=== PATIENT | female | born 1965 | race Caucasian/White ===

== ENCOUNTER 2018-04-22 11:36 | Outpatient (CLI) | payer MEDICARE ==
--- NOTE | 2018-04-22 15:05 | XRAY Report ---
Reason: KNEE JOINT PAIN, RIGHT Procedure Date: 04/22/2018 Accession Number: [id number] / [id number] Procedure: XR - Knee 2 View RT CPT Code: FULL RESULT: EXAM: RIGHT KNEE RADIOGRAPHY EXAM DATE: 04/22/2018 12:12 PM. CLINICAL HISTORY: Knee joint pain, right. COMPARISON: None. TECHNIQUE: 2 views. FINDINGS: Bones: Orthopedic screws are seen at the distal insertion of the inferior patellar tendon in the tibia. The bones are qualitatively osteopenic; this limits evaluation for underlying fractures or masses. No fracture is seen. Joints: Moderate to severe narrowing of the medial femorotibial compartment. Mild narrowing of the lateral femorotibial compartment. Small joint effusion. Soft Tissues: Normal. No soft tissue swelling. IMPRESSION: Degenerative changes. RADIA
== END 2018-04-22 11:37 | disposition home or self-care (01) ==
LOC: DI 11:36
PROVIDERS: ATTEND Family Medicine
DX: M17.11 Unilateral primary osteoarthritis, right knee (principal)

== ENCOUNTER 2018-11-03 11:22 | Outpatient (CLI) | payer MEDICARE ==
--- NOTE | 2018-11-04 12:55 | XRAY Report ---
Reason: CONSTIPATION Procedure Date: 11/03/2018 Accession Number: [id number] / [id number] Procedure: XRN - Abdomen Acute CPT Code: FULL RESULT: EXAM: ABDOMINAL SERIES AND PA CHEST EXAM DATE: 11/03/2018 11:46 AM. CLINICAL HISTORY: CONSTIPATION. COMPARISON: None. TECHNIQUE: 2 views abdomen and 1 view chest. FINDINGS: CHEST: Lungs/Pleura: No focal opacities. No effusion or pneumothorax. Elevated right hemidiaphragm. Mediastinum: Within exam limitations, cardiomediastinal contour is normal. ABDOMEN: Bowel Gas Pattern: Within normal limits. No dilated loops or abnormal fluid levels. Free Air: None. Other: None. IMPRESSION: Normal abdominal series (including 1-view chest). RADIA
== END 2018-11-03 11:23 | disposition home or self-care (01) ==
LOC: DI.N 11:22
PROVIDERS: ATTEND Family Medicine
DX: K59.00 Constipation, unspecified (principal)
CPT/HCPCS: 36415; 74022; 80053; 82150; 83690; 85025

== ENCOUNTER 2018-11-03 12:03 | Outpatient (CLI) | payer MEDICARE ==
[2018-11-03 18:31] LABS: BASOPHILS % (AUTO) 0.4 %; EOSINOPHILS # (AUTO) 0.1 10^3/uL (0.0-0.7); EOSINOPHILS % (AUTO) 2.2 %; HGB - HEMOGLOBIN 12.6 g/dL (12.0-16.0); LYMPHOCYTES % (AUTO) 17.7 %; MEAN CORPUSCULAR HEMOGLOBIN 27.8 pg (27.0-31.0); MEAN CORPUSCULAR HGB CONC 31.5 g/dL (32.0-36.0); MEAN CORPUSCULAR VOLUME 88.3 fL (81.0-99.0); MEAN PLATELET VOLUME 12.8 fL (7.9-10.8); MONOCYTES # (AUTO) 0.6 10^3/uL (0.0-1.0); MONOCYTES % (AUTO) 9.9 %; NEUTROPHILS # (AUTO) 3.8 10^3/uL (1.5-6.6); NEUTROPHILS % (AUTO) 68.2 %; PLT - PLATELET COUNT 160 10^3/uL (130-450); RED BLOOD COUNT 4.53 10^6/uL (4.20-5.40); RED CELL DISTRIBUTION WIDTH 14.2 % (12.0-15.0); WHITE BLOOD COUNT 5.5 x10^3/uL (4.8-10.8)
[2018-11-03 19:02] LABS: ALBUMIN 3.6 g/dL (3.2-5.5); BILIRUBIN,TOTAL 0.6 mg/dL (0.2-1.0); CALCIUM 8.9 mg/dL (8.5-10.3); CREATININE 0.9 mg/dL (0.4-1.0); TOTAL PROTEIN 7.2 g/dL (6.7-8.2)
== END 2018-11-03 12:10 | disposition home or self-care (01) ==
LOC: LAB.N 12:03
PROVIDERS: ATTEND Family Medicine
DX: K59.00 Constipation, unspecified (principal)
CPT/HCPCS: 36415; 80053; 82150; 83690; 85025

== ENCOUNTER 2019-07-28 14:10 | Outpatient (CLI) | payer MEDICARE | END 2019-07-28 14:11 | disposition critical access hospital (66) | LOC: EMS 14:10 | PROVIDERS: ATTEND Surgery | DX: M25.561 Pain in right knee (principal); M25.572 Pain in left ankle and joints of left foot; W10.9XXA Fall (on) (from) unspecified stairs and steps, initial encounter; Y92.009 Unspecified place in unspecified non-institutional (private) residence as the place of occurrence of the external cause | CPT/HCPCS: A0425; A0427 ==

== ENCOUNTER 2019-07-28 14:27 | Emergency (ER) | payer MEDICARE ==
[2019-07-28] MEDS ORDERED: HYDROmorphone 1 MG/ML CARPUJECT IVP STA (14:33)
--- NOTE | 2019-07-28 14:35 | ED Physician Documentation ---
PD HPI LOWER EXT INJURY - Stated complaint Stated Complaint: FALL - History obtained from History obtained from: Patient, EMS - History of Present Illness PD HPI LOW EXT INJURY LOCATION: Other (She had a trip and fall down stairs with only lower extremity injuries. She has severe pain in the right worse than the left knee and the left ankle. No injuries above the waist. She is sure she did not hit her head. 150 mcg of fentanyl on the way here with improvement but pain is still pretty bad.) Review of Systems Ten Systems: 10 systems reviewed and negative Constitutional: reports: Reviewed and negative Throat: reports: Reviewed and negative Cardiac: reports: Reviewed and negative Respiratory: reports: Reviewed and negative PD PAST MEDICAL HISTORY - Past Medical History Psych: Depression - Present Medications Home Medications: Ambulatory Orders Medication Instructions Recorded Confirmed Omeprazole [PriLOSEC] 20 mg PO DAILY 08/20/12 07/28/19 Tamoxifen [(None)] 20 mg PO DAILY 08/20/12 07/28/19 Buspirone HCl 30 mg PO BID 07/28/19 07/28/19 Cholecalciferol (Vitamin D3) 2,000 unit PO DAILY 07/28/19 07/28/19 [Vitamin D] Cranberry Fruit Extract [Cran-Max] 500 mg PO DAILY 07/28/19 07/28/[address] [Voltaren] 75 mg PO BIDWM 07/28/19 07/28/19 Oxycodone HCl/Acetaminophen 1 - 2 each PO Q6H PRN #20 tablet 07/28/19 [Percocet 5-325 mg Tablet] Wheelchair 1 udtab TD ONCE #1 07/28/19 buPROPion HCl [Bupropion HCl Sr] 200 mg PO BID 07/28/19 07/28/19 - Allergies Allergies/Adverse Reactions: Allergies Allergy/AdvReac Type Severity Reaction Status Date / Time No Known Drug Allergies Allergy Verified 07/28/19 14:42 - Social History Does the pt smoke?: No Smoking Status: Never smoker Does the pt drink ETOH?: No Does the pt have substance abuse?: No - Immunizations Immunizations are current?: Yes PD ED PE NORMAL - Vitals Vital signs reviewed: Yes - General General: Alert and oriented X 3, No acute distress - HEENT HEENT: PERRL, EOMI - Neck Neck: Supple, no meningeal sign, No bony TTP - Cardiac Cardiac: RRR, No murmur - Respiratory Respiratory: No respiratory distress, Clear bilaterally - Abdomen Abdomen: Non tender - Extremities Extremities: Other (Mild tenderness of the right hip but no pain with range of motion there. Severe tenderness and ecchymosis of the anterior right knee and moderate tenderness of the anterior left knee and ecchymosis as well. Tender over the left lateral malleolus without deformity.) - Neuro Neuro: Alert and oriented X 3, Normal speech Results - Vitals Vitals: Vital Signs - 24 hr 07/28/19 14:34 Temperature 37.4 C Heart Rate 78 Respiratory 20 Rate Blood Pressure 170/78 H O2 Saturation 94 Oxygen O2 Source Room air - Rads (name of study) XR R hip, B knees and L ankle Radiology: EMP read contemporaneously (Comminuted minimally displaced distal fibular fracture with intact alignment of the tibiotalar joint and possible avulsion at the medial malleolus as well.) Procedures - Splint (location) LLE Splint applied by: Tech Type of splint: Fiberglass, Short leg, Posterior Other: Patient tolerated well, No complications, Neurovascular intact PD MEDICAL DECISION MAKING - ED course ED course: 54-year-old woman with a fall down the stairs, clinically worst areas were the right knee and the left ankle. Left ankle has a left fibular fracture, potentially kind of a bimalleolar equivalent with a chip fracture of the medial malleolus. Clinically the hip is not broken, no pain with internal or external rotation. Given her size and the bilateral injuries did not think crutches would work. Spoke with the on-call orthopedist, Dr. Rivera who looked at her x-rays and said ideally she would be nonweightbearing on the left but would not be terrible if she had to bear weight on the left using a walker if other modalities did not work out. Departure - Departure Disposition: 01 Home, Self Care Clinical Impression: Left fibular fracture Qualifiers: Encounter type: initial encounter Fibula location: distal Fracture type: closed Fracture morphology: other fracture Qualified Code(s): S82.832A - Other fracture of upper and lower end of left fibula, initial encounter for closed fracture Contusion of right knee Qualifiers: Encounter type: initial encounter Qualified Code(s): S80.01XA - Contusion of right knee, initial encounter Contusion of left knee Qualifiers: Encounter type: initial encounter Qualified Code(s): S80.02XA - Contusion of left knee, initial encounter Condition: Good Record reviewed to determine appropriate education?: Yes Instructions: ED Fx Lower Ext Follow-Up: [facility] [Provider Group] (Call Wednesday for next appt) Prescriptions: Oxycodone HCl/Acetaminophen [Percocet 5-325 mg Tablet] 1 - 2 each PO Q6H PRN #20 tablet PRN Reason: pain Wheelchair 1 udtab TD ONCE #1 Comments: Keep the splint on and dry, do not remove it. Elevate is much as possible and you can ice through the splint. Return for new or worsening symptoms. The on- call orthopedist felt that ideally you would not walk or bear weight on the left leg but given the other injuries etc., that may not be possible and did not feel like it was the end of the world if you had to put some weight on the left leg using a walker. Follow-up with them next week for further evaluation and treatment. Do not drink or drive while taking narcotic pain medication. Note that many narcotic pain relievers also contain Tylenol/acetaminophen. Pl ease ensure that your total dose of acetaminophen from all sources does not exceed 3 g (3000 mg) per day. You may get constipated while on this medication. Take a stool softener such as Colace twice a day while you are on it. Also add an kcuy-nle-oigkhlk laxative such as senna or MiraLAX on any day that you do not have a bowel movement. If you received a narcotic pain medication or sedative while in the emergency department, do not drive for the next 24 hours.
--- NOTE | 2019-07-28 15:17 | XRAY Report ---
PROCEDURE: Hip w/Pelvis 2-3V RT INDICATIONS: fall, R hip, B knee and L ankle inj TECHNIQUE: AP pelvis with lateral view(s) of the right hip(s). COMPARISON: None. FINDINGS: Bones: Bony detail somewhat obscured by patient body habitus. No fractures or dislocations. Pelvic r ing appears intact. No suspicious bony lesions. Soft tissues: The visualized bowel gas pattern is normal. No suspicious soft tissue calcifications. IMPRESSION: No evidence acute bony abnormality of the pelvis and right hip. Bony detail somewhat obs cured by patient body habitus. If clinical suspicion and/or symptoms persist, further assessment with repeat plain films or advanced imaging (e.g., CT, MRI )may be helpful for further assessment. Reviewed by: Stone Wells MD on 07/28/2019 3:16 PM PDT Approved by: Stone Wells MD on 07/28/2019 3:16 PM PDT Station ID: [id number]
--- NOTE | 2019-07-28 15:17 | XRAY Report ---
PROCEDURE: Ankle 3 View LT INDICATIONS: fall, R hip, B knee and L ankle inj TECHNIQUE: 3 views of the ankle were acquired. COMPARISON: None FINDINGS: Bones: There is a comminuted, minimally displaced spiral fracture of the distal fibula. Tibiotalar camron int space appears within normal limits. There is a small calcification at the distal tip of the media l malleolus. Ankle mortise is normally aligned. No suspicious bony lesions. Soft tissues: Medial and lateral malleoli or edema is present. Achilles tendon appears normal. IMPRESSION: Comminuted, minimally displaced distal fibular fracture with intact alignment at the tib iotalar junction. Questionable avulsion at the medial malleoli or tip is noted. Reviewed by: Jennifer Yepez MD on 07/28/2019 3:16 PM PDT Approved by: Jennifer Yepez MD on 07/28/2019 3:16 PM PDT Station ID: [id number]
--- NOTE | 2019-07-28 15:22 | XRAY Report ---
PROCEDURE: Knee 4 View BILAT INDICATIONS: fall, R hip, B knee and L ankle inj TECHNIQUE: 3 views of the left and right knee(s) were acquired. COMPARISON: None. FINDINGS: Bones: No fractures or dislocations. No suspicious bony lesions. Surgical hardware is noted overly ing the right proximal tibia. Severe bilateral medial compartment changes with prominent periarticula r osteophytes. Moderate bilateral patellofemoral degenerative narrowing is present. Soft tissues: Mild bilateral joint effusions. No suspicious soft tissue calcifications. IMPRESSION: Prominent bilateral degenerative changes as well as mild bilateral effusions. No visuali zed acute fracture or dislocation. However, occult injury cannot be excluded. Recommend short interva l imaging follow-up in 7-10 days as clinically indicated for additional evaluation. Reviewed by: Jennifer Yepez MD on 07/28/2019 3:21 PM PDT Approved by: Jennifer Yepez MD on 07/28/2019 3:21 PM PDT Station ID: [id number]
[2019-07-28] MEDS ORDERED: oxyCODONE 5 MG TABLET PO STA (15:55)
[2019-07-28 16:04] VITALS: BP 172/101
== END 2019-07-28 16:15 | disposition home or self-care (01) ==
LOC: EDUNIT# → ED 14:27
DX: S82.832A Other fracture of upper and lower end of left fibula, initial encounter for closed fracture (principal); S80.02XA Contusion of left knee, initial encounter; S80.01XA Contusion of right knee, initial encounter; W10.9XXA Fall (on) (from) unspecified stairs and steps, initial encounter
CPT/HCPCS: 29515; 73502; 73564; 73610; 96374; 99283; 99284; A9270; J1170

== ENCOUNTER 2019-08-09 13:14 | Outpatient (CLI) | payer MEDICARE ==
--- NOTE | 2019-08-09 14:38 | XRAY Report ---
PROCEDURE: Ankle 3 View LT INDICATIONS: ANKLE JOINT PAIN TECHNIQUE: 3 views of the ankle were acquired. COMPARISON: 07/28/2019 FINDINGS: Bones: Again noted is oblique fracture involving distal fibular shaft unchanged from prior study. Fra cture involving tip of medial malleolus of indeterminate age is also unchanged. There is persistent w idening of lateral ankle mortise suggestive of distal syndesmotic injury. No suspicious bony lesions . Soft tissues: No tibiotalar joint effusion. Achilles tendon appears normal. IMPRESSION: Stable oblique fracture involving distal fibular shaft and suggestion of mild distal tib iofibular syndesmotic injury. Stable ankle alignment. No new fracture or dislocation. Reviewed by: Carson Patterson MD on 08/09/2019 2:37 PM PDT Approved by: Carson Patterson MD on 08/09/2019 2:37 PM PDT Station ID: [id number]
--- NOTE | 2019-08-09 14:39 | XRAY Report ---
PROCEDURE: Knee 3 View LT INDICATIONS: NONDISPLACED FRACTURE OF LATERAL MALLEUS LT TECHNIQUE: 3 views of the left knee(s) were acquired. COMPARISON: 07/28/2019. FINDINGS: Bones: No fractures or dislocations. Moderate tricompartmental osteoarthritis is seen more prominent in medial femoral tibial compartment. No suspicious bony lesions. Soft tissues: No joint effusion. No suspicious soft tissue calcifications. IMPRESSION: Moderate tricompartmental osteoarthritis more prominent in medial femoral tibial compart ment. No acute left knee fracture or dislocation. No joint effusion. Reviewed by: Carson Patterson MD on 08/09/2019 2:38 PM PDT Approved by: Carson Patterson MD on 08/09/2019 2:38 PM PDT Station ID: [id number]
== END 2019-08-09 13:15 | disposition home or self-care (01) ==
LOC: DI 13:14
PROVIDERS: ATTEND Orthopaedic Surgery
DX: S82.832D Other fracture of upper and lower end of left fibula, subsequent encounter for closed fracture with routine healing (principal); M17.12 Unilateral primary osteoarthritis, left knee

== ENCOUNTER 2019-12-11 11:02 | Outpatient (CLI) | payer MEDICARE ==
[2019-12-11 18:11] LABS: BASOPHILS % (AUTO) 0.6 %; EOSINOPHILS # (AUTO) 0.2 10^3/uL (0.0-0.7); EOSINOPHILS % (AUTO) 3.5 %; HGB - HEMOGLOBIN 12.3 g/dL (12.0-16.0); LYMPHOCYTES # (AUTO) 0.9 10^3/uL (1.5-3.5); LYMPHOCYTES % (AUTO) 18.2 %; MEAN CORPUSCULAR HEMOGLOBIN 27.6 pg (27.0-31.0); MEAN CORPUSCULAR HGB CONC 30.1 g/dL (32.0-36.0); MEAN CORPUSCULAR VOLUME 91.5 fL (81.0-99.0); MEAN PLATELET VOLUME 13.3 fL (7.9-10.8); MONOCYTES # (AUTO) 0.7 10^3/uL (0.0-1.0); MONOCYTES % (AUTO) 13.4 %; NEUTROPHILS % (AUTO) 62.9 %; PLT - PLATELET COUNT 150 10^3/uL (130-450); RED BLOOD COUNT 4.46 10^6/uL (4.20-5.40); RED CELL DISTRIBUTION WIDTH 14.6 % (12.0-15.0); WHITE BLOOD COUNT 4.8 x10^3/uL (4.8-10.8)
[2019-12-11 18:35] LABS: ALBUMIN 3.7 g/dL (3.2-5.5); ALBUMIN/GLOBULIN RATIO 1.2 (1.0-2.2); ALKALINE PHOSPHATASE 59 IU/L (42-121); ALT ALANINE AMINOTRANSFERASE 25 IU/L (10-60); AST ASPARTATE AMINOTRANSFERASE 27 IU/L (10-42); BILIRUBIN,TOTAL 0.6 mg/dL (0.2-1.0); BUN - BLOOD UREA NITROGEN 19 mg/dL (6-20); CALCIUM 9.2 mg/dL (8.5-10.3); CARBON DIOXIDE - CO2 28 mmol/L (21-32); CHLORIDE 100 mmol/L (101-111); CHOL/HDL RATIO 3.9 (<4.4); CHOLESTEROL 233 mg/dL; CREATININE 0.9 mg/dL (0.4-1.0); GLUCOSE 102 mg/dL (70-100); HDL CHOLESTEROL 60 mg/dL; LDL CHOLESTEROL,CALCULATED 151 mg/dL; LDL/HDL RATIO 2.5 (<4.4); SODIUM 138 mmol/L (135-145); TOTAL PROTEIN 6.9 g/dL (6.7-8.2); VLDL CHOLESTEROL 22 mg/dL
== END 2019-12-11 11:03 | disposition home or self-care (01) ==
LOC: LAB.WCP 11:02
PROVIDERS: ATTEND Nurse Practitioner Family
DX: I10 Essential (primary) hypertension (principal); Z13.220 Encounter for screening for lipoid disorders
CPT/HCPCS: 36415; 80053; 80061; 83721; 84443; 85025

== ENCOUNTER 2020-04-18 08:19 | Outpatient (CLI) | payer MEDICARE | END 2020-04-18 23:59 | disposition home or self-care (01) | LOC: LAB.R 08:19 | PROVIDERS: ATTEND Family Medicine | DX: N39.0 Urinary tract infection, site not specified (principal) | CPT/HCPCS: 87086; 87181 ==

== ENCOUNTER 2020-07-31 08:00 | Outpatient (CLI) | payer MEDICARE | END 2020-07-31 23:59 | disposition home or self-care (01) | LOC: LAB.N 08:00 | PROVIDERS: ATTEND Physician Assistant Medical | DX: N39.0 Urinary tract infection, site not specified (principal) | CPT/HCPCS: 87086 ==

== ENCOUNTER 2021-03-10 11:17 | Outpatient (CLI) | payer SELFPAY | END 2021-03-10 23:59 | disposition home or self-care (01) | LOC: LAB.N 11:17 | PROVIDERS: ATTEND Family Medicine | DX: U07.1 COVID-19 (principal) ==

== ENCOUNTER 2021-03-16 16:07 | Emergency (ER) | payer SELFPAY | END 2021-03-16 17:22 | disposition left against medical advice (07) | LOC: ED 16:07 | DX: Z53.21 Procedure and treatment not carried out due to patient leaving prior to being seen by health care provider (principal) ==

== ENCOUNTER 2021-03-17 01:50 | Emergency (ER) | payer SELFPAY ==
--- NOTE | 2021-03-17 02:59 | ED Physician Documentation ---
History of Present Illness - Stated complaint Stated Complaint: C+,N/V - Chief complaint Chief Complaint: Abd Pain - History obtained from History obtained from: Patient - Additonal information Additional information: 56yF with pmh IBS, depression, recent diagnosis of covid 3 days ago p/w nbnb n/v and nonbloody diarrhea as well as severe intermittent RUQ pain radiating to back today. improves with vomiting. not correlated with cough or deep breathing. denies cp. +VARGAS. also with nonproductive cough and subjective myalgia, fever/chills. denies hemoptysis, unequal leg swelling, calf pain. Patient is covid vaccinated and has had a booster. PSH open cholecystectomy Review of Systems Ten Systems: 10 systems reviewed and negative Constitutional: reports: Fever, Chills, Myalgias, Fatigue Cardiac: denies: Chest pain / pressure Respiratory: reports: Dyspnea, Cough GI: reports: Abdominal Pain, Nausea, Vomiting, Diarrhea Musculoskeletal: reports: Back pain PD PAST MEDICAL HISTORY - Past Medical History Past Medical History: Yes Cardiovascular: None Respiratory: None Neuro: None Endocrine/Autoimmune: None GI: None [employer]: Breast cancer : None HEENT: None Psych: Depression Musculoskeletal: None Derm: None - Past Surgical History Past Surgical History: Yes /[employer]: Other - Present Medications Home Medications: Ambulatory Orders Medication Instructions Recorded Confirmed Omeprazole [PriLOSEC] 20 mg PO DAILY 08/20/12 03/17/21 Buspirone HCl 30 mg PO BID 07/28/19 03/17/[address] [Voltaren] 75 mg PO BIDWM 07/28/19 03/17/21 Wheelchair 1 udtab TD ONCE #1 07/28/19 Bupropion HCl [Wellbutrin Xl] 300 mg PO DAILY 03/17/21 03/17/21 Ondansetron Odt [Zofran Odt] 4 mg TL Q6H PRN #10 tablet 03/17/21 Oxycodone HCl/Acetaminophen 1 each PO Q4H PRN #10 tablet 03/17/21 [Percocet 10-325 mg Tablet] Tamsulosin [Flomax] 0.4 mg PO DAILY 14 Days #14 tab 03/17/21 atenoloL [Tenormin] 25 mg PO DAILY 03/17/21 03/17/21 buPROPion HCL [Bupropion HCl Sr] 150 mg PO DAILY 03/17/21 03/17/21 - Allergies Allergies/Adverse Reactions: Allergies Allergy/AdvReac Type Severity Reaction Status Date / Time No Known Drug Allergies Allergy Verified 03/17/21 03:27 - Social History Does the pt smoke?: No Smoking Status: Never smoker Does the pt drink ETOH?: No Does the pt have substance abuse?: No - Immunizations Immunizations are current?: Yes PD ED PE NORMAL - Vitals Vital signs reviewed: Yes - General General: Alert and oriented X 3, Other (morbid obesity. moderate distress) - HEENT HEENT: Atraumatic, PERRL, EOMI - Neck Neck: Supple, no meningeal sign - Cardiac Cardiac: RRR - Respiratory Respiratory: No respiratory distress, Clear bilaterally - Abdomen Abdomen: Non tender, Non distended, Other (diffuse discomfort to palpation. negative benavides sign. ) - Derm Derm: Normal color, Warm and dry - Extremities Extremities: No deformity, No calf tenderness / cord - Neuro Neuro: Alert and oriented X 3, No motor deficit, No sensory deficit - Psych Psych: Other (anxious affect) Results - Vitals Vitals: Vital Signs - 24 hr 03/17/21 03/17/21 03/17/21 02:13 02:18 03:23 Temperature 99.8 C H 99.8 C H Heart Rate 88 88 89 Respiratory 17 17 16 Rate Blood Pressure 186/93 H 186/93 H 145/73 H O2 Saturation 93 93 94 03/17/21 03/17/21 03/17/21 04:12 04:34 05:22 Temperature 37.6 C Heart Rate 81 80 80 Respiratory 20 16 18 Rate Blood Pressure 174/74 H 149/82 H 175/92 H O2 Saturation 94 95 96 Oxygen O2 Source Nasal cannula Oxygen Flow Rate 2 - Labs Labs: Laboratory Tests 03/17/21 03/17/21 03/17/21 03:00 03:00 03:00 WBC 13.8 H RBC 4.37 Hgb 9.4 L Hct 33.5 L MCV 76.7 L MCH 21.5 L MCHC 28.1 L RDW 19.9 H Plt Count 238 MPV 12.0 H Neut # (Auto) Not Reportable Lymph # (Auto) Not Reportable [place] # (Auto) Not Reportable Eos # (Auto) Not Reportable Baso # (Auto) Not Reportable Absolute Nucleated RBC Not Reportable Total Counted 100 Band Neuts % (Manual) 1 Abnorm Lymph % (Manual) 0 Myelocytes % 3 H Nucleated RBC % Not Reportable Neutrophils # (Manual) 10.5 H Lymphocytes # (Manual) 1.8 Monocytes # (Manual) 1.1 H Eosinophils # (Manual) 0.0 Basophils # (Manual) 0.0 Differential Comment MANUAL DIFFERENTIAL WBC Morphology NORMAL APPEARANCE Platelet Estimate NORMAL (130-450,000) Platelet Morphology NORMAL APPEARANCE RBC Morph Micro Appear 1+ POLYCHROMASIA Sodium 140 Potassium 3.8 Chloride 107 Carbon Dioxide 20 L Anion Gap 13.0 BUN 11 Creatinine 1.2 H Estimated GFR (MDRD) 46 L Glucose 124 H Calcium 9.2 Total Bilirubin 0.4 AST 38 ALT 38 Alkaline Phosphatase 72 Total Protein 7.6 Albumin 3.9 Globulin 3.7 Albumin/Globulin Ratio 1.1 Lipase 30 Urine Color YELLOW Urine Clarity CLEAR Urine pH 6.0 Ur Specific [place] >=1.030 H Urine Protein NEGATIVE Urine Glucose (UA) NEGATIVE Urine Ketones NEGATIVE Urine Occult Blood MODERATE H Urine Nitrite NEGATIVE Urine Bilirubin NEGATIVE Urine Urobilinogen 0.2 (NORMAL) Ur Leukocyte Esterase NEGATIVE Urine RBC 11-25 H Urine WBC 0-3 Ur Squamous Epith Cells MOD Squamous H Urine Bacteria Rare Ur Microscopic Review INDICATED Urine Culture Comments NOT INDICATED PD MEDICAL DECISION MAKING - ED course ED course: 56yF p/w abd pain, n/v today and cough/soa after diagnosis of covid 3 days ago. patient came here earlier during the day yesterday due to symptoms but left without being seen after using the restroom and feeling better. Her symptoms recurred so she came in a second time. Given patient has her GB out, I have lower suspicion for GB pathology however will check LFTs and bilirubin to r/o ductal pathology. May have concomitant kidney stone therefore will check urine. It is possible this is GI distress related to her covid diagnosis versus a flare of her IBS. Will provide symptomatic care, obtain CT, labs, reassess. Patient pain went down to 2/10 s/p first dose of dilaudid, back up to 10/[address], improving again after 2nd dose of dilaudid. d/w urology Dr. Phillips who states given patient is covid positive this likely explains leukocytosis, especially since u/a is negative. if n/v is controlled, no stranding around R kidney, patient can f/u outpatient urology. We should give strict return precautions. Needs f/u within 4 weeks. d/w patient who states her pain is back up to 5/10. toradol and third dose of dilaudid ordered. 2nd liter hanging. Patient with pain 1/10, finished with her 2nd liter of fluids. return precautions discussed. meds sent to pharmacy and she will f/u with urology outpatient. Departure - Departure Disposition: 01 Home, Self Care Clinical Impression: Nausea and vomiting, Abdominal pain, Diarrhea, COVID-19, Kidney stones Condition: Stable Instructions: Kidney Stones, COVID-19 [facility], COVID-19 [facility] Statement Follow-Up: Suzi Goldberg MD [Physician No Access] - Prescriptions: Tamsulosin [Flomax] 0.4 mg PO DAILY 14 Days #14 tab Oxycodone HCl/Acetaminophen [Percocet 10-325 mg Tablet] 1 each PO Q4H PRN #10 tablet PRN Reason: Pain Ondansetron Odt [Zofran Odt] 4 mg TL Q6H PRN #10 tablet PRN Reason: Nausea / Vomiting Comments: You were seen in the ED for R sided pain that appears to be caused by kidney stones. Please follow up with outpatient urology and make sure you stay well hydrated. Return to the ED if you start to have burning with urination, increased frequency of urination, fever with temp >100.4 orally, or if your pain is not controlled or you have other concerns. Please follow up with urology either in [facility] or with [facility] kidney stone center [phone]. Prescriptions sent to [facility].
[2021-03-17 03:07] LABS: BILIRUBIN,URINE NEGATIVE (NEGATIVE); GLUCOSE, URINE (UA) NEGATIVE (NEGATIVE); KETONES,URINE (UA) NEGATIVE (NEGATIVE); LEUKOCYTE ESTERASE, URINE NEGATIVE (NEGATIVE); NITRITE,URINE NEGATIVE (NEGATIVE); OCCULT BLOOD,URINE MODERATE (NEGATIVE); PROTEIN,URINE NEGATIVE (NEGATIVE); UROBILINOGEN,URINE 0.2 (NORMAL) E.U./dL (NORMAL)
[2021-03-17 03:08] LABS: BASOPHILS % (AUTO) 0.5 %; EOSINOPHILS % (AUTO) 0.5 %; HCT - HEMATOCRIT 33.5 % (37.0-47.0); HGB - HEMOGLOBIN 9.4 g/dL (12.0-16.0); LYMPHOCYTES % (AUTO) 9.4 %; MEAN CORPUSCULAR HEMOGLOBIN 21.5 pg (27.0-31.0); MEAN CORPUSCULAR HGB CONC 28.1 g/dL (32.0-36.0); MEAN CORPUSCULAR VOLUME 76.7 fL (81.0-99.0); NEUTROPHILS % (AUTO) 76.2 %; PLT - PLATELET COUNT 238 10^3/uL (130-450); RED BLOOD COUNT 4.37 10^6/uL (4.20-5.40); RED CELL DISTRIBUTION WIDTH 19.9 % (12.0-15.0); WHITE BLOOD COUNT 13.8 x10^3/uL (4.8-10.8)
[2021-03-17] MEDS: SODIUM CHLORIDE 0.9% 1,000 ML IV STA ×2 (03:10→05:06)
[2021-03-17] MEDS: ONDANSETRON 4 MG/2 ML VIAL IVP STA (03:10)
[2021-03-17] MEDS: HYDROmorphone 1 MG/ML CARPUJECT IVP STA ×3 (03:10→05:30)
[2021-03-17] MEDS: ACETAMINOPHEN 325 MG TABLET PO STA (03:10)
[2021-03-17 03:12] LABS: CLARITY,URINE CLEAR (CLEAR)
[2021-03-17] MEDS ORDERED: IOVERSOL 320 100 ML VIAL IVP ONE (03:12)
[2021-03-17 03:13] LABS: ABNORMAL LYMPHS % (MANUAL) 0 %
[2021-03-17 03:15] LABS: ALBUMIN 3.9 g/dL (3.2-5.5); ALBUMIN/GLOBULIN RATIO 1.1 (1.0-2.2); BILIRUBIN,TOTAL 0.4 mg/dL (0.2-1.0); CALCIUM 9.2 mg/dL (8.5-10.3); CREATININE 1.2 mg/dL (0.4-1.0); POTASSIUM 3.8 mmol/L (3.5-5.0); TOTAL PROTEIN 7.6 g/dL (6.7-8.2)
[2021-03-17 03:20] LABS: BACTERIA,URINE Rare /HPF (None Seen); SQUAMOUS EPITHELIAL CELL,UR MOD Squamous (<= Few); WBC,URINE 0-3 /HPF (0-5)
[2021-03-17 03:23] LABS: BAND NEUTROPHILS % (MANUAL) 1 %; LYMPHOCYTES # (MANUAL) 1.8 10^3/uL (1.5-3.5); LYMPHOCYTES % (MANUAL) 13 %; MONOCYTES # (MANUAL) 1.1 10^3/uL (0.0-1.0); MYELOCYTES % (MANUAL) 3 %; NEUTROPHILS # (MANUAL) 10.5 10^3/uL (1.5-6.6)
[2021-03-17 03:24] LABS: DIFFERENTIAL COMMENT MANUAL DIFFERENTIAL; PLATELET ESTIMATE, MANUAL NORMAL (130-450,000) (NORMAL); PLATELET MORPHOLOGY NORMAL APPEARANCE (NORMAL); WBC MORPHOLOGY (MULTIPLE) NORMAL APPEARANCE (NORMAL)
[2021-03-17] MEDS: IOVERSOL 320 100 ML VIAL IVP ONE (04:09)
[2021-03-17] MEDS: KETOROLAC 15 MG/ML VIAL IVP STA (04:26)
[2021-03-17 06:57] VITALS: BP 156/71
--- NOTE | 2021-03-17 08:18 | CT Report ---
PROCEDURE: Abdomen/Pelvis W INDICATIONS: Abdominal pain, acute, nonlocalized CONTRAST: IV CONTRAST: Optiray 320 ml: 100 PO CONTRAST: *NO PO CONTRAST TECHNIQUE: After the administration of intravenous contrast, 5 mm thick sections acquired from the diaphragms to the symphysis. 5 mm thick coronal and sagittal reformats were acquired. For radiation dose reducti on, the following was used: automated exposure control, adjustment of mA and/or kV according to loren ent size. COMPARISON: Diagnostic mammogram 03/28/2020. FINDINGS: Image quality: Excellent. ABDOMEN: Lung bases: There are 2 small clustered nodules posteriorly within the left lower lobe measuring up t o 0.4 cm. There is mild dependent atelectasis bilaterally. Linear opacities within the left lingula a re consistent with scarring or atelectasis. Indistinct ground glass opacities are also demonstrated b ilaterally suggestive of pulmonary edema. Heart size is normal. There is a partially visualized regio n of fat necrosis within the inferior right breast which appears similar to the prior mammogram given differences in technique. Solid organs: Evaluation of the liver demonstrates no focal hepatic lesions. Gallbladder is surgical ly absent. Biliary system is non dilated. The spleen is normal in size. Pancreas enhances normally w ithout peripancreatic fat stranding or fluid collections. No adrenal nodules. There is a small obstructing urinary stone measuring up to 0.4 cm at the right ureterovesicular junct ion with associated mild right hydroureteronephrosis with perinephric and perirenal fat stranding. Th ere is also associated asymmetrically delayed enhancement of the right kidney. No additional right re nal stones identified. On the left, there is a nonobstructing stone within the inferior pole measurin g up to 1.1 cm. This demonstrates attenuation values of approximately 4998-3890 Hounsfield units. Peritoneum and bowel: Bowel loops demonstrate normal wall thickness and caliber. No pericecal planta r changes to suggest appendicitis. There are a few colonic diverticula without acute diverticulitis. No free fluid or air. Nodes and vessels: No retroperitoneal or mesenteric adenopathy by size criteria. Aorta and inferior vena cava are normal in size. Miscellaneous: No ventral hernias. PELVIS: Genitourinary: Bladder wall thickness is normal. Miscellaneous: No inguinal hernias or adenopathy. Bones: No suspicious bony lesions. There are moderate degenerative changes in the sacral iliac join ts bilaterally with particular sclerosis and gas in the joint space. No vertebral body compression fr actures. IMPRESSION: 1. Obstructing urinary stone at the right UVJ with mild right hydroureteronephrosis with perinephric and perirenal fat stranding as well as asymmetrically delayed enhancement of the right kidney. 2. Nonobstructing stone in the left kidney measuring up to 1.1 cm. 3. Small clustered nodules posteriorly in the left lower lobe. The findings are suggestive of an infe ctious or inflammatory process. The patient is at high risk for malignancy, consider follow-up CT in 6-12 months to demonstrate stability or resolution. Reviewed by: Darshan Gupta MD on 03/17/2021 8:16 AM PST Approved by: Darshan Gupta MD on 03/17/2021 8:16 AM PST Station ID: [id number]
== END 2021-03-17 08:22 | disposition home or self-care (01) ==
LOC: ED 01:50
DX: N13.2 Hydronephrosis with renal and ureteral calculous obstruction (principal); U07.1 COVID-19; R11.2 Nausea with vomiting, unspecified; R19.7 Diarrhea, unspecified; R05.9 Cough, unspecified; R06.02 Shortness of breath
CPT/HCPCS: 36415; 74177; 80053; 81001; 83690; 85025; 96361; 96374; 96375; 96376; 99284; 99285; A9270; J1170; Q9967; 81003; 87086

== ENCOUNTER 2021-03-18 23:54 | Emergency (ER) | payer SELFPAY ==
[2021-03-19] MEDS ORDERED: KETOROLAC 30 MG/ML VIAL IVP STA (01:36)
[2021-03-19] MEDS ORDERED: HYDROmorphone 1 MG/ML CARPUJECT IVP STA ×2 (01:36→01:37)
[2021-03-19] MEDS ORDERED: SODIUM CHLORIDE 0.9% 1,000 ML IV STA (01:37)
[2021-03-19 02:50] VITALS: BP 168/73
--- NOTE | 2021-03-19 02:53 | ED Physician Documentation ---
History of Present Illness - Stated complaint Stated Complaint: C+, ABD/SIDE PX - Chief complaint Chief Complaint: Abd Pain - History obtained from History obtained from: Patient - Additonal information Additional information: The patient is brought to the emergency department by family for chief complaint of right flank pain. The patient was just seen within the last 24 hours and not only positive for COVID but also found to have a right-sided kidney stone. She was sent home on Percocet but states it just isn't helping. She does admit that they did not get the Percocet until hours after her visit, by which time the pain had fully recurred. The patient had been feeling better when she was discharged from the emergency department. She denies any fevers or chills. No new symptoms, just a recurrence of the pain. Patient is also been nauseated as her pain has ramped up. No other complaints at this time. Review of Systems Ten Systems: 10 systems reviewed and negative Constitutional: reports: Reviewed and negative Eyes: reports: Reviewed and negative Ears: reports: Reviewed and negative Nose: reports: Reviewed and negative Throat: reports: Reviewed and negative Cardiac: reports: Reviewed and negative Respiratory: reports: Reviewed and negative GI: reports: Abdominal Pain, Nausea, Vomiting : reports: Reviewed and negative Skin: reports: Reviewed and negative Musculoskeletal: reports: Reviewed and negative Neurologic: reports: Reviewed and negative Psychiatric: reports: Reviewed and negative Endocrine: reports: Reviewed and negative Immunocompromised: reports: Reviewed and negative PD PAST MEDICAL HISTORY - Past Medical History Cardiovascular: None Respiratory: None Neuro: None Endocrine/Autoimmune: None GI: None 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 : 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 HEENT: None Psych: Depression Musculoskeletal: None Derm: None - Past Surgical History Past Surgical History: Yes /DESK REPORTER: Other - Present Medications Home Medications: Ambulatory Orders Medication Instructions Recorded Confirmed Omeprazole [PriLOSEC] 20 mg PO DAILY 08/20/12 03/19/21 Buspirone HCl 30 mg PO BID 07/28/19 03/19/[address] [Voltaren] 75 mg PO BIDWM 07/28/19 03/19/21 Wheelchair 1 udtab TD ONCE #1 07/28/19 03/19/21 Ondansetron Odt [Zofran Odt] 4 mg TL Q6H PRN #10 tablet 03/17/21 03/19/21 Oxycodone HCl/Acetaminophen 1 each PO Q4H PRN #10 tablet 03/17/21 03/19/21 [Percocet 10-325 mg Tablet] Tamsulosin [Flomax] 0.4 mg PO DAILY 14 Days #14 tab 03/17/21 03/19/21 atenoloL [Tenormin] 25 mg PO DAILY 03/17/21 03/19/21 buPROPion HCL [Bupropion HCl Sr] 150 mg PO DAILY 03/17/21 03/19/21 HYDROcod/ACETAM 5/325 [Votaw 5/325] 1 - 2 tablet PO Q6H PRN #14 tablet 03/19/21 Ondansetron Odt [Zofran] 4 mg TL Q6H PRN #10 tablet 03/19/21 Tamsulosin [Flomax] 1 cap PO DAILY #14 cap 03/19/21 - Allergies Allergies/Adverse Reactions: Allergies Allergy/AdvReac Type Severity Reaction Status Date / Time No Known Drug Allergies Allergy Verified 03/17/21 03:27 - Social History Does the pt smoke?: No Smoking Status: Never smoker Does the pt drink ETOH?: No Does the pt have substance abuse?: No - Immunizations Immunizations are current?: Yes PD ED PE NORMAL - Vitals Vital signs reviewed: Yes - General General: Alert and oriented X 3, No acute distress, Well developed/nourished, Other (Patient appears uncomfortable but otherwise no apparent distress) - HEENT HEENT: Atraumatic, PERRL, EOMI, Moist mucous membranes - Neck Neck: Supple, no meningeal sign - Cardiac Cardiac: RRR, No murmur, Strong equal pulses - Respiratory Respiratory: No respiratory distress, Clear bilaterally - Abdomen Abdomen: Soft, Non distended, Other (Tenderness, right flank) - Derm Derm: Normal color, Warm and dry, No rash - Extremities Extremities: No deformity, No edema, No calf tenderness / cord - Neuro Neuro: Alert and oriented X 3, 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 I did review her records and found that she had been fully worked up on her very recent last visit. I discussed with the patient that it is important for her to stay on top of her pain, and not let many hours lapse between her treatment here and taking something for pain at home. I have advised her to take another dose pain medicine around 4 hours from her discharge here and keep on a pain medication schedule until she gets to fee ling better. Patient is agreeable. We've discussed the usual indications for return. Departure - Departure Disposition: Home, Self Care Clinical Impression: Kidney stone Condition: Stable Instructions: ED Stone Renal W Colic Prescriptions: Tamsulosin [Flomax] 1 cap PO DAILY #14 cap HYDROcod/ACETAM 5/325 [Votaw 5/325] 1 - 2 tablet PO Q6H PRN #14 tablet PRN Reason: Pain Ondansetron Odt [Zofran] 4 mg TL Q6H PRN #10 tablet PRN Reason: Nausea / Vomiting Comments: You have been treated with medication for pain and nausea today. Is very important that this time, you take your pain medication within 4 hours of arriving home, to be sure that the pain does not escalate and get out of control again. You may take the nausea medication as needed, as well. It is also really important that you drink plenty of fluids to help push the stone out. A different medicine has been prescribed for pain, and the prescription has been electronically transmitted to [facility] in [place]. Discharge Date/Time: 03/19/21 03:45
== END 2021-03-19 03:45 | disposition home or self-care (01) ==
LOC: ED 23:54
DX: U07.1 COVID-19 (principal); N20.0 Calculus of kidney
CPT/HCPCS: 96374; 99283; 99284; J1170

== ENCOUNTER 2021-03-24 13:33 | Outpatient (CLI) | payer SELFPAY ==
--- NOTE | 2021-03-24 15:45 | XRAY Report ---
PROCEDURE: Ankle 3 View RT INDICATIONS: R ANKLE PX TECHNIQUE: 3 views of the ankle were acquired. COMPARISON: None large plantar calcaneal bone spur. Mild tibiotalar joint osteoarthritis. Mild-to-mo derate midfoot osteoarthritis. FINDINGS: Bones: No fractures or dislocations. Ankle mortise is normally aligned. No suspicious bony lesions . Soft tissues: No tibiotalar joint effusion. Achilles tendon appears normal. IMPRESSION: 1. Osteoarthritis as described above. 2. Large calcaneal bone spur. 3. No fracture. No acute osseous lesion. If there persistent symptoms or continued clinical concern f or pathology, then repeat plain film radiographs (7-10 days) or advanced imaging (CT, MR, bone scan) should be considered for further evaluation. Reviewed by: Yamileth Stone MD, PhD on 03/24/2021 3:44 PM PST Approved by: Yamileth Stone MD, PhD on 03/24/2021 3:44 PM PST Station ID: [id number]
== END 2021-03-24 23:59 | disposition home or self-care (01) ==
LOC: DI.N 13:33
PROVIDERS: ATTEND Registered Nurse
DX: M19.071 Primary osteoarthritis, right ankle and foot (principal); M77.31 Calcaneal spur, right foot

== ENCOUNTER 2022-09-26 16:17 | Outpatient (CLI) | payer SELFPAY | END 2022-09-26 23:59 | disposition critical access hospital (66) | LOC: EMS 16:17 | DX: R06.02 Shortness of breath (principal); R60.0 Localized edema | CPT/HCPCS: A0425; A0429 ==

== ENCOUNTER 2022-09-26 16:39 | Inpatient (IN) | payer MEDICARE, OTHER ==
--- NOTE | 2022-09-26 16:46 | ED Physician Documentation ---
PD HPI DYSPNEA - Stated complaint Stated Complaint: SOA - History obtained from History obtained from: Patient - Additional information Additional information: 57-year-old woman with history of hypertension but no history of heart or lung problems presents with progressive exertional dyspnea for the last several months. She states her last several months she gets short of breath whenever she exerts herself, and more recently has been short of breath if she lays flat and has had pedal edema without pain or asymmetry over the last week or so. She denies cough or hemoptysis. She is a very remote smoker having quit at age 35. EMS [address] tested her and her oxygen levels remained above 96% without supplemental oxygen at home. 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 HEENT: None Psych: Depression Musculoskeletal: None Derm: None - Past Surgical History Past Surgical History: Yes /FERRY TERMINAL SUPERVISOR: Other - Present Medications Home Medications: Ambulatory Orders Medication Instructions Recorded Confirmed Omeprazole [PriLOSEC] 20 mg PO DAILY 08/20/12 09/26/22 Buspirone HCl 30 mg PO BID 07/28/19 09/26/[address] [Voltaren] 75 mg PO BIDWM 07/28/19 09/26/22 Wheelchair 1 udtab TD ONCE #1 07/28/19 09/26/22 atenoloL [Tenormin] 25 mg PO DAILY 03/17/21 09/26/22 buPROPion HCL [Bupropion HCl Sr] 150 mg PO DAILY 03/17/21 09/26/22 Ascorbic Acid [Vitamin C] 500 mg PO DAILY 09/26/22 09/26/22 Cholecalciferol [Vitamin D3] 25 mcg PO BID 09/26/22 09/26/22 Escitalopram [Lexapro] 15 mg PO DAILY 09/26/22 09/26/22 buPROPion HCL [Wellbutrin Xl] 300 mg PO DAILY 09/26/22 09/26/22 hydroCHLOROthiazide 25 mg PO DAILY 09/26/22 09/26/22 [Hydrochlorothiazide] - Allergies Allergies/Adverse Reactions: Allergies Allergy/AdvReac Type Severity Reaction Status Date / Time adhesive tape AdvReac Rash Verified 09/26/22 16:52 - Social History Does the pt smoke?: No Smoking Status: Never smoker Does the pt drink ETOH?: No Does the pt have substance abuse?: No - Immunizations Immunizations are current?: Yes PD ED PE NORMAL - Vitals Vital signs reviewed: Yes - General General: Alert and oriented X 3, No acute distress, Well developed/nourished, Other (Tearful and anxious) - HEENT HEENT: PERRL, EOMI - Neck Neck: Supple, no meningeal sign, No bony TTP, No JVD - Cardiac Cardiac: RRR, No murmur - Respiratory Respiratory: No respiratory distress, Clear bilaterally - Abdomen Abdomen: Non tender - Back Back: No CVA TTP, No spinal TTP - Derm Derm: Normal color, Warm and dry - Extremities Extremities: Other (2+ pitting pedal edema to mid calf, symmetric, no cellulitis or tenderness.) - Neuro Neuro: Alert and oriented X 3, Normal speech Results - Vitals Vitals: Vital Signs - 24 hr 09/26/22 09/26/22 09/26/22 16:48 17:46 18:44 Temperature 37.4 C 36.5 C Heart Rate 87 85 Heart Rate [ 83 Monitoring electrodes] Respiratory 18 12 17 Rate Blood Pressure 136/59 H 162/81 H Blood Pressure 128/43 L [Right Brachial artery] O2 Saturation 100 99 99 09/26/22 09/26/22 19:04 19:39 Temperature 37.0 C 36.7 C Heart Rate Heart Rate [ 84 82 Monitoring electrodes] Respiratory 18 14 Rate Blood Pressure Blood Pressure 142/65 H 131/59 H [Right Brachial artery] O2 Saturation 96 100 Oxygen O2 Source Room air - EKG (time done) 1658 EKG releavant findings:: EKG personally interpreted by author of this note. Relevant findings are: Rate: Rate (enter#) (84) Rhythm: NSR [place]: Normal Intervals: Prolonged DE, Prolonged QT QRS: Low voltage Ischemia: Normal ST segments - Labs Labs: Laboratory Tests 09/26/22 09/26/22 09/26/22 17:00 17:00 17:00 WBC 9.2 RBC 1.68 L Hgb 2.4 L* Hct 10.3 L* MCV 61.3 L MCH 14.3 L MCHC 23.3 L RDW 26.6 H Plt Count 399 Neut # (Auto) 6.9 H Lymph # (Auto) 0.8 L Barry # (Auto) 1.2 H Eos # (Auto) 0.1 Baso # (Auto) 0.0 Absolute Nucleated RBC 0.46 Nucleated RBC % 5.0 Sodium 137 Potassium 3.7 Chloride 104 Carbon Dioxide 21 Anion Gap 12.0 BUN 18 Creatinine 1.4 H Estimated GFR (MDRD) 39 L Glucose 108 H Calcium 8.9 Iron TIBC % Saturation Transferrin Total Bilirubin 0.5 AST 14 ALT 13 Alkaline Phosphatase 72 Troponin I High Sens 7.9 B-Natriuretic Peptide 457 H Total Protein 6.1 L Albumin 3.3 Globulin 2.8 Albumin/Globulin Ratio 1.2 Lipase 45 Blood Type Blood Type Recheck Antibody Screen Crossmatch IS Only 09/26/22 09/26/22 09/26/22 17:00 17:00 17:16 WBC RBC Hgb Hct MCV MCH MCHC RDW Plt Count Neut # (Auto) Lymph # (Auto) Barry # (Auto) Eos # (Auto) Baso # (Auto) Absolute Nucleated RBC Nucleated RBC % Sodium Potassium Chloride Carbon Dioxide Anion Gap BUN Creatinine Estimated GFR (MDRD) Glucose Calcium Iron < 10 L TIBC 528 H % Saturation TNP Transferrin 377 H Total Bilirubin AST ALT Alkaline Phosphatase Troponin I High Sens B-Natriuretic Peptide Total Protein Albumin Globulin Albumin/Globulin Ratio Lipase Blood Type A POSITIVE Blood Type Recheck A POSITIVE Antibody Screen NEGATIVE Crossmatch IS Only See Detail - Rads (name of study) Single view chest x-ray showing mild edema with prominent interstitium Relevant Findings:: Final report received, EMP independent interpretation of test PD Medical Decision Making - ED course ED course: 57-year-old woman presents with shortness of breath. She is found to be profoundly anemic here with a hemoglobin of 2.4. On further history she has been transfused in the past. She does not have any symptoms referable to GI bleeding such as melena. She says maybe once in a while she has a little bit of blood from hemorrhoid. No dark bloody or grossly bloody stools. No GI upset. She has microcytic indices. BNP of 457, likely high-output heart failure. Dr. Soliz will admit and we spoke at 7:19 PM and I did talk with the on-call surgeon, Dr. Rodríguez and his service will consult tomorrow. I did order a dose of IV Lasix after the first dose of blood. - Critical Care Time(min): 35 Time Includes: Direct patient care, Review records, Reassess patient, Document care, Coordinate care, Medical consult, Family consult for tx dec Data interpretation: Labs, Pulse ox Procedures included in critical care time: Peripheral IV Procedures excluded from critical care time: EKG Departure - Departure Disposition: ED Place in Observation Clinical Impression: Iron deficiency anemia, High output heart failure Condition: Serious Forms: PCP List
--- NOTE | 2022-09-26 17:17 | XRAY Report ---
PROCEDURE: Chest 1 View X-Ray INDICATIONS: dyspnea TECHNIQUE: One view of the chest was acquired. COMPARISON: None. FINDINGS: Surgical changes and devices: None. Lungs and pleura: No pleural effusions or pneumothorax. Lungs are clear. Prominent interstitial mar kings and vascularity. Mediastinum: Cardiomegaly. Bones and chest wall: No suspicious bony lesions. Overlying soft tissues appear unremarkable. IMPRESSION: Cardiomegaly with prominent interstitium is concerning for cardiogenic pulmonary edema. Reviewed by: Patricio Ruiz MD on 09/26/2022 4:15 PM AKDT Approved by: Patricio Ruiz MD on 09/26/2022 4:15 PM AKDT Station ID: [id number]
[2022-09-26 17:21] LABS: BASOPHILS % (AUTO) 0.1 %; EOSINOPHILS # (AUTO) 0.1 10^3/uL (0.0-0.7); EOSINOPHILS % (AUTO) 1.3 %; LYMPHOCYTES # (AUTO) 0.8 10^3/uL (1.5-3.5); LYMPHOCYTES % (AUTO) 8.9 %; MEAN CORPUSCULAR HEMOGLOBIN 14.3 pg (27.0-31.0); MEAN CORPUSCULAR HGB CONC 23.3 g/dL (32.0-36.0); MEAN CORPUSCULAR VOLUME 61.3 fL (81.0-99.0); MONOCYTES # (AUTO) 1.2 10^3/uL (0.0-1.0); MONOCYTES % (AUTO) 12.6 %; NEUTROPHILS # (AUTO) 6.9 10^3/uL (1.5-6.6); NEUTROPHILS % (AUTO) 75.7 %; NRBC ABSOLUTE COUNT (AUTO) 0.46 x10^3/uL; PLT - PLATELET COUNT 399 10^3/uL (130-450); RED BLOOD COUNT 1.68 10^6/uL (4.20-5.40); RED CELL DISTRIBUTION WIDTH 26.6 % (12.0-15.0); WHITE BLOOD COUNT 9.2 x10^3/uL (4.8-10.8)
[2022-09-26 17:32] LABS: HCT - HEMATOCRIT 10.3 % (37.0-47.0); HGB - HEMOGLOBIN 2.4 g/dL (12.0-16.0)
[2022-09-26 17:37] LABS: ALBUMIN 3.3 g/dL (3.2-5.5); ALBUMIN/GLOBULIN RATIO 1.2 (1.0-2.2); BILIRUBIN,TOTAL 0.5 mg/dL (0.2-1.0); CALCIUM 8.9 mg/dL (8.5-10.3); CREATININE 1.4 mg/dL (0.6-1.3); POTASSIUM 3.7 mmol/L (3.5-4.5); TOTAL PROTEIN 6.1 g/dL (6.4-8.9)
[2022-09-26 17:39] LABS: TROPONIN I HIGH SENSITIVITY 7.9 ng/L (2.3-14.8)
[2022-09-26 17:49] LABS: IRON < 10 ug/dL (50-212); TOTAL IRON BINDING CAPACITY 528 ug/dL (250-450); TRANSFERRIN 377 mg/dL (203-362)
--- NOTE | 2022-09-26 19:26 | HISTORY & PHYSICAL EXAMINATION ---
Chief Complaint - Chief Complaint Chief Complaint: Shortness of breath History of Present Illness - Admitted From Admitted From:: ER - History Obtained From Records Reviewed: Yes History obtained from: Patient, Staff, chart Exam Limitations: Virtual exam - History of Present Illness HPI Comment/Other: H&P was conducted via video remotely, using Access Cart. Patient is in [place]. Physician is in [place]. No one is at bedside. 57 yo F with PMH of Anemia, GERD, HTN, Depression, remote Breast CA s/p Chemotx, surgery presented to the ER with c/o 1 year h/o increasing SOB, worse x 1 week. Pt began to notice Shortness of breath with exertion about 1 year ago. This increased steadily until a few months ago, just walking out to her mailbox caused Shortness of breath. +fatigue, +weakness x 2 months. Her SOB increased greatly in the past 1 week. +SOB with turning over in bed, but no orthopnea, no PND. +swelling of B/L legs x 10 days, which now feel tight/uncomfortable. Prior to this, no swelling. No abdominal pain. +nausea with dry heaves x 10 days and 1 emesis with ?red blood/small amt. BMs: constipated, +hemorrhoids with occasional small amts of blood on stool, no black stool. Pt has been diagnosed with anemia in the past. At age 19, [facility], she felt dizzy while doing P.T., was sent to the clinic, told she had anemia and was given medications for this ?iron tablets. She had Breast CA and was not told that she had anemia during treatment. After breast reconstruction surgery, during which skin was taken from her thigh, she developed a large hematoma in her thigh and was diagnosed with Anemia and given 3U PRBC transfusion. During Chemotherapy for Breast CA, she was given Neulasta for low WBC. She has no other known h/o anemia. She did have a Colonoscopy about 3 years ago for screening and was told that a hemorrhoid and a small polyp were removed. She was told to F/U in 5 years. She has never had an EGD. She has taken Diclofenac BID for DJD x 3 years. No other NSAIDs. She does not drink ETOH. She occasionally eats spicy foods. She does not eat chocolate. She has been under stress. No F/C, cough, CP. In the ER, Hgb 2.4, MCV 61.3, Iron <10, CR 1.4, BNP 457. CXR: CMG, Pulmonary edema Pt was ordered to have 3U PRBC in the ER; currently receiving 1st unit. 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: Breast cancer : reports: None HEENT: reports: None Psych: reports: Depression Musculoskeletal: reports: None Derm: reports: None MRSA Hx?: No - Past Surgical History /UNIT AIDE TECH: reports: Other - POLST Patient has POLST: No Meds/Allgy - Home Medications Home Medications: Ambulatory Orders Medication Instructions Recorded Confirmed Omeprazole [PriLOSEC] 20 mg PO DAILY 08/20/12 09/26/22 Buspirone HCl 30 mg PO BID 07/28/19 09/26/[address] [Voltaren] 75 mg PO BIDWM 07/28/19 09/26/22 Wheelchair 1 udtab TD ONCE #1 07/28/19 09/26/22 atenoloL [Tenormin] 25 mg PO DAILY 03/17/21 09/26/22 buPROPion HCL [Bupropion HCl Sr] 150 mg PO DAILY 03/17/21 09/26/22 Ascorbic Acid [Vitamin C] 500 mg PO DAILY 09/26/22 09/26/22 Cholecalciferol [Vitamin D3] 25 mcg PO BID 09/26/22 09/26/22 Escitalopram [Lexapro] 15 mg PO DAILY 09/26/22 09/26/22 buPROPion HCL [Wellbutrin Xl] 300 mg PO DAILY 09/26/22 09/26/22 hydroCHLOROthiazide 25 mg PO DAILY 09/26/22 09/26/22 [Hydrochlorothiazide] - Allergies Allergies/Adverse Reactions: Allergies Allergy/AdvReac Type Severity Reaction Status Date / Time adhesive tape AdvReac Rash Verified 09/26/22 16:52 Review of Systems - All Other Systems All Other Systems: reports: Reviewed and negative Exam - Vital Signs Reviewed Vital Signs: Yes Vital Signs: Vital Signs x48h Temp Pulse Pulse Resp BP BP Pulse Ox 09/26/22 19:04 37.0 C 84 18 142/65 H 96 09/26/22 18:44 36.5 C 83 17 128/43 L 99 09/26/22 17:46 85 12 162/81 H 99 09/26/22 16:48 37.4 C 87 18 136/59 H 100 - Physical Exam General Appearance: positive: No acute distress Eyes Bilateral: positive: PERRL, Other (+Pallor) ENT: positive: No signs of dehydration Respiratory: positive: Other (Access cart stethoscope not working; per ER Provider: CTA B/L) Cardiovascular: positive: Other (Access cart stethoscope not working; per ER Provider: RRR, no murmurs) Abdomen: positive: Other (per ER Provider: non-distended, NT, Soft) Extremities: positive: Other (per ER Provider: 2+ edema B/L LE) Neurologic/Psychiatric: positive: Oriented x3, CN's nml (2-12), Mood/affect nml Conclusion/Plan - Problem List (1) Iron deficiency anemia Conclusion/Plan: Symptomatic Anemia WENDY Shortness of breath Fatigue Weakness H/o GERD -Hgb 2.4, MCV 61.3, Iron <10 -Pt was ordered to have 3U PRBC in the ER; currently receiving 1st unit. -ER Provider will consult General Surgery -admit to Obs Med Tele -continue 3U PRBC transfusion -check H/H q6 hrs -check FOB -start Iron tablets -keep NPO until seen by General Surgery -hold home medications: Diclofenac; counselled pt to not restart these or take other NSAIDs -Protonix IV -CT Angio Abdo w/ and w/o contrast ordered High output heart failure Shortness of breath Leg swelling -CXR: CMG, Pulmonary edema -BNP 457 -Echo ordered -no Lasix for now -monitor response to transfusion BRANT -CR 1.4 -will not give IVF d/t evidence of heart failure -monitor -avoid Nephrotoxins -hold home medications: HCTZ HTN -hold home medications: HCTZ d/t BRANT -continue home medications: Atenolol Depression -continue home medications: Bupropion, Buspirone, Lexapro Remote Breast CA s/p Chemotx, surgery -supportive care VTE Prophylaxis: SCDs only d/t anemia Code Status: Full Code ~Meenakshi Soliz MD Hospitalist - Lab Results Lab results reviewed: Yes Fish Bones: 09/26/22 17:00 09/26/22 17:00
[2022-09-26] MEDS ORDERED: FUROSEMIDE 20 MG/2 ML VIAL IVP STA (19:46)
[2022-09-26] MEDS ORDERED: PROCHLORPERAZINE 10 MG/2 ML VIAL IVP PRN (19:49)
[2022-09-26 20:04] LABS: INR 1.4 (0.8-1.2); PT - PROTHROMBIN TIME 14.9 secs (9.9-12.6)
[2022-09-26 20:11] LABS: PARTIAL THROMBOPLASTIN TIME 29.1 secs (24.9-33.3)
[2022-09-26] MEDS ORDERED: CHOLECALCIFEROL 25 MCG TABLET PO SCH (21:00)
[2022-09-26] MEDS: busPIRone 5 MG TABLET PO SCH (21:59)
[2022-09-26] MEDS: PANTOPRAZOLE 40 MG VIAL IVP SCH (21:59)
[2022-09-26] MEDS: FERROUS GLUCONATE 324 MG TABLET PO SCH (21:59)
--- NOTE | 2022-09-27 00:32 | PROVIDER PROGRESS NOTE ---
Hospitalist Cross-cover Note - Cross-Cover Note Cross-Cover Note: Called by RN stating patient requesting meds for her restless leg syndrome REquip 1 mg po Qhs ordered
[2022-09-27] MEDS: rOPINIRole 1 MG TABLET PO SCH ×2 (01:01→21:06)
[2022-09-27] MEDS: SODIUM CHLORIDE FLUSH 0.9% 10 ML SYRINGE IVP SCH ×3 (01:02→16:30)
[2022-09-27 04:50] LABS: BASOPHILS # (AUTO) 0.1 10^3/uL (0.0-0.1); BASOPHILS % (AUTO) 0.6 %; EOSINOPHILS # (AUTO) 0.1 10^3/uL (0.0-0.7); LYMPHOCYTES # (AUTO) 0.6 10^3/uL (1.5-3.5); LYMPHOCYTES % (AUTO) 6.4 %; MEAN CORPUSCULAR HEMOGLOBIN 19.4 pg (27.0-31.0); MEAN CORPUSCULAR HGB CONC 28.6 g/dL (32.0-36.0); MONOCYTES # (AUTO) 1.1 10^3/uL (0.0-1.0); MONOCYTES % (AUTO) 12.4 %; NEUTROPHILS # (AUTO) 6.8 10^3/uL (1.5-6.6); NEUTROPHILS % (AUTO) 77.6 %; NRBC ABSOLUTE COUNT (AUTO) 0.27 x10^3/uL; NUCLEATED RED BLOOD CELLS AUTO 3.1 /100WBC; PLT - PLATELET COUNT 379 10^3/uL (130-450); RED BLOOD COUNT 2.47 10^6/uL (4.20-5.40); RED CELL DISTRIBUTION WIDTH 28.7 % (12.0-15.0); WHITE BLOOD COUNT 8.7 x10^3/uL (4.8-10.8)
[2022-09-27 05:07] LABS: ALBUMIN 3.3 g/dL (3.2-5.5); ALBUMIN/GLOBULIN RATIO 1.2 (1.0-2.2); BILIRUBIN,TOTAL 1.5 mg/dL (0.2-1.0); CREATININE 1.3 mg/dL (0.6-1.3); POTASSIUM 3.5 mmol/L (3.5-4.5); TOTAL PROTEIN 6.1 g/dL (6.4-8.9)
[2022-09-27 05:08] LABS: HCT - HEMATOCRIT 16.8 % (37.0-47.0); HGB - HEMOGLOBIN 4.8 g/dL (12.0-16.0); SLIDE REVIEW? Indicated
[2022-09-27 05:17] LABS: PLATELET ESTIMATE, MANUAL NORMAL (130-450,000) (NORMAL); PLATELET MORPHOLOGY NORMAL APPEARANCE (NORMAL); WBC MORPHOLOGY (MULTIPLE) NORMAL APPEARANCE (NORMAL)
--- NOTE | 2022-09-27 06:27 | PROVIDER PROGRESS NOTE ---
Hospitalist Cross-cover Note - Cross-Cover Note Cross-Cover Note: Consult Information Member Facility: [facility] Facility Visit/ Requesting Clinician: Dahiana Valencia Patient Name: Apoorva Vasquez Date of : 1965 Gender: Female Reason for Consult Reason for Consult: Critical Lab Clinical Note Clinical Note: per rn - "Hemoglobin 4.8 Hematocrit 16.8." transfuse 3 units prbc now
[2022-09-27] MEDS: FERROUS GLUCONATE 324 MG TABLET PO SCH ×3 (06:38→21:07)
--- NOTE | 2022-09-27 08:01 | PROVIDER PROGRESS NOTE ---
Assessment/Plan - Problem List (1) Symptomatic anemia Assessment/Plan: The most likely cause is blood loss anemia that has been very slow, since she has been able to toerate the Hgb dropping to 2.4 (yesterday). Patient does describe rare hemorrhoidal bleeding and in the last 10 days had some emesis which did have some blood, she reported. She has been ordered to get 3 units PRBCs by the ER provider. She has been ordered to get 3 more units PRBCs by the night telemedicine provider. She just finished getting her 4th unit. Hemoglobin is ordered to be followed every 6 hours She was started on empiric Protonix IV twice daily for possible peptic ulcer Her Diclofenac is on hold Plan: I will admit the patient from Observation to Inpatient status, given her severe anemia at presentation, the need for further treatment, more blood transfusions, and work-up General surgery consult placed. I discussed the case with Dr. Mcgarry today. We are planning to have the patient on a clear liquid diet. Diclofenac on hold and avoid NSAIDs and ASA. She will have bowel prep ordered and plan is to have EGD and colonoscopy tomorrow by Dr Mcgarry (2) Iron deficiency anemia Assessment/Plan: Most likely cause is blood loss anemia She underwent CT angio of the abdomen pelvis. This showed no extravasation of blood. The patient was on Diclofenac twice daily for years. This makes an ulcer likely. Diclofenac has been put on hold. Her smear does not show schistocytes or evidence of hemolysis with a normal bilirubin Plan: Guaiac of stool ordered Continue to hold Diclofenac and avoid other NSAIDs and ASA She may need a bone marrow biopsy Iron orally 3 times daily has been ordered and will continue this (3) CHF (congestive heart failure) Assessment/Plan: Most likely causes high-output failure given the severe, symptomatic anemia, presenting with a hemoglobin of 2.4. Plan: We will continue with IV twice daily Lasix Obtain echocardiogram Will check to troponins and a TSH (4) HTN (hypertension) Assessment/Plan: The patient was on atenolol and HCTZ for blood pressure control at home. Her HCTZ was stopped. She has been getting Lasix. Her BP here has not been hypotensive, she is running 130 systolic Plan: Continue with her atenolol, I will add holding parameters (5) Restless leg syndrome Assessment/Plan: The patient was on an OTC (herbal) medication for this. Overnight she requested medicine for restless leg sx, and the telemedicine doctor ordered Requip x1 Plan: We will order to cont on Requip (6) Morbid obesity with BMI of 45.0-49.9, adult Assessment/Plan: This complicates all of her care - Current Meds Current Meds: Current Medications Generic Name Dose Route Start Last Admin Trade Name Chrisq PRN Reason Stop Dose Admin Buspirone HCl 30 mg 09/26/22 21:00 09/26/22 21:59 Buspirone 5 Mg Tablet PO 30 mg BID ANA Administration Ferrous Gluconate 324 mg 09/26/22 22:00 09/27/22 06:38 Ferrous Gluconate 324 Mg Tablet PO 324 mg TID ANA Administration Pantoprazole Sodium 40 mg 09/26/22 21:00 09/26/22 21:59 Pantoprazole 40 Mg Vial IVP 40 mg BID ANA Administration Prochlorperazine Edisylate 10 mg 09/26/22 19:49 09/27/22 01:54 Prochlorperazine 10 Mg/2 Ml Vial IVP 10 mg Q6HR PRN Administration Nausea / Vomiting Ropinirole HCl 1 mg 09/27/22 00:31 09/27/22 01:01 Ropinirole 1 Mg Tablet PO 1 mg QPM ANA Administration Sodium Chloride 10 ml 09/27/22 01:00 09/27/22 01:02 Sodium Chloride Flush 0.9% 10 Ml Syringe IVP 10 ml 0100,0900,1700 ANA Administration - Lab Result Fish Bone Diagrams: 09/27/22 10:24 09/27/22 04:42 - Additional Planning My Orders: My Active Orders 09/27/22 Consult [General Surgery Consult] [CONS] Routine Guaiac [OCCULT BLOOD IN PAT. SINGLE] [RAPID] Stat 09/27/22 05:00 BNP - B-NATRIURETIC PEPTIDE [CHEM] Routine 09/27/22 07:44 ANGIO ABDOMEN/PELVIS W [CT] Stat 09/27/22 08:00 FUROSEMIDE INJ 20mg VIAL [LASIX INJ 20mg VIAL] 20 mg IVP BIDDIURETIC 09/27/22 09:00 atenoloL [Tenormin] 25 mg PO DAILY 09/28/22 05:00 BMP - BASIC METABOLIC PANEL [CHEM] DAILYLAB 09/29/22 05:00 BNP - B-NATRIURETIC PEPTIDE [CHEM] DAILYLAB Subjective - Subjective Patient Reports: Feeling Better (She feels slightly better after having received 4 units of the 6 units of blood ordered to be transfused. She has no orthopnea.) Objective Vital Signs: Vital Signs - 24 hr 09/26/22 09/26/22 09/26/22 16:48 17:46 18:44 Temperature 37.4 C 36.5 C Heart Rate 87 85 Heart Rate [ Brachial] Heart Rate [ 83 Monitoring electrodes] Respiratory 18 12 17 Rate Blood Pressure 136/59 H 162/81 H Blood Pressure 128/43 L [Right Brachial artery] O2 Saturation 100 99 99 09/26/22 09/26/22 09/26/22 19:04 19:39 20:06 Temperature 37.0 C 36.7 C 36.7 C Heart Rate Heart Rate [ Brachial] Heart Rate [ 84 82 85 Monitoring electrodes] Respiratory 18 14 16 Rate Blood Pressure Blood Pressure 142/65 H 131/59 H 132/65 H [Right Brachial artery] O2 Saturation 96 100 100 09/26/22 09/26/22 09/26/22 20:59 21:48 22:08 Temperature 36.7 C 36.8 C 38.6 C H Heart Rate Heart Rate [ 86 Brachial] Heart Rate [ 78 78 Monitoring electrodes] Respiratory 20 16 16 Rate Blood Pressure Blood Pressure 106/84 H 133/59 H 137/49 H [Right Brachial artery] O2 Saturation 100 100 100 09/27/22 09/27/22 09/27/22 00:47 00:48 01:09 Temperature 37.0 C 37.0 C 36.7 C Heart Rate Heart Rate [ 80 80 86 Brachial] Heart Rate [ Monitoring electrodes] Respiratory 18 18 24 Rate Blood Pressure Blood Pressure 142/62 H 142/62 H 131/58 H [Right Brachial artery] O2 Saturation 98 98 99 09/27/22 09/27/22 09/27/22 03:25 06:48 07:02 Temperature 36.9 C 37.1 C 37.1 C Heart Rate Heart Rate [ Brachial] Heart Rate [ 82 79 80 Monitoring electrodes] Respiratory 16 16 16 Rate Blood Pressure Blood Pressure 142/69 H 133/62 H 130/57 L [Right Brachial artery] O2 Saturation 96 94 97 Oxygen O2 Source Room air I&O (Last 24 Hrs): Intake and Output Totals x24h 09/25/22 09/26/22 09/27/22 23:59 23:59 23:59 Intake Total 300 300 Output Total 100 Balance 300 200 General: Alert, Oriented x3 HEENT: Mucous membr. moist/pink, Other (Pale) Neck: Supple Neuro: Alert, Non Focal Cardiovascular: Regular rate (Distant heart sounds due to obesity) Respiratory: No respiratory distress, Breath sounds nml Abdomen: Soft, No tenderness, Other (Obese with a pannus) Extremities: No clubbing, Other (2+ edema to the knee) - Results Results: Laboratory Results WBC 8.7 x10^3/uL (4.8-10.8) 09/27/22 04:42 RBC 2.47 10^6/uL (4.20-5.40) L 09/27/22 04:42 Hgb 4.8 g/dL (12.0-16.0) L* 09/27/22 04:42 Hct 16.8 % (37.0-47.0) L* 09/27/22 04:42 MCV 68.0 fL (81.0-99.0) L 09/27/22 04:42 MCH 19.4 pg (27.0-31.0) L 09/27/22 04:42 MCHC 28.6 g/dL (32.0-36.0) L 09/27/22 04:42 RDW 28.7 % (12.0-15.0) H 09/27/22 04:42 Plt Count 379 10^3/uL (130-450) 09/27/22 04:42 MPV TNP 09/27/22 04:42 Neut # (Auto) 6.8 10^3/uL (1.5-6.6) H 09/27/22 04:42 Lymph # (Auto) 0.6 10^3/uL (1.5-3.5) L 09/27/22 04:42 [place]ha # (Auto) 1.1 10^3/uL (0.0-1.0) H 09/27/22 04:42 Eos # (Auto) 0.1 10^3/uL (0.0-0.7) 09/27/22 04:42 Baso # (Auto) 0.1 10^3/uL (0.0-0.1) 09/27/22 04:42 Absolute Nucleated RBC 0.27 x10^3/uL 09/27/22 04:42 Nucleated RBC % 3.1 /100WBC 09/27/22 04:42 Manual Slide Review Indicated 09/27/22 04:42 WBC Morphology NORMAL APPEARANCE (NORMAL) 09/27/22 04:42 Platelet Estimate NORMAL (130-450,000) (NORMAL) 09/27/22 04:42 Platelet Morphology NORMAL APPEARANCE (NORMAL) 09/27/22 04:42 RBC Morph Micro Appear 3+ ANISOCYTOSIS (NORMAL) 2+ MICROCYTOSIS (NORMAL) 2+ HYPOCHROMASIA (NORMAL) 09/27/22 04:42 RBC Morph Micro Appear 3+ ANISOCYTOSIS (NORMAL) 2+ MICROCYTOSIS (NORMAL) 2+ HYPOCHROMASIA (NORMAL) 09/27/22 04:42 RBC Morph Micro Appear 3+ ANISOCYTOSIS (NORMAL) 2+ MICROCYTOSIS (NORMAL) 2+ HYPOCHROMASIA (NORMAL) 09/27/22 04:42 PT 14.9 secs (9.9-12.6) H 09/26/22 17:00 INR 1.4 (0.8-1.2) H 09/26/22 17:00 APTT 29.1 secs (24.9-33.3) 09/26/22 17:00 Sodium 139 mmol/L (135-145) 09/27/22 04:42 Potassium 3.5 mmol/L (3.5-4.5) 09/27/22 04:42 Chloride 104 mmol/L (101-111) 09/27/22 04:42 Carbon Dioxide 26 mmol/L (21-32) 09/27/22 04:42 Anion Gap 9.0 (6-13) 09/27/22 04:42 BUN 17 mg/dL (6-20) 09/27/22 04:42 Creatinine 1.3 mg/dL (0.6-1.3) 09/27/22 04:42 Estimated GFR (MDRD) 42 (>89) L 09/27/22 04:42 Glucose 103 mg/dL (74-104) 09/27/22 04:42 Calcium 9.0 mg/dL (8.5-10.3) 09/27/22 04:42 Iron < 10 ug/dL (50-212) L 09/26/22 17:00 TIBC 528 ug/dL (250-450) H 09/26/22 17:00 % Saturation TNP 09/26/22 17:00 Transferrin 377 mg/dL (203-362) H 09/26/22 17:00 Total Bilirubin 1.5 mg/dL (0.2-1.0) H 09/27/22 04:42 AST 13 IU/L (10-42) 09/27/22 04:42 ALT 12 IU/L (10-60) 09/27/22 04:42 Alkaline Phosphatase 73 IU/L (42-121) 09/27/22 04:42 Troponin I High Sens 7.9 ng/L (2.3-14.8) 09/26/22 17:00 B-Natriuretic Peptide 457 pg/mL (5-100) H 09/26/22 17:00 Total Protein 6.1 g/dL (6.4-8.9) L 09/27/22 04:42 Albumin 3.3 g/dL (3.2-5.5) 09/27/22 04:42 Globulin 2.8 g/dL (2.1-4.2) 09/27/22 04:42 Albumin/Globulin Ratio 1.2 (1.0-2.2) 09/27/22 04:42 Lipase 45 U/L (11-82) 09/26/22 17:00 Blood Type A POSITIVE 09/26/22 17:00 Blood Type Recheck A POSITIVE 09/26/22 17:16 Antibody Screen NEGATIVE 09/26/22 17:00 Crossmatch IS Only See Detail 09/26/22 17:00
[2022-09-27] MEDS ORDERED: ASCORBIC ACID 500 MG TABLET PO SCH (09:00)
[2022-09-27] MEDS ORDERED: atenoloL 25 MG TABLET PO SCH (09:00)
[2022-09-27] MEDS ORDERED: iohexoL-300 100 ML VIAL IVP ONE (09:38)
--- NOTE | 2022-09-27 09:53 | CT Report ---
PROCEDURE: ANGIO ABDOMEN/PELVIS W INDICATIONS: severe anemia ? source CONTRAST: 100ml omni 300 TECHNIQUE: After the administration of intravenous contrast, 2.5 mm thick sections acquired from the diaphragm t o the symphysis. 10 mm maximum-intensity projection (MIP) reformats were then acquired. For radiati on dose reduction, the following was used: automated exposure control, adjustment of mA and/or kV ac cording to patient size. COMPARISON: None FINDINGS: Image quality: Excellent. Aorta: The aorta is normal caliber without aneurysm, mural thrombus, or stenosis. Mesenteric arteries: Celiac trunk, superior and inferior mesenteric arteries appear patent. Right pelvic arteries: The right pelvic arteries are widely patent. Left pelvic arteries: The left pelvic arteries are widely patent. No extravasation of contrast. Extravascular soft tissues: Right greater than left small effusions. Compressive atelectasis the biba silar regions. Heart size is normal. Liver and spleen are normal in size and enhancement. Gallbladd er is surgically absent.. Biliary system is non dilated. Pancreas enhances normally. No adrenal no dules. Kidneys are normal in size and enhancement, without hydronephrosis. Large left obstructive s tone measuring 1 cm. Non opacified bowel loops are normal in wall thickness and caliber. No free flu id or air. No retroperitoneal or mesenteric adenopathy. Left supraumbilical fat-containing hernia wi th a fascial defect measuring 1.4 cm. No suspicious bony lesions. No vertebral body compression fra ctures. IMPRESSION: No extravasation of contrast. Nonobstructive nephrolithiasis measuring 1 cm. Small bilateral effusions. Reviewed by: Patricio Ruiz MD on 09/27/2022 8:51 AM SARAH Approved by: Patricio Ruiz MD on 09/27/2022 8:51 AM SARAH Station ID: [id number]
[2022-09-27] MEDS ORDERED: bisacodyL 5 MG TABLET PO ONE (10:00)
[2022-09-27] MEDS: FUROSEMIDE 20 MG/2 ML VIAL IVP SCH ×2 (10:05→14:04)
[2022-09-27] MEDS: ESCITALOPRAM 10 MG TABLET PO SCH (10:05)
[2022-09-27] MEDS: atenoloL 25 MG TABLET PO SCH (10:05)
[2022-09-27] MEDS: buPROPion XL 150 MG TABLET PO SCH (10:06)
[2022-09-27] MEDS: buPROPion SR 150 MG TABLET PO SCH (10:06)
[2022-09-27] MEDS: PANTOPRAZOLE 40 MG VIAL IVP SCH ×2 (10:06→21:05)
[2022-09-27] MEDS: busPIRone 5 MG TABLET PO SCH ×2 (10:09→21:07)
--- NOTE | 2022-09-27 10:29 | CONSULTATION NOTE ---
Referring Provider Name of Referring Provider:: Ney Booth) Consult Date: 09/27/22 (possible GI bleed, anemia) Chief Complaint - Chief Complaint Chief Complaint: shortness of breath and dizziness History of Present Illness - Admitted From Admitted From:: ED - History Obtained From Records Reviewed: yes History obtained from: chart, primary team, patient - History of Present Illness HPI Comment/Other: This is a very pleasant 57-year-old female who presented with a 2-week history of worsening lightheadedness and shortness of breath. Her symptoms are worsened with activity. She has also noticed nausea for the last 2 weeks. She recounts that if she sneezes twice or coughs heavily she may sometimes have episodes of dry heaving. She has not vomited any blood. She denies any epigastric abdominal pain, but has had some intermittent suprapubic abdominal discomfort associated with constipation during the same time.. The patient reports 2 episodes of dark blood mixed with her stool over the last 2 weeks after having hard bowel movements. She associates this with hemorrhoids which she has had for several years. Her last colonoscopy was 2 to 3 years ago and at that time she was noted to have hemorrhoids which were banded and a single polyp which was removed. She does not recall any previous upper endoscopy. She does have chronic GERD but has no current symptoms while taking an oral PPI. She denies any recent weight loss. She denies any tobacco, alcohol, or drug use. She uses diclofenac orally twice a day, and denies taking any blood thinners or other NSAID medications. She denies any history of peptic ulcer disease or gastrointestinal bleeding in the past. She has struggled with chronic anemia and had an abdominal hematoma after liposuction for fat grafting in 2017 which required transfusion. At the time of my exam, the patient denies any shortness of breath, dizziness, or abdominal pain. She denies any nausea. She has not had any bowel movements since admission. 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 : reports: None HEENT: reports: None Psych: reports: Depression Musculoskeletal: reports: None Derm: reports: None MRSA Hx?: No Other Past Medical History: Breast cancer, bilateral - Past Surgical History General: reports: Cholecystectomy, Colonoscopy (Most recently 3 years ago) /FLIGHT RADIO OPERATOR: reports: Other (Multiple surgeries for bilateral breast cancers including reconstruction) - Family & Social History Family History Comment/Other: Noncontributory Living arrangement: At home - Substance History Use: Uses substance without health or social issues: NONE Tobacco Details: Cigarettes (Remote history of tobacco use, quit at age 35) - POLST Patient has POLST: No Meds/Allgy - Home Medications Home Medications: Ambulatory Orders Medication Instructions Recorded Confirmed Omeprazole [PriLOSEC] 20 mg PO DAILY 08/20/12 09/26/22 Buspirone HCl 30 mg PO BID 07/28/19 09/26/[address] [Voltaren] 75 mg PO BIDWM 07/28/19 09/26/22 Wheelchair 1 udtab TD ONCE #1 07/28/19 09/26/22 atenoloL [Tenormin] 25 mg PO DAILY 03/17/21 09/26/22 buPROPion HCL [Bupropion HCl Sr] 150 mg PO DAILY 03/17/21 09/26/22 Ascorbic Acid [Vitamin C] 500 mg PO DAILY 09/26/22 09/26/22 Cholecalciferol [Vitamin D3] 25 mcg PO BID 09/26/22 09/26/22 Escitalopram [Lexapro] 15 mg PO DAILY 09/26/22 09/26/22 buPROPion HCL [Wellbutrin Xl] 300 mg PO DAILY 09/26/22 09/26/22 hydroCHLOROthiazide 25 mg PO DAILY 09/26/22 09/26/22 [Hydrochlorothiazide] - Allergies Allergies/Adverse Reactions: Allergies Allergy/AdvReac Type Severity Reaction Status Date / Time adhesive tape AdvReac Rash Verified 09/26/22 16:52 Review of Systems - Constitutional Constitutional: reports: Other (A complete 10 point review of symptoms is otherwise negative except for that noted in HPI and PMH.) Exam - Vital Signs Vital Signs: Vital Signs x48h Temp Pulse Pulse Resp BP Pulse Ox 09/27/22 09:39 36.9 C 87 18 145/95 H 100 09/27/22 08:01 37 C 79 16 137/65 H 97 09/27/22 07:02 37.1 C 80 16 130/57 L 97 09/27/22 06:48 37.1 C 79 16 133/62 H 94 09/27/22 03:25 36.9 C 82 16 142/69 H 96 - Physical Exam Comments/Other: GEN: No acute distress, appears stated age, alert and oriented HEENT: NCAT, MMM, EOMI NEURO: CN II-XII grossly intact, no obvious focal deficits CV: RRR PULM: Nonlabored, on room air ABD: soft, morbidly obese, slight discomfort in the epigastric and suprapubic regions on deep palpation, otherwise nontender, no rebound or guarding CIRCULATORY: 2+ bilateral lower extremity pitting edema SKIN: no lesions appreciated LYMPH: no obvious lymphadenopathy MSK: 4/4 strength in all extremities PSYCH: Affect is appropriate Conclusion and Plan - Lab Results Laboratory Results 09/27/22 04:42: B-Natriuretic Peptide 660 H 09/27/22 04:42: Sodium 139, Potassium 3.5, Chloride 104, Carbon Dioxide 26, Anion Gap 9.0, BUN 17, Creatinine 1.3, Estimated GFR (MDRD) 42 L, Glucose 103, Calcium 9.0, Total Bilirubin 1.5 H, AST 13, ALT 12, Alkaline Phosphatase 73, Total Protein 6.1 L, Albumin 3.3, Globulin 2.8, Albumin/Globulin Ratio 1.2 09/27/22 04:42: WBC 8.7, RBC 2.47 L, Hgb 4.8 L*, Hct 16.8 L*, MCV 68.0 L, MCH 19.4 L, MCHC 28.6 L, RDW 28.7 H, Plt Count 379, MPV TNP, Neut # (Auto) 6.8 H, Lymph # (Auto) 0.6 L, [place] # (Auto) 1.1 H, Eos # (Auto) 0.1, Baso # (Auto) 0.1, Absolute Nucleated RBC 0.27, Nucleated RBC % 3.1, Manual Slide Review Indicated, WBC Morphology NORMAL APPEARANCE, Platelet Estimate NORMAL (130-450,000), Platelet Morphology NORMAL APPEARANCE, RBC Morph Micro Appear 2+ HYPOCHROMASIA 09/26/22 17:16: Blood Type Recheck A POSITIVE 09/26/22 17:00: PT 14.9 H, INR 1.4 H, APTT 29.1 09/26/22 17:00: Iron < 10 L, TIBC 528 H, % Saturation TNP, Transferrin 377 H 09/26/22 17:00: Blood Type A POSITIVE, Antibody Screen NEGATIVE, Crossmatch IS Only See Detail 09/26/22 17:00: B-Natriuretic Peptide 457 H 09/26/22 17:00: Sodium 137, Potassium 3.7, Chloride 104, Carbon Dioxide 21, Anion Gap 12.0, BUN 18, Creatinine 1.4 H, Estimated GFR (MDRD) 39 L, Glucose 108 H, Calcium 8.9, Total Bilirubin 0.5, AST 14, ALT 13, Alkaline Phosphatase 72, Troponin I High Sens 7.9, Total Protein 6.1 L, Albumin 3.3, Globulin 2.8, Albumin/Globulin Ratio 1.2, Lipase 45 09/26/22 17:00: WBC 9.2, RBC 1.68 L, Hgb 2.4 L*, Hct 10.3 L*, MCV 61.3 L, MCH 14.3 L, MCHC 23.3 L, RDW 26.6 H, Plt Count 399, Neut # (Auto) 6.9 H, Lymph # (Auto) 0.8 L, [place] # (Auto) 1.2 H, Eos # (Auto) 0.1, Baso # (Auto) 0.0, Absolute Nucleated RBC 0.46, Nucleated RBC % 5.0 - Diagnostic Imaging Results Diagnostic Imaging Results: positive: Final report reviewed, Read independently Diagnostic Imaging Results Comments: On my personal review of the images and report from the patient's CTA of the abdomen and pelvis, I do not note any contrast extravasation. There are no signs of significant diverticulosis, or masses within the stomach, small bowel, or colon. No significant free fluid, no free air. Bilateral pleural effusions. - Consultation Note Consultation Note: This is a 57-year-old female with: 1. Severe anemia Suspect slow gastrointestinal source The patient's vital signs are stable The patient has received 3 units, and has an additional 2 units ordered. I agree with continued monitoring of the H&H until stable and above 7. I discussed the plan for upper and lower endoscopy with the patient today. I would like to do both procedures at the same time as she does not appear to be actively bleeding. I started the patient on a clear liquid diet (no red liquids), and ordered a bowel prep to start today. Plan for upper and lower endoscopy when colon adequately prepped, likely tomorrow. -I discussed the risks, benefits, and alternatives of upper and lower endoscopy including bleeding and perforation with the patient. She voiced understanding, her questions were answered, and she wished to proceed. I will sign a consent with the patient prior to her procedure. -I agree with keeping the patient on a PPI, and recommend stopping her diclofenac. She is not taking any other blood thinning medications or NSAID medications. She denies tobacco or alcohol use. -No obvious source of gastrointestinal bleeding based on physical exam or imaging. Her BUN is normal, but I will plan to proceed with upper endoscopy as well to rule out both upper and lower gastrointestinal sources. 2. Heart failure, depression, hypertension -As per primary medical team Thank you for consulting me in the care of this patient! I will continue to follow closely.
--- NOTE | 2022-09-27 10:38 | PHARMACY PROGRESS NOTE ---
- Best Possible Medication History Admit Date and Time: 09/27/22 1004 Processed by: Pharmacy Medication History completed: Yes Patient Interview: Completed Secondary Source(s): Pharmacy records As the person ultimately responsible for medication therapy, providers are able to order a medication from an existing home medication list in [facility] via the "Reconcile Routine" prior to Confirmation of that medication by clerical and office support workers. Such practice is discouraged except when the physician, in their clinical judgment, deems that a medical need exists for a medication without regard to previous use.
[2022-09-27] MEDS ORDERED: polyethylene glycoL 3350 17 GM PACKET PO SCH (11:00)
[2022-09-27] MEDS: SODIUM CHLORIDE FLUSH 0.9% 10 ML SYRINGE IVP PRN (16:30)
[2022-09-27] MEDS: ACETAMINOPHEN 325 MG TABLET PO PRN (20:14)
[2022-09-27] MEDS: CHOLECALCIFEROL 25 MCG TABLET PO SCH (21:06)
[2022-09-28] MEDS: ACETAMINOPHEN 325 MG TABLET PO PRN ×2 (02:31→08:22)
[2022-09-28] MEDS: SODIUM CHLORIDE FLUSH 0.9% 10 ML SYRINGE IVP SCH ×3 (02:32→16:57)
[2022-09-28 05:19] LABS: BASOPHILS # (AUTO) 0.1 10^3/uL (0.0-0.1); BASOPHILS % (AUTO) 0.6 %; EOSINOPHILS # (AUTO) 0.1 10^3/uL (0.0-0.7); EOSINOPHILS % (AUTO) 1.3 %; HCT - HEMATOCRIT 24.3 % (37.0-47.0); HGB - HEMOGLOBIN 7.3 g/dL (12.0-16.0); LYMPHOCYTES # (AUTO) 0.9 10^3/uL (1.5-3.5); LYMPHOCYTES % (AUTO) 8.4 %; MEAN CORPUSCULAR HEMOGLOBIN 22.2 pg (27.0-31.0); MEAN CORPUSCULAR VOLUME 73.9 fL (81.0-99.0); MONOCYTES # (AUTO) 1.4 10^3/uL (0.0-1.0); MONOCYTES % (AUTO) 13.1 %; NEUTROPHILS % (AUTO) 73.6 %; NRBC ABSOLUTE COUNT (AUTO) 0.25 x10^3/uL; NUCLEATED RED BLOOD CELLS AUTO 2.3 /100WBC; PLT - PLATELET COUNT 329 10^3/uL (130-450); RED BLOOD COUNT 3.29 10^6/uL (4.20-5.40); RED CELL DISTRIBUTION WIDTH 27.8 % (12.0-15.0); WHITE BLOOD COUNT 10.9 x10^3/uL (4.8-10.8)
[2022-09-28 05:36] LABS: CALCIUM 8.9 mg/dL (8.5-10.3); CREATININE 0.9 mg/dL (0.6-1.3); POTASSIUM 3.3 mmol/L (3.5-4.5)
[2022-09-28] MEDS: FUROSEMIDE 20 MG/2 ML VIAL IVP SCH ×2 (06:40→16:57)
[2022-09-28] MEDS: FERROUS GLUCONATE 324 MG TABLET PO SCH ×3 (06:40→21:01)
--- NOTE | 2022-09-28 07:26 | PROVIDER PROGRESS NOTE ---
Subjective - General Admit Date: 09/27/22 - Review of Systems All Other Systems: positive: Reviewed and negative - Other Other Information/Narrative: Patient able to stand and walk to commode without feeling dizzy or lightheaded. She denies n/v. Loose stools with lots of particles still, completed ordered bowel prep yesterday. No blood noted in stools. No acute events overnight. Objective - Patient Data Reviewed Vital Signs: Yes Vital Signs: Vital Signs x48h Temp Pulse Resp BP Pulse Ox 09/28/22 04:45 37.3 C 87 20 149/71 H 95 09/27/22 23:39 37.3 C 82 18 144/74 H 96 Weight: Weight 09/26/22 09/27/22 09/28/22 23:59 23:59 23:59 Weight (kg) 128 kg Intake & Output: Intake and Output Totals x24h 09/26/22 09/27/22 09/28/22 23:59 23:59 23:59 Intake Total 300 4620 Output Total 2100 Balance 300 2520 - Lab Results Lab Results: 09/28/22 06:00 09/28/22 04:59 Other Lab Results: Lab Results x24hrs 09/28/22 09/28/22 09/28/22 Range/Units 06:00 04:59 04:59 WBC 10.9 H (4.8-10.8) x10^3/uL RBC 3.29 L (4.20-5.40) 10^6/uL Hgb 7.3 L 7.3 L (12.0-16.0) g/dL Hct 24.3 L (37.0-47.0) % MCV 73.9 L (81.0-99.0) fL MCH 22.2 L (27.0-31.0) pg MCHC 30.0 L (32.0-36.0) g/dL RDW 27.8 H (12.0-15.0) % Plt Count 329 (130-450) 10^3/uL Neut # (Auto) 8.0 H (1.5-6.6) 10^3/uL Lymph # (Auto) 0.9 L (1.5-3.5) 10^3/uL [place] # (Auto) 1.4 H (0.0-1.0) 10^3/uL Eos # (Auto) 0.1 (0.0-0.7) 10^3/uL Baso # (Auto) 0.1 (0.0-0.1) 10^3/uL Absolute Nucleated RBC 0.25 x10^3/uL Nucleated RBC % 2.3 /100WBC Sodium 139 (135-145) mmol/L Potassium 3.3 L (3.5-4.5) mmol/L Chloride 105 (101-111) mmol/L Carbon Dioxide 26 (21-32) mmol/L Anion Gap 8.0 (6-13) BUN 10 (6-20) mg/dL Creatinine 0.9 (0.6-1.3) mg/dL Estimated GFR (MDRD) 65 L (>89) Glucose 94 (74-104) mg/dL Calcium 8.9 (8.5-10.3) mg/dL B-Natriuretic Peptide (5-100) pg/mL Blood Type Antibody Screen Crossmatch IS Only 09/27/22 09/27/22 09/27/22 Range/Units 20:27 10:24 04:42 WBC (4.8-10.8) x10^3/uL RBC (4.20-5.40) 10^6/uL Hgb 7.7 L 6.1 L* (12.0-16.0) g/dL Hct (37.0-47.0) % MCV (81.0-99.0) fL MCH (27.0-31.0) pg MCHC (32.0-36.0) g/dL RDW (12.0-15.0) % Plt Count (130-450) 10^3/uL Neut # (Auto) (1.5-6.6) 10^3/uL Lymph # (Auto) (1.5-3.5) 10^3/uL [place] # (Auto) (0.0-1.0) 10^3/uL Eos # (Auto) (0.0-0.7) 10^3/uL Baso # (Auto) (0.0-0.1) 10^3/uL Absolute Nucleated RBC x10^3/uL Nucleated RBC % /100WBC Sodium (135-145) mmol/L Potassium (3.5-4.5) mmol/L Chloride (101-111) mmol/L Carbon Dioxide (21-32) mmol/L Anion Gap (6-13) BUN (6-20) mg/dL Creatinine (0.6-1.3) mg/dL Estimated GFR (MDRD) (>89) Glucose (74-104) mg/dL Calcium (8.5-10.3) mg/dL B-Natriuretic Peptide 660 H (5-100) pg/mL Blood Type Antibody Screen Crossmatch IS Only 09/26/22 Range/Units 17:00 WBC (4.8-10.8) x10^3/uL RBC (4.20-5.40) 10^6/uL Hgb (12.0-16.0) g/dL Hct (37.0-47.0) % MCV (81.0-99.0) fL MCH (27.0-31.0) pg MCHC (32.0-36.0) g/dL RDW (12.0-15.0) % Plt Count (130-450) 10^3/uL Neut # (Auto) (1.5-6.6) 10^3/uL Lymph # (Auto) (1.5-3.5) 10^3/uL [place] # (Auto) (0.0-1.0) 10^3/uL Eos # (Auto) (0.0-0.7) 10^3/uL Baso # (Auto) (0.0-0.1) 10^3/uL Absolute Nucleated RBC x10^3/uL Nucleated RBC % /100WBC Sodium (135-145) mmol/L Potassium (3.5-4.5) mmol/L Chloride (101-111) mmol/L Carbon Dioxide (21-32) mmol/L Anion Gap (6-13) BUN (6-20) mg/dL Creatinine (0.6-1.3) mg/dL Estimated GFR (MDRD) (>89) Glucose (74-104) mg/dL Calcium (8.5-10.3) mg/dL B-Natriuretic Peptide (5-100) pg/mL Blood Type A POSITIVE Antibody Screen NEGATIVE Crossmatch IS Only See Detail - Current Medications Current Medications: Current Medications Generic Name Dose Route Start Last Admin Trade Name Freq PRN Reason Stop Dose Admin Acetaminophen 650 mg 09/26/22 19:49 09/28/22 02:31 Acetaminophen 325 Mg Tablet PO 650 mg Q4HR PRN Administration Pain 1 to 4, or Fever Atenolol 25 mg 09/27/22 09:00 09/27/22 10:05 Atenolol 25 Mg Tablet PO 25 mg DAILY ANA Administration Bupropion HCl 300 mg 09/27/22 09:00 09/27/22 10:06 Bupropion Xl 150 Mg Tablet PO 300 mg DAILY ANA Administration Bupropion HCl 150 mg 09/27/22 09:00 09/27/22 10:06 Bupropion Sr 150 Mg Tablet PO 150 mg DAILY ANA Administration Buspirone HCl 30 mg 09/26/22 21:00 09/27/22 21:07 Buspirone 5 Mg Tablet PO 30 mg BID ANA Administration Cholecalciferol 50 mcg 09/27/22 21:00 09/27/22 21:06 Cholecalciferol 25 Mcg Tablet PO 50 mcg HS ANA Administration Escitalopram Oxalate 15 mg 09/27/22 09:00 09/27/22 10:05 Escitalopram 10 Mg Tablet PO 15 mg DAILY ANA Administration Ferrous Gluconate 324 mg 09/26/22 22:00 09/28/22 06:40 Ferrous Gluconate 324 Mg Tablet PO 324 mg TID ANA Administration Furosemide 20 mg 09/27/22 08:00 09/28/22 06:40 Furosemide 20 Mg/2 Ml Vial IVP 20 mg BIDDIURETIC ANA Administration Pantoprazole Sodium 40 mg 09/26/22 21:00 09/27/22 21:05 Pantoprazole 40 Mg Vial IVP 40 mg BID ANA Administration Prochlorperazine Edisylate 10 mg 09/26/22 19:49 09/27/22 01:54 Prochlorperazine 10 Mg/2 Ml Vial IVP 10 mg Q6HR PRN Administration Nausea / Vomiting Ropinirole HCl 1 mg 09/27/22 00:31 09/27/22 21:06 Ropinirole 1 Mg Tablet PO 1 mg QPM ANA Administration Sodium Chloride 10 ml 09/26/22 19:49 09/27/22 16:30 Sodium Chloride Flush 0.9% 10 Ml Syringe IVP 10 ml PRN PRN Administration NEEDED PER PROVIDER ORDERS Sodium Chloride 10 ml 09/27/22 01:00 09/28/22 02:32 Sodium Chloride Flush 0.9% 10 Ml Syringe IVP 10 ml 0100,0900,1700 [facility] Administration - Physical Exam General Appearance: positive: No acute distress, Alert Eyes Bilateral: positive: Normal inspection, PERRL ENT: positive: No signs of dehydration Neck: positive: Nml inspection, Trachea midline Respiratory: positive: Chest non-tender, No respiratory distress Cardiovascular: positive: Regular rate & rhythm Abdomen: positive: Non-tender, No distention Skin: positive: Color nml Extremities: positive: Non-tender, Full ROM Neurologic/Psychiatric: positive: Oriented x3 Impression/Plan - Problem List Problem List: This is a 57-year-old female with: 1. Severe anemia Suspect slow gastrointestinal source. No obvious source of gastrointestinal bleeding based on physical exam or imaging. Her BUN is normal, but I will plan to proceed with upper endoscopy as well to rule out both upper and lower gastrointestinal sources. I agree with keeping the patient on a PPI, and recommend stopping her diclofenac. She is not taking any other blood thinning medications or NSAID medications. She denies tobacco or alcohol use. The patient's vital signs and Hgb are stable, s/p transfusion of 6 units pRBC's. Repeat hgb testing stopped. still lots of particles in stool, will give additional bowel prep this AM and plan for upper and lower endoscopy this afternoon. -I discussed the risks, benefits, and alternatives of upper and lower endoscopy including bleeding and perforation with the patient. She voiced understanding, her questions were answered, and she wished to proceed. I will sign a consent with the patient prior to her procedure. 2. Heart failure, depression, hypertension, RLS -As per primary medical team Thank you for consulting me in the care of this patient! I will continue to follow closely.
[2022-09-28] MEDS: busPIRone 5 MG TABLET PO SCH ×2 (08:22→20:59)
[2022-09-28] MEDS: ESCITALOPRAM 10 MG TABLET PO SCH (08:23)
[2022-09-28] MEDS: atenoloL 25 MG TABLET PO SCH (08:23)
[2022-09-28] MEDS: buPROPion XL 150 MG TABLET PO SCH (08:24)
[2022-09-28] MEDS: buPROPion SR 150 MG TABLET PO SCH (08:24)
[2022-09-28] MEDS: PANTOPRAZOLE 40 MG VIAL IVP SCH ×2 (08:24→20:59)
[2022-09-28] MEDS ORDERED: polyethylene glycoL 3350 238 GM BOTTLE PO ONE (09:00)
[2022-09-28] MEDS: POTASSIUM CHLOR 10 MEQ/100 ML 10 MEQ/100 ML BAG IV SCH ×2 (09:29→10:57)
[2022-09-28] MEDS ORDERED: MIN OIL/DIMETHICON/COCONUT OIL 92 GM TUBE TOP PRN (10:20)
--- NOTE | 2022-09-28 12:23 | ANESTHESIA ---
Pre-Anesthesia VS, & Labs - Diagnosis GI bleed, acute blood loss anemia - Procedure EGD and colonoscopy Vital Signs: Temp Pulse Resp BP Pulse Ox O2 Flow Rate 37.2 C 85 16 148/67 H 95 09/28/22 07:39 09/28/22 07:39 09/28/22 07:39 09/28/22 07:39 09/28/22 07:39 Height: 5 ft 6 in Weight (kg): 128 kg Body Mass Index: 45.5 BMI Classification: Morbidly Obese - NPO >8 hours - Is Patient ?: No - Lab Results Current Lab Results: Laboratory Tests 09/28/22 06:00: Hgb 7.3 L 09/28/22 04:59: Vitamin B12 578, Folate 9.7 09/28/22 04:59: Ferritin 14.3 09/28/22 04:59: Sodium 139, Potassium 3.3 L, Chloride 105, Carbon Dioxide 26, Anion Gap 8.0, BUN 10, Creatinine 0.9, Estimated GFR (MDRD) 65 L, Glucose 94, Calcium 8.9 09/28/22 04:59: WBC 10.9 H, RBC 3.29 L, Hgb 7.3 L, Hct 24.3 L, MCV 73.9 L, MCH 22.2 L, MCHC 30.0 L, RDW 27.8 H, Plt Count 329, Neut # (Auto) 8.0 H, Lymph # (Auto) 0.9 L, [place] # (Auto) 1.4 H, Eos # (Auto) 0.1, Baso # (Auto) 0.1, Absolute Nucleated RBC 0.25, Nucleated RBC % 2.3 09/27/22 20:27: Hgb 7.7 L 09/27/22 10:24: Hgb 6.1 L* 09/27/22 04:42: B-Natriuretic Peptide 660 H 09/27/22 04:42: Sodium 139, Potassium 3.5, Chloride 104, Carbon Dioxide 26, Anion Gap 9.0, BUN 17, Creatinine 1.3, Estimated GFR (MDRD) 42 L, Glucose 103, Calcium 9.0, Total Bilirubin 1.5 H, AST 13, ALT 12, Alkaline Phosphatase 73, Total Protein 6.1 L, Albumin 3.3, Globulin 2.8, Albumin/Globulin Ratio 1.2 09/27/22 04:42: WBC 8.7, RBC 2.47 L, Hgb 4.8 L*, Hct 16.8 L*, MCV 68.0 L, MCH 19.4 L, MCHC 28.6 L, RDW 28.7 H, Plt Count 379, MPV TNP, Neut # (Auto) 6.8 H, Lymph # (Auto) 0.6 L, [place] # (Auto) 1.1 H, Eos # (Auto) 0.1, Baso # (Auto) 0.1, Absolute Nucleated RBC 0.27, Nucleated RBC % 3.1, Manual Slide Review Indicated, WBC Morphology NORMAL APPEARANCE, Platelet Estimate NORMAL (130-450,000), Platelet Morphology NORMAL APPEARANCE, RBC Morph Micro Appear 2+ HYPOCHROMASIA 09/26/22 17:16: Blood Type Recheck A POSITIVE 09/26/22 17:00: PT 14.9 H, INR 1.4 H, APTT 29.1 09/26/22 17:00: Iron < 10 L, TIBC 528 H, % Saturation TNP, Transferrin 377 H 09/26/22 17:00: Blood Type A POSITIVE, Antibody Screen NEGATIVE, Crossmatch IS Only See Detail 09/26/22 17:00: B-Natriuretic Peptide 457 H 09/26/22 17:00: Sodium 137, Potassium 3.7, Chloride 104, Carbon Dioxide 21, An ion Gap 12.0, BUN 18, Creatinine 1.4 H, Estimated GFR (MDRD) 39 L, Glucose 108 H , Calcium 8.9, Total Bilirubin 0.5, AST 14, ALT 13, Alkaline Phosphatase 72, Troponin I High Sens 7.9, Total Protein 6.1 L, Albumin 3.3, Globulin 2.8, Albumin/Globulin Ratio 1.2, Lipase 45 09/26/22 17:00: WBC 9.2, RBC 1.68 L, Hgb 2.4 L*, Hct 10.3 L*, MCV 61.3 L, MCH 14.3 L, MCHC 23.3 L, RDW 26.6 H, Plt Count 399, Neut # (Auto) 6.9 H, Lymph # (Auto) 0.8 L, [place] # (Auto) 1.2 H, Eos # (Auto) 0.1, Baso # (Auto) 0.0, Absolute Nucleated RBC 0.46, Nucleated RBC % 5.0 Fish Bones: 09/28/22 06:00 09/28/22 04:59 Home Medications and Allergies Home Medications: Ambulatory Orders Ascorbic Acid [Vitamin C] 500 mg PO DAILY 09/26/22 Cholecalciferol [Vitamin D3] 50 mcg PO HS 09/26/22 buPROPion HCL [Wellbutrin Xl] 300 mg PO DAILY 09/26/22 hydroCHLOROthiazide [Hydrochlorothiazide] 50 mg PO DAILY 09/26/22 Acetaminophen [Tylenol] 2 tab PO DAILY PRN 09/27/22 Cranberry Fruit Extract [Cranberry] 2 tab PO HS 09/27/22 Escitalopram Oxalate 30 mg PO DAILY 09/27/22 buPROPion HCL [Bupropion Xl] 1 tab PO DAILY 09/27/22 Active Medications Acetaminophen (Acetaminophen 325 Mg Tablet) 650 mg PO Q4HR PRN PRN Reason: Pain 1 to 4, or Fever Last Admin: 09/28/22 08:22 Dose: 650 mg Atenolol (Atenolol 25 Mg Tablet) 25 mg PO DAILY [facility] Last Admin: 09/28/22 08:23 Dose: 25 mg Bupropion HCl (Bupropion Xl 150 Mg Tablet) 300 mg PO DAILY [facility] Last Admin: 09/28/22 08:24 Dose: 300 mg Bupropion HCl (Bupropion Sr 150 Mg Tablet) 150 mg PO DAILY [facility] Last Admin: 09/28/22 08:24 Dose: 150 mg Buspirone HCl (Buspirone 5 Mg Tablet) 30 mg PO BID [facility] Last Admin: 09/28/22 08:22 Dose: 30 mg Cholecalciferol (Cholecalciferol 25 Mcg Tablet) 50 mcg PO [facility] Last Admin: 09/27/22 21:06 Dose: 50 mcg Escitalopram Oxalate (Escitalopram 10 Mg Tablet) 15 mg PO DAILY [facility] Last Admin: 09/28/22 08:23 Dose: 15 mg Ferrous Gluconate (Ferrous Gluconate 324 Mg Tablet) 324 mg PO TID [facility] Last Admin: 09/28/22 06:40 Dose: 324 mg Furosemide (Furosemide 20 Mg/2 Ml Vial) 20 mg IVP BIDDIURETIC [facility] Last Admin: 09/28/22 06:40 Dose: 20 mg Mineral Oil (Min Oil/Dimethicon/Coconut Oil 92 Gm Tube) 1 applic TOP PRN PRN PRN Reason: Skin Care Last Admin: 09/28/22 10:36 Dose: 1 applic Pantoprazole Sodium (Pantoprazole 40 Mg Vial) 40 mg IVP BID [facility] Last Admin: 09/28/22 08:24 Dose: 40 mg Prochlorperazine Edisylate (Prochlorperazine 10 Mg/2 Ml Vial) 10 mg IVP Q6HR PRN PRN Reason: Nausea / Vomiting Last Admin: 09/27/22 01:54 Dose: 10 mg Ropinirole HCl (Ropinirole 1 Mg Tablet) 1 mg PO QPM [facility] Last Admin: 09/27/22 21:06 Dose: 1 mg Sodium Chloride (Sodium Chloride Flush 0.9% 10 Ml Syringe) 10 ml IVP PRN PRN PRN Reason: NEEDED PER PROVIDER ORDERS Last Admin: 09/27/22 16:30 Dose: 10 ml Sodium Chloride (Sodium Chloride Flush 0.9% 10 Ml Syringe) 10 ml IVP 0100,0900,1700 [facility] Last Admin: 09/28/22 08:22 Dose: 10 ml Omeprazole [PriLOSEC] 20 mg PO DAILY 08/20/12 Buspirone HCl 30 mg PO BID 07/28/[address] [Voltaren] 75 mg PO BIDWM 07/28/19 atenoloL [Tenormin] 25 mg PO DAILY 03/17/21 Ascorbic Acid [Vitamin C] 500 mg PO DAILY 09/26/22 Cholecalciferol [Vitamin D3] 50 mcg PO HS 09/26/22 buPROPion HCL [Wellbutrin Xl] 300 mg PO DAILY 09/26/22 hydroCHLOROthiazide [Hydrochlorothiazide] 50 mg PO DAILY 09/26/22 Acetaminophen [Tylenol] 2 tab PO DAILY PRN 09/27/22 Cranberry Fruit Extract [Cranberry] 2 tab PO HS 09/27/22 Escitalopram Oxalate 30 mg PO DAILY 09/27/22 buPROPion HCL [Bupropion Xl] 1 tab PO DAILY 09/27/22 Allergies/Adverse Reactions: Allergies Allergy/AdvReac Type Severity Reaction Status Date / Time adhesive tape AdvReac Rash Verified 09/26/22 16:52 Anes History & Medical History - Anesthetic History Anesthesia Complications: reports: No previous complications - Medical History Cardiovascular: reports: Hypertension Pulmonary: reports: Sleep apnea, CPAP use Gastrointestinal: reports: GERD Urinary: reports: None Neuro: reports: None Musculoskeletal: reports: None Endocrine/Autoimmune: reports: None Skin: reports: None Smoking Status: Never smoker Psychosocial: reports: No issues indicated History of Cancer?: Yes Other Past Medical History: Breast cancer, bilateral - Surgical History General: reports: Cholecystectomy, Colonoscopy (Most recently 3 years ago) Gynecologic: reports: Other (Multiple surgeries for bilateral breast cancers including reconstruction) Exam General: Alert, Oriented x3, Cooperative, No acute distress Dental: WNL Mouth Openin Fingerbreadth Neck Mobility: Normal Mallampati classification: III Thyromental Distance: 4-6 cm Mental/Cognitive Status: Alert/Oriented X3, Normal for patient Plan Anesthesia Type: General Consent for Procedure(s) Verified and Reviewed: Yes Code Status: Attempt Resuscitation ASA classification: 3-Severe systemic disease Is this case an emergency?: No
[2022-09-28] MEDS ORDERED: PROPOFOL 500 MG/50 ML 500 MG/50 ML VIAL ONE ×2 (15:22)
[2022-09-28] MEDS ORDERED: LIDOCAINE-PF 2% 10 ML AMP SUBQ ONE (15:46)
[2022-09-28] MEDS ORDERED: MORPHINE 2 MG/ML CARPUJECT IVP PRN (16:12)
[2022-09-28] MEDS ORDERED: HYDROmorphone 0.5 MG/0.5 ML SYRINGE IVP PRN (16:12)
[2022-09-28] MEDS ORDERED: NALOXONE 0.4 MG/ML VIAL IVP PRN (16:12)
[2022-09-28] MEDS ORDERED: fentaNYL 100 MCG/2 ML VIAL IVP PRN (16:12)
[2022-09-28] MEDS ORDERED: ONDANSETRON 4 MG/2 ML VIAL IVP PRN (16:12)
[2022-09-28] MEDS ORDERED: ATROPINE ABBOJECT 1 MG/10 ML SYRINGE IVP PRN (16:12)
--- NOTE | 2022-09-28 16:31 | PROVIDER PROGRESS NOTE ---
Assessment/Plan - Problem List (1) Iron deficiency anemia Assessment/Plan: Most likely cause is blood loss anemia. She underwent CT angio of the abdomen pelvis. This showed no extravasation of blood. The patient was on Diclofenac twice daily for years. This makes a gastric ulcer likely. Diclofenac has been put on hold and NSAIDs are to be avoided Her smear does not show schistocytes or evidence of hemolysis with a normal bilirubin Guaiac of stool came back neg She has received 6U PRBCs and Hgb is now running 7.6. Plan: Follow hemoglobin every 12 hours, transfuse if drops below 7 Continue to hold Diclofenac and avoid other NSAIDs and ASA Iron orally 3 times daily has been ordered and will continue this EGD and colonoscopy to be done today (see #2) (2) Multiple gastric polyps Assessment/Plan: Dr. Goldsmith spoke to me today with results of the EGD. She has multiple gastric polyps especially in the cardia. The feeling is these were the sources of GI blood loss Plan: Await pathology Further recommendations and management per general surgery (3) CHF (congestive heart failure) Assessment/Plan: Her BNP is 600. Most likely the cause is high-output heart failure given the severe, symptomatic anemia, presenting with a hemoglobin of 2.4. Her troponins was normal. Plan: Check a TSH We will continue with IV twice daily Lasix Obtain Echocardiogram (4) HTN (hypertension) Assessment/Plan: The patient was on atenolol and HCTZ for blood pressure control at home. Her HCTZ was stopped. She has been getting Lasix iv here. Her BP here has not been hypotensive, she is running 130 systolic Plan: Continue with her atenolol, I will add holding parameters (5) Restless leg syndrome Assessment/Plan: The patient was on an OTC (herbal) medication for this. Overnight she requested medicine for restless leg sx, and the telemedicine doctor ordered Requip x1 Plan: We will order to cont on Requip (6) Morbid obesity with BMI of 45.0-49.9, adult Assessment/Plan: This complicates all of her care - Current Meds Current Meds: Current Medications Generic Name Dose Route Start Last Admin Trade Name Freq PRN Reason Stop Dose Admin Acetaminophen 650 mg 09/26/22 19:49 09/28/22 08:22 Acetaminophen 325 Mg Tablet PO 650 mg Q4HR PRN Administration Pain 1 to 4, or Fever Atenolol 25 mg 08/13/23 09:00 09/28/22 08:23 Atenolol 25 Mg Tablet PO 25 mg DAILY ANA Administration Bupropion HCl 300 mg 09/27/22 09:00 09/28/22 08:24 Bupropion Xl 150 Mg Tablet PO 300 mg DAILY ANA Administration Bupropion HCl 150 mg 09/27/22 09:00 09/28/22 08:24 Bupropion Sr 150 Mg Tablet PO 150 mg DAILY ANA Administration Buspirone HCl 30 mg 09/26/22 21:00 09/28/22 08:22 Buspirone 5 Mg Tablet PO 30 mg BID ANA Administration Cholecalciferol 50 mcg 09/27/22 21:00 09/27/22 21:06 Cholecalciferol 25 Mcg Tablet PO 50 mcg HS ANA Administration Escitalopram Oxalate 15 mg 09/27/22 09:00 09/28/22 08:23 Escitalopram 10 Mg Tablet PO 15 mg DAILY ANA Administration Ferrous Gluconate 324 mg 09/26/22 22:00 09/28/22 06:40 Ferrous Gluconate 324 Mg Tablet PO 324 mg TID ANA Administration Mineral Oil 1 applic 09/28/22 10:20 09/28/22 10:36 Min Oil/Dimethicon/Coconut Oil 92 Gm Tube TOP 1 applic PRN PRN Administration Skin Care Pantoprazole Sodium 40 mg 09/26/22 21:00 09/28/22 08:24 Pantoprazole 40 Mg Vial IVP 40 mg BID ANA Administration Prochlorperazine Edisylate 10 mg 09/26/22 19:49 09/27/22 01:54 Prochlorperazine 10 Mg/2 Ml Vial IVP 10 mg Q6HR PRN Administration Nausea / Vomiting Ropinirole HCl 1 mg 09/27/22 00:31 09/27/22 21:06 Ropinirole 1 Mg Tablet PO 1 mg QPM ANA Administration Sodium Chloride 10 ml 09/26/22 19:49 09/27/22 16:30 Sodium Chloride Flush 0.9% 10 Ml Syringe IVP 10 ml PRN PRN Administration NEEDED PER PROVIDER ORDERS Sodium Chloride 10 ml 09/27/22 01:00 09/28/22 08:22 Sodium Chloride Flush 0.9% 10 Ml Syringe IVP 10 ml 0100,0900,1700 ANA Administration - Lab Result Fish Bone Diagrams: 09/28/22 06:00 09/28/22 04:59 - Additional Planning My Orders: My Active Orders 09/28/22 10:20 Min Oil/Dimeth/Coconut Oil Crm [Cavilon] 1 applic TOP PRN PRN 09/28/22 17:00 FUROSEMIDE INJ 20mg VIAL [LASIX INJ 20mg VIAL] 20 mg IVP BIDDIURETIC 09/29/22 05:00 BNP - B-NATRIURETIC PEPTIDE [CHEM] DAILYLAB Subjective - Subjective Patient Reports: Feeling Better (Has more energy. Tolerated 6 units of packed RBCs. Is undergoing a prep for colonoscopy later today) Objective Vital Signs: Vital Signs - 24 hr 09/27/22 09/27/22 09/27/22 16:38 16:58 19:21 Temperature 37 C 37 C 37 C Heart Rate Heart Rate [ 72 75 74 Brachial] Respiratory 16 15 15 Rate Blood Pressure Blood Pressure 138/66 H 136/67 H 136/67 H [Right Brachial artery] O2 Saturation 100 96 96 09/27/22 09/27/22 09/28/22 20:09 23:39 04:45 Temperature 37.1 C 37.3 C 37.3 C Heart Rate Heart Rate [ 77 82 87 Brachial] Respiratory 16 18 20 Rate Blood Pressure Blood Pressure 129/65 144/74 H 149/71 H [Right Brachial artery] O2 Saturation 96 96 95 09/28/22 09/28/22 09/28/22 07:39 13:00 15:45 Temperature 37.2 C 37.1 C 36.7 C Heart Rate 91 Heart Rate [ 85 84 Brachial] Respiratory 16 16 16 Rate Blood Pressure 140/81 H Blood Pressure 148/67 H 140/60 H [Right Brachial artery] O2 Saturation 95 93 99 09/28/22 09/28/22 09/28/22 15:50 15:55 16:00 Temperature 36.7 C 36.7 C 36.6 C Heart Rate 17 L 89 90 Heart Rate [ Brachial] Respiratory 17 16 16 Rate Blood Pressure 139/77 H 150/81 H 151/77 H Blood Pressure [Right Brachial artery] O2 Saturation 99 100 100 09/28/22 16:06 Temperature 36.6 C Heart Rate 90 Heart Rate [ Brachial] Respiratory 18 Rate Blood Pressure 141/88 H Blood Pressure [Right Brachial artery] O2 Saturation 94 Oxygen O2 Source Room air I&O (Last 24 Hrs): Intake and Output Totals x24h 09/26/22 09/27/22 09/28/22 23:59 23:59 23:59 Intake Total 300 4620 100 Output Total 2100 10 Balance 300 2520 90 General: Alert, Oriented x3 HEENT: Mucous membr. moist/pink Neck: Supple Neuro: Alert, Non Focal Cardiovascular: Regular rate, No murmurs Respiratory: No respiratory distress, Breath sounds nml Abdomen: Normal bowel sounds, Soft, Other (Obese) Extremities: No clubbing, No edema - Results Results: Laboratory Results WBC 10.9 x10^3/uL (4.8-10.8) H 09/28/22 04:59 RBC 3.29 10^6/uL (4.20-5.40) L 09/28/22 04:59 Hgb 7.3 g/dL (12.0-16.0) L 09/28/22 06:00 Hct 24.3 % (37.0-47.0) L 09/28/22 04:59 MCV 73.9 fL (81.0-99.0) L 09/28/22 04:59 MCH 22.2 pg (27.0-31.0) L 09/28/22 04:59 MCHC 30.0 g/dL (32.0-36.0) L 09/28/22 04:59 RDW 27.8 % (12.0-15.0) H 09/28/22 04:59 Plt Count 329 10^3/uL (130-450) 09/28/22 04:59 MPV TNP 09/27/22 04:42 Neut # (Auto) 8.0 10^3/uL (1.5-6.6) H 09/28/22 04:59 Lymph # (Auto) 0.9 10^3/uL (1.5-3.5) L 09/28/22 04:59 [place] # (Auto) 1.4 10^3/uL (0.0-1.0) H 09/28/22 04:59 Eos # (Auto) 0.1 10^3/uL (0.0-0.7) 09/28/22 04:59 Baso # (Auto) 0.1 10^3/uL (0.0-0.1) 09/28/22 04:59 Absolute Nucleated RBC 0.25 x10^3/uL 09/28/22 04:59 Nucleated RBC % 2.3 /100WBC 09/28/22 04:59 Manual Slide Review Indicated 09/27/22 04:42 WBC Morphology NORMAL APPEARANCE (NORMAL) 09/27/22 04:42 Platelet Estimate NORMAL (130-450,000) (NORMAL) 09/27/22 04:42 Platelet Morphology NORMAL APPEARANCE (NORMAL) 09/27/22 04:42 RBC Morph Micro Appear 3+ ANISOCYTOSIS (NORMAL) 2+ MICROCYTOSIS (NORMAL) 2+ HYPOCHROMASIA (NORMAL) 09/27/22 04:42 RBC Morph Micro Appear 3+ ANISOCYTOSIS (NORMAL) 2+ MICROCYTOSIS (NORMAL) 2+ HYPOCHROMASIA (NORMAL) 09/27/22 04:42 RBC Morph Micro Appear 3+ ANISOCYTOSIS (NORMAL) 2+ MICROCYTOSIS (NORMAL) 2+ HYPOCHROMASIA (NORMAL) 09/27/22 04:42 PT 14.9 secs (9.9-12.6) H 09/26/22 17:00 INR 1.4 (0.8-1.2) H 09/26/22 17:00 APTT 29.1 secs (24.9-33.3) 09/26/22 17:00 Sodium 139 mmol/L (135-145) 09/28/22 04:59 Potassium 3.3 mmol/L (3.5-4.5) L 09/28/22 04:59 Chloride 105 mmol/L (101-111) 09/28/22 04:59 Carbon Dioxide 26 mmol/L (21-32) 09/28/22 04:59 Anion Gap 8.0 (6-13) 09/28/22 04:59 BUN 10 mg/dL (6-20) 09/28/22 04:59 Creatinine 0.9 mg/dL (0.6-1.3) 09/28/22 04:59 Estimated GFR (MDRD) 65 (>89) L 09/28/22 04:59 Glucose 94 mg/dL (74-104) 09/28/22 04:59 Calcium 8.9 mg/dL (8.5-10.3) 09/28/22 04:59 Iron < 10 ug/dL (50-212) L 09/26/22 17:00 TIBC 528 ug/dL (250-450) H 09/26/22 17:00 % Saturation TNP 09/26/22 17:00 Transferrin 377 mg/dL (203-362) H 09/26/22 17:00 Ferritin 14.3 ng/mL (11.0-306.8) 09/28/22 04:59 Total Bilirubin 1.5 mg/dL (0.2-1.0) H 09/27/22 04:42 AST 13 IU/L (10-42) 09/27/22 04:42 ALT 12 IU/L (10-60) 09/27/22 04:42 Alkaline Phosphatase 73 IU/L (42-121) 09/27/22 04:42 Troponin I High Sens 7.9 ng/L (2.3-14.8) 09/26/22 17:00 B-Natriuretic Peptide 660 pg/mL (5-100) H 09/27/22 04:42 Total Protein 6.1 g/dL (6.4-8.9) L 09/27/22 04:42 Albumin 3.3 g/dL (3.2-5.5) 09/27/22 04:42 Globulin 2.8 g/dL (2.1-4.2) 09/27/22 04:42 Albumin/Globulin Ratio 1.2 (1.0-2.2) 09/27/22 04:42 Lipase 45 U/L (11-82) 09/26/22 17:00 Vitamin B12 578 pg/mL (180-914) 09/28/22 04:59 Folate 9.7 ng/mL (5.90 - >24.8) 09/28/22 04:59 Blood Type A POSITIVE 09/26/22 17:00 Blood Type Recheck A POSITIVE 09/26/22 17:16 Antibody Screen NEGATIVE 09/26/22 17:00 Crossmatch IS Only See Detail 09/26/22 17:00
[2022-09-28] MEDS ORDERED: LACTATED RINGERS 1,000 ML IV SCH (17:00)
[2022-09-28] MEDS ORDERED: PHENOL THROAT SPRAY 177 ML MM PRN (17:51)
--- NOTE | 2022-09-28 17:52 | ANESTHESIA POST OP EVALUATION ---
Anesthesia Post Eval - Post Anesthesia Eval Vitals: Last Vital Signs Temp 37.1 C 09/28/22 17:00 Pulse 84 09/28/22 17:00 Resp 18 09/28/22 17:00 BP 144/74 H 09/28/22 17:00 Pulse Ox 94 09/28/22 17:00 O2 Flow Rate CV Function Including HR & BP: Stable Pain Control: Satisfactory Nausea & Vomiting: Negative Mental Status: Baseline Respiratory Status: Airway Patent Hydration Status: Satisfactory Anesthesia Complications: None
[2022-09-28] MEDS: LIDOCAINE JELLY 2% 6 ML JEL.PF.APP TOP PRN (18:18)
[2022-09-28] MEDS: CHOLECALCIFEROL 25 MCG TABLET PO SCH (20:59)
[2022-09-28] MEDS: rOPINIRole 1 MG TABLET PO SCH (21:00)
[2022-09-29] MEDS: SODIUM CHLORIDE FLUSH 0.9% 10 ML SYRINGE IVP SCH ×3 (00:28→16:09)
[2022-09-29 05:16] LABS: BASOPHILS # (AUTO) 0.1 10^3/uL (0.0-0.1); EOSINOPHILS # (AUTO) 0.1 10^3/uL (0.0-0.7); EOSINOPHILS % (AUTO) 1.3 %; HGB - HEMOGLOBIN 7.5 g/dL (12.0-16.0); MONOCYTES # (AUTO) 1.4 10^3/uL (0.0-1.0); NRBC ABSOLUTE COUNT (AUTO) 0.12 x10^3/uL; NUCLEATED RED BLOOD CELLS AUTO 1.2 /100WBC
[2022-09-29 05:23] LABS: CALCIUM 8.9 mg/dL (8.5-10.3); CREATININE 1.1 mg/dL (0.6-1.3); POTASSIUM 3.3 mmol/L (3.5-4.5)
[2022-09-29 05:51] LABS: MEAN CORPUSCULAR HEMOGLOBIN 22.4 pg (27.0-31.0); MEAN CORPUSCULAR HGB CONC 31.3 g/dL (32.0-36.0); MEAN CORPUSCULAR VOLUME 71.6 fL (81.0-99.0); RED BLOOD COUNT 3.35 10^6/uL (4.20-5.40); RED CELL DISTRIBUTION WIDTH 29.2 % (12.0-15.0); WHITE BLOOD COUNT 10.6 x10^3/uL (4.8-10.8)
[2022-09-29 05:52] LABS: BASOPHILS % (AUTO) 0.6 %; LYMPHOCYTES # (AUTO) 0.9 10^3/uL (1.5-3.5); LYMPHOCYTES % (AUTO) 8.2 %; MONOCYTES % (AUTO) 12.8 %; NEUTROPHILS % (AUTO) 75.3 %; PLT - PLATELET COUNT 335 10^3/uL (130-450)
[2022-09-29 05:53] LABS: SLIDE REVIEW? Indicated
[2022-09-29 06:03] LABS: PLATELET ESTIMATE, MANUAL NORMAL (130-450,000) (NORMAL)
[2022-09-29] MEDS: FERROUS GLUCONATE 324 MG TABLET PO SCH ×3 (06:35→17:11)
[2022-09-29] MEDS: FUROSEMIDE 20 MG/2 ML VIAL IVP SCH (06:35)
[2022-09-29] MEDS: SODIUM CHLORIDE FLUSH 0.9% 10 ML SYRINGE IVP PRN (06:35)
--- NOTE | 2022-09-29 07:25 | PROVIDER PROGRESS NOTE ---
Subjective - General Admit Date: 09/27/22 Procedure Date: 09/28/22 Post Op Days: 1 Procedure Performed: EGD, colonoscopy - Review of Systems All Other Systems: positive: Reviewed and negative - Other Other Information/Narrative: Patient states she is hungry and thirsty this AM. No blood noted in stools. Patient denies pain. No acute events overnight. She would like to go home. Objective - Patient Data Vital Signs: Vital Signs x48h Temp Pulse Pulse Resp BP Pulse Ox 09/29/22 05:46 37.4 C 92 16 142/84 H 90 L 09/28/22 23:43 37.0 C 97 18 132/84 H 95 Weight: Weight 09/27/22 09/28/22 09/29/22 23:59 23:59 23:59 Weight (kg) 128 kg Intake & Output: Intake and Output Totals x24h 09/27/22 09/28/22 09/29/22 23:59 23:59 23:59 Intake Total 4620 100 Output Total 2100 2009 Balance 9722 -1077 -822 - Lab Results Lab Results: 09/29/22 04:36 09/29/22 04:36 Other Lab Results: Lab Results x24hrs 09/29/22 09/29/22 09/29/22 Range/Units 04:36 04:36 04:36 WBC 10.6 (4.8-10.8) x10^3/uL RBC 3.35 L (4.20-5.40) 10^6/uL Hgb 7.5 L (12.0-16.0) g/dL Hct 24.0 L (37.0-47.0) % MCV 71.6 L (81.0-99.0) fL MCH 22.4 L (27.0-31.0) pg MCHC 31.3 L (32.0-36.0) g/dL RDW 29.2 H (12.0-15.0) % Plt Count 335 (130-450) 10^3/uL Neut # (Auto) 8.0 H (1.5-6.6) 10^3/uL Lymph # (Auto) 0.9 L (1.5-3.5) 10^3/uL [place] # (Auto) 1.4 H (0.0-1.0) 10^3/uL Eos # (Auto) 0.1 (0.0-0.7) 10^3/uL Baso # (Auto) 0.1 (0.0-0.1) 10^3/uL Absolute Nucleated RBC 0.12 x10^3/uL Nucleated RBC % 1.2 /100WBC Manual Slide Review Indicated Platelet Estimate NORMAL (130-450,000) (NORMAL) RBC Morph Micro Appear 1+ OVALOCYTES (NORMAL) Sodium 140 (135-145) mmol/L Potassium 3.3 L (3.5-4.5) mmol/L Chloride 106 (101-111) mmol/L Carbon Dioxide 27 (21-32) mmol/L Anion Gap 7.0 (6-13) BUN 7 (6-20) mg/dL Creatinine 1.1 (0.6-1.3) mg/dL Estimated GFR (MDRD) 51 L (>89) Glucose 90 (74-104) mg/dL Calcium 8.9 (8.5-10.3) mg/dL Ferritin (11.0-306.8) ng/mL B-Natriuretic Peptide 1095 H (5-100) pg/mL Vitamin B12 (180-914) pg/mL Folate (5.90 - >24.8) ng/mL 09/28/22 09/28/22 Range/Units 04:59 04:59 WBC (4.8-10.8) x10^3/uL RBC (4.20-5.40) 10^6/uL Hgb (12.0-16.0) g/dL Hct (37.0-47.0) % MCV (81.0-99.0) fL MCH (27.0-31.0) pg MCHC (32.0-36.0) g/dL RDW (12.0-15.0) % Plt Count (130-450) 10^3/uL Neut # (Auto) (1.5-6.6) 10^3/uL Lymph # (Auto) (1.5-3.5) 10^3/uL [place] # (Auto) (0.0-1.0) 10^3/uL Eos # (Auto) (0.0-0.7) 10^3/uL Baso # (Auto) (0.0-0.1) 10^3/uL Absolute Nucleated RBC x10^3/uL Nucleated RBC % /100WBC Manual Slide Review Platelet Estimate (NORMAL) RBC Morph Micro Appear (NORMAL) Sodium (135-145) mmol/L Potassium (3.5-4.5) mmol/L Chloride (101-111) mmol/L Carbon Dioxide (21-32) mmol/L Anion Gap (6-13) BUN (6-20) mg/dL Creatinine (0.6-1.3) mg/dL Estimated GFR (MDRD) (>89) Glucose (74-104) mg/dL Calcium (8.5-10.3) mg/dL Ferritin 14.3 (11.0-306.8) ng/mL B-Natriuretic Peptide (5-100) pg/mL Vitamin B12 578 (180-914) pg/mL Folate 9.7 (5.90 - >24.8) ng/mL - Current Medications Current Medications: Current Medications Generic Name Dose Route Start Last Admin Trade Name Chrisq PRN Reason Stop Dose Admin Acetaminophen 650 mg 09/26/22 19:49 09/28/22 08:22 Acetaminophen 325 Mg Tablet PO 650 mg Q4HR PRN Administration Pain 1 to 4, or Fever Atenolol 25 mg 09/27/22 09:00 09/28/22 08:23 Atenolol 25 Mg Tablet PO 25 mg DAILY ANA Administration Bupropion HCl 300 mg 09/27/22 09:00 09/28/22 08:24 Bupropion Xl 150 Mg Tablet PO 300 mg DAILY ANA Administration Bupropion HCl 150 mg 09/27/22 09:00 09/28/22 08:24 Bupropion Sr 150 Mg Tablet PO 150 mg DAILY ANA Administration Buspirone HCl 30 mg 09/26/22 21:00 09/28/22 20:59 Buspirone 5 Mg Tablet PO 30 mg BID ANA Administration Cholecalciferol 50 mcg 09/27/22 21:00 09/28/22 20:59 Cholecalciferol 25 Mcg Tablet PO 50 mcg HS ANA Administration Escitalopram Oxalate 15 mg 09/27/22 09:00 09/28/22 08:23 Escitalopram 10 Mg Tablet PO 15 mg DAILY ANA Administration Ferrous Gluconate 324 mg 09/26/22 22:00 09/29/22 06:35 Ferrous Gluconate 324 Mg Tablet PO 324 mg TID ANA Administration Furosemide 20 mg 09/28/22 17:00 09/29/22 06:35 Furosemide 20 Mg/2 Ml Vial IVP 20 mg BIDDIURETIC ANA Administration Lidocaine HCl 0 ml 09/28/22 17:46 09/28/22 18:18 Lidocaine Jelly 2% 6 Ml Jel.Pf.Dilcia TOP 6 ml Q6H PRN Administration NEEDED PER PROVIDER ORDERS Mineral Oil 1 applic 09/28/22 10:20 09/28/22 10:36 Min Oil/Dimethicon/Coconut Oil 92 Gm Tube TOP 1 applic PRN PRN Administration Skin Care Pantoprazole Sodium 40 mg 09/26/22 21:00 09/28/22 20:59 Pantoprazole 40 Mg Vial IVP 40 mg BID ANA Administration Phenol/Menthol 2 sprays 09/28/22 17:51 09/28/22 18:21 Phenol Throat [place] 177 Ml MM 2 sprays Q2HR PRN Administration Throat Pain Prochlorperazine Edisylate 10 mg 09/26/22 19:49 09/27/22 01:54 Prochlorperazine 10 Mg/2 Ml Vial IVP 10 mg Q6HR PRN Administration Nausea / Vomiting Ropinirole HCl 1 mg 09/27/22 00:31 09/28/22 21:00 Ropinirole 1 Mg Tablet PO 1 mg QPM ANA Administration Sodium Chloride 10 ml 09/26/22 19:49 09/29/22 06:35 Sodium Chloride Flush 0.9% 10 Ml Syringe IVP 10 ml PRN PRN Administration NEEDED PER PROVIDER ORDERS Sodium Chloride 10 ml 09/27/22 01:00 09/29/22 00:28 Sodium Chloride Flush 0.9% 10 Ml Syringe IVP 10 ml 0100,0900,1700 ANA Administration - Physical Exam General Appearance: positive: No acute distress, Alert Eyes Bilateral: positive: Normal inspection ENT: positive: No signs of dehydration Neck: positive: Trachea midline Respiratory: positive: No respiratory distress Cardiovascular: positive: Regular rate & rhythm Abdomen: positive: Non-tender, No distention. negative: Guarding, Rebound Skin: positive: No rash Extremities: positive: Full ROM Neurologic/Psychiatric: positive: Oriented x3 Impression/Plan - Problem List Problem List: This is a 57-year-old female with: 1. Severe anemia, improved, stable - hgb stable and above 7 - HD stable 2. gastric polyposis - numerous small (stomach and duodenum) and several large polyps (stomach) noted on EGD. I suspect bleeding from these polyps is the source of #1. - I recommend avoiding NSAID medications and continuing PPI at this time. - pathology pending on resected polyps. Further recommendations pending pathology. 3. normal colonoscopy - prep adequate, no colon polyps identified 2. Heart failure, depression, hypertension, RLS -As per primary medical team Thank you for consulting me in the care of this patient! I will continue to follow closely. Ok to discharge patient from surgery standpoint. I would like her to follow up with me in two weeks in clinic.
[2022-09-29] MEDS: busPIRone 5 MG TABLET PO SCH ×2 (08:42→21:06)
[2022-09-29] MEDS: PANTOPRAZOLE 40 MG VIAL IVP SCH (08:42)
[2022-09-29] MEDS: buPROPion XL 150 MG TABLET PO SCH (08:43)
[2022-09-29] MEDS: atenoloL 25 MG TABLET PO SCH (08:43)
[2022-09-29] MEDS: ESCITALOPRAM 10 MG TABLET PO SCH (08:43)
[2022-09-29] MEDS: buPROPion SR 150 MG TABLET PO SCH (08:43)
[2022-09-29] MEDS ORDERED: FUROSEMIDE 20 MG TABLET PO ONE (14:00)
--- NOTE | 2022-09-29 14:10 | PROVIDER PROGRESS NOTE ---
Assessment/Plan - Problem List (1) Orthostatic hypotension Assessment/Plan: Because of the severe anemia at presentation with hemoglobin of 2.4, and after receiving 6 units PRBCs, I ordered orthostatic vital sign check today. She is quite orthostatic with a systolic BP drop of 25 mmHg. She is symptomatic with this; she gets stars in front of her eyes and tunnel vision Plan: She is not yet ready for discharge Patient still needs diuresis for her anasarca and today's findings of pericardial effusion and diastolic heart failure, but she needs an adjustment of medicines to avoid being orthostatic. Therefore, I will change her daily Atenolol to Toprol-XL, and I will change her Lasix IV twice daily dosing to oral Lasix once daily dose. Follow orthostatic vital signs daily (2) Iron deficiency anemia Assessment/Plan: Most likely cause is blood loss anemia. She underwent CT angio of the abdomen pelvis. and it showed no extravasation of blood. The patient was on Diclofenac twice daily for years. This makes a gastric ulcer likely. Diclofenac has been put on hold and NSAIDs are to be avoided Her smear does not show schistocytes or evidence of hemolysis with a normal bilirubin Guaiac of stool came back neg She has received 6U PRBCs and Hgb is now running 7.6. Plan: Follow hemoglobin every 12 hours, transfuse if drops below 7 Continue to hold Diclofenac and avoid other NSAIDs and ASA Iron orally 3 times daily has been ordered and will continue this EGD and colonoscopy to be done today (see #2) (3) Multiple gastric polyps Assessment/Plan: Dr. Goldsmith spoke to me today with results of the EGD. She has multiple gastric polyps especially in the cardia. The feeling is these were the sources of GI blood loss Plan: Await pathology Further recommendations and management per general surgery (4) Acute diastolic heart failure Assessment/Plan: Her BNP was 600. Her troponins was normal.Most likely the cause was high-output heart failure given the severe, symptomatic anemia, presenting with a hemoglobin of 2.4. She had her Echo done today which shows LVH, normal EF of 65% and grade 2 diastolic heart failure. She also has mild RV enlargement, mild pulm hypertension and a small pericardial effusion Plan: Awaiting her TSH result I will change her daily Atenolol to daily Toprol-XL, to treat the diastolic heart failure. I will change her Lasix IV twice daily dosing to oral Lasix once daily dose, due to orthostasis (5) HTN (hypertension) Assessment/Plan: The patient was on aAnolol and HCTZ for blood pressure control at home. Her HCTZ was stopped. She has been getting Lasix iv here. Her VS here have shown orthostasis Plan: I will change her daily Atenolol to daily Toprol-XL, to treat the diastolic heart failure. I will change her Lasix IV twice daily dosing to oral Lasix once daily dose, due to orthostasis (6) Restless leg syndrome Assessment/Plan: The patient was on an OTC (herbal) medication for this. Overnight she requested medicine for restless leg sx, and the telemedicine doctor ordered Requip x1 Plan: Cont on Requip qpm (7) Morbid obesity with BMI of 45.0-49.9, adult Assessment/Plan: This complicates all of her care and may be the cause of RV dilation and mild pulm HTN. - Current Meds Current Meds: Current Medications Generic Name Dose Route Start Last Admin Trade Name Chrisq PRN Reason Stop Dose Admin Acetaminophen 650 mg 09/26/22 19:49 09/28/22 08:22 Acetaminophen 325 Mg Tablet PO 650 mg Q4HR PRN Administration Pain 1 to 4, or Fever Bupropion HCl 300 mg 09/27/22 09:00 09/29/22 08:43 Bupropion Xl 150 Mg Tablet PO 300 mg DAILY ANA Administration Bupropion HCl 150 mg 09/27/22 09:00 09/29/22 08:43 Bupropion Sr 150 Mg Tablet PO 150 mg DAILY ANA Administration Buspirone HCl 30 mg 09/26/22 21:00 09/29/22 08:42 Buspirone 5 Mg Tablet PO 30 mg BID ANA Administration Cholecalciferol 50 mcg 09/27/22 21:00 09/28/22 20:59 Cholecalciferol 25 Mcg Tablet PO 50 mcg HS ANA Administration Escitalopram Oxalate 15 mg 09/27/22 09:00 09/29/22 08:43 Escitalopram 10 Mg Tablet PO 15 mg DAILY ANA Administration Lidocaine HCl 0 ml 09/28/22 17:46 09/28/22 18:18 Lidocaine Jelly 2% 6 Ml Jel.Pf.Dilcia TOP 6 ml Q6H PRN Administration NEEDED PER PROVIDER ORDERS Mineral Oil 1 applic 09/28/22 10:20 09/28/22 10:36 Min Oil/Dimethicon/Coconut Oil 92 Gm Tube TOP 1 applic PRN PRN Administration Skin Care Phenol/Menthol 2 sprays 09/28/22 17:51 09/28/22 18:21 Phenol Throat [place] 177 Ml MM 2 sprays Q2HR PRN Administration Throat Pain Prochlorperazine Edisylate 10 mg 09/26/22 19:49 09/27/22 01:54 Prochlorperazine 10 Mg/2 Ml Vial IVP 10 mg Q6HR PRN Administration Nausea / Vomiting Ropinirole HCl 1 mg 09/27/22 00:31 09/28/22 21:00 Ropinirole 1 Mg Tablet PO 1 mg QPM ANA Administration Sodium Chloride 10 ml 09/26/22 19:49 09/29/22 06:35 Sodium Chloride Flush 0.9% 10 Ml Syringe IVP 10 ml PRN PRN Administration NEEDED PER PROVIDER ORDERS Sodium Chloride 10 ml 09/27/22 01:00 09/29/22 08:43 Sodium Chloride Flush 0.9% 10 Ml Syringe IVP 10 ml 0100,0900,1700 ANA Administration - Lab Result Fish Bone Diagrams: 09/29/22 04:36 09/29/22 04:36 - Additional Planning My Orders: My Active Orders 09/28/22 17:46 Lidocaine Jelly 2% [Glydo] See Dose Instructions TOP Q6H PRN 09/28/22 17:51 phenoL [Chloraseptic] 2 sprays MM Q2HR PRN 09/29/22 Breakfast DIET [Soft Mechanical Diet] [DIET] 09/29/22 07:54 Orthostatic [Vital Signs - Orthostatic] [RC] DAILY 09/29/22 Dinner DIET [Low Sodium Diet] [DIET] 09/29/22 17:00 Ferrous Gluconate [Fergon] 324 mg PO TIDWM 09/29/22 21:00 Pantoprazole [Protonix] 40 mg PO BID 09/30/22 05:00 BMP - BASIC METABOLIC PANEL [CHEM] DAILYLAB CBC - COMP BLD CT W/AUTO DIFF [HEME] DAILYLAB THYROID STIMULATING HORMONE [CHEM] DAILYLAB 09/30/22 08:00 Potassium Chloride [Micro-K] 20 meq PO DAILYWM 09/30/22 09:00 Furosemide [Lasix] 20 mg PO DAILY Metoprolol Succinate [Toprol Xl] 25 mg PO DAILY 10/01/22 05:00 BNP - B-NATRIURETIC PEPTIDE [CHEM] DAILYLAB Subjective - Subjective Patient Reports: Other (She is less weak and less short of breath but still extremely fatigued. Also she is lightheaded when stands) Objective Vital Signs: Vital Signs - 24 hr 09/28/22 09/28/22 09/28/22 15:45 15:50 15:55 Temperature 36.7 C 36.7 C 36.7 C Heart Rate 91 17 L 89 Heart Rate [ Brachial] Heart Rate [ Monitoring electrodes] Respiratory 16 17 16 Rate Blood Pressure 140/81 H 139/77 H 150/81 H Blood Pressure [Left Brachial artery] Blood Pressure [Right Brachial artery] O2 Saturation 99 99 100 09/28/22 09/28/22 09/28/22 16:00 16:06 16:35 Temperature 36.6 C 36.6 C 37.0 C Heart Rate 90 90 Heart Rate [ 67 Brachial] Heart Rate [ Monitoring electrodes] Respiratory 16 18 18 Rate Blood Pressure 151/77 H 141/88 H Blood Pressure [Left Brachial artery] Blood Pressure 140/67 H [Right Brachial artery] O2 Saturation 100 94 95 09/28/22 09/28/22 09/28/22 17:00 21:00 23:43 Temperature 37.1 C 37.1 C 37.0 C Heart Rate Heart Rate [ 84 95 Brachial] Heart Rate [ 97 Monitoring electrodes] Respiratory 18 18 18 Rate Blood Pressure Blood Pressure [Left Brachial artery] Blood Pressure 144/74 H 132/84 H [Right Brachial artery] O2 Saturation 94 96 95 09/29/22 09/29/22 09/29/22 05:46 07:36 11:36 Temperature 37.4 C 37.1 C 37.1 C Heart Rate Heart Rate [ 92 84 77 Brachial] Heart Rate [ Monitoring electrodes] Respiratory 16 16 16 Rate Blood Pressure Blood Pressure 142/74 H [Left Brachial artery] Blood Pressure 142/84 H 143/62 H [Right Brachial artery] O2 Saturation 90 L 94 93 Oxygen O2 Source Room air I&O (Last 24 Hrs): Intake and Output Totals x24h 09/27/22 09/28/22 09/29/22 23:59 23:59 23:59 Intake Total 4620 200 500 Output Total 2099 2009 1124 Balance 2520 -1810 -625 General: Alert, Oriented x3, Other (obese. Appears fatigued) HEENT: Mucous membr. moist/pink Neck: Supple Neuro: Alert, Non Focal Cardiovascular: Regular rate Respiratory: Chest non-tender Abdomen: Other (Obese) Extremities: No clubbing, Other (1+ edema to knees) - Results Results: Laboratory Results WBC 10.6 x10^3/uL (4.8-10.8) 09/29/22 04:36 RBC 3.35 10^6/uL (4.20-5.40) L 09/29/22 04:36 Hgb 7.5 g/dL (12.0-16.0) L 09/29/22 04:36 Hct 24.0 % (37.0-47.0) L 09/29/22 04:36 MCV 71.6 fL (81.0-99.0) L 09/29/22 04:36 MCH 22.4 pg (27.0-31.0) L 09/29/22 04:36 MCHC 31.3 g/dL (32.0-36.0) L 09/29/22 04:36 RDW 29.2 % (12.0-15.0) H 09/29/22 04:36 Plt Count 335 10^3/uL (130-450) 09/29/22 04:36 MPV TNP 09/27/22 04:42 Neut # (Auto) 8.0 10^3/uL (1.5-6.6) H 09/29/22 04:36 Lymph # (Auto) 0.9 10^3/uL (1.5-3.5) L 09/29/22 04:36 [place] # (Auto) 1.4 10^3/uL (0.0-1.0) H 09/29/22 04:36 Eos # (Auto) 0.1 10^3/uL (0.0-0.7) 09/29/22 04:36 Baso # (Auto) 0.1 10^3/uL (0.0-0.1) 09/29/22 04:36 Absolute Nucleated RBC 0.12 x10^3/uL 09/29/22 04:36 Nucleated RBC % 1.2 /100WBC 09/29/22 04:36 Manual Slide Review Indicated 09/29/22 04:36 WBC Morphology NORMAL APPEARANCE (NORMAL) 09/27/22 04:42 Platelet Estimate NORMAL (130-450,000) (NORMAL) 09/29/22 04:36 Platelet Morphology NORMAL APPEARANCE (NORMAL) 09/27/22 04:42 RBC Morph Micro Appear 3+ ANISOCYTOSIS (NORMAL) 2+ MICROCYTOSIS (NORMAL) 2+ HYPOCHROMASIA (NORMAL) 1+ POLYCHROMASIA (NORMAL) 1+ OVALOCYTES (NORMAL) 09/29/22 04:36 RBC Morph Micro Appear 3+ ANISOCYTOSIS (NORMAL) 2+ MICROCYTOSIS (NORMAL) 2+ HYPOCHROMASIA (NORMAL) 1+ POLYCHROMASIA (NORMAL) 1+ OVALOCYTES (NORMAL) 09/29/22 04:36 RBC Morph Micro Appear 3+ ANISOCYTOSIS (NORMAL) 2+ MICROCYTOSIS (NORMAL) 2+ HYPOCHROMASIA (NORMAL) 1+ POLYCHROMASIA (NORMAL) 1+ OVALOCYTES (NORMAL) 09/29/22 04:36 RBC Morph Micro Appear 3+ ANISOCYTOSIS (NORMAL) 2+ MICROCYTOSIS (NORMAL) 2+ HYPOCHROMASIA (NORMAL) 1+ POLYCHROMASIA (NORMAL) 1+ OVALOCYTES (NORMAL) 09/29/22 04:36 RBC Morph Micro Appear 3+ ANISOCYTOSIS (NORMAL) 2+ MICROCYTOSIS (NORMAL) 2+ HYPOCHROMASIA (NORMAL) 1+ POLYCHROMASIA (NORMAL) 1+ OVALOCYTES (NORMAL) 09/29/22 04:36 PT 14.9 secs (9.9-12.6) H 09/26/22 17:00 INR 1.4 (0.8-1.2) H 09/26/22 17:00 APTT 29.1 secs (24.9-33.3) 09/26/22 17:00 Sodium 140 mmol/L (135-145) 09/29/22 04:36 Potassium 3.3 mmol/L (3.5-4.5) L 09/29/22 04:36 Chloride 106 mmol/L (101-111) 09/29/22 04:36 Carbon Dioxide 27 mmol/L (21-32) 09/29/22 04:36 Anion Gap 7.0 (6-13) 09/29/22 04:36 BUN 7 mg/dL (6-20) 09/29/22 04:36 Creatinine 1.1 mg/dL (0.6-1.3) 09/29/22 04:36 Estimated GFR (MDRD) 51 (>89) L 09/29/22 04:36 Glucose 90 mg/dL (74-104) 09/29/22 04:36 Calcium 8.9 mg/dL (8.5-10.3) 09/29/22 04:36 Iron < 10 ug/dL (50-212) L 09/26/22 17:00 TIBC 528 ug/dL (250-450) H 09/26/22 17:00 % Saturation TNP 09/26/22 17:00 Transferrin 377 mg/dL (203-362) H 09/26/22 17:00 Ferritin 14.3 ng/mL (11.0-306.8) 09/28/22 04:59 Total Bilirubin 1.5 mg/dL (0.2-1.0) H 09/27/22 04:42 AST 13 IU/L (10-42) 09/27/22 04:42 ALT 12 IU/L (10-60) 09/27/22 04:42 Alkaline Phosphatase 73 IU/L (42-121) 09/27/22 04:42 Troponin I High Sens 7.9 ng/L (2.3-14.8) 09/26/22 17:00 B-Natriuretic Peptide 1095 pg/mL (5-100) H 09/29/22 04:36 Total Protein 6.1 g/dL (6.4-8.9) L 09/27/22 04:42 Albumin 3.3 g/dL (3.2-5.5) 09/27/22 04:42 Globulin 2.8 g/dL (2.1-4.2) 09/27/22 04:42 Albumin/Globulin Ratio 1.2 (1.0-2.2) 09/27/22 04:42 Lipase 45 U/L (11-82) 09/26/22 17:00 Vitamin B12 578 pg/mL (180-914) 09/28/22 04:59 Folate 9.7 ng/mL (5.90 - >24.8) 09/28/22 04:59 Blood Type A POSITIVE 09/26/22 17:00 Blood Type Recheck A POSITIVE 09/26/22 17:16 Antibody Screen NEGATIVE 09/26/22 17:00 Crossmatch IS Only See Detail 09/26/22 17:00
[2022-09-29] MEDS: CHOLECALCIFEROL 25 MCG TABLET PO SCH (21:06)
[2022-09-29] MEDS: rOPINIRole 1 MG TABLET PO SCH (21:07)
[2022-09-29] MEDS: PANTOPRAZOLE 40 MG TABLET PO SCH (21:07)
[2022-09-30] MEDS: SODIUM CHLORIDE FLUSH 0.9% 10 ML SYRINGE IVP SCH ×2 (01:15→08:35)
[2022-09-30 04:51] LABS: BASOPHILS % (AUTO) 0.5 %; EOSINOPHILS # (AUTO) 0.2 10^3/uL (0.0-0.7); EOSINOPHILS % (AUTO) 2.6 %; HCT - HEMATOCRIT 25.6 % (37.0-47.0); HGB - HEMOGLOBIN 7.3 g/dL (12.0-16.0); LYMPHOCYTES % (AUTO) 12.5 %; MEAN CORPUSCULAR HEMOGLOBIN 22.3 pg (27.0-31.0); MEAN CORPUSCULAR HGB CONC 28.5 g/dL (32.0-36.0); MEAN CORPUSCULAR VOLUME 78.3 fL (81.0-99.0); MONOCYTES # (AUTO) 1.1 10^3/uL (0.0-1.0); MONOCYTES % (AUTO) 13.5 %; NEUTROPHILS # (AUTO) 5.6 10^3/uL (1.5-6.6); NEUTROPHILS % (AUTO) 69.8 %; NRBC ABSOLUTE COUNT (AUTO) 0.05 x10^3/uL; NUCLEATED RED BLOOD CELLS AUTO 0.6 /100WBC; PLT - PLATELET COUNT 291 10^3/uL (130-450); RED BLOOD COUNT 3.27 10^6/uL (4.20-5.40); RED CELL DISTRIBUTION WIDTH 31.5 % (12.0-15.0); WHITE BLOOD COUNT 8.1 x10^3/uL (4.8-10.8)
[2022-09-30 05:08] LABS: CALCIUM 8.6 mg/dL (8.5-10.3); CREATININE 1.3 mg/dL (0.6-1.3); POTASSIUM 3.1 mmol/L (3.5-4.5)
[2022-09-30 05:15] LABS: THYROID STIMULATING HORMONE 4.32 uIU/mL (0.34-5.60)
[2022-09-30 05:18] LABS: SLIDE REVIEW? Indicated
[2022-09-30 05:23] LABS: PLATELET ESTIMATE, MANUAL NORMAL (130-450,000) (NORMAL)
[2022-09-30] MEDS: ACETAMINOPHEN 325 MG TABLET PO PRN (06:28)
[2022-09-30] MEDS ORDERED: POTASSIUM CHLORIDE 10 MEQ CAPSULE PO SCH (08:00)
[2022-09-30] MEDS: busPIRone 5 MG TABLET PO SCH (08:28)
[2022-09-30] MEDS: ESCITALOPRAM 10 MG TABLET PO SCH (08:30)
[2022-09-30] MEDS: buPROPion SR 150 MG TABLET PO SCH (08:31)
[2022-09-30] MEDS: FERROUS GLUCONATE 324 MG TABLET PO SCH (08:32)
[2022-09-30] MEDS: PANTOPRAZOLE 40 MG TABLET PO SCH (08:32)
[2022-09-30] MEDS: buPROPion XL 150 MG TABLET PO SCH (08:34)
--- NOTE | 2022-09-30 08:36 | Discharge Plan ---
Discharge Plan Problem Reviewed?: Yes Disposition: Home, Self Care Condition: Fair Prescriptions: Ferrous Gluconate [Fergon] 324 mg PO TID #90 tab Furosemide [Lasix] 20 mg PO DAILY #30 tab Potassium Chloride [Micro-K] 20 meq PO DAILY #30 cap Pantoprazole [Protonix] 40 mg PO BID #60 tab rOPINIRole [Requip] 1 mg PO QPM #30 tab Metoprolol Succinate [Toprol Xl] 25 mg PO DAILY #30 tab Diet: Regular Activity Restrictions: Activity as Tolerated Shower Restrictions: No Driving Restrictions: Yes (Do not operate a vehicle if you are dizzy or lightheaded) Health Concerns: You were hospitalized to treat a severe anemia (hemoglobin 2.4), needing blood transfusions, endoscopy and management of your shortness of breath which we found to be from fluid overload from heart failure. You are going home with several new prescriptions: Iron tablets, to build up your anemia, Lasix to manage the fluid overload, Protonix for the stomach polyps where the bleeding presumably came from, Potassium supplement (since you will lose Potassium being on Lasix), and Requip for restless legs (which you requested we treat). You should see your Primary Care Provider in the next 5 to 10 days for a hospital follow-up visit. Dr. Mcgarry (General Surgery) would like to see you in the next 1 week for a hospital follow-up visit and to review the biopsy results ([phone] office number). Also, your blood pressure medication has been changed from Atenolol to Toprol, which treats hypertension and heart failure. All the new prescriptions were electronically sent to your [facility] pharmacy in [place]. You may resume all your other pre-hospital medications. You are reminded to eat a low-salt diet, to treat the hypertension and heart failure. Also, it is advised that you not eat acidy foods. Therefore stop taking the vitamin C and the cranberry supplements. And also do not take the Voltaren or any NSAIDs (like ibuprofen), or aspirin products. Plan of Treatment: As above. Care Goals: Improvement in symptoms and stabilization of the goals. Assessment: The patient understands and is agreeable with the plan. Additional Instructions or Follow Up instructions: If you have new or worsening symptoms, call your PCP for advice, or come to the ER. No Smoking: If you smoke, Please STOP! Call for help. Follow-up with: Mohini Gamino PA-C [Primary Care Provider] -
[2022-09-30] MEDS: LIDOCAINE JELLY 2% 6 ML JEL.PF.APP TOP PRN (08:39)
[2022-09-30] MEDS ORDERED: METOPROLOL SUCCINATE 25 MG TABLET PO SCH (09:00)
[2022-09-30] MEDS ORDERED: FUROSEMIDE 20 MG TABLET PO SCH (09:00)
--- NOTE | 2022-09-30 10:59 | DISCHARGE SUMMARY ---
Discharge Summary Admit Date: 09/26/22 Discharge Date: 09/30/22 Discharging Provider: Dr Ann-Marie King Primary Care Provider: CAROLINE Gamino Condition at Discharge: Fair Discharge Disposition: 01 Home, Self Care - HPI History of Present Illness: 57 yo F with PMH of Anemia, GERD, HTN, Depression, remote Breast CA s/p Chemotx, surgery presented to the ER with c/o 1 year h/o increasing SOB, worse x 1 week. Pt began to notice Shortness of breath with exertion about 1 year ago. This increased steadily until a few months ago, just walking out to her mailbox caused Shortness of breath. +fatigue, +weakness x 2 months. Her SOB increased greatly in the past 1 week. +SOB with turning over in bed, but no orthopnea, no PND. +swelling of B/L legs x 10 days, which now feel tight/uncomfortable. Prior to this, no swelling. No abdominal pain. +nausea with dry heaves x 10 days and 1 emesis with ?red blood/small amt. BMs: constipated, +hemorrhoids with occasional small amts of blood on stool, no black stool. Pt has been diagnosed with anemia in the past. At age 19, [facility], she felt dizzy while doing P.T., was sent to the clinic, told she had anemia and was given medications for this ?iron tablets. She had Breast CA and was not told that she had anemia during treatment. After breast reconstruction surgery, during which skin was taken from her thigh, she developed a large hematoma in her thigh and was diagnosed with Anemia and given 3U PRBC transfusion. During Chemotherapy for Breast CA, she was given Neulasta for low WBC. She has no other known h/o anemia. She did have a Colonoscopy about 3 years ago for screening and was told that a hemorrhoid and a small polyp were removed. She was told to F/U in 5 years. She has never had an EGD. She has taken Diclofenac BID for DJD x 3 years. No other NSAIDs. She does not drink ETOH. She occasionally eats spicy foods. She does not eat chocolate. She has been under stress. No F/C, cough, CP. In the ER, Hgb 2.4, MCV 61.3, Iron <10, CR 1.4, BNP 457. CXR: CMG, Pulmonary edema Pt was ordered to have 3U PRBC in the ER; currently receiving 1st unit. - HOSPITAL COURSE Hospital Course: (1) Symptomatic anemia She has received 6U PRBCs and Hgb plateaued at 7.6. Her severe fatigue and SOB improved. (2) Iron deficiency anemia Most likely cause was blood loss anemia. She underwent CT angio of the abdomen/ pelvis which showed no extravasation of blood. The patient was on Diclofenac BID for years, which was put on hold and NSAIDs are to be avoided. Her peripheral blood smear did not show schistocytes or evidence of hemolysis with a normal bilirubin. She underwent EGD and colonoscopy. The colonoscopy was unremarkable, and see #3. Iron was prescribed to take orally 3 times daily and she was discharged on this. Guaiac of stool came back neg, and she was told she may need a bone marrow biopsy for further evaluation of her severe anemia. (3) Multiple gastric polyps The results of the EGD were multiple gastric polyps. The surgeon felt these were the sources of GI blood loss. Biopsies were sent for pathology eval. She was discharged home on empiric Protonix twice a day, told to stop using Diclofenac and any NSAIDs, and the surgeon plans to see her in outpatient follow-up. (4) Acute diastolic heart failure She was started on IV Lasix. Her BNP was 600. Her troponin was normal. Most likely the cause was high-output heart failure given the severe, symptomatic anemia. Her Echo showed LVH, normal EF of 65% and grade 2 diastolic heart failure. She also has mild RV enlargement, mild pulm hypertension and a small pericardial effusion. She was transitioned from Lasix IV to oral Lasix daily (plus Potassium), and her daily Atenolol was changed to daily Toprol-XL, to treat the diastolic heart failure. She was discharged on these new meds. (5) Orthostatic hypotension Because of the severe anemia, I ordered orthostatic vital sign checks after the blood transfusions, and she was quite orthostatic with a systolic BP drop of 25 mmHg. She was symptomatic with this; she got stars in front of her eyes and tunnel vision. Thus her discharge was delayed by a day, and her meds and doses were adjusted. She was reminded to get her body up slowly to adjust being upright. She was not orthostatic on the day of discharge. (6) HTN (hypertension) The patient was on Atenolol and HCTZ for blood pressure control at home. Her HCTZ was stopped, as she needed Lasix. Her Atenolol was stopped after the Echo was done and she was put on Toprol instread. (7) Restless leg syndrome The patient was on an OTC (herbal) medication for this. Here we ordered ordered Requip, which helped and she was discharged on this as a new medication. (8) Morbid obesity with BMI of 45.0-49.9, adult This complicates all of her care, and may be the cause of RV dilation and mild pulm HTN. - ALLERGIES Allergies/Adverse Reactions: Allergies Allergy/AdvReac Type Severity Reaction Status Date / Time adhesive tape AdvReac Rash Verified 09/26/22 16:52 - MEDICATIONS Home Medications: Ambulatory Orders Medication Instructions Recorded Confirmed Buspirone HCl 30 mg PO BID 07/28/19 09/26/22 Wheelchair 1 udtab TD ONCE #1 07/28/19 09/26/22 Cholecalciferol [Vitamin D3] 50 mcg PO HS 09/26/22 09/27/22 buPROPion HCL [Wellbutrin Xl] 300 mg PO DAILY 09/26/22 09/26/22 Acetaminophen [Tylenol] 2 tab PO DAILY PRN 09/27/22 09/27/22 Escitalopram Oxalate 30 mg PO DAILY 09/27/22 09/27/22 buPROPion HCL [Bupropion Xl] 1 tab PO DAILY 09/27/22 09/27/22 Ferrous Gluconate [Fergon] 324 mg PO TID #90 tab 09/30/22 Furosemide [Lasix] 20 mg PO DAILY #30 tab 09/30/22 Metoprolol Succinate [Toprol Xl] 25 mg PO DAILY #30 tab 09/30/22 Pantoprazole [Protonix] 40 mg PO BID #60 tab 09/30/22 Potassium Chloride [Micro-K] 20 meq PO DAILY #30 cap 09/30/22 rOPINIRole [Requip] 1 mg PO QPM #30 tab 09/30/22 - PHYSICAL EXAM AT DISCHARGE General Appearance: positive: No acute distress, Alert, Other (Appears fatigued. Is obese) Eyes Bilateral: positive: Normal inspection, EOMI ENT: positive: ENT inspection nml, No signs of dehydration Neck: positive: Nml inspection, No JVD Respiratory: positive: No respiratory distress, Breath sounds nml Cardiovascular: positive: Regular rate & rhythm, No murmur (Distant heart sounds due to obesity) Abdomen: positive: Non-tender, Nml bowel sounds, No distention, Other (Obese) Skin: positive: Warm, Dry, Pallor Extremities: positive: Non-tender, Other (1+ edema to knees) Neurologic/Psychiatric: positive: Oriented x3, Motor nml - LABS Result Diagrams: 09/30/22 04:23 09/30/22 04:23 - DIAGNOSTIC IMAGING Diagnostic Imaging Results: Final report reviewed - FOLLOW UP Follow Up: See PCP in 1-2 weeks for a hospital F/U visit. See surgeon Dr Mcgarry in 1 week for biopsy results. - TIME SPENT Time Spent in Discharge (Minutes): 45
[2022-09-30 11:20] VITALS: BP 149/81; O2SAT 96
== END 2022-09-30 12:50 | disposition home or self-care (01) | DRG 811 ==
LOC: EDUNIT# → ED 16:39 → MS2 19:49 → OBSVTOIN 09-27 10:04
PROVIDERS: ADMIT Internal Medicine; ATTEND Internal Medicine
PROC: 30233N1 Transfusion of Nonautologous Red Blood Cells into Peripheral Vein, Percutaneous Approach (ICD-10-PCS; principal; 2022-09-27)
PROC: 0DJD8ZZ Inspection of Lower Intestinal Tract, Via Natural or Artificial Opening Endoscopic (ICD-10-PCS; 2022-09-28)
PROC: 0DB68ZX Excision of Stomach, Via Natural or Artificial Opening Endoscopic, Diagnostic (ICD-10-PCS; 2022-09-28 15:15)
DX: D50.9 Iron deficiency anemia, unspecified (principal); R94.31 Abnormal electrocardiogram [ECG] [EKG]; I50.31 Acute diastolic (congestive) heart failure; I50.9 Heart failure, unspecified; Z68.42 Body mass index [BMI] 45.0-49.9, adult; N17.9 Acute kidney failure, unspecified; K21.9 Gastro-esophageal reflux disease without esophagitis; I10 Essential (primary) hypertension; K31.7 Polyp of stomach and duodenum; I11.0 Hypertensive heart disease with heart failure; I95.1 Orthostatic hypotension; G25.81 Restless legs syndrome; E66.01 Morbid (severe) obesity due to excess calories; F32.A Depression, unspecified; K59.00 Constipation, unspecified; K57.30 Diverticulosis of large intestine without perforation or abscess without bleeding; Z79.899 Other long term (current) drug therapy; Z85.3 Personal history of malignant neoplasm of breast; Z87.891 Personal history of nicotine dependence; Z92.21 Personal history of antineoplastic chemotherapy
CPT/HCPCS: 36415; 71045; 74174; 80048; 80053; 82272; 82607; 82728; 82746; 83540; 83690; 83880; 84443; 84466; 84484; 85018; 85025; 85610; 85730; 86850; 86900; 86901; 86920; 93005; 93306; 96374; 96375; 99285; 99291; A6250; A9270; P9016; Q9967; 82274

== ENCOUNTER 2022-10-13 18:15 | Outpatient (CLI) | payer SELFPAY | END 2022-10-13 18:16 | disposition critical access hospital (66) | LOC: EMS 18:15 | DX: R06.02 Shortness of breath (principal) | CPT/HCPCS: A0425; A0429 ==

== ENCOUNTER 2022-10-13 18:34 | Inpatient (IN) | payer MEDICARE, OTHER ==
[2022-10-13] MEDS ORDERED: LORazepam 2 MG/ML VIAL IVP STA (18:53)
--- NOTE | 2022-10-13 19:03 | ED Physician Documentation ---
History of Present Illness - Stated complaint Stated Complaint: SOA - Chief complaint Chief Complaint: Resp - Additonal information Additional information: 57-year-old female presents emergency department for evaluation of acute onset dyspnea that she reports began this morning. She states usually she is able to breathe herself out of it but was unable to today. She presents via EMS on 4 L nasal cannula saturating 92%. She is tachypneic with respiratory rate in the 40s. She is speaking 1 and 2 word sentences. The patient has past medical history most significant for anemia, GERD, hypertension depression as well as history of remote breast cancer status post chemoradiation and surgery. She was admitted to this hospital on 26 September for symptomatic anemia with an initial presenting hemoglobin of 2.4. She did receive a total of 6 units PRBCs and with this her fatigue and shortness of air improved. The cause of the anemia was thought to be due to diclofenac which she had been taking for years. She did have an EGD and colonoscopy while hospitalized which was unremarkable. While hospitalized she was diagnosed with acute diastolic heart failure and started on Lasix. She had a BNP of 600. Normal troponins. They thought this high-output heart failure was due to the symptomatic anemia. Patient does not normally wear home O2. Meds on discharge: Buspirone 30 mg twice daily, bupropion 300 mg once daily, Lexapro 30 mg daily, Lasix 20 mg daily, metoprolol succinate 25 mg daily, Protonix 40 mg twice daily, potassium chloride 20 mg daily, Ropinirolel 1 mg qpm Review of Systems Constitutional: denies: Fever Cardiac: reports: Reviewed and negative Respiratory: reports: Dyspnea GI: reports: Reviewed and negative : reports: Reviewed and negative Skin: reports: Reviewed and negative Musculoskeletal: reports: Reviewed and negative Neurologic: reports: Reviewed and negative PD PAST MEDICAL HISTORY - Past Medical History Cardiovascular: Hypertension Respiratory: Sleep apnea, CPAP use Neuro: None Endocrine/Autoimmune: None GI: GERD YARN WINDER: Breast cancer : None HEENT: None Psych: Depression Musculoskeletal: None Derm: None - Past Surgical History Past Surgical History: Yes General: Cholecystectomy, Colonoscopy (Most recently 3 years ago) /YARN WINDER: Other (Multiple surgeries for bilateral breast cancers including reconstruction) - Present Medications Home Medications: Ambulatory Orders Medication Instructions Recorded Confirmed Buspirone HCl 30 mg PO BID 07/28/19 10/13/22 Wheelchair 1 udtab TD ONCE #1 07/28/19 10/13/22 buPROPion HCL [Wellbutrin Xl] 300 mg PO DAILY 09/26/22 10/13/22 Escitalopram Oxalate 30 mg PO DAILY 09/27/22 10/13/22 buPROPion HCL [Bupropion Xl] 1 tab PO DAILY 09/27/22 10/13/22 Ferrous Gluconate [Fergon] 324 mg PO TID #90 tab 09/30/22 10/13/22 Furosemide [Lasix] 20 mg PO DAILY #30 tab 09/30/22 10/13/22 Metoprolol Succinate [Toprol Xl] 25 mg PO DAILY #30 tab 09/30/22 Pantoprazole [Protonix] 40 mg PO BID #60 tab 09/30/22 10/13/22 rOPINIRole [Requip] 1 mg PO QPM #30 tab 09/30/22 10/13/[address] [Voltaren] 75 mg PO BID 10/13/22 10/13/22 - Allergies Allergies/Adverse Reactions: Allergies Allergy/AdvReac Type Severity Reaction Status Date / Time adhesive tape AdvReac Rash Verified 09/26/22 16:52 - Social History Does the pt smoke?: No Smoking Status: Never smoker Does the pt drink ETOH?: No Does the pt have substance abuse?: No - Immunizations Immunizations are current?: Yes - POLST Patient has POLST: No PD ED PE EXPANDED - General General: Alert, Other (Tachypneic, anxious) - Neck Neck: Supple w/out meningeal sx. No: Adenopathy - Cardiac Cardiac: Regular Rate, Tachy, Radial strong equal, Pedal strong equal, Cap refill < 2 sec - Respiratory Respiratory: Distress, Labored, Other (Presents tachypneic with respiratory rate in the mid 40s, saturating 92% on 4 L. Decreased breath sounds in the bases with crackles.) - Abdomen Abdomen: Normal Bowel sounds. No: Tender to palpation - Derm Derm: Normal color, Warm and dry. No: Rash - Neuro Neuro: Alert and Oriented X 3, CNII-XII intact - GCS Eye Opening: Spontaneous Motor: Obeys Commands Verbal: Oriented Total: 15 Results - Vitals Vitals: Vital Signs - 24 hr 08/29/23 08/29/23 08/29/23 18:45 18:46 18:55 Temperature 36.1 C L Heart Rate 135 H 110 H Respiratory 46 H 30 H Rate Blood Pressure 176/147 H O2 Saturation 88 L 91 L If not protocol 4 : Oxygen Flow, liters/minute 10/13/22 10/13/22 10/13/22 19:06 19:29 20:00 Temperature Heart Rate 109 H 108 H 108 H Respiratory 35 H 38 H 33 H Rate Blood Pressure 142/92 H 142/92 H 147/83 H O2 Saturation 99 93 95 If not protocol 2 2 : Oxygen Flow, liters/minute Oxygen O2 Source Nasal cannula Oxygen Flow Rate 4 - EKG (time done) 1843 EKG releavant findings:: EKG personally interpreted by author of this note. Relevant findings are: Rate: Rate (enter#) (127) Rhythm: Sinus tachycardia [place]: LAD Intervals: Normal CO. No: Prolonged QT Ischemia: Q waves (v2-v5) Compare to prior EKG: Unchanged from prior EKG Computer interpretation: Agree with computer - Labs Labs: Laboratory Tests 10/13/22 10/13/22 10/13/22 19:05 19:09 19:09 WBC 11.2 H RBC 4.08 L Hgb 9.7 L Hct 34.7 L MCV 85.0 MCH 23.8 L MCHC 28.0 L RDW 29.1 H Plt Count 293 Neut # (Auto) 9.1 H Lymph # (Auto) 0.9 L Cannon # (Auto) 0.8 Eos # (Auto) 0.2 Baso # (Auto) 0.1 Absolute Nucleated RBC 0.00 Nucleated RBC % 0.0 Manual Slide Review Indicated Platelet Estimate NORMAL (130-450,000) Platelet Morphology NORMAL APPEARANCE RBC Morph Micro Appear 1+ POLYCHROMASIA VBG pH VBG pCO2 VBG pO2 VBG HCO3 VBG Total CO2 VBG O2 Saturation VBG Base Excess Sodium 141 Potassium 3.6 Chloride 109 Carbon Dioxide 23 Anion Gap 9.0 BUN 7 Creatinine 0.9 Estimated GFR (MDRD) 65 L Glucose 173 H Lactic Acid Calcium 9.1 Total Bilirubin 0.6 AST 15 ALT 10 Alkaline Phosphatase 80 Troponin I High Sens B-Natriuretic Peptide Total Protein 6.3 L Albumin 3.4 Globulin 2.9 Albumin/Globulin Ratio 1.2 Urine Color Urine Clarity Urine pH Ur Specific [place] Urine Protein Urine Glucose (UA) Urine Ketones Urine Occult Blood Urine Nitrite Urine Bilirubin Urine Urobilinogen Ur Leukocyte Esterase Nasal Adenovirus (PCR) NOT DETECTED Nasal B. parapertussis DNA (PCR) NOT DETECTED Nasal Coronavir 229E PCR NOT DETECTED Nasal Coronavir HKU1 PCR NOT DETECTED Nasal Coronavir NL63 PCR NOT DETECTED Nasal Coronavir OC43 PCR NOT DETECTED Nasal Enterovir/Rhinovir PCR NOT DETECTED Nasal Influenza B PCR NOT DETECTED Nasal Influenza A PCR NOT DETECTED Nasal Parainfluen 1 PCR NOT DETECTED Nasal Parainfluen 2 PCR NOT DETECTED Nasal Parainfluen 3 PCR NOT DETECTED Nasal Parainfluen 4 PCR NOT DETECTED Nasal RSV (PCR) NOT DETECTED Nasal B.pertussis DNA PCR NOT DETECTED Nasal C.pneumoniae (PCR) NOT DETECTED [place] Human Metapneumo PCR NOT DETECTED Nasal M.pneumoniae (PCR) NOT DETECTED Nasal SARS-CoV-2 (PCR) NOT DETECTED Blood Type Antibody Screen 10/13/22 10/13/22 10/13/22 19:09 19:09 19:09 WBC RBC Hgb Hct MCV MCH MCHC RDW Plt Count Neut # (Auto) Lymph # (Auto) Cannon # (Auto) Eos # (Auto) Baso # (Auto) Absolute Nucleated RBC Nucleated RBC % Manual Slide Review Platelet Estimate Platelet Morphology RBC Morph Micro Appear VBG pH VBG pCO2 VBG pO2 VBG HCO3 VBG Total CO2 VBG O2 Saturation VBG Base Excess Sodium Potassium Chloride Carbon Dioxide Anion Gap BUN Creatinine Estimated GFR (MDRD) Glucose Lactic Acid 1.8 Calcium Total Bilirubin AST ALT Alkaline Phosphatase Troponin I High Sens B-Natriuretic Peptide 1349 H Total Protein Albumin Globulin Albumin/Globulin Ratio Urine Color Urine Clarity Urine pH Ur Specific [place] Urine Protein Urine Glucose (UA) Urine Ketones Urine Occult Blood Urine Nitrite Urine Bilirubin Urine Urobilinogen Ur Leukocyte Esterase Nasal Adenovirus (PCR) Nasal B. parapertussis DNA (PCR) Nasal Coronavir 229E PCR Nasal Coronavir HKU1 PCR Nasal Coronavir NL63 PCR Nasal Coronavir OC43 PCR Nasal Enterovir/Rhinovir PCR Nasal Influenza B PCR Nasal Influenza A PCR Nasal Parainfluen 1 PCR Nasal Parainfluen 2 PCR Nasal Parainfluen 3 PCR Nasal Parainfluen 4 PCR Nasal RSV (PCR) Nasal B.pertussis DNA PCR Nasal C.pneumoniae (PCR) Darnell Human Metapneumo PCR Nasal M.pneumoniae (PCR) Nasal SARS-CoV-2 (PCR) Blood Type A POSITIVE Antibody Screen NEGATIVE 10/13/22 10/13/22 10/13/22 19:09 19:09 20:25 WBC RBC Hgb Hct MCV MCH MCHC RDW Plt Count Neut # (Auto) Lymph # (Auto) Cannon # (Auto) Eos # (Auto) Baso # (Auto) Absolute Nucleated RBC Nucleated RBC % Manual Slide Review Platelet Estimate Platelet Morphology RBC Morph Micro Appear VBG pH 7.387 VBG pCO2 35.9 L VBG pO2 61.9 H VBG HCO3 21.1 L VBG Total CO2 22.2 L VBG O2 Saturation 89.3 H VBG Base Excess -3.4 L Sodium Potassium Chloride Carbon Dioxide Anion Gap BUN Creatinine Estimated GFR (MDRD) Glucose Lactic Acid Calcium Total Bilirubin AST ALT Alkaline Phosphatase Troponin I High Sens 16.6 H* B-Natriuretic Peptide Total Protein Albumin Globulin Albumin/Globulin Ratio Urine Color YELLOW Urine Clarity CLEAR Urine pH 5.5 Ur Specific [place] 1.010 Urine Protein NEGATIVE Urine Glucose (UA) NEGATIVE Urine Ketones NEGATIVE Urine Occult Blood NEGATIVE Urine Nitrite NEGATIVE Urine Bilirubin NEGATIVE Urine Urobilinogen 0.2 (NORMAL) Ur Leukocyte Esterase NEGATIVE Nasal Adenovirus (PCR) Nasal B. parapertussis DNA (PCR) Nasal Coronavir 229E PCR Nasal Coronavir HKU1 PCR Nasal Coronavir NL63 PCR Nasal Coronavir OC43 PCR Nasal Enterovir/Rhinovir PCR Nasal Influenza B PCR Nasal Influenza A PCR Nasal Parainfluen 1 PCR Nasal Parainfluen 2 PCR Nasal Parainfluen 3 PCR Nasal Parainfluen 4 PCR Nasal RSV (PCR) Nasal B.pertussis DNA PCR Nasal C.pneumoniae (PCR) Darnell Human Metapneumo PCR Nasal M.pneumoniae (PCR) Nasal SARS-CoV-2 (PCR) Blood Type Antibody Screen - Rads (name of study) cxr Relevant Findings:: Final report received (Cardiomegaly, moderate vascular congestion and bibasilar pleural effusions with atelectasis and/or infiltrate.) PD Medical Decision Making - ED course Complexity details: reviewed results, re-evaluated patient, d/w patient ED course: 57-year-old female presents emergency department for acute dyspnea that began this morning. Typically on room air but on presentation to the emergency department was saturating 88 to 91%. Saturations improved to 94% with 2 to 4 L nasal cannula. She was recently admitted and discharged from this hospital for acute symptomatic anemia with initial hemoglobin of 2.4 for which she received a total of 6 units CO BCs. The cause of the anemia is thought to be due to diclofenac which she had been taking for years. She did have an EGD and colonoscopy while hospitalized which was unremarkable. However while hospitalized she was found to have diastolic heart failure was started on Lasix. She initial BNP of 600. Today in the emergency department on presentation she was quite tachypneic with respiratory rate of nearly 50 saturating 92% on 4 L nasal cannula. Speaking 1 to 2 word sentences. On auscultation she was greatly diminished in the bases with crackles. I did obtain initial CBC which showed a hemoglobin of 9.7 essentially static and unchanged from hospitalization. A VBG showed a PO2 of 62 and a PCO2 of 36. Indicating that on nasal cannula she is oxygenating and ventilating well. However she does have a markedly elevated BNP of 1349. This is in comparison to the hospitalization recently where it was 600. A chest x-ray showed significant volume overload. Respiratory PCR panel was negative. Here in the emergency department because she was so anxious I initially gave her 1 mg of Ativan which did calm her. She was given a DuoNeb by respiratory therapy and felt that she was improved though she remained rather tachypneic with respiratory rate in the 40s and still speaking in 1 and 2 word sentences. As such she was administered 40 mg of Lasix for what I believed would now be acute hypoxia with CHF exacerbation. She will be admitted to the hospital for further evaluation and management of this. I have spoken with Dr. Kearns the hospitalist of [facility] who will admit the patient. Departure - Departure Disposition: [facility] DC/Xfer Forms: PCP List
[2022-10-13] MEDS ORDERED: FUROSEMIDE 40 MG/4 ML VIAL IVP STA (19:28)
[2022-10-13 19:32] LABS: BASOPHILS # (AUTO) 0.1 10^3/uL (0.0-0.1); BASOPHILS % (AUTO) 0.9 %; EOSINOPHILS # (AUTO) 0.2 10^3/uL (0.0-0.7); EOSINOPHILS % (AUTO) 1.7 %; HCT - HEMATOCRIT 34.7 % (37.0-47.0); HGB - HEMOGLOBIN 9.7 g/dL (12.0-16.0); LYMPHOCYTES # (AUTO) 0.9 10^3/uL (1.5-3.5); LYMPHOCYTES % (AUTO) 8.1 %; MEAN CORPUSCULAR HEMOGLOBIN 23.8 pg (27.0-31.0); MONOCYTES # (AUTO) 0.8 10^3/uL (0.0-1.0); MONOCYTES % (AUTO) 7.4 %; NEUTROPHILS # (AUTO) 9.1 10^3/uL (1.5-6.6); NEUTROPHILS % (AUTO) 81.3 %; PLT - PLATELET COUNT 293 10^3/uL (130-450); RED BLOOD COUNT 4.08 10^6/uL (4.20-5.40); RED CELL DISTRIBUTION WIDTH 29.1 % (12.0-15.0); WHITE BLOOD COUNT 11.2 x10^3/uL (4.8-10.8)
[2022-10-13 19:37] LABS: VBG BASE EXCESS -3.4 mmol/L (-2 - +2); VBG HCO3 21.1 mmol/L (23-28); VBG OXYGEN SATURATION 89.3 % (60-80); VBG PCO2 35.9 mmHg (41-51); VBG PH 7.387 (7.31-7.41); VBG PO2 61.9 mmHg (25-47); VBG TOTAL CO2 22.2 mmol/L (24-29)
--- NOTE | 2022-10-13 19:45 | XRAY Report ---
PROCEDURE: Chest 1 View X-Ray INDICATIONS: Sepsis TECHNIQUE: One view of the chest was acquired. COMPARISON: None. FINDINGS: Heart size is enlarged, there is moderate vascular congestion and obscuration of both hemidiaphragms. No pneumothorax. Patient's mandible obscures the lung apices. Normal osseous structures. IMPRESSION: Cardiomegaly, moderate vascular congestion and bibasilar pleural effusions with atelectasis and/or in filtrate Reviewed by: Samuel Keenan MD on 10/13/2022 6:44 PM SARAH Approved by: Samuel Keenan MD on 10/13/2022 6:44 PM AKHARPER Station ID: [id number]
[2022-10-13 19:48] LABS: ALBUMIN 3.4 g/dL (3.2-5.5); ALBUMIN/GLOBULIN RATIO 1.2 (1.0-2.2); BILIRUBIN,TOTAL 0.6 mg/dL (0.2-1.0); CALCIUM 9.1 mg/dL (8.5-10.3); CREATININE 0.9 mg/dL (0.6-1.3); POTASSIUM 3.6 mmol/L (3.5-4.5); TOTAL PROTEIN 6.3 g/dL (6.4-8.9)
[2022-10-13 19:54] LABS: PLATELET MORPHOLOGY NORMAL APPEARANCE (NORMAL); SLIDE REVIEW? Indicated
[2022-10-13 19:55] LABS: PLATELET ESTIMATE, MANUAL NORMAL (130-450,000) (NORMAL)
[2022-10-13 20:18] LABS: B. PARAPERTUSSIS- RESP PCR PAN NOT DETECTED; B. PERTUSSIS- RESP PCR PANEL NOT DETECTED; C. PNEUMONIAE- RESP PCR PANEL NOT DETECTED; CORONAVIRUS 229E-RESP PCR NOT DETECTED; CORONAVIRUS HKU1-RESP PCR NOT DETECTED; CORONAVIRUS NL63-RESP PCR NOT DETECTED; CORONAVIRUS OC43-RESP PCR NOT DETECTED; HUMAN METAPNEUMOVIRUS NOT DETECTED; INFLUENZA A- RESP PCR PANEL NOT DETECTED; INFLUENZA B - RESP PCR PANEL NOT DETECTED; M. PNEUMONIAE- RESP PCR PANEL NOT DETECTED; PARAINFLUENZA VIRUS 1 NOT DETECTED; PARAINFLUENZA VIRUS 2 NOT DETECTED; PARAINFLUENZA VIRUS 3 NOT DETECTED; PARAINFLUENZA VIRUS 4 NOT DETECTED; RHINOVIRUS/ENTEROVIRUS NOT DETECTED; RSV- RESP PCR PANEL NOT DETECTED; SARS-CoV-2 -RESP PCR PANEL NOT DETECTED
[2022-10-13 20:34] LABS: BILIRUBIN,URINE NEGATIVE (NEGATIVE); GLUCOSE, URINE (UA) NEGATIVE (NEGATIVE); KETONES,URINE (UA) NEGATIVE (NEGATIVE); LEUKOCYTE ESTERASE, URINE NEGATIVE (NEGATIVE); NITRITE,URINE NEGATIVE (NEGATIVE); OCCULT BLOOD,URINE NEGATIVE (NEGATIVE); PH,URINE 5.5 PH (5.0-7.5); PROTEIN,URINE NEGATIVE (NEGATIVE); UROBILINOGEN,URINE 0.2 (NORMAL) E.U./dL (NORMAL)
[2022-10-13 20:35] LABS: CLARITY,URINE CLEAR (CLEAR)
[2022-10-13] MEDS ORDERED: IPRATROPIUM/ALBUTEROL 3 ML NEB INH PRN (20:35)
[2022-10-13] MEDS ORDERED: SODIUM CHLORIDE FLUSH 0.9% 10 ML SYRINGE IVP PRN (20:43)
[2022-10-13] MEDS ORDERED: ONDANSETRON 4 MG/2 ML VIAL IVP PRN (20:43)
[2022-10-13 20:47] LABS: BACTERIA,URINE None Seen /HPF (None Seen); CASTS, URINE 0-2 Hyaline Casts /LPF; RBC,URINE 0-5 /HPF (0-5); SQUAMOUS EPITHELIAL CELL,UR RARE Squamous (<= Few); WBC,URINE 0-3 /HPF (0-5)
--- NOTE | 2022-10-13 20:52 | HISTORY & PHYSICAL EXAMINATION ---
Chief Complaint - Chief Complaint Chief Complaint: SOB History of Present Illness - Admitted From Admitted From:: ED - History Obtained From Records Reviewed: EMR History obtained from: Patient, ED, and bar staff Exam Limitations: Tele medicine - History of Present Illness HPI Comment/Other: [id number] c depression who was hospitalized earlier this month for severe anemia who was transfused and discharged p/w SOB. SOB developed couple of day later. SOB worse with exertion. positive orthopnea. positive BLE. positive bloated. Patient was started on Lasix from last hospitalization because she had "fluid around her heart". patient reports hx of abnormal EKG that showed possible heart attack. she reports Lasix has not helped with her sxs since discharge. She was not given heart failure education and had not been fluid restricting or weighing herself daily. No fever. No runny nose. No sore throat. No chest pain. No palpitation. No n/v/d. No rash. History - Past Medical History Cardiovascular: reports: Hypertension Respiratory: reports: Sleep apnea, CPAP use Neuro: reports: None Endocrine/Autoimmune: reports: None GI: reports: GERD DIRECTOR [employer]: reports: Breast cancer : reports: None HEENT: reports: None Psych: reports: Depression Musculoskeletal: reports: None Derm: reports: None MRSA Hx?: No - Past Surgical History General: reports: Cholecystectomy, Colonoscopy (Most recently 3 years ago) /DIRECT[employer]: reports: Other (Multiple surgeries for bilateral breast cancers including reconstruction) - Family & Social History Family History Comment/Other: Noncontributory - Substance History Use: Uses substance without health or social issues: NONE - POLST Patient has POLST: No Meds/Allgy - Home Medications Home Medications: Ambulatory Orders Medication Instructions Recorded Confirmed Buspirone HCl 30 mg PO BID 07/28/19 10/13/22 Wheelchair 1 udtab TD ONCE #1 07/28/19 10/13/22 buPROPion HCL [Wellbutrin Xl] 300 mg PO DAILY 09/26/22 10/13/22 Escitalopram Oxalate 30 mg PO DAILY 09/27/22 10/13/22 buPROPion HCL [Bupropion Xl] 1 tab PO DAILY 09/27/22 10/13/22 Ferrous Gluconate [Fergon] 324 mg PO TID #90 tab 09/30/22 10/13/22 Furosemide [Lasix] 20 mg PO DAILY #30 tab 09/30/22 10/13/22 Metoprolol Succinate [Toprol Xl] 25 mg PO DAILY #30 tab 09/30/22 Pantoprazole [Protonix] 40 mg PO BID #60 tab 09/30/22 10/13/22 rOPINIRole [Requip] 1 mg PO QPM #30 tab 09/30/22 10/13/[address] [Voltaren] 75 mg PO BID 10/13/22 10/13/22 - Allergies Allergies/Adverse Reactions: Allergies Allergy/AdvReac Type Severity Reaction Status Date / Time adhesive tape AdvReac Rash Verified 09/26/22 16:52 Review of Systems - Other Findings Other Findings: negative unless mentioned above. Exam - Vital Signs Reviewed Vital Signs: Yes Vital Signs: Vital Signs x48h Temp Pulse Resp BP Pulse Ox O2 Flow Rate 10/13/22 20:00 108 H 33 H 147/83 H 95 2 10/13/22 19:29 108 H 38 H 142/92 H 93 2 10/13/22 19:06 109 H 35 H 142/92 H 99 10/13/22 18:55 110 H 30 H 4 10/13/22 18:46 36.1 C L 135 H 46 H 176/147 H 91 L 10/13/22 18:45 88 L - Physical Exam General Appearance: positive: No acute distress Eyes Bilateral: positive: Normal inspection ENT: positive: ENT inspection nml Neck: positive: Nml inspection Respiratory: positive: Other (decreased breath sounds) Cardiovascular: positive: Regular rate & rhythm Abdomen: positive: Non-tender, Nml bowel sounds Skin: positive: Color nml Extremities: positive: Full ROM, Pedal edema (2+) Neurologic/Psychiatric: positive: Oriented x3, CN's nml (2-12) Conclusion/Plan - Problem List (1) CHF (congestive heart failure) Conclusion/Plan: noted cardiomegaly & elevated BNP. Lasix 40mg IV. fluid restrict. daily weighing. monitor I & O. followup echo. CHF exacerbation. Qualifiers: Heart failure type: unspecified Heart failure chronicity: acute Qualified Code(s): I50.9 - Heart failure, unspecified (2) Acute hypoxemic respiratory failure Conclusion/Plan: hypoxemia 2/2 CHF exacerbation. O2 support. breathing treatment. CPAP at night (3) HTN (hypertension) Conclusion/Plan: managed. continue metoprolol. monitor blood pressure. Qualifiers: Hypertension type: primary hypertension Qualified Code(s): I10 - Essential (primary) hypertension (4) Iron deficiency anemia Conclusion/Plan: recent GIB related NSAID use. hold NSAIDs. iron supp. holding all anticoagulation. Qualifiers: Iron deficiency anemia type: unspecified iron deficiency Qualified Code(s): D50.9 - Iron deficiency anemia, unspecified (5) Morbid obesity with BMI of 45.0-49.9, adult Conclusion/Plan: recommend lifestyle modification including dieting and exercise and followup with PCP for terminal supervisor management (6) Restless leg syndrome Conclusion/Plan: managed. continue Requip (7) MARITZA on CPAP Conclusion/Plan: managed. continue cpap (8) Depression Conclusion/Plan: controlled. no acute exacerbation. continue bupropion and buspirone. Qualifiers: Depression Type: major depressive disorder Major depression recurrence: recurrent Active/Remission status: currently active Psychotic features: without psychotic features - Lab Results Lab results reviewed: Yes Fish Bones: 10/13/22 19:09 10/13/22 19:09 - Diagnostic Imaging Results Diagnostic Imaging Results: positive: Final report reviewed - EKG Results EKG Interpreted Independently: Yes Core Measures - Anticipated LOS I expect patient to be DC'd or transferred within 96 hours.: No - Issues Hospital Issues and Management Plan: The patient consented to receive this telemedicine service, which I performed via live two-way audiovisual equipment. The patient is at ([facility]) and I am physically in [facility]. A nurse assisted me in the visit. - DVT/VTE - Prophylaxis VTE/DVT Device ordered at admit?: Yes Telemedicine Consult Details - Provider Location & Consult Time Telemedicine consultation conducted via videoconferencing?: Yes List names and roles of persons who participated in consult:: ED, RN, and patient Telemedicine provider location:: [facility] Time Telemedicine consult began:: 20:33 Time Telemedicine consult completed:: 20:33
[2022-10-13] MEDS ORDERED: BUSPIRONE HCL 30 MG PO SCH (21:00)
[2022-10-13] MEDS ORDERED: [UNRECOGNIZED DRUG - SUPPLY] TD SCH (21:00)
[2022-10-13 21:32] LABS: MUDS CUTOFF CONCENTRATIONS CUTOFF CONC BELOW:
[2022-10-13 21:35] LABS: AMPHETAMINE SCREEN,URINE NEGATIVE (NEGATIVE); BARBITURATE SCREEN,UR NEGATIVE (NEGATIVE); BENZODIAZEPINES SCREEN, URINE NEGATIVE (NEGATIVE); COCAINE SCREEN URINE NEGATIVE (NEGATIVE); METHADONE SCREEN, URINE NEGATIVE (NEGATIVE); METHAMPHETAMINES SCREEN, URINE NEGATIVE (NEGATIVE); OPIATE SCREEN, URINE NEGATIVE (NEGATIVE); OXYCODONE SCREEN, URINE NEGATIVE (NEGATIVE); PROPOXYPHENE SCREEN, URINE NEGATIVE (NEGATIVE); THC CANNABINOID SCREEN, URINE NEGATIVE (NEGATIVE); TRICYCLIC ANTIDEPRESSANT,URINE NEGATIVE (NEGATIVE)
--- NOTE | 2022-10-13 21:55 | PROVIDER PROGRESS NOTE ---
Chief Dispatcher Note - Chief Dispatcher Note Chief Dispatcher Note: RN paged to report trop 16.6 and 32.8 No chest pain. here with CHF exacerbation elevated trop 2/2 demand ischemia / type 2 NH trend troponin in am Nadia Kearns DO Internal Medicine [facility] Tele Chief Dispatcher
[2022-10-13] MEDS: FERROUS GLUCONATE 324 MG TABLET PO SCH (22:40)
[2022-10-13] MEDS: busPIRone 5 MG TABLET PO SCH (22:40)
[2022-10-13] MEDS: PANTOPRAZOLE 40 MG TABLET PO SCH (22:40)
[2022-10-13] MEDS: rOPINIRole 1 MG TABLET PO SCH (22:40)
[2022-10-13] MEDS: ACETAMINOPHEN 325 MG TABLET PO PRN (23:10)
[2022-10-14] MEDS: FERROUS GLUCONATE 324 MG TABLET PO SCH (05:04)
[2022-10-14 05:29] LABS: CHOLESTEROL 115 mg/dL; HDL CHOLESTEROL 38 mg/dL; LDL CHOLESTEROL,CALCULATED 59 mg/dL; LDL/HDL RATIO 1.6 (<4.4); TRIGLYCERIDES 88 mg/dL (48-352); VLDL CHOLESTEROL 18 mg/dL
[2022-10-14] MEDS: buPROPion XL 150 MG TABLET PO SCH (08:22)
[2022-10-14] MEDS: busPIRone 5 MG TABLET PO SCH ×2 (08:22→20:23)
[2022-10-14] MEDS: METOPROLOL SUCCINATE 25 MG TABLET PO SCH (08:22)
[2022-10-14] MEDS: ESCITALOPRAM 10 MG TABLET PO SCH (08:22)
[2022-10-14] MEDS: PANTOPRAZOLE 40 MG TABLET PO SCH ×2 (08:22→20:24)
[2022-10-14] MEDS: FUROSEMIDE 40 MG/4 ML VIAL IVP SCH (08:23)
[2022-10-14] MEDS: SODIUM CHLORIDE FLUSH 0.9% 10 ML SYRINGE IVP SCH ×4 (08:23→23:39)
[2022-10-14] MEDS ORDERED: ESCITALOPRAM OXALATE 20 MG PO SCH (09:00)
[2022-10-14] MEDS ORDERED: NON FORMULARY MED (Bupropion Hcl [Wellbutrin Xl] 300 MG Tab.Er.24h) PO SCH (09:00)
[2022-10-14 09:25] LABS: ESTIMATED AVERAGE GLUCOSE 80 mg/dL (70-100); HEMOGLOBIN A1c% 4.4 % (4.27-6.07)
--- NOTE | 2022-10-14 12:05 | PHARMACY PROGRESS NOTE ---
- Best Possible Medication History Admit Date and Time: 10/13/222043 Processed by: Pharmacy Medication History completed: Yes Patient Interview: Completed Secondary Source(s): Insurance records As the person ultimately responsible for medication therapy, providers are able to order a medication from an existing home medication list in [facility] via the "Reconcile Routine" prior to Confirmation of that medication by residential direct support professional. Such practice is discouraged except when the physician, in their clinical judgment, deems that a medical need exists for a medication without regard to previous use.
[2022-10-14] MEDS: ACETAMINOPHEN 325 MG TABLET PO PRN ×2 (15:53→20:24)
[2022-10-14] MEDS: FERROUS SULFATE 325 MG TABLET PO SCH (16:06)
[2022-10-14] MEDS: ASCORBIC ACID 500 MG TABLET PO SCH (16:06)
--- NOTE | 2022-10-14 18:15 | PROVIDER PROGRESS NOTE ---
Assessment/Plan - Problem List (1) Acute hypoxemic respiratory failure Assessment/Plan: improving, multifactoral CHF exacerbation, class III obesity, MARITZA and anemia correct the above condition Goal: to wean off oxygen (2) MARITZA on CPAP Assessment/Plan: continue CPAP when sleep (3) CHF (congestive heart failure) Qualifiers: Heart failure type: unspecified Heart failure chronicity: acute Qualified Code(s): I50.9 - Heart failure, unspecified Assessment/Plan: evidence of pulmonary edema, worsening leg swollen, BNP 1346 Echo performed Check TSH continue diuretic (4) HTN (hypertension) Qualifiers: Hypertension type: primary hypertension Qualified Code(s): I10 - Essential (primary) hypertension Assessment/Plan: monitoring Bp, resume home meds, adjust to reach goal SBP 110-130 (5) Iron deficiency anemia Qualifiers: Iron deficiency anemia type: unspecified iron deficiency Qualified Code(s): D50.9 - Iron deficiency anemia, unspecified Assessment/Plan: Continue with iron supplement, give iv iron to tank her up during hospital stay - Current Meds Current Meds: Current Medications Generic Name Dose Route Start Last Admin Trade Name Freq PRN Reason Stop Dose Admin Acetaminophen 650 mg 10/13/22 20:43 10/14/22 15:53 Acetaminophen 325 Mg Tablet PO 650 mg Q4HR PRN Administration Pain 1 to 4, or Fever Ascorbic Acid 500 mg 10/14/22 17:00 10/14/22 16:06 Ascorbic Acid 500 Mg Tablet PO 500 mg BID ANA Administration Bupropion HCl 450 mg 10/14/22 09:00 10/14/22 08:22 Bupropion Xl 150 Mg Tablet PO 450 mg DAILY ANA Administration Buspirone HCl 30 mg 10/13/22 22:50 10/14/22 08:22 Buspirone 5 Mg Tablet PO 30 mg BID ANA Administration Escitalopram Oxalate 30 mg 10/14/22 09:00 10/14/22 08:22 Escitalopram 10 Mg Tablet PO 30 mg DAILY ANA Administration Ferrous Sulfate 325 mg 10/14/22 17:00 10/14/22 16:06 Ferrous Sulfate 325 Mg Tablet PO 325 mg BIDWM ANA Administration Furosemide 40 mg 10/14/22 09:00 10/14/22 08:23 Furosemide 40 Mg/4 Ml Vial IVP 40 mg DAILY ANA Administration Metoprolol Succinate 25 mg 10/14/22 09:00 10/14/22 08:22 Metoprolol Succinate 25 Mg Tablet PO 25 mg DAILY ANA Administration Pantoprazole Sodium 40 mg 10/13/22 21:00 10/14/22 08:22 Pantoprazole 40 Mg Tablet PO 40 mg BID ANA Administration Ropinirole HCl 1 mg 10/13/22 21:00 10/13/22 22:40 Ropinirole 1 Mg Tablet PO 1 mg QPM ANA Administration Sodium Chloride 10 ml 10/14/22 01:00 10/14/22 15:54 Sodium Chloride Flush 0.9% 10 Ml Syringe IVP 10 ml 0100,0900,1700 ANA Administration - Lab Result Fish Bone Diagrams: 10/13/22 19:09 10/13/22 19:09 - Additional Planning My Orders: My Active Orders 10/14/22 17:00 Ascorbic Acid [Vitamin C] 500 mg PO BID Ferrous Sulfate [Feosol] 325 mg PO BIDWM Subjective - Subjective Patient Reports: Feeling Better, Shortness of Breath Nursing Reports: Shortness of Breath Objective Vital Signs: Vital Signs - 24 hr 10/13/22 10/13/22 10/13/22 18:45 18:46 18:55 Temperature 36.1 C L Heart Rate 135 H 110 H Heart Rate [ Brachial] Heart Rate [ Monitoring electrodes] Respiratory 46 H 30 H Rate Blood Pressure 176/147 H Blood Pressure [Right Brachial artery] O2 Saturation 88 L 91 L If not protocol 4 : Oxygen Flow, liters/minute 10/13/22 10/13/22 10/13/22 19:06 19:29 20:00 Temperature Heart Rate 109 H 108 H 108 H Heart Rate [ Brachial] Heart Rate [ Monitoring electrodes] Respiratory 35 H 38 H 33 H Rate Blood Pressure 142/92 H 142/92 H 147/83 H Blood Pressure [Right Brachial artery] O2 Saturation 99 93 95 If not protocol 2 2 : Oxygen Flow, liters/minute 10/13/22 10/13/22 10/13/22 20:36 21:20 21:58 Temperature 36.8 C Heart Rate 104 H Heart Rate [ 101 H Brachial] Heart Rate [ Monitoring electrodes] Respiratory 18 20 Rate Blood Pressure 128/83 H Blood Pressure 172/87 H [Right Brachial artery] O2 Saturation 96 98 100 If not protocol : Oxygen Flow, liters/minute 10/13/22 10/13/22 10/14/22 22:10 22:50 00:00 Temperature 37.0 C Heart Rate Heart Rate [ Brachial] Heart Rate [ 93 Monitoring electrodes] Respiratory 18 Rate Blood Pressure Blood Pressure 144/83 H [Right Brachial artery] O2 Saturation 99 99 If not protocol 2 2 2 : Oxygen Flow, liters/minute 10/14/22 10/14/22 10/14/22 04:56 07:00 08:10 Temperature 36.9 C 37.1 C Heart Rate Heart Rate [ Brachial] Heart Rate [ 87 88 Monitoring electrodes] Respiratory 20 20 Rate Blood Pressure Blood Pressure 140/88 H 111/68 [Right Brachial artery] O2 Saturation 97 98 If not protocol 2 2 2 : Oxygen Flow, liters/minute 10/14/22 10/14/22 10/14/22 10:00 12:07 16:15 Temperature 36.8 C 36.8 C Heart Rate 90 Heart Rate [ Brachial] Heart Rate [ 85 91 Monitoring electrodes] Respiratory 20 20 Rate Blood Pressure Blood Pressure 137/89 H 134/99 H [Right Brachial artery] O2 Saturation 97 98 If not protocol 2 2 : Oxygen Flow, liters/minute Oxygen O2 Source Nasal cannula Oxygen Flow Rate 4 I&O (Last 24 Hrs): Intake and Output Totals x24h 10/12/22 10/13/22 10/14/22 23:59 23:59 23:59 Intake Total 490 860 Output Total 1900 2650 Balance -1410 -1790 General: Alert, Oriented x3, Mild distress HEENT: Atraumatic, PERRLA, EOMI Neck: Supple Neuro: Alert, Non Focal Cardiovascular: Regular rate Respiratory: Chest non-tender, Rales Abdomen: Normal bowel sounds, No tenderness Extremities: Other (2+ edema both LE) - Results Results: Laboratory Results WBC 11.2 x10^3/uL (4.8-10.8) H 10/13/22 19:09 RBC 4.08 10^6/uL (4.20-5.40) L 10/13/22 19:09 Hgb 9.7 g/dL (12.0-16.0) L 10/13/22 19:09 Hct 34.7 % (37.0-47.0) L 10/13/22 19:09 MCV 85.0 fL (81.0-99.0) 10/13/22 19:09 MCH 23.8 pg (27.0-31.0) L 10/13/22 19:09 MCHC 28.0 g/dL (32.0-36.0) L 10/13/22 19:09 RDW 29.1 % (12.0-15.0) H 10/13/22 19:09 Plt Count 293 10^3/uL (130-450) 10/13/22 19:09 Neut # (Auto) 9.1 10^3/uL (1.5-6.6) H 10/13/22 19:09 Lymph # (Auto) 0.9 10^3/uL (1.5-3.5) L 10/13/22 19:09 [place] # (Auto) 0.8 10^3/uL (0.0-1.0) 10/13/22 19:09 Eos # (Auto) 0.2 10^3/uL (0.0-0.7) 10/13/22 19:09 Baso # (Auto) 0.1 10^3/uL (0.0-0.1) 10/13/22 19:09 Absolute Nucleated RBC 0.00 x10^3/uL 10/13/22 19:09 Nucleated RBC % 0.0 /100WBC 10/13/22 19:09 Manual Slide Review Indicated 10/13/22 19:09 Platelet Estimate NORMAL (130-450,000) (NORMAL) 10/13/22 19:09 Platelet Morphology NORMAL APPEARANCE (NORMAL) 10/13/22 19:09 RBC Morph Micro Appear 4+ ANISOCYTOSIS (NORMAL) 1+ HYPOCHROMASIA (NORMAL) 1+ POLYCHROMASIA (NORMAL) 10/13/22 19:09 RBC Morph Micro Appear 4+ ANISOCYTOSIS (NORMAL) 1+ HYPOCHROMASIA (NORMAL) 1+ POLYCHROMASIA (NORMAL) 10/13/22 19:09 RBC Morph Micro Appear 4+ ANISOCYTOSIS (NORMAL) 1+ HYPOCHROMASIA (NORMAL) 1+ POLYCHROMASIA (NORMAL) 10/13/22 19:09 VBG pH 7.387 (7.31-7.41) 10/13/22 19:09 VBG pCO2 35.9 mmHg (41-51) L 10/13/22 19:09 VBG pO2 61.9 mmHg (25-47) H 10/13/22 19:09 VBG HCO3 21.1 mmol/L (23-28) L 10/13/22 19:09 VBG Total CO2 22.2 mmol/L (24-29) L 10/13/22 19:09 VBG O2 Saturation 89.3 % (60-80) H 10/13/22 19:09 VBG Base Excess -3.4 mmol/L (-2 - +2) L 10/13/22 19:09 Sodium 141 mmol/L (135-145) 10/13/22 19:09 Potassium 3.6 mmol/L (3.5-4.5) 10/13/22 19:09 Chloride 109 mmol/L (101-111) 10/13/22 19:09 Carbon Dioxide 23 mmol/L (21-32) 10/13/22 19:09 Anion Gap 9.0 (6-13) 10/13/22 19:09 BUN 7 mg/dL (6-20) 10/13/22 19:09 Creatinine 0.9 mg/dL (0.6-1.3) 10/13/22 19:09 Estimated GFR (MDRD) 65 (>89) L 10/13/22 19:09 Glucose 173 mg/dL (74-104) H 10/13/22 19:09 POC Whole Bld Glucose 99 mg/dL (70 - 100) 10/14/22 16:33 Estimat Average Glucose 80 mg/dL (70-100) 10/14/22 04:55 Hemoglobin A1c % 4.4 % (4.27-6.07) 10/14/22 04:55 Lactic Acid 1.8 mmol/L (0.5-2.2) 10/13/22 19:09 Calcium 9.1 mg/dL (8.5-10.3) 10/13/22 19:09 Total Bilirubin 0.6 mg/dL (0.2-1.0) 10/13/22 19:09 AST 15 IU/L (10-42) 10/13/22 19:09 ALT 10 IU/L (10-60) 10/13/22 19:09 Alkaline Phosphatase 80 IU/L (42-121) 10/13/22 19:09 Troponin I High Sens 31.5 ng/L (2.3-14.8) H* 10/14/22 04:55 B-Natriuretic Peptide 1897 pg/mL (5-100) H 10/14/22 09:15 Total Protein 6.3 g/dL (6.4-8.9) L 10/13/22 19:09 Albumin 3.4 g/dL (3.2-5.5) 10/13/22 19:09 Globulin 2.9 g/dL (2.1-4.2) 10/13/22 19:09 Albumin/Globulin Ratio 1.2 (1.0-2.2) 10/13/22 19:09 Triglycerides 88 mg/dL (48-352) 10/14/22 04:55 Cholesterol 115 mg/dL (-200) 10/14/22 04:55 LDL Cholesterol, Calc 59 mg/dL (-129) 10/14/22 04:55 VLDL Cholesterol 18 mg/dL 10/14/22 04:55 HDL Cholesterol 38 mg/dL (60-) L 10/14/22 04:55 LDL/HDL Ratio 1.6 (<4.4) 10/14/22 04:55 Cholesterol/HDL Ratio 3.0 (<4.4) 10/14/22 04:55 Urine Color YELLOW 10/13/22 20:25 Urine Clarity CLEAR (CLEAR) 10/13/22 20:25 Urine pH 5.5 PH (5.0-7.5) 10/13/22 20:25 Ur Specific [place] 1.010 (1.002-1.030) 10/13/22 20:25 Urine Protein NEGATIVE mg/dL (NEGATIVE) 10/13/22 20:25 Urine Glucose (UA) NEGATIVE mg/dL (NEGATIVE) 10/13/22 20:25 Urine Ketones NEGATIVE mg/dL (NEGATIVE) 10/13/22 20:25 Urine Occult Blood NEGATIVE (NEGATIVE) 10/13/22 20:25 Urine Nitrite NEGATIVE (NEGATIVE) 10/13/22 20:25 Urine Bilirubin NEGATIVE (NEGATIVE) 10/13/22 20:25 Urine Urobilinogen 0.2 (NORMAL) E.U./dL (NORMAL) 10/13/22 20:25 Ur Leukocyte Esterase NEGATIVE (NEGATIVE) 10/13/22 20:25 Urine RBC 0-5 /HPF (0-5) 10/13/22 20:25 Urine WBC 0-3 /HPF (0-5) 10/13/22 20:25 Ur Squamous Epith Cells RARE Squamous (<= Few) 10/13/22 20:25 Urine Bacteria None Seen /HPF (None Seen) 10/13/22 20:25 Urine Casts 0-2 Hyaline Casts /LPF 10/13/22 20:25 Urine Culture Comments NOT INDICATED 10/13/22 20:25 Nasal Adenovirus (PCR) NOT DETECTED 10/13/22 19:05 Nasal B. parapertussis DNA (PCR) NOT DETECTED 10/13/22 19:05 Nasal Coronavir 229E PCR NOT DETECTED 10/13/22 19:05 Nasal Coronavir HKU1 PCR NOT DETECTED 10/13/22 19:05 Nasal Coronavir NL63 PCR NOT DETECTED 10/13/22 19:05 Nasal Coronavir OC43 PCR NOT DETECTED 10/13/22 19:05 Nasal Enterovir/Rhinovir PCR NOT DETECTED 10/13/22 19:05 Nasal Influenza B PCR NOT DETECTED 10/13/22 19:05 Nasal Influenza A PCR NOT DETECTED 10/13/22 19:05 Nasal Parainfluen 1 PCR NOT DETECTED 10/13/22 19:05 Nasal Parainfluen 2 PCR NOT DETECTED 10/13/22 19:05 Nasal Parainfluen 3 PCR NOT DETECTED 10/13/22 19:05 Nasal Parainfluen 4 PCR NOT DETECTED 10/13/22 19:05 Nasal RSV (PCR) NOT DETECTED 10/13/22 19:05 Nasal B.pertussis DNA PCR NOT DETECTED 10/13/22 19:05 Nasal C.pneumoniae (PCR) NOT DETECTED 10/13/22 19:05 [place] Human Metapneumo PCR NOT DETECTED 10/13/22 19:05 Nasal M.pneumoniae (PCR) NOT DETECTED 10/13/22 19:05 Nasal SARS-CoV-2 (PCR) NOT DETECTED 10/13/22 19:05 Urine Opiates Screen NEGATIVE (NEGATIVE) 10/13/22 21:25 Ur Oxycodone Screen NEGATIVE (NEGATIVE) 10/13/22 21:25 Urine Methadone Screen NEGATIVE (NEGATIVE) 10/13/22 21:25 Ur Propoxyphene Screen NEGATIVE (NEGATIVE) 10/13/22 21:25 Ur Barbiturates Screen NEGATIVE (NEGATIVE) 10/13/22 21:25 Ur Tricyclics Screen NEGATIVE (NEGATIVE) 10/13/22 21:25 Ur Phencyclidine Scrn NEGATIVE (NEGATIVE) 10/13/22 21:25 Ur Amphetamine Screen NEGATIVE (NEGATIVE) 10/13/22 21:25 U Methamphetamines Scrn NEGATIVE (NEGATIVE) 10/13/22 21:25 U Benzodiazepines Scrn NEGATIVE (NEGATIVE) 10/13/22 21:25 Urine Cocaine Screen NEGATIVE (NEGATIVE) 10/13/22 21:25 U Cannabinoids Screen NEGATIVE (NEGATIVE) 10/13/22 21:25 Blood Type A POSITIVE 10/13/22 19:09 Antibody Screen NEGATIVE 10/13/22 19:09 - Procedures Procedures: Procedures EXCISION OF STOMACH, ENDO, DIAGN (09/27/22) INSPECTION OF LOWER INTESTINAL TRACT, ENDO (09/27/22) TRANSFUSE NONAUT RED BLOOD CELLS IN PERIPH VEIN, PERC (09/27/22) ABX Reporting Has patient been on IV antibiotics over the past 48 hours?: No Current Medications - Current Medications Current Medications: Active Medications Generic Name Dose Route Start Last Admin Trade Name Freq PRN Reason Stop Dose Admin Acetaminophen 650 mg 10/13/22 20:43 10/14/22 15:53 Acetaminophen 325 Mg Tablet PO 650 mg Q4HR PRN Administration Pain 1 to 4, or Fever Albuterol/Ipratropium 3 ml 10/13/22 20:35 Ipratropium/Albuterol 3 Ml Neb INH Q4HR PRN Wheezing Ascorbic Acid 500 mg 10/14/22 17:00 10/14/22 16:06 Ascorbic Acid 500 Mg Tablet PO 500 mg BID ANA Administration Bupropion HCl 450 mg 10/14/22 09:00 10/14/22 08:22 Bupropion Xl 150 Mg Tablet PO 450 mg DAILY ANA Administration Buspirone HCl 30 mg 10/13/22 22:50 10/14/22 08:22 Buspirone 5 Mg Tablet PO 30 mg BID ANA Administration Escitalopram Oxalate 30 mg 10/14/22 09:00 10/14/22 08:22 Escitalopram 10 Mg Tablet PO 30 mg DAILY ANA Administration Ferrous Sulfate 325 mg 10/14/22 17:00 10/14/22 16:06 Ferrous Sulfate 325 Mg Tablet PO 325 mg BIDWM ANA Administration Furosemide 40 mg 10/14/22 09:00 10/14/22 08:23 Furosemide 40 Mg/4 Ml Vial IVP 40 mg DAILY ANA Administration Metoprolol Succinate 25 mg 10/14/22 09:00 10/14/22 08:22 Metoprolol Succinate 25 Mg Tablet PO 25 mg DAILY ANA Administration Ondansetron HCl 4 mg 10/13/22 20:43 Ondansetron 4 Mg/2 Ml Vial IVP Q6HR PRN Nausea / Vomiting Pantoprazole Sodium 40 mg 10/13/22 21:00 10/14/22 08:22 Pantoprazole 40 Mg Tablet PO 40 mg BID ANA Administration Ropinirole HCl 1 mg 10/13/22 21:00 10/13/22 22:40 Ropinirole 1 Mg Tablet PO 1 mg QPM ANA Administration Sodium Chloride 10 ml 10/13/22 20:43 Sodium Chloride Flush 0.9% 10 Ml Syringe IVP PRN PRN NEEDED PER PROVIDER ORDERS Sodium Chloride 10 ml 10/14/22 01:00 10/14/22 15:54 Sodium Chloride Flush 0.9% 10 Ml Syringe IVP 10 ml 0100,0900,1700 ANA Administration Buspirone HCl 30 mg PO BID 07/28/19 buPROPion HCL [Wellbutrin Xl] 300 mg PO DAILY 09/26/22 Escitalopram Oxalate 30 mg PO DAILY 09/27/22 buPROPion HCL [Bupropion Xl] 1 tab PO DAILY 09/27/[address] [Voltaren] 75 mg PO BID 10/13/22 Cholecalciferol (Vitamin D3) [Vitamin D3] 25 mcg PO DAILY 10/14/22 Methenamine/Sodium Salicylate [Azo Urinary Tract Defense Tab] 1 tab PO QPM 10/14/22
[2022-10-14] MEDS: rOPINIRole 1 MG TABLET PO SCH (20:24)
--- NOTE | 2022-10-14 20:47 | PROVIDER PROGRESS NOTE ---
Electronic Health Records Specialist Note - Electronic Health Records Specialist Note Electronic Health Records Specialist Note: RN paged "x: CHF Exacerbation Hx: HTN, Anemia, Sleep apnea, Depression Situation: Just YOVANI, just received a call from lab reporting that patient's blood culture (aerobic bottle) that was drawn last night 10/13/22 came back gram positive cocci in clusters. Thank you." BCx 1 of 2 gram positive. could be a contamination. followup on sensitivity. Nadia Kearns DO Internal Medicine [employer] Electronic Health Records Specialist
[2022-10-15 05:24] LABS: BASOPHILS # (AUTO) 0.1 10^3/uL (0.0-0.1); BASOPHILS % (AUTO) 0.7 %; EOSINOPHILS # (AUTO) 0.3 10^3/uL (0.0-0.7); EOSINOPHILS % (AUTO) 2.5 %; LYMPHOCYTES # (AUTO) 1.2 10^3/uL (1.5-3.5); LYMPHOCYTES % (AUTO) 11.1 %; MONOCYTES # (AUTO) 1.3 10^3/uL (0.0-1.0); MONOCYTES % (AUTO) 11.4 %; NEUTROPHILS # (AUTO) 8.2 10^3/uL (1.5-6.6); NEUTROPHILS % (AUTO) 73.5 %
[2022-10-15 05:36] LABS: CALCIUM 9.1 mg/dL (8.5-10.3); CREATININE 0.9 mg/dL (0.6-1.3); POTASSIUM 3.5 mmol/L (3.5-4.5)
[2022-10-15 05:45] LABS: HCT - HEMATOCRIT 29.5 % (37.0-47.0); MEAN CORPUSCULAR HEMOGLOBIN 22.5 pg (27.0-31.0); MEAN CORPUSCULAR HGB CONC 27.1 g/dL (32.0-36.0); MEAN CORPUSCULAR VOLUME 83.1 fL (81.0-99.0); PLT - PLATELET COUNT 308 10^3/uL (130-450); RED BLOOD COUNT 3.55 10^6/uL (4.20-5.40); RED CELL DISTRIBUTION WIDTH 28.7 % (12.0-15.0); SLIDE REVIEW? Indicated; WHITE BLOOD COUNT 11.4 x10^3/uL (4.8-10.8)
[2022-10-15 06:42] LABS: PLATELET ESTIMATE, MANUAL NORMAL (130-450,000) (NORMAL)
--- NOTE | 2022-10-15 08:31 | PROVIDER PROGRESS NOTE ---
Assessment/Plan - Problem List (1) Acute hypoxemic respiratory failure Assessment/Plan: . Improving, wean off oxygen during round, her pulse ox maintained over 95% on room air continue with Lasix (2) MARITZA on CPAP Assessment/Plan: Continue use CPAP with sleep (3) CHF (congestive heart failure) Qualifiers: Heart failure type: unspecified Heart failure chronicity: acute Qualified Code(s): I50.9 - Heart failure, unspecified Assessment/Plan: Improving. Continue use Lasix, strict in and out. Ordered ultrasound to check if pleural fluid can be drained (4) HTN (hypertension) Qualifiers: Hypertension type: primary hypertension Qualified Code(s): I10 - Essential (primary) hypertension Assessment/Plan: Continue current blood pressure regimen, BP has been stable (5) Iron deficiency anemia Qualifiers: Iron deficiency anemia type: unspecified iron deficiency Qualified Code(s): D50.9 - Iron deficiency anemia, unspecified Assessment/Plan: Hemoglobin trended down to 8 from 9.7, no sign of active bleeding. Checked FOBT negative. Patient reports she had EGD and colonoscopy during last hospital stay, polyps was noted colonoscopy. Continue on iron supplement - Current Meds Current Meds: Current Medications Generic Name Dose Route Start Last Admin Trade Name Freq PRN Reason Stop Dose Admin Acetaminophen 650 mg 10/13/22 20:43 10/14/22 20:24 Acetaminophen 325 Mg Tablet PO 650 mg Q4HR PRN Administration Pain 1 to 4, or Fever Ascorbic Acid 500 mg 10/14/22 17:00 10/14/22 16:06 Ascorbic Acid 500 Mg Tablet PO 500 mg BID ANA Administration Bupropion HCl 450 mg 10/14/22 09:00 10/14/22 08:22 Bupropion Xl 150 Mg Tablet PO 450 mg DAILY ANA Administration Buspirone HCl 30 mg 10/13/22 22:50 10/14/22 20:23 Buspirone 5 Mg Tablet PO 30 mg BID ANA Administration Escitalopram Oxalate 30 mg 10/14/22 09:00 10/14/22 08:22 Escitalopram 10 Mg Tablet PO 30 mg DAILY ANA Administration Ferrous Sulfate 325 mg 10/14/22 17:00 10/14/22 16:06 Ferrous Sulfate 325 Mg Tablet PO 325 mg BIDWM ANA Administration Furosemide 40 mg 10/14/22 09:00 10/14/22 08:23 Furosemide 40 Mg/4 Ml Vial IVP 40 mg DAILY ANA Administration Metoprolol Succinate 25 mg 10/14/22 09:00 10/14/22 08:22 Metoprolol Succinate 25 Mg Tablet PO 25 mg DAILY ANA Administration Pantoprazole Sodium 40 mg 10/13/22 21:00 10/14/22 20:24 Pantoprazole 40 Mg Tablet PO 40 mg BID ANA Administration Ropinirole HCl 1 mg 10/13/22 21:00 10/14/22 20:24 Ropinirole 1 Mg Tablet PO 1 mg QPM ANA Administration Sodium Chloride 10 ml 10/14/22 01:00 10/14/22 23:39 Sodium Chloride Flush 0.9% 10 Ml Syringe IVP 10 ml 0100,0900,1700 ANA Administration - Lab Result Lab results reviewed: Yes Fish Bone Diagrams: 10/15/22 04:34 10/15/22 04:34 - Additional Planning Condition/Complexity: Improved My Orders: My Active Orders 10/14/22 17:00 Ascorbic Acid [Vitamin C] 500 mg PO BID Ferrous Sulfate [Feosol] 325 mg PO BIDWM 10/15/22 OCCULT BLOOD IN PAT. SINGLE [RAPID] Routine 10/15/22 09:00 Potassium Chloride [K-Dur] 20 meq PO DAILYWM 10/16/22 05:00 BMP - BASIC METABOLIC PANEL [CHEM] DAILYLAB CBC [CBC - COMP BLD CT W/AUTO DIFF] [HEME] DAILYLAB 10/17/22 05:00 BMP - BASIC METABOLIC PANEL [CHEM] DAILYLAB CBC [CBC - COMP BLD CT W/AUTO DIFF] [HEME] DAILYLAB 10/18/22 05:00 BMP - BASIC METABOLIC PANEL [CHEM] DAILYLAB CBC [CBC - COMP BLD CT W/AUTO DIFF] [HEME] DAILYLAB 10/19/22 05:00 BMP - BASIC METABOLIC PANEL [CHEM] DAILYLAB CBC [CBC - COMP BLD CT W/AUTO DIFF] [HEME] DAILYLAB Plan Discussed with:: Patient Time Spent: 31-60 minutes (If continue improving, off oxygen, can be discharged to home tomorrow) Subjective - Subjective Patient Reports: Feeling Better, Resting Comfortably, No Complaints (Patient reports shortness of breath has improved, leg swelling is better) Objective Vital Signs: Vital Signs - 24 hr 10/14/22 10/14/22 10/14/22 10:00 12:07 16:15 Temperature 36.8 C 36.8 C Heart Rate 90 Heart Rate [ Brachial] Heart Rate [ 85 91 Monitoring electrodes] Respiratory 20 20 Rate Blood Pressure 137/89 H 134/99 H [Right Brachial artery] O2 Saturation 97 98 If not protocol 2 2 : Oxygen Flow, liters/minute 10/14/22 10/14/22 10/14/22 20:47 23:39 23:40 Temperature 37.2 C 37.1 C Heart Rate 95 Heart Rate [ Brachial] Heart Rate [ 91 95 Monitoring electrodes] Respiratory 18 18 Rate Blood Pressure 151/85 H 146/79 H [Right Brachial artery] O2 Saturation 98 99 If not protocol 2 2 3 : Oxygen Flow, liters/minute 10/15/22 10/15/22 05:30 08:00 Temperature 37.4 C Heart Rate 9 L Heart Rate [ 105 H Brachial] Heart Rate [ Monitoring electrodes] Respiratory 20 Rate Blood Pressure 148/87 H [Right Brachial artery] O2 Saturation 93 If not protocol 2 : Oxygen Flow, liters/minute Oxygen O2 Source Nasal cannula Oxygen Flow Rate 4 I&O (Last 24 Hrs): Intake and Output Totals x24h 10/13/22 10/14/22 10/15/22 23:59 23:59 23:59 Intake Total 490 1110 250 Output Total 1900 2975 250 Balance -1410 -1865 0 General: Alert, Oriented x3 HEENT: PERRLA, EOMI Neck: Supple, No JVD Neuro: Alert, Non Focal, CN 2-12 Grossly Intact Cardiovascular: Regular rate Abdomen: Normal bowel sounds, No tenderness Genitourinary: Other (Leg edema improved) Extremities: No clubbing, No cyanosis Skin: No rashes, No breakdown - Results Results: Laboratory Results WBC 11.4 x10^3/uL (4.8-10.8) H 10/15/22 04:34 RBC 3.55 10^6/uL (4.20-5.40) L 10/15/22 04:34 Hgb 8.0 g/dL (12.0-16.0) L 10/15/22 04:34 Hct 29.5 % (37.0-47.0) L 10/15/22 04:34 MCV 83.1 fL (81.0-99.0) 10/15/22 04:34 MCH 22.5 pg (27.0-31.0) L 10/15/22 04:34 MCHC 27.1 g/dL (32.0-36.0) L 10/15/22 04:34 RDW 28.7 % (12.0-15.0) H 10/15/22 04:34 Plt Count 308 10^3/uL (130-450) 10/15/22 04:34 Neut # (Auto) 8.2 10^3/uL (1.5-6.6) H 10/15/22 04:34 Lymph # (Auto) 1.2 10^3/uL (1.5-3.5) L 10/15/22 04:34 Terrell # (Auto) 1.3 10^3/uL (0.0-1.0) H 10/15/22 04:34 Eos # (Auto) 0.3 10^3/uL (0.0-0.7) 10/15/22 04:34 Baso # (Auto) 0.1 10^3/uL (0.0-0.1) 10/15/22 04:34 Absolute Nucleated RBC 0.00 x10^3/uL 10/15/22 04:34 Nucleated RBC % 0.0 /100WBC 10/15/22 04:34 Manual Slide Review Indicated 10/15/22 04:34 Platelet Estimate NORMAL (130-450,000) (NORMAL) 10/15/22 04:34 Platelet Morphology NORMAL APPEARANCE (NORMAL) 10/13/22 19:09 RBC Morph Micro Appear 2+ ANISOCYTOSIS (NORMAL) 1+ HYPOCHROMASIA (NORMAL) 1+ OVALOCYTES (NORMAL) 10/15/22 04:34 RBC Morph Micro Appear 2+ ANISOCYTOSIS (NORMAL) 1+ HYPOCHROMASIA (NORMAL) 1+ OVALOCYTES (NORMAL) 10/15/22 04:34 RBC Morph Micro Appear 2+ ANISOCYTOSIS (NORMAL) 1+ HYPOCHROMASIA (NORMAL) 1+ OVALOCYTES (NORMAL) 10/15/22 04:34 VBG pH 7.387 (7.31-7.41) 10/13/22 19:09 VBG pCO2 35.9 mmHg (41-51) L 10/13/22 19:09 VBG pO2 61.9 mmHg (25-47) H 10/13/22 19:09 VBG HCO3 21.1 mmol/L (23-28) L 10/13/22 19:09 VBG Total CO2 22.2 mmol/L (24-29) L 10/13/22 19:09 VBG O2 Saturation 89.3 % (60-80) H 10/13/22 19:09 VBG Base Excess -3.4 mmol/L (-2 - +2) L 10/13/22 19:09 Sodium 143 mmol/L (135-145) 10/15/22 04:34 Potassium 3.5 mmol/L (3.5-4.5) 10/15/22 04:34 Chloride 109 mmol/L (101-111) 10/15/22 04:34 Carbon Dioxide 27 mmol/L (21-32) 10/15/22 04:34 Anion Gap 7.0 (6-13) 10/15/22 04:34 BUN 8 mg/dL (6-20) 10/15/22 04:34 Creatinine 0.9 mg/dL (0.6-1.3) 10/15/22 04:34 Estimated GFR (MDRD) 65 (>89) L 10/15/22 04:34 Glucose 93 mg/dL (74-104) 10/15/22 04:34 POC Whole Bld Glucose 99 mg/dL (70 - 100) 10/14/22 16:33 Estimat Average Glucose 80 mg/dL (70-100) 10/14/22 04:55 Hemoglobin A1c % 4.4 % (4.27-6.07) 10/14/22 04:55 Lactic Acid 1.8 mmol/L (0.5-2.2) 10/13/22 19:09 Calcium 9.1 mg/dL (8.5-10.3) 10/15/22 04:34 Total Bilirubin 0.6 mg/dL (0.2-1.0) 10/13/22 19:09 AST 15 IU/L (10-42) 10/13/22 19:09 ALT 10 IU/L (10-60) 10/13/22 19:09 Alkaline Phosphatase 80 IU/L (42-121) 10/13/22 19:09 Troponin I High Sens 31.5 ng/L (2.3-14.8) H* 10/14/22 04:55 B-Natriuretic Peptide 1897 pg/mL (5-100) H 10/14/22 09:15 Total Protein 6.3 g/dL (6.4-8.9) L 10/13/22 19:09 Albumin 3.4 g/dL (3.2-5.5) 10/13/22 19:09 Globulin 2.9 g/dL (2.1-4.2) 10/13/22 19:09 Albumin/Globulin Ratio 1.2 (1.0-2.2) 10/13/22 19:09 Triglycerides 88 mg/dL (48-352) 10/14/22 04:55 Cholesterol 115 mg/dL (-200) 10/14/22 04:55 LDL Cholesterol, Calc 59 mg/dL (-129) 10/14/22 04:55 VLDL Cholesterol 18 mg/dL 10/14/22 04:55 HDL Cholesterol 38 mg/dL (60-) L 10/14/22 04:55 LDL/HDL Ratio 1.6 (<4.4) 10/14/22 04:55 Cholesterol/HDL Ratio 3.0 (<4.4) 10/14/22 04:55 Urine Color YELLOW 10/13/22 20:25 Urine Clarity CLEAR (CLEAR) 10/13/22 20:25 Urine pH 5.5 PH (5.0-7.5) 10/13/22 20:25 Ur Specific [place] 1.010 (1.002-1.030) 10/13/22 20:25 Urine Protein NEGATIVE mg/dL (NEGATIVE) 10/13/22 20:25 Urine Glucose (UA) NEGATIVE mg/dL (NEGATIVE) 10/13/22 20:25 Urine Ketones NEGATIVE mg/dL (NEGATIVE) 10/13/22 20:25 Urine Occult Blood NEGATIVE (NEGATIVE) 10/13/22 20:25 Urine Nitrite NEGATIVE (NEGATIVE) 10/13/22 20:25 Urine Bilirubin NEGATIVE (NEGATIVE) 10/13/22 20:25 Urine Urobilinogen 0.2 (NORMAL) E.U./dL (NORMAL) 10/13/22 20:25 Ur Leukocyte Esterase NEGATIVE (NEGATIVE) 10/13/22 20:25 Urine RBC 0-5 /HPF (0-5) 10/13/22 20:25 Urine WBC 0-3 /HPF (0-5) 10/13/22 20:25 Ur Squamous Epith Cells RARE Squamous (<= Few) 10/13/22 20:25 Urine Bacteria None Seen /HPF (None Seen) 10/13/22 20:25 Urine Casts 0-2 Hyaline Casts /LPF 10/13/22 20:25 Urine Culture Comments NOT INDICATED 10/13/22 20:25 Nasal Adenovirus (PCR) NOT DETECTED 10/13/22 19:05 Nasal B. parapertussis DNA (PCR) NOT DETECTED 10/13/22 19:05 Nasal Coronavir 229E PCR NOT DETECTED 10/13/22 19:05 Nasal Coronavir HKU1 PCR NOT DETECTED 10/13/22 19:05 Nasal Coronavir NL63 PCR NOT DETECTED 10/13/22 19:05 Nasal Coronavir OC43 PCR NOT DETECTED 10/13/22 19:05 Nasal Enterovir/Rhinovir PCR NOT DETECTED 10/13/22 19:05 Nasal Influenza B PCR NOT DETECTED 10/13/22 19:05 Nasal Influenza A PCR NOT DETECTED 10/13/22 19:05 Nasal Parainfluen 1 PCR NOT DETECTED 10/13/22 19:05 Nasal Parainfluen 2 PCR NOT DETECTED 10/13/22 19:05 Nasal Parainfluen 3 PCR NOT DETECTED 10/13/22 19:05 Nasal Parainfluen 4 PCR NOT DETECTED 10/13/22 19:05 Nasal RSV (PCR) NOT DETECTED 10/13/22 19:05 Nasal B.pertussis DNA PCR NOT DETECTED 10/13/22 19:05 Nasal C.pneumoniae (PCR) NOT DETECTED 10/13/22 19:05 [place] Human Metapneumo PCR NOT DETECTED 10/13/22 19:05 Nasal M.pneumoniae (PCR) NOT DETECTED 10/13/22 19:05 Nasal SARS-CoV-2 (PCR) NOT DETECTED 10/13/22 19:05 Urine Opiates Screen NEGATIVE (NEGATIVE) 10/13/22 21:25 Ur Oxycodone Screen NEGATIVE (NEGATIVE) 10/13/22 21:25 Urine Methadone Screen NEGATIVE (NEGATIVE) 10/13/22 21:25 Ur Propoxyphene Screen NEGATIVE (NEGATIVE) 10/13/22 21:25 Ur Barbiturates Screen NEGATIVE (NEGATIVE) 10/13/22 21:25 Ur Tricyclics Screen NEGATIVE (NEGATIVE) 10/13/22 21:25 Ur Phencyclidine Scrn NEGATIVE (NEGATIVE) 10/13/22 21:25 Ur Amphetamine Screen NEGATIVE (NEGATIVE) 10/13/22 21:25 U Methamphetamines Scrn NEGATIVE (NEGATIVE) 10/13/22 21:25 U Benzodiazepines Scrn NEGATIVE (NEGATIVE) 10/13/22 21:25 Urine Cocaine Screen NEGATIVE (NEGATIVE) 10/13/22 21:25 U Cannabinoids Screen NEGATIVE (NEGATIVE) 10/13/22 21:25 Blood Type A POSITIVE 10/13/22 19:09 Antibody Screen NEGATIVE 10/13/22 19:09 - Procedures Procedures: Procedures EXCISION OF STOMACH, ENDO, DIAGN (09/27/22) INSPECTION OF LOWER INTESTINAL TRACT, ENDO (09/27/22) TRANSFUSE NONAUT RED BLOOD CELLS IN PERIPH VEIN, PERC (09/27/22) ABX Reporting Has patient been on IV antibiotics over the past 48 hours?: No Current Medications - Current Medications Current Medications: Active Medications Acetaminophen (Acetaminophen 325 Mg Tablet) 650 mg PO Q4HR PRN PRN Reason: Pain 1 to 4, or Fever Last Admin: 10/15/22 09:01 Dose: 650 mg Albuterol/Ipratropium (Ipratropium/Albuterol 3 Ml Neb) 3 ml INH Q4HR PRN PRN Reason: Wheezing Ascorbic Acid (Ascorbic Acid 500 Mg Tablet) 500 mg PO BID [facility] Last Admin: 10/15/22 09:00 Dose: 500 mg Bupropion HCl (Bupropion Xl 150 Mg Tablet) 450 mg PO DAILY [facility] Last Admin: 10/15/22 09:01 Dose: 450 mg Buspirone HCl (Buspirone 5 Mg Tablet) 30 mg PO BID [facility] Last Admin: 10/15/22 09:00 Dose: 30 mg Escitalopram Oxalate (Escitalopram 10 Mg Tablet) 30 mg PO DAILY [facility] Last Admin: 10/15/22 09:00 Dose: 30 mg Ferrous Sulfate (Ferrous Sulfate 325 Mg Tablet) 325 mg PO BIDWM [facility] Last Admin: 10/15/22 16:14 Dose: 325 mg Furosemide (Furosemide 40 Mg/4 Ml Vial) 40 mg IVP DAILY [facility] Last Admin: 10/15/22 09:01 Dose: 40 mg Metoprolol Succinate (Metoprolol Succinate 25 Mg Tablet) 25 mg PO DAILY [facility] Last Admin: 10/15/22 09:00 Dose: 25 mg Ondansetron HCl (Ondansetron 4 Mg/2 Ml Vial) 4 mg IVP Q6HR PRN PRN Reason: Nausea / Vomiting Pantoprazole Sodium (Pantoprazole 40 Mg Tablet) 40 mg PO BID [facility] Last Admin: 10/15/22 09:00 Dose: 40 mg Potassium Chloride (Potassium Chloride 20 Meq Tablet) 20 meq PO DAILYWM [facility] Last Admin: 10/15/22 09:00 Dose: 20 meq Ropinirole HCl (Ropinirole 1 Mg Tablet) 1 mg PO QPM [facility] Last Admin: 10/14/22 20:24 Dose: 1 mg Sodium Chloride (Sodium Chloride Flush 0.9% 10 Ml Syringe) 10 ml IVP PRN PRN PRN Reason: NEEDED PER PROVIDER ORDERS Sodium Chloride (Sodium Chloride Flush 0.9% 10 Ml Syringe) 10 ml IVP 0100,0900,1700 [facility] Last Admin: 10/15/22 15:36 Dose: 10 ml Buspirone HCl 30 mg PO BID 07/28/19 buPROPion HCL [Wellbutrin Xl] 300 mg PO DAILY 09/26/22 Escitalopram Oxalate 30 mg PO DAILY 09/27/22 buPROPion HCL [Bupropion Xl] 1 tab PO DAILY 09/27/[address] [Voltaren] 75 mg PO BID 10/13/22 Cholecalciferol (Vitamin D3) [Vitamin D3] 25 mcg PO DAILY 10/14/22 Methenamine/Sodium Salicylate [Azo Urinary Tract Defense Tab] 1 tab PO QPM 10/14/22
[2022-10-15] MEDS: busPIRone 5 MG TABLET PO SCH ×2 (09:00→20:18)
[2022-10-15] MEDS: PANTOPRAZOLE 40 MG TABLET PO SCH ×2 (09:00→20:19)
[2022-10-15] MEDS: ASCORBIC ACID 500 MG TABLET PO SCH ×2 (09:00→20:18)
[2022-10-15] MEDS: POTASSIUM CHLORIDE 20 MEQ TABLET PO SCH (09:00)
[2022-10-15] MEDS: METOPROLOL SUCCINATE 25 MG TABLET PO SCH (09:00)
[2022-10-15] MEDS: ESCITALOPRAM 10 MG TABLET PO SCH (09:00)
[2022-10-15] MEDS: FERROUS SULFATE 325 MG TABLET PO SCH ×2 (09:00→16:14)
[2022-10-15] MEDS: FUROSEMIDE 40 MG/4 ML VIAL IVP SCH (09:01)
[2022-10-15] MEDS: ACETAMINOPHEN 325 MG TABLET PO PRN ×2 (09:01→19:28)
[2022-10-15] MEDS: SODIUM CHLORIDE FLUSH 0.9% 10 ML SYRINGE IVP SCH ×3 (09:01→23:55)
[2022-10-15] MEDS: buPROPion XL 150 MG TABLET PO SCH (09:01)
[2022-10-15] MEDS: rOPINIRole 1 MG TABLET PO SCH (20:19)
[2022-10-16 05:21] LABS: BASOPHILS # (AUTO) 0.1 10^3/uL (0.0-0.1); BASOPHILS % (AUTO) 0.7 %; EOSINOPHILS # (AUTO) 0.3 10^3/uL (0.0-0.7); EOSINOPHILS % (AUTO) 2.9 %; HCT - HEMATOCRIT 30.5 % (37.0-47.0); HGB - HEMOGLOBIN 8.4 g/dL (12.0-16.0); LYMPHOCYTES % (AUTO) 9.7 %; MEAN CORPUSCULAR HEMOGLOBIN 23.3 pg (27.0-31.0); MEAN CORPUSCULAR HGB CONC 27.5 g/dL (32.0-36.0); MEAN CORPUSCULAR VOLUME 84.5 fL (81.0-99.0); MONOCYTES # (AUTO) 1.3 10^3/uL (0.0-1.0); MONOCYTES % (AUTO) 12.9 %; NEUTROPHILS # (AUTO) 7.3 10^3/uL (1.5-6.6); NEUTROPHILS % (AUTO) 72.9 %; RED BLOOD COUNT 3.61 10^6/uL (4.20-5.40)
[2022-10-16 05:34] LABS: PLT - PLATELET COUNT 313 10^3/uL (130-450); SLIDE REVIEW? Indicated
[2022-10-16 05:47] LABS: CALCIUM 8.9 mg/dL (8.5-10.3); CREATININE 0.8 mg/dL (0.6-1.3); POTASSIUM 3.4 mmol/L (3.5-4.5)
[2022-10-16 06:25] LABS: PLATELET ESTIMATE, MANUAL NORMAL (130-450,000) (NORMAL)
[2022-10-16] MEDS: ASCORBIC ACID 500 MG TABLET PO SCH ×2 (08:09→20:18)
[2022-10-16] MEDS: PANTOPRAZOLE 40 MG TABLET PO SCH ×2 (08:09→20:18)
[2022-10-16] MEDS: ESCITALOPRAM 10 MG TABLET PO SCH (08:09)
[2022-10-16] MEDS: POTASSIUM CHLORIDE 20 MEQ TABLET PO SCH (08:09)
[2022-10-16] MEDS: FUROSEMIDE 40 MG/4 ML VIAL IVP SCH (08:09)
[2022-10-16] MEDS: METOPROLOL SUCCINATE 25 MG TABLET PO SCH ×2 (08:10→20:22)
[2022-10-16] MEDS: buPROPion XL 150 MG TABLET PO SCH (08:10)
[2022-10-16] MEDS: SODIUM CHLORIDE FLUSH 0.9% 10 ML SYRINGE IVP SCH ×2 (08:10→16:03)
[2022-10-16] MEDS: busPIRone 5 MG TABLET PO SCH ×2 (08:10→20:18)
[2022-10-16] MEDS: FERROUS SULFATE 325 MG TABLET PO SCH ×2 (08:10→16:03)
[2022-10-16] MEDS ORDERED: LIDOCAINE-MPF 1% 5 ML VIAL ONE (11:42)
--- NOTE | 2022-10-16 12:08 | PROVIDER PROGRESS NOTE ---
Assessment/Plan - Problem List (1) Acute hypoxemic respiratory failure Assessment/Plan: Multifactorial: from CHF (pulm edema), MARITZA on CPAP, anemia, and her morbid obesity We are weaning her oxygen down, keeping her pulse ox over 92% Plan: Continue with Lasix and plan as in #2 On the day of discharge she will need an oximetry walk test (2) Acute systolic CHF (congestive heart failure) Assessment/Plan: The Echo done about a month ago showed LVEF 60%. Now Echo shows EF 40% On Lasix 40 mg iv daily, and with fluid restriction, she is about 6 L negative in fluid balance since admission (in's and out's reviewed) Today she had chest ultrasound to check if pleural fluid can be drained with a thoracentesis>> R-sided thoracentsis was done.The post-rocedures CXR showed no pneumothorax but I cannot find a report from radiologist as to how much pleural fluid was removed She had CHF teaching by civil estimator regarding weighing herself, salt intake and fluid restrictions. Plan: Continue with Lasix and will change IV Lasix to p.o. Lasix BID Continue with Toprol-XL I will start her on po Spironolactone Follow BMP, Mg levels daily She needs a stress test, to check for CAD as the cause of the cardiomyopathy, now that she can lie flat (however today is Wednesday afternoon and we have no Stress test RN here except Wednesday through Wednesday and no sound technician except Wednesday through ). (3) MARITZA on CPAP Assessment/Plan: Continue to use CPAP with sleep (4) Iron deficiency anemia Qualifiers: Iron deficiency anemia type: unspecified iron deficiency Qualified Code(s): D50.9 - Iron deficiency anemia, unspecified Assessment/Plan: She had very low iron stores, which were checked during her last admission a month ago. Her fecal occult blood was negative on last admission, and rechecked on this admission and is again negative Patient had EGD and colonoscopy during last hospital stay, gastric polyps was noted colonoscopy. The last Hospitalist considered giving her IV iron but never did order it. Hemoglobin trended down to 8 from 9.7, no sign of active bleeding. She has not needed a blood transfusion this admission yet. Plan: I will order a bone marrow biopsy. Discussed with pt and she is agreeable. Continue on iron supplement Monitor Hgb daily (5) HTN (hypertension) Qualifiers: Hypertension type: primary hypertension Qualified Code(s): I10 - Essential (primary) hypertension Assessment/Plan: Continue blood pressure yaniv (6) Morbid obesity with BMI of 45.0-49.9, adult Conclusion/Plan: recommend lifestyle modification including dieting and exercise and followup with PCP for alf management (7) Restless leg syndrome Conclusion/Plan: Stable on her new Requip that was started last admission Plan: Continue Requip (8) Depression Conclusion/Plan: controlled. no acute exacerbation. Plan: Continue bupropion and buspirone. Qualifiers: Depression Type: major depressive disorder Major depression recurrence: recurrent Active/Remission status: currently active Psychotic features: without psychotic features - Current Meds Current Meds: Current Medications Generic Name Dose Route Start Last Admin Trade Name Freq PRN Reason Stop Dose Admin Acetaminophen 650 mg 10/13/22 20:43 10/15/22 19:28 Acetaminophen 325 Mg Tablet PO 650 mg Q4HR PRN Administration Pain 1 to 4, or Fever Ascorbic Acid 500 mg 10/14/22 17:00 10/16/22 08:09 Ascorbic Acid 500 Mg Tablet PO 500 mg BID ANA Administration Bupropion HCl 450 mg 10/14/22 09:00 10/16/22 08:10 Bupropion Xl 150 Mg Tablet PO 450 mg DAILY ANA Administration Buspirone HCl 30 mg 10/13/22 22:50 10/16/22 08:10 Buspirone 5 Mg Tablet PO 30 mg BID ANA Administration Escitalopram Oxalate 30 mg 10/14/22 09:00 10/16/22 08:09 Escitalopram 10 Mg Tablet PO 30 mg DAILY ANA Administration Ferrous Sulfate 325 mg 10/14/22 17:00 10/16/22 08:10 Ferrous Sulfate 325 Mg Tablet PO 325 mg BIDWM ANA Administration Furosemide 40 mg 10/14/22 09:00 10/16/22 08:09 Furosemide 40 Mg/4 Ml Vial IVP 40 mg DAILY ANA Administration Metoprolol Succinate 25 mg 10/14/22 09:00 10/16/22 08:10 Metoprolol Succinate 25 Mg Tablet PO 25 mg DAILY ANA Administration Pantoprazole Sodium 40 mg 10/13/22 21:00 10/16/22 08:09 Pantoprazole 40 Mg Tablet PO 40 mg BID ANA Administration Potassium Chloride 20 meq 10/15/22 09:00 10/16/22 08:09 Potassium Chloride 20 Meq Tablet PO 20 meq DAILYWM ANA Administration Ropinirole HCl 1 mg 10/13/22 21:00 10/15/22 20:19 Ropinirole 1 Mg Tablet PO 1 mg QPM ANA Administration Sodium Chloride 10 ml 10/14/22 01:00 10/16/22 08:10 Sodium Chloride Flush 0.9% 10 Ml Syringe IVP 10 ml 0100,0900,1700 ANA Administration - Lab Result Fish Bone Diagrams: 10/16/22 05:12 10/16/22 05:12 - Diagnostic Imaging Results Diagnostic Imaging Results: Final report reviewed - Additional Planning My Orders: My Active Orders 10/16/22 12:05 Miscellaenous Nursing Order [RC] QSHIFT Subjective - Subjective Patient Reports: Shortness of Breath (Still has VARGAS with activity. Still describes marked edema of her legs) Objective Vital Signs: Vital Signs - 24 hr 10/15/22 10/15/22 10/15/22 15:31 19:20 23:49 Temperature 36.8 C 37.0 C Heart Rate Heart Rate [ 96 Brachial] Heart Rate [ 89 Monitoring electrodes] Respiratory 18 18 Rate Blood Pressure 147/88 H 150/86 H [Right Brachial artery] O2 Saturation 96 99 If not protocol 2 2 2 : Oxygen Flow, liters/minute 10/16/22 10/16/22 03:30 08:14 Temperature 36.4 C L Heart Rate 96 Heart Rate [ 99 Brachial] Heart Rate [ Monitoring electrodes] Respiratory 14 Rate Blood Pressure 146/83 H [Right Brachial artery] O2 Saturation 97 If not protocol 2 : Oxygen Flow, liters/minute Oxygen O2 Source Nasal cannula Oxygen Flow Rate 4 I&O (Last 24 Hrs): Intake and Output Totals x24h 10/14/22 10/15/22 10/16/22 23:59 23:59 23:59 Intake Total 1110 1470 120 Output Total 2975 3000 2200 Balance -1865 -1530 -2080 General: Alert, Oriented x3 HEENT: Mucous membr. moist/pink Neck: Supple, No JVD Neuro: Alert, Non Focal Cardiovascular: Regular rate, No murmurs Respiratory: No respiratory distress, Breath sounds nml Abdomen: Normal bowel sounds, Soft, Other (Obese with pannus) Extremities: No clubbing, Other (4+ edema to mid-danielle) - Results Results: Laboratory Results WBC 10.0 x10^3/uL (4.8-10.8) 10/16/22 05:12 RBC 3.61 10^6/uL (4.20-5.40) L 10/16/22 05:12 Hgb 8.4 g/dL (12.0-16.0) L 10/16/22 05:12 Hct 30.5 % (37.0-47.0) L 10/16/22 05:12 MCV 84.5 fL (81.0-99.0) 10/16/22 05:12 MCH 23.3 pg (27.0-31.0) L 10/16/22 05:12 MCHC 27.5 g/dL (32.0-36.0) L 10/16/22 05:12 RDW 28.0 % (12.0-15.0) H 10/16/22 05:12 Plt Count 313 10^3/uL (130-450) 10/16/22 05:12 Neut # (Auto) 7.3 10^3/uL (1.5-6.6) H 10/16/22 05:12 Lymph # (Auto) 1.0 10^3/uL (1.5-3.5) L 10/16/22 05:12 [place] # (Auto) 1.3 10^3/uL (0.0-1.0) H 10/16/22 05:12 Eos # (Auto) 0.3 10^3/uL (0.0-0.7) 10/16/22 05:12 Baso # (Auto) 0.1 10^3/uL (0.0-0.1) 10/16/22 05:12 Absolute Nucleated RBC 0.00 x10^3/uL 10/16/22 05:12 Nucleated RBC % 0.0 /100WBC 10/16/22 05:12 Manual Slide Review Indicated 10/16/22 05:12 Platelet Estimate NORMAL (130-450,000) (NORMAL) 10/16/22 05:12 Platelet Morphology NORMAL APPEARANCE (NORMAL) 10/13/22 19:09 RBC Morph Micro Appear 2+ ANISOCYTOSIS (NORMAL) 3+ HYPOCHROMASIA (NORMAL) 1+ OVALOCYTES (NORMAL) 10/16/22 05:12 RBC Morph Micro Appear 2+ ANISOCYTOSIS (NORMAL) 3+ HYPOCHROMASIA (NORMAL) 1+ OVALOCYTES (NORMAL) 10/16/22 05:12 RBC Morph Micro Appear 2+ ANISOCYTOSIS (NORMAL) 3+ HYPOCHROMASIA (NORMAL) 1+ OVALOCYTES (NORMAL) 10/16/22 05:12 VBG pH 7.387 (7.31-7.41) 10/13/22 19:09 VBG pCO2 35.9 mmHg (41-51) L 10/13/22 19:09 VBG pO2 61.9 mmHg (25-47) H 10/13/22 19:09 VBG HCO3 21.1 mmol/L (23-28) L 10/13/22 19:09 VBG Total CO2 22.2 mmol/L (24-29) L 10/13/22 19:09 VBG O2 Saturation 89.3 % (60-80) H 10/13/22 19:09 VBG Base Excess -3.4 mmol/L (-2 - +2) L 10/13/22 19:09 Sodium 140 mmol/L (135-145) 10/16/22 05:12 Potassium 3.4 mmol/L (3.5-4.5) L 10/16/22 05:12 Chloride 106 mmol/L (101-111) 10/16/22 05:12 Carbon Dioxide 28 mmol/L (21-32) 10/16/22 05:12 Anion Gap 6.0 (6-13) 10/16/22 05:12 BUN 7 mg/dL (6-20) 10/16/22 05:12 Creatinine 0.8 mg/dL (0.6-1.3) 10/16/22 05:12 Estimated GFR (MDRD) 74 (>89) L 10/16/22 05:12 Glucose 102 mg/dL (74-104) 10/16/22 05:12 POC Whole Bld Glucose 99 mg/dL (70 - 100) 10/14/22 16:33 Estimat Average Glucose 80 mg/dL (70-100) 10/14/22 04:55 Hemoglobin A1c % 4.4 % (4.27-6.07) 10/14/22 04:55 Lactic Acid 1.8 mmol/L (0.5-2.2) 10/13/22 19:09 Calcium 8.9 mg/dL (8.5-10.3) 10/16/22 05:12 Total Bilirubin 0.6 mg/dL (0.2-1.0) 10/13/22 19:09 AST 15 IU/L (10-42) 10/13/22 19:09 ALT 10 IU/L (10-60) 10/13/22 19:09 Alkaline Phosphatase 80 IU/L (42-121) 10/13/22 19:09 Troponin I High Sens 31.5 ng/L (2.3-14.8) H* 10/14/22 04:55 B-Natriuretic Peptide 1122 pg/mL (5-100) H 10/15/22 04:34 Total Protein 6.3 g/dL (6.4-8.9) L 10/13/22 19:09 Albumin 3.4 g/dL (3.2-5.5) 10/13/22 19:09 Globulin 2.9 g/dL (2.1-4.2) 10/13/22 19:09 Albumin/Globulin Ratio 1.2 (1.0-2.2) 10/13/22 19:09 Triglycerides 88 mg/dL (48-352) 10/14/22 04:55 Cholesterol 115 mg/dL (-200) 10/14/22 04:55 LDL Cholesterol, Calc 59 mg/dL (-129) 10/14/22 04:55 VLDL Cholesterol 18 mg/dL 10/14/22 04:55 HDL Cholesterol 38 mg/dL (60-) L 10/14/22 04:55 LDL/HDL Ratio 1.6 (<4.4) 10/14/22 04:55 Cholesterol/HDL Ratio 3.0 (<4.4) 10/14/22 04:55 Urine Color YELLOW 10/13/22 20:25 Urine Clarity CLEAR (CLEAR) 10/13/22 20:25 Urine pH 5.5 PH (5.0-7.5) 10/13/22 20:25 Ur Specific [place] 1.010 (1.002-1.030) 10/13/22 20:25 Urine Protein NEGATIVE mg/dL (NEGATIVE) 10/13/22 20:25 Urine Glucose (UA) NEGATIVE mg/dL (NEGATIVE) 10/13/22 20:25 Urine Ketones NEGATIVE mg/dL (NEGATIVE) 10/13/22 20:25 Urine Occult Blood NEGATIVE (NEGATIVE) 10/13/22 20:25 Urine Nitrite NEGATIVE (NEGATIVE) 10/13/22 20:25 Urine Bilirubin NEGATIVE (NEGATIVE) 10/13/22 20:25 Urine Urobilinogen 0.2 (NORMAL) E.U./dL (NORMAL) 10/13/22 20:25 Ur Leukocyte Esterase NEGATIVE (NEGATIVE) 10/13/22 20:25 Urine RBC 0-5 /HPF (0-5) 10/13/22 20:25 Urine WBC 0-3 /HPF (0-5) 10/13/22 20:25 Ur Squamous Epith Cells RARE Squamous (<= Few) 10/13/22 20:25 Urine Bacteria None Seen /HPF (None Seen) 10/13/22 20:25 Urine Casts 0-2 Hyaline Casts /LPF 10/13/22 20:25 Urine Culture Comments NOT INDICATED 10/13/22 20:25 Nasal Adenovirus (PCR) NOT DETECTED 10/13/22 19:05 Nasal B. parapertussis DNA (PCR) NOT DETECTED 10/13/22 19:05 Nasal Coronavir 229E PCR NOT DETECTED 10/13/22 19:05 Nasal Coronavir HKU1 PCR NOT DETECTED 10/13/22 19:05 Nasal Coronavir NL63 PCR NOT DETECTED 10/13/22 19:05 Nasal Coronavir OC43 PCR NOT DETECTED 10/13/22 19:05 Nasal Enterovir/Rhinovir PCR NOT DETECTED 10/13/22 19:05 Nasal Influenza B PCR NOT DETECTED 10/13/22 19:05 Nasal Influenza A PCR NOT DETECTED 10/13/22 19:05 Nasal Parainfluen 1 PCR NOT DETECTED 10/13/22 19:05 Nasal Parainfluen 2 PCR NOT DETECTED 10/13/22 19:05 Nasal Parainfluen 3 PCR NOT DETECTED 10/13/22 19:05 Nasal Parainfluen 4 PCR NOT DETECTED 10/13/22 19:05 Nasal RSV (PCR) NOT DETECTED 10/13/22 19:05 Nasal B.pertussis DNA PCR NOT DETECTED 10/13/22 19:05 Nasal C.pneumoniae (PCR) NOT DETECTED 10/13/22 19:05 [place] Human Metapneumo PCR NOT DETECTED 10/13/22 19:05 Nasal M.pneumoniae (PCR) NOT DETECTED 10/13/22 19:05 Nasal SARS-CoV-2 (PCR) NOT DETECTED 10/13/22 19:05 Urine Opiates Screen NEGATIVE (NEGATIVE) 10/13/22 21:25 Ur Oxycodone Screen NEGATIVE (NEGATIVE) 10/13/22 21:25 Urine Methadone Screen NEGATIVE (NEGATIVE) 10/13/22 21:25 Ur Propoxyphene Screen NEGATIVE (NEGATIVE) 10/13/22 21:25 Ur Barbiturates Screen NEGATIVE (NEGATIVE) 10/13/22 21:25 Ur Tricyclics Screen NEGATIVE (NEGATIVE) 10/13/22 21:25 Ur Phencyclidine Scrn NEGATIVE (NEGATIVE) 10/13/22 21:25 Ur Amphetamine Screen NEGATIVE (NEGATIVE) 10/13/22 21:25 U Methamphetamines Scrn NEGATIVE (NEGATIVE) 10/13/22 21:25 U Benzodiazepines Scrn NEGATIVE (NEGATIVE) 10/13/22 21:25 Urine Cocaine Screen NEGATIVE (NEGATIVE) 10/13/22 21:25 U Cannabinoids Screen NEGATIVE (NEGATIVE) 10/13/22 21:25 Blood Type A POSITIVE 10/13/22 19:09 Antibody Screen NEGATIVE 10/13/22 19:09 - Procedures Procedures: Procedures EXCISION OF STOMACH, ENDO, DIAGN (09/27/22) INSPECTION OF LOWER INTESTINAL TRACT, ENDO (09/27/22) TRANSFUSE NONAUT RED BLOOD CELLS IN PERIPH VEIN, PERC (09/27/22)
--- NOTE | 2022-10-16 12:39 | XRAY Report ---
PROCEDURE: Post Thoracentesis 1V CXR INDICATIONS: Right Sided Pleural Effusion TECHNIQUE: One view of the chest was acquired. COMPARISON: Chest radiographs 09/26/2022. FINDINGS: Surgical changes and devices: None. Lungs and pleura: Bilateral central pulmonary vascular congestion and interstitial prominence. No pn eumothorax. Mediastinum: Cardiac silhouette is enlarged. Bones and chest wall: No suspicious bony lesions. Overlying soft tissues appear unremarkable. IMPRESSION: Status post thoracentesis. No pneumothorax is seen. Reviewed by: Lisandro Matos MD on 10/16/2022 12:37 PM PDT Approved by: Lisandro Matos MD on 10/16/2022 12:37 PM PDT Station ID: [id number]
[2022-10-16] MEDS ORDERED: LIDOCAINE-MPF 1% 5 ML VIAL TD ONE (14:41)
--- NOTE | 2022-10-16 14:55 | Ultrasound Report ---
PROCEDURE: Thoracentesis Puncture INDICATIONS: pleural effusion, hypoxia TECHNIQUE: The indications, alternatives, benefits, risks, and complications of the procedure were explained to the patient. Written informed consent was obtained and placed in the chart. The chest was examined sonographically, and an appropriate site was chosen for thoracentesis. The skin was prepared and monet ped in the usual sterile fashion, and 1% lidocaine was infiltrated from the skin down through the ple ural surface. A 19-gauge catheter-covered needle was then introduced into the pleural space, the cat heter was advanced and the needle was withdrawn, and thereafter pleural fluid was aspirated. The cat heter was then removed and a dressing was applied. COMPARISON: Chest radiographs 10/13/2022. FINDINGS: Access site: Right hemithorax. Needle: One-Step centesis catheter with introducer needle. Fluid volume and description: 250 mL of clear yellow fluid Fluid sent for diagnostic testing: As requested, labs per primary team. Medications: 1% lidocaine for local anaesthesia. Complications: None; post-procedural chest radiograph is pending to assess for pneumothorax. IMPRESSION: Successful ultrasound-guided thoracentesis. Reviewed by: Lisandro Matos MD on 10/16/2022 2:53 PM PDT Approved by: Lisandro Matos MD on 10/16/2022 2:53 PM PDT Station ID: [id number]
[2022-10-16] MEDS: ACETAMINOPHEN 325 MG TABLET PO PRN ×2 (16:03→22:36)
[2022-10-16] MEDS: rOPINIRole 1 MG TABLET PO SCH (20:18)
[2022-10-17] MEDS: SODIUM CHLORIDE FLUSH 0.9% 10 ML SYRINGE IVP SCH ×4 (00:20→23:52)
[2022-10-17 05:50] LABS: BASOPHILS # (AUTO) 0.1 10^3/uL (0.0-0.1); BASOPHILS % (AUTO) 0.7 %; EOSINOPHILS # (AUTO) 0.3 10^3/uL (0.0-0.7); EOSINOPHILS % (AUTO) 2.4 %; HCT - HEMATOCRIT 31.4 % (37.0-47.0); HGB - HEMOGLOBIN 8.7 g/dL (12.0-16.0); LYMPHOCYTES # (AUTO) 0.8 10^3/uL (1.5-3.5); LYMPHOCYTES % (AUTO) 7.6 %; MEAN CORPUSCULAR HEMOGLOBIN 23.1 pg (27.0-31.0); MEAN CORPUSCULAR HGB CONC 27.7 g/dL (32.0-36.0); MEAN CORPUSCULAR VOLUME 83.5 fL (81.0-99.0); MONOCYTES # (AUTO) 1.3 10^3/uL (0.0-1.0); MONOCYTES % (AUTO) 12.2 %; NEUTROPHILS # (AUTO) 8.2 10^3/uL (1.5-6.6); NEUTROPHILS % (AUTO) 75.8 %; PLT - PLATELET COUNT 352 10^3/uL (130-450); RED BLOOD COUNT 3.76 10^6/uL (4.20-5.40); RED CELL DISTRIBUTION WIDTH 27.8 % (12.0-15.0); WHITE BLOOD COUNT 10.9 x10^3/uL (4.8-10.8)
[2022-10-17 05:54] LABS: PLATELET ESTIMATE, MANUAL NORMAL (130-450,000) (NORMAL); PLATELET MORPHOLOGY NORMAL APPEARANCE (NORMAL); SLIDE REVIEW? Indicated; WBC MORPHOLOGY (MULTIPLE) NORMAL APPEARANCE (NORMAL)
[2022-10-17 06:07] LABS: CALCIUM 9.1 mg/dL (8.5-10.3); CREATININE 0.8 mg/dL (0.6-1.3); POTASSIUM 3.8 mmol/L (3.5-4.5)
[2022-10-17] MEDS: ESCITALOPRAM 10 MG TABLET PO SCH (08:56)
[2022-10-17] MEDS: SPIRONOLACTONE 25 MG TABLET PO SCH (08:56)
[2022-10-17] MEDS: PANTOPRAZOLE 40 MG TABLET PO SCH ×2 (08:56→20:34)
[2022-10-17] MEDS: FUROSEMIDE 20 MG TABLET PO SCH ×2 (08:56→13:16)
[2022-10-17] MEDS: buPROPion XL 150 MG TABLET PO SCH (08:56)
[2022-10-17] MEDS: METOPROLOL SUCCINATE 25 MG TABLET PO SCH ×2 (08:56→20:35)
[2022-10-17] MEDS: ASCORBIC ACID 500 MG TABLET PO SCH ×2 (08:57→17:01)
[2022-10-17] MEDS: POTASSIUM CHLORIDE 20 MEQ TABLET PO SCH (08:57)
[2022-10-17] MEDS: FERROUS SULFATE 325 MG TABLET PO SCH ×2 (08:57→16:38)
[2022-10-17] MEDS: busPIRone 5 MG TABLET PO SCH ×2 (08:57→20:44)
[2022-10-17] MEDS: ACETAMINOPHEN 325 MG TABLET PO PRN (13:16)
--- NOTE | 2022-10-17 15:48 | PROVIDER PROGRESS NOTE ---
Assessment/Plan - Problem List (1) Acute systolic heart failure Assessment/Plan: The Echo done about a month ago showed LVEF 60%. Now Echo shows EF 40%. Presented with pulmonary edema, hypoxia and anasarca to her thighs On Lasix 40 mg iv daily, and with fluid restriction, she is about 6.5 L negative in fluid balance since admission (in's and out's reviewed) She had R-sided thoracentsis done yesterday 10/16.The post-procedure CXR showed no pneumothorax, but I cannot find a report from radiologist as to how much pleural fluid was removed She had CHF teaching by bioinformatics research technician regarding weighing herself, salt intake and fluid restrictions. Plan: She is to start new p.o. Lasix BID today. If she stops diuresing, will resume iv Lasix tomorrow, given the persistent anasarca Continue with Toprol-XL I will start her on po Spironolactone Follow BMP, Mg levels daily She needs a stress test, to check for CAD as the cause of the new cardiomyopathy, now that she can lie flat (however today is Sat afternoon and we have no Stress test RN here except Wednesday through Wednesday and no forestry technician except Wednesday through ). (2) MARITZA on CPAP Assessment/Plan: Continue to use CPAP with sleep (3) Acute hypoxemic respiratory failure Assessment/Plan: Multifactorial: from CHF (pulm edema), MARITZA on CPAP, anemia, and her morbid obe sity We are weaning her oxygen down, keeping her pulse ox over 92%. She is now down to breathing room air, when she is at rest and walking in her room Plan: I will order PFTs (today is Sat and the RT that does PFTs is not here today), to add bronchodilaors if indicated Continue with Lasix, Spironolactone and plan as in #1 On the day of discharge she will need an oximetry walk test (4) Iron deficiency anemia Qualifiers: Iron deficiency anemia type: unspecified iron deficiency Qualified Code(s): D50.9 - Iron deficiency anemia, unspecified Assessment/Plan: She had very low iron stores, which were checked during her last admission a month ago. Her fecal occult blood was negative on last admission, and rechecked on this admission and is again negative Patient had EGD and colonoscopy during last hospital stay, gastric polyps was noted colonoscopy. The last Hospitalist considered giving her IV iron but never did order it. Hemoglobin trended down to 8 from 9.7, no sign of active bleeding. She has not needed a blood transfusion this admission yet. I ordered a bone marrow biopsy. Discussed with pt and she is agreeable. After that I learned that because we have a portable CT scanner parked out in our parking lot, the space is too small and we cannot do CT-guided bone marrow biopsy is here (for the next 3 months) Plan: We will cancel the plan for the bone marrow biopsy. I explained why to the patient Continue on iron supplement Monitor Hgb daily (5) HTN (hypertension) Qualifiers: Hypertension type: primary hypertension Qualified Code(s): I10 - Essential (primary) hypertension Assessment/Plan: Continue blood pressure yaniv (6) Morbid obesity with BMI of 45.0-49.9, adult Conclusion/Plan: recommend lifestyle modification including dieting and exercise and followup with PCP for prison management (7) Restless leg syndrome Conclusion/Plan: Stable on her new Requip that was started last admission Plan: Continue Requip (8) Depression Conclusion/Plan: controlled. no acute exacerbation. Plan: Continue bupropion and buspirone. Qualifiers: Depression Type: major depressive disorder Major depression recurrence: recurrent Active/Remission status: currently active Psychotic features: without psychotic features - Current Meds Current Meds: Current Medications Generic Name Dose Route Start Last Admin Trade Name Freq PRN Reason Stop Dose Admin Acetaminophen 650 mg 10/13/22 20:43 10/17/22 13:16 Acetaminophen 325 Mg Tablet PO 650 mg Q4HR PRN Administration Pain 1 to 4, or Fever Ascorbic Acid 500 mg 10/14/22 17:00 10/17/22 08:57 Ascorbic Acid 500 Mg Tablet PO 500 mg BID ANA Administration Bupropion HCl 450 mg 10/14/22 09:00 10/17/22 08:56 Bupropion Xl 150 Mg Tablet PO 450 mg DAILY ANA Administration Buspirone HCl 30 mg 10/13/22 22:50 10/17/22 08:57 Buspirone 5 Mg Tablet PO 30 mg BID ANA Administration Escitalopram Oxalate 30 mg 10/14/22 09:00 10/17/22 08:56 Escitalopram 10 Mg Tablet PO 30 mg DAILY ANA Administration Ferrous Sulfate 325 mg 10/14/22 17:00 10/17/22 08:57 Ferrous Sulfate 325 Mg Tablet PO 325 mg BIDWM ANA Administration Furosemide 20 mg 10/17/22 08:00 10/17/22 13:16 Furosemide 20 Mg Tablet PO 20 mg BIDDIURETIC ANA Administration Metoprolol Succinate 25 mg 10/16/22 21:00 10/17/22 08:56 Metoprolol Succinate 25 Mg Tablet PO 25 mg BID ANA Administration Pantoprazole Sodium 40 mg 10/13/22 21:00 10/17/22 08:56 Pantoprazole 40 Mg Tablet PO 40 mg BID ANA Administration Potassium Chloride 20 meq 10/15/22 09:00 10/17/22 08:57 Potassium Chloride 20 Meq Tablet PO 20 meq DAILYWM ANA Administration Ropinirole HCl 1 mg 10/13/22 21:00 10/16/22 20:18 Ropinirole 1 Mg Tablet PO 1 mg QPM ANA Administration Sodium Chloride 10 ml 10/14/22 01:00 10/17/22 08:56 Sodium Chloride Flush 0.9% 10 Ml Syringe IVP 10 ml 0100,0900,1700 ANA Administration Spironolactone 25 mg 10/17/22 09:00 10/17/22 08:56 Spironolactone 25 Mg Tablet PO 25 mg DAILY ANA Administration - Lab Result Fish Bone Diagrams: 10/17/22 05:26 10/17/22 05:26 - Additional Planning My Orders: My Active Orders 10/16/22 21:00 Metoprolol Succinate [Toprol Xl] 25 mg PO BID 10/17/22 08:00 Furosemide [Lasix] 20 mg PO BIDDIURETIC 10/17/22 09:00 Spironolactone [Aldactone] 25 mg PO DAILY 10/17/22 09:10 Miscellaenous Nursing Order [RC] QSHIFT Subjective - Subjective Patient Reports: Shortness of Breath (with activity, less orthopneic) Objective Vital Signs: Vital Signs - 24 hr 10/16/22 10/16/22 10/16/22 16:00 16:14 20:20 Temperature 37.1 C Heart Rate Heart Rate [ 88 87 Brachial] Respiratory 18 Rate Blood Pressure 144/90 H 116/65 [Right Brachial artery] O2 Saturation 91 L 92 96 If not protocol : Oxygen Flow, liters/minute 10/17/22 10/17/22 10/17/22 00:00 02:50 08:00 Temperature 36.9 C 37.2 C Heart Rate 88 Heart Rate [ 94 90 Brachial] Respiratory 18 18 Rate Blood Pressure 144/77 H 122/61 [Right Brachial artery] O2 Saturation 94 92 If not protocol 2 : Oxygen Flow, liters/minute Oxygen O2 Source Room air Oxygen Flow Rate 4 I&O (Last 24 Hrs): Intake and Output Totals x24h 10/15/22 10/16/22 10/17/22 23:59 23:59 23:59 Intake Total 1470 860 740 Output Total 3000 2800 700 Balance -1530 -1940 40 General: Alert, Oriented x3 HEENT: Mucous membr. moist/pink Neck: Supple, No JVD Neuro: Alert, Non Focal Cardiovascular: Regular rate Respiratory: Rales (fine rales at bases) Abdomen: No tenderness, Other (Obese with pannus) Extremities: No clubbing, Other (3+ edema to below knees) - Results Results: Laboratory Results WBC 10.9 x10^3/uL (4.8-10.8) H 10/17/22 05:26 RBC 3.76 10^6/uL (4.20-5.40) L 10/17/22 05:26 Hgb 8.7 g/dL (12.0-16.0) L 10/17/22 05:26 Hct 31.4 % (37.0-47.0) L 10/17/22 05:26 MCV 83.5 fL (81.0-99.0) 10/17/22 05:26 MCH 23.1 pg (27.0-31.0) L 10/17/22 05:26 MCHC 27.7 g/dL (32.0-36.0) L 10/17/22 05:26 RDW 27.8 % (12.0-15.0) H 10/17/22 05:26 Plt Count 352 10^3/uL (130-450) 10/17/22 05:26 Neut # (Auto) 8.2 10^3/uL (1.5-6.6) H 10/17/22 05:26 Lymph # (Auto) 0.8 10^3/uL (1.5-3.5) L 10/17/22 05:26 Howell # (Auto) 1.3 10^3/uL (0.0-1.0) H 10/17/22 05:26 Eos # (Auto) 0.3 10^3/uL (0.0-0.7) 10/17/22 05:26 Baso # (Auto) 0.1 10^3/uL (0.0-0.1) 10/17/22 05:26 Absolute Nucleated RBC 0.00 x10^3/uL 10/17/22 05:26 Nucleated RBC % 0.0 /100WBC 10/17/22 05:26 Manual Slide Review Indicated 10/17/22 05:26 WBC Morphology NORMAL APPEARANCE (NORMAL) 10/17/22 05:26 Platelet Estimate NORMAL (130-450,000) (NORMAL) 10/17/22 05:26 Platelet Morphology NORMAL APPEARANCE (NORMAL) 10/17/22 05:26 RBC Morph Micro Appear 1+ HYPOCHROMASIA (NORMAL) 3+ ANISOCYTOSIS (NORMAL) 10/17/22 05:26 RBC Morph Micro Appear 1+ HYPOCHROMASIA (NORMAL) 3+ ANISOCYTOSIS (NORMAL) 10/17/22 05:26 VBG pH 7.387 (7.31-7.41) 10/13/22 19:09 VBG pCO2 35.9 mmHg (41-51) L 10/13/22 19:09 VBG pO2 61.9 mmHg (25-47) H 10/13/22 19:09 VBG HCO3 21.1 mmol/L (23-28) L 10/13/22 19:09 VBG Total CO2 22.2 mmol/L (24-29) L 10/13/22 19:09 VBG O2 Saturation 89.3 % (60-80) H 10/13/22 19:09 VBG Base Excess -3.4 mmol/L (-2 - +2) L 10/13/22 19:09 Sodium 139 mmol/L (135-145) 10/17/22 05:26 Potassium 3.8 mmol/L (3.5-4.5) 10/17/22 05:26 Chloride 103 mmol/L (101-111) 10/17/22 05:26 Carbon Dioxide 30 mmol/L (21-32) 10/17/22 05:26 Anion Gap 6.0 (6-13) 10/17/22 05:26 BUN 8 mg/dL (6-20) 10/17/22 05:26 Creatinine 0.8 mg/dL (0.6-1.3) 10/17/22 05:26 Estimated GFR (MDRD) 74 (>89) L 10/17/22 05:26 Glucose 105 mg/dL (74-104) H 10/17/22 05:26 POC Whole Bld Glucose 99 mg/dL (70 - 100) 10/14/22 16:33 Estimat Average Glucose 80 mg/dL (70-100) 10/14/22 04:55 Hemoglobin A1c % 4.4 % (4.27-6.07) 10/14/22 04:55 Lactic Acid 1.8 mmol/L (0.5-2.2) 10/13/22 19:09 Calcium 9.1 mg/dL (8.5-10.3) 10/17/22 05:26 Total Bilirubin 0.6 mg/dL (0.2-1.0) 10/13/22 19:09 AST 15 IU/L (10-42) 10/13/22 19:09 ALT 10 IU/L (10-60) 10/13/22 19:09 Alkaline Phosphatase 80 IU/L (42-121) 10/13/22 19:09 Troponin I High Sens 31.5 ng/L (2.3-14.8) H* 10/14/22 04:55 B-Natriuretic Peptide 1122 pg/mL (5-100) H 10/15/22 04:34 Total Protein 6.3 g/dL (6.4-8.9) L 10/13/22 19:09 Albumin 3.4 g/dL (3.2-5.5) 10/13/22 19:09 Globulin 2.9 g/dL (2.1-4.2) 10/13/22 19:09 Albumin/Globulin Ratio 1.2 (1.0-2.2) 10/13/22 19:09 Triglycerides 88 mg/dL (48-352) 10/14/22 04:55 Cholesterol 115 mg/dL (-200) 10/14/22 04:55 LDL Cholesterol, Calc 59 mg/dL (-129) 10/14/22 04:55 VLDL Cholesterol 18 mg/dL 10/14/22 04:55 HDL Cholesterol 38 mg/dL (60-) L 10/14/22 04:55 LDL/HDL Ratio 1.6 (<4.4) 10/14/22 04:55 Cholesterol/HDL Ratio 3.0 (<4.4) 10/14/22 04:55 Urine Color YELLOW 10/13/22 20:25 Urine Clarity CLEAR (CLEAR) 10/13/22 20:25 Urine pH 5.5 PH (5.0-7.5) 10/13/22 20:25 Ur Specific Shirley 1.010 (1.002-1.030) 10/13/22 20:25 Urine Protein NEGATIVE mg/dL (NEGATIVE) 10/13/22 20:25 Urine Glucose (UA) NEGATIVE mg/dL (NEGATIVE) 10/13/22 20:25 Urine Ketones NEGATIVE mg/dL (NEGATIVE) 10/13/22 20:25 Urine Occult Blood NEGATIVE (NEGATIVE) 10/13/22 20:25 Urine Nitrite NEGATIVE (NEGATIVE) 10/13/22 20:25 Urine Bilirubin NEGATIVE (NEGATIVE) 10/13/22 20:25 Urine Urobilinogen 0.2 (NORMAL) E.U./dL (NORMAL) 10/13/22 20:25 Ur Leukocyte Esterase NEGATIVE (NEGATIVE) 10/13/22 20:25 Urine RBC 0-5 /HPF (0-5) 10/13/22 20:25 Urine WBC 0-3 /HPF (0-5) 10/13/22 20:25 Ur Squamous Epith Cells RARE Squamous (<= Few) 10/13/22 20:25 Urine Bacteria None Seen /HPF (None Seen) 10/13/22 20:25 Urine Casts 0-2 Hyaline Casts /LPF 10/13/22 20:25 Urine Culture Comments NOT INDICATED 10/13/22 20:25 Nasal Adenovirus (PCR) NOT DETECTED 10/13/22 19:05 Nasal B. parapertussis DNA (PCR) NOT DETECTED 10/13/22 19:05 Nasal Coronavir 229E PCR NOT DETECTED 10/13/22 19:05 Nasal Coronavir HKU1 PCR NOT DETECTED 10/13/22 19:05 Nasal Coronavir NL63 PCR NOT DETECTED 10/13/22 19:05 Nasal Coronavir OC43 PCR NOT DETECTED 10/13/22 19:05 Nasal Enterovir/Rhinovir PCR NOT DETECTED 10/13/22 19:05 Nasal Influenza B PCR NOT DETECTED 10/13/22 19:05 Nasal Influenza A PCR NOT DETECTED 10/13/22 19:05 Nasal Parainfluen 1 PCR NOT DETECTED 10/13/22 19:05 Nasal Parainfluen 2 PCR NOT DETECTED 10/13/22 19:05 Nasal Parainfluen 3 PCR NOT DETECTED 10/13/22 19:05 Nasal Parainfluen 4 PCR NOT DETECTED 10/13/22 19:05 Nasal RSV (PCR) NOT DETECTED 10/13/22 19:05 Nasal B.pertussis DNA PCR NOT DETECTED 10/13/22 19:05 Nasal C.pneumoniae (PCR) NOT DETECTED 10/13/22 19:05 Darnell Human Metapneumo PCR NOT DETECTED 10/13/22 19:05 Nasal M.pneumoniae (PCR) NOT DETECTED 10/13/22 19:05 Nasal SARS-CoV-2 (PCR) NOT DETECTED 10/13/22 19:05 Urine Opiates Screen NEGATIVE (NEGATIVE) 10/13/22 21:25 Ur Oxycodone Screen NEGATIVE (NEGATIVE) 10/13/22 21:25 Urine Methadone Screen NEGATIVE (NEGATIVE) 10/13/22 21:25 Ur Propoxyphene Screen NEGATIVE (NEGATIVE) 10/13/22 21:25 Ur Barbiturates Screen NEGATIVE (NEGATIVE) 10/13/22 21:25 Ur Tricyclics Screen NEGATIVE (NEGATIVE) 10/13/22 21:25 Ur Phencyclidine Scrn NEGATIVE (NEGATIVE) 10/13/22 21:25 Ur Amphetamine Screen NEGATIVE (NEGATIVE) 10/13/22 21:25 U Methamphetamines Scrn NEGATIVE (NEGATIVE) 10/13/22 21:25 U Benzodiazepines Scrn NEGATIVE (NEGATIVE) 10/13/22 21:25 Urine Cocaine Screen NEGATIVE (NEGATIVE) 10/13/22 21:25 U Cannabinoids Screen NEGATIVE (NEGATIVE) 10/13/22 21:25 Blood Type A POSITIVE 10/13/22 19:09 Antibody Screen NEGATIVE 10/13/22 19:09 - Procedures Procedures: Procedures EXCISION OF STOMACH, ENDO, DIAGN (09/27/22) INSPECTION OF LOWER INTESTINAL TRACT, ENDO (09/27/22) TRANSFUSE NONAUT RED BLOOD CELLS IN PERIPH VEIN, PERC (09/27/22)
[2022-10-17] MEDS: rOPINIRole 1 MG TABLET PO SCH (20:34)
[2022-10-18] MEDS: FUROSEMIDE 20 MG TABLET PO SCH (05:25)
[2022-10-18 06:17] LABS: BASOPHILS # (AUTO) 0.1 10^3/uL (0.0-0.1); BASOPHILS % (AUTO) 0.5 %; EOSINOPHILS # (AUTO) 0.2 10^3/uL (0.0-0.7); EOSINOPHILS % (AUTO) 1.7 %; HCT - HEMATOCRIT 29.4 % (37.0-47.0); HGB - HEMOGLOBIN 8.3 g/dL (12.0-16.0); LYMPHOCYTES # (AUTO) 0.9 10^3/uL (1.5-3.5); LYMPHOCYTES % (AUTO) 8.5 %; MEAN CORPUSCULAR HEMOGLOBIN 23.6 pg (27.0-31.0); MEAN CORPUSCULAR HGB CONC 28.2 g/dL (32.0-36.0); MEAN CORPUSCULAR VOLUME 83.5 fL (81.0-99.0); MONOCYTES # (AUTO) 1.6 10^3/uL (0.0-1.0); MONOCYTES % (AUTO) 15.4 %; NEUTROPHILS # (AUTO) 7.3 10^3/uL (1.5-6.6); NEUTROPHILS % (AUTO) 72.7 %; PLT - PLATELET COUNT 338 10^3/uL (130-450); RED BLOOD COUNT 3.52 10^6/uL (4.20-5.40); WHITE BLOOD COUNT 10.1 x10^3/uL (4.8-10.8)
[2022-10-18 06:19] LABS: SLIDE REVIEW? Indicated
[2022-10-18 06:28] LABS: CALCIUM 9.1 mg/dL (8.5-10.3); CREATININE 0.8 mg/dL (0.6-1.3); POTASSIUM 3.6 mmol/L (3.5-4.5)
[2022-10-18 06:50] LABS: PLATELET ESTIMATE, MANUAL NORMAL (130-450,000) (NORMAL); PLATELET MORPHOLOGY NORMAL APPEARANCE (NORMAL); WBC MORPHOLOGY (MULTIPLE) NORMAL APPEARANCE (NORMAL)
[2022-10-18] MEDS: FERROUS SULFATE 325 MG TABLET PO SCH ×2 (08:36→16:38)
[2022-10-18] MEDS: METOPROLOL SUCCINATE 25 MG TABLET PO SCH ×2 (08:36→20:12)
[2022-10-18] MEDS: buPROPion XL 150 MG TABLET PO SCH (08:36)
[2022-10-18] MEDS: ESCITALOPRAM 10 MG TABLET PO SCH (08:36)
[2022-10-18] MEDS: PANTOPRAZOLE 40 MG TABLET PO SCH ×2 (08:36→20:12)
[2022-10-18] MEDS: SPIRONOLACTONE 25 MG TABLET PO SCH (08:36)
[2022-10-18] MEDS: busPIRone 5 MG TABLET PO SCH ×2 (08:37→20:12)
[2022-10-18] MEDS: ASCORBIC ACID 500 MG TABLET PO SCH ×2 (08:37→16:38)
[2022-10-18] MEDS: POTASSIUM CHLORIDE 20 MEQ TABLET PO SCH (08:37)
[2022-10-18] MEDS: SODIUM CHLORIDE FLUSH 0.9% 10 ML SYRINGE IVP SCH ×2 (08:39→16:38)
--- NOTE | 2022-10-18 08:43 | XRAY Report ---
PROCEDURE: Chest 1 View X-Ray INDICATIONS: new cough TECHNIQUE: One view of the chest was acquired. COMPARISON: 10/16/2022, 10/13/2022 FINDINGS: Surgical changes and devices: None. Lungs and pleura: No pneumothorax is seen. The lung volumes can be seen. Generalized interstitial pr ominence can be seen, which is worse on the prior examination and primarily seen centrally. No focal infiltrates are seen. Mediastinum: Mediastinal contours appear normal. Heart size is mildly to moderately enlarged. Bones and chest wall: No suspicious bony lesions. Overlying soft tissues appear unremarkable. IMPRESSION: Worsening interstitial prominence, primarily centrally. Please consider fluid overload in this patien t with cardiomegaly. No pneumothorax. Reviewed by: Jeremy Odom MD on 10/18/2022 7:41 AM SARAH Approved by: Jeremy Odom MD on 10/18/2022 7:41 AM SARAH Station ID: [id number]
[2022-10-18] MEDS: ACETAMINOPHEN 325 MG TABLET PO PRN ×2 (09:11→21:38)
[2022-10-18 09:45] LABS: B. PARAPERTUSSIS- RESP PCR PAN NOT DETECTED; B. PERTUSSIS- RESP PCR PANEL NOT DETECTED; C. PNEUMONIAE- RESP PCR PANEL NOT DETECTED; CORONAVIRUS 229E-RESP PCR NOT DETECTED; CORONAVIRUS HKU1-RESP PCR NOT DETECTED; CORONAVIRUS NL63-RESP PCR NOT DETECTED; CORONAVIRUS OC43-RESP PCR NOT DETECTED; HUMAN METAPNEUMOVIRUS NOT DETECTED; INFLUENZA A- RESP PCR PANEL NOT DETECTED; INFLUENZA B - RESP PCR PANEL NOT DETECTED; M. PNEUMONIAE- RESP PCR PANEL NOT DETECTED; PARAINFLUENZA VIRUS 1 NOT DETECTED; PARAINFLUENZA VIRUS 2 NOT DETECTED; PARAINFLUENZA VIRUS 3 NOT DETECTED; PARAINFLUENZA VIRUS 4 NOT DETECTED; RHINOVIRUS/ENTEROVIRUS NOT DETECTED; RSV- RESP PCR PANEL NOT DETECTED; SARS-CoV-2 -RESP PCR PANEL NOT DETECTED
[2022-10-18] MEDS: FUROSEMIDE 20 MG/2 ML VIAL IVP SCH (13:06)
--- NOTE | 2022-10-18 14:33 | PROVIDER PROGRESS NOTE ---
Assessment/Plan - Problem List (1) Acute systolic heart failure Assessment/Plan: The Echo done about a month ago showed LVEF 60%. Now Echo shows EF 40%. She presented with pulmonary edema, hypoxia and anasarca to her thighs She has been on Lasix 40 mg iv daily, and with fluid restriction, she is about 6.5 L negative in fluid balance since admission (in's and out's reviewed). She had R-sided thoracentsis done 10/16.The post-procedure CXR showed no pneumothorax, but I cannot find a report from radiologist as to how much pleural fluid was removed She had CHF teaching by obstetrics gyn physician regarding weighing herself, salt intake and fluid restrictions. Yesterday 10/17, I put her on p.o. Lasix, to see if she has adequate continued diuresis before discharge. The last 24 hours show she did NOT diurese, in fact was 40 cc (+) in fluid balance. A CXR was repeated today, given her new c/o cough, and it showed worsened central pulmonary edema present. [I also ordered a nasal swab Resp PCR to check for viral causes of her new cough and all are neg, including COVID is neg]. Plan: I will resume iv BID Lasix Continue with Toprol-XL Cont new po Spironolactone Follow BMP, Mg levels daily She needs a stress test, to check for CAD as the cause of the new cardiomyopathy, now that she can lie flat (however today is Sat afternoon and we have no Stress test RN here except Wednesday through Wednesday and no senior manufacturing technician except Wednesday through ). (2) MARITZA on CPAP Assessment/Plan: Continue to use CPAP with sleep (3) Iron deficiency anemia Qualifiers: Iron deficiency anemia type: unspecified iron deficiency Qualified Code(s): D50.9 - Iron deficiency anemia, unspecified Assessment/Plan: She had very low iron stores, which were checked during her last admission a month ago. Her fecal occult blood was negative on last admission, and rechecked on this admission and is again negative Patient had EGD and colonoscopy during last hospital stay, gastric polyps was noted colonoscopy. The last Hospitalist considered giving her IV iron but never did order it. Hemoglobin trended down to 8 from 9.7, no sign of active bleeding. She has not needed a blood transfusion this admission yet. I ordered a bone marrow biopsy. Discussed with pt and she is agreeable. After that I learned that because we have a portable CT scanner parked out in our parking lot, the space is too small and we cannot do CT-guided bone marrow biopsy is here (for the next 3 months) Plan: We will cancel the plan for the bone marrow biopsy. I explained why to the patient Continue on iron supplement Monitor Hgb daily (4) HTN (hypertension) Qualifiers: Hypertension type: primary hypertension Qualified Code(s): I10 - Essential (primary) hypertension Assessment/Plan: Continue blood pressure yaniv (5) Morbid obesity with BMI of 45.0-49.9, adult Conclusion/Plan: recommend lifestyle modification including dieting and exercise and followup with PCP for technician terminal and repeater management (6) Restless leg syndrome Conclusion/Plan: Stable on her new Requip that was started last admission Plan: Continue Requip (7) Depression Conclusion/Plan: controlled. no acute exacerbation. Plan: Continue bupropion and buspirone. Qualifiers: Depression Type: major depressive disorder Major depression recurrence: recurrent Active/Remission status: currently active Psychotic features: without psychotic features (8) Acute hypoxemic respiratory failure Assessment/Plan: IMPROVED Multifactorial: from CHF (pulm edema), MARITZA on CPAP, anemia, and her morbid o besity We are weaning her oxygen down, keeping her pulse ox over 92%. She is now down to breathing room air, when she is at rest and walking in her room Plan: I order PFTs (today is Sun and the RT that does PFTs is not here today), to add bronchodilaors if indicated Continue with Lasix, Spironolactone and plan as in #1 On the day of discharge she will need an oximetry walk test - Current Meds Current Meds: Current Medications Generic Name Dose Route Start Last Admin Trade Name Freq PRN Reason Stop Dose Admin Acetaminophen 650 mg 10/13/22 20:43 10/18/22 09:11 Acetaminophen 325 Mg Tablet PO 650 mg Q4HR PRN Administration Pain 1 to 4, or Fever Ascorbic Acid 500 mg 10/17/22 17:00 10/18/22 08:37 Ascorbic Acid 500 Mg Tablet PO 500 mg BIDWM ANA Administration Bupropion HCl 450 mg 10/14/22 09:00 10/18/22 08:36 Bupropion Xl 150 Mg Tablet PO 450 mg DAILY ANA Administration Buspirone HCl 30 mg 10/13/22 22:50 10/18/22 08:37 Buspirone 5 Mg Tablet PO 30 mg BID ANA Administration Escitalopram Oxalate 30 mg 10/14/22 09:00 10/18/22 08:36 Escitalopram 10 Mg Tablet PO 30 mg DAILY ANA Administration Ferrous Sulfate 325 mg 10/14/22 17:00 10/18/22 08:36 Ferrous Sulfate 325 Mg Tablet PO 325 mg BIDWM ANA Administration Furosemide 20 mg 10/18/22 14:00 10/18/22 13:06 Furosemide 20 Mg/2 Ml Vial IVP 20 mg BIDDIURETIC ANA Administration Metoprolol Succinate 25 mg 10/16/22 21:00 10/18/22 08:36 Metoprolol Succinate 25 Mg Tablet PO 25 mg BID ANA Administration Pantoprazole Sodium 40 mg 10/13/22 21:00 10/18/22 08:36 Pantoprazole 40 Mg Tablet PO 40 mg BID ANA Administration Potassium Chloride 20 meq 10/15/22 09:00 10/18/22 08:37 Potassium Chloride 20 Meq Tablet PO 20 meq DAILYWM ANA Administration Ropinirole HCl 1 mg 10/13/22 21:00 10/17/22 20:34 Ropinirole 1 Mg Tablet PO 1 mg QPM ANA Administration Sodium Chloride 10 ml 10/14/22 01:00 10/18/22 08:39 Sodium Chloride Flush 0.9% 10 Ml Syringe IVP 10 ml 0100,0900,1700 ANA Administration Spironolactone 25 mg 10/17/22 09:00 10/18/22 08:36 Spironolactone 25 Mg Tablet PO 25 mg DAILY ANA Administration - Lab Result Fish Bone Diagrams: 10/18/22 06:07 10/18/22 06:07 - Additional Planning My Orders: My Active Orders 10/18/22 CUL, RESPIRATORY [RM] Stat 10/18/22 14:00 FUROSEMIDE INJ 20mg VIAL [LASIX INJ 20mg VIAL] 20 mg IVP BIDDIURETIC 10/19/22 05:00 BNP - B-NATRIURETIC PEPTIDE [CHEM] DAILYLAB Subjective - Subjective Patient Reports: Cough (She says she coughed all night last night, is hoarse from that today) Objective Vital Signs: Vital Signs - 24 hr 10/17/22 10/17/22 10/18/22 15:49 20:35 00:05 Temperature 37.7 C Heart Rate 80 Heart Rate [ 88 92 Brachial] Respiratory 18 Rate Blood Pressure 136/73 H 141/79 H [Right Brachial artery] O2 Saturation 96 If not protocol 2 : Oxygen Flow, liters/minute 10/18/22 10/18/22 10/18/22 00:28 04:19 08:00 Temperature 37.2 C 36.7 C Heart Rate 88 Heart Rate [ 93 83 Brachial] Respiratory 20 19 Rate Blood Pressure 138/76 H 133/70 H [Right Brachial artery] O2 Saturation 91 L 94 If not protocol : Oxygen Flow, liters/minute Oxygen O2 Source Room air Oxygen Flow Rate 4 I&O (Last 24 Hrs): Intake and Output Totals x24h 10/16/22 10/17/22 10/18/22 23:59 23:59 23:59 Intake Total 860 1240 360 Output Total 2800 1200 975 Balance -1940 40 -615 General: Alert, Oriented x3 HEENT: Mucous membr. moist/pink, Other (Hoarse voice) Neck: Supple, No JVD Neuro: Alert, Non Focal Cardiovascular: Regular rate, No murmurs Respiratory: No respiratory distress, Breath sounds nml Abdomen: Normal bowel sounds, Soft, Other (Obese) Extremities: No clubbing, Other (1+ eema to mid-shins) - Results Results: Laboratory Results WBC 10.1 x10^3/uL (4.8-10.8) 10/18/22 06:07 RBC 3.52 10^6/uL (4.20-5.40) L 10/18/22 06:07 Hgb 8.3 g/dL (12.0-16.0) L 10/18/22 06:07 Hct 29.4 % (37.0-47.0) L 10/18/22 06:07 MCV 83.5 fL (81.0-99.0) 10/18/22 06:07 MCH 23.6 pg (27.0-31.0) L 10/18/22 06:07 MCHC 28.2 g/dL (32.0-36.0) L 10/18/22 06:07 RDW 27.0 % (12.0-15.0) H 10/18/22 06:07 Plt Count 338 10^3/uL (130-450) 10/18/22 06:07 Neut # (Auto) 7.3 10^3/uL (1.5-6.6) H 10/18/22 06:07 Lymph # (Auto) 0.9 10^3/uL (1.5-3.5) L 10/18/22 06:07 [place] # (Auto) 1.6 10^3/uL (0.0-1.0) H 10/18/22 06:07 Eos # (Auto) 0.2 10^3/uL (0.0-0.7) 10/18/22 06:07 Baso # (Auto) 0.1 10^3/uL (0.0-0.1) 10/18/22 06:07 Absolute Nucleated RBC 0.00 x10^3/uL 10/18/22 06:07 Nucleated RBC % 0.0 /100WBC 10/18/22 06:07 Manual Slide Review Indicated 10/18/22 06:07 WBC Morphology NORMAL APPEARANCE (NORMAL) 10/18/22 06:07 Platelet Estimate NORMAL (130-450,000) (NORMAL) 10/18/22 06:07 Platelet Morphology NORMAL APPEARANCE (NORMAL) 10/18/22 06:07 RBC Morph Micro Appear 3+ ANISOCYTOSIS (NORMAL) 1+ HYPOCHROMASIA (NORMAL) 1+ TEARDROP CELLS (NORMAL) 10/18/22 06:07 RBC Morph Micro Appear 3+ ANISOCYTOSIS (NORMAL) 1+ HYPOCHROMASIA (NORMAL) 1+ TEARDROP CELLS (NORMAL) 10/18/22 06:07 RBC Morph Micro Appear 3+ ANISOCYTOSIS (NORMAL) 1+ HYPOCHROMASIA (NORMAL) 1+ TEARDROP CELLS (NORMAL) 10/18/22 06:07 VBG pH 7.387 (7.31-7.41) 10/13/22 19:09 VBG pCO2 35.9 mmHg (41-51) L 10/13/22 19:09 VBG pO2 61.9 mmHg (25-47) H 10/13/22 19:09 VBG HCO3 21.1 mmol/L (23-28) L 10/13/22 19:09 VBG Total CO2 22.2 mmol/L (24-29) L 10/13/22 19:09 VBG O2 Saturation 89.3 % (60-80) H 10/13/22 19:09 VBG Base Excess -3.4 mmol/L (-2 - +2) L 10/13/22 19:09 Sodium 138 mmol/L (135-145) 10/18/22 06:07 Potassium 3.6 mmol/L (3.5-4.5) 10/18/22 06:07 Chloride 104 mmol/L (101-111) 10/18/22 06:07 Carbon Dioxide 29 mmol/L (21-32) 10/18/22 06:07 Anion Gap 5.0 (6-13) L 10/18/22 06:07 BUN 8 mg/dL (6-20) 10/18/22 06:07 Creatinine 0.8 mg/dL (0.6-1.3) 10/18/22 06:07 Estimated GFR (MDRD) 74 (>89) L 10/18/22 06:07 Glucose 106 mg/dL (74-104) H 10/18/22 06:07 POC Whole Bld Glucose 99 mg/dL (70 - 100) 10/14/22 16:33 Estimat Average Glucose 80 mg/dL (70-100) 10/14/22 04:55 Hemoglobin A1c % 4.4 % (4.27-6.07) 10/14/22 04:55 Lactic Acid 1.8 mmol/L (0.5-2.2) 10/13/22 19:09 Calcium 9.1 mg/dL (8.5-10.3) 10/18/22 06:07 Total Bilirubin 0.6 mg/dL (0.2-1.0) 10/13/22 19:09 AST 15 IU/L (10-42) 10/13/22 19:09 ALT 10 IU/L (10-60) 10/13/22 19:09 Alkaline Phosphatase 80 IU/L (42-121) 10/13/22 19:09 Troponin I High Sens 31.5 ng/L (2.3-14.8) H* 10/14/22 04:55 B-Natriuretic Peptide 787 pg/mL (5-100) H 10/18/22 06:07 Total Protein 6.3 g/dL (6.4-8.9) L 10/13/22 19:09 Albumin 3.4 g/dL (3.2-5.5) 10/13/22 19:09 Globulin 2.9 g/dL (2.1-4.2) 10/13/22 19:09 Albumin/Globulin Ratio 1.2 (1.0-2.2) 10/13/22 19:09 Triglycerides 88 mg/dL (48-352) 10/14/22 04:55 Cholesterol 115 mg/dL (-200) 10/14/22 04:55 LDL Cholesterol, Calc 59 mg/dL (-129) 10/14/22 04:55 VLDL Cholesterol 18 mg/dL 10/14/22 04:55 HDL Cholesterol 38 mg/dL (60-) L 10/14/22 04:55 LDL/HDL Ratio 1.6 (<4.4) 10/14/22 04:55 Cholesterol/HDL Ratio 3.0 (<4.4) 10/14/22 04:55 Urine Color YELLOW 10/13/22 20:25 Urine Clarity CLEAR (CLEAR) 10/13/22 20:25 Urine pH 5.5 PH (5.0-7.5) 10/13/22 20:25 Ur Specific [place] 1.010 (1.002-1.030) 10/13/22 20:25 Urine Protein NEGATIVE mg/dL (NEGATIVE) 10/13/22 20:25 Urine Glucose (UA) NEGATIVE mg/dL (NEGATIVE) 10/13/22 20:25 Urine Ketones NEGATIVE mg/dL (NEGATIVE) 10/13/22 20:25 Urine Occult Blood NEGATIVE (NEGATIVE) 10/13/22 20:25 Urine Nitrite NEGATIVE (NEGATIVE) 10/13/22 20:25 Urine Bilirubin NEGATIVE (NEGATIVE) 10/13/22 20:25 Urine Urobilinogen 0.2 (NORMAL) E.U./dL (NORMAL) 10/13/22 20:25 Ur Leukocyte Esterase NEGATIVE (NEGATIVE) 10/13/22 20:25 Urine RBC 0-5 /HPF (0-5) 10/13/22 20:25 Urine WBC 0-3 /HPF (0-5) 10/13/22 20:25 Ur Squamous Epith Cells RARE Squamous (<= Few) 10/13/22 20:25 Urine Bacteria None Seen /HPF (None Seen) 10/13/22 20:25 Urine Casts 0-2 Hyaline Casts /LPF 10/13/22 20:25 Urine Culture Comments NOT INDICATED 10/13/22 20:25 Nasal Adenovirus (PCR) NOT DETECTED 10/18/22 08:40 Nasal B. parapertussis DNA (PCR) NOT DETECTED 10/18/22 08:40 Nasal Coronavir 229E PCR NOT DETECTED 10/18/22 08:40 Nasal Coronavir HKU1 PCR NOT DETECTED 10/18/22 08:40 Nasal Coronavir NL63 PCR NOT DETECTED 10/18/22 08:40 Nasal Coronavir OC43 PCR NOT DETECTED 10/18/22 08:40 Nasal Enterovir/Rhinovir PCR NOT DETECTED 10/18/22 08:40 Nasal Influenza B PCR NOT DETECTED 10/18/22 08:40 Nasal Influenza A PCR NOT DETECTED 10/18/22 08:40 Nasal Parainfluen 1 PCR NOT DETECTED 10/18/22 08:40 Nasal Parainfluen 2 PCR NOT DETECTED 10/18/22 08:40 Nasal Parainfluen 3 PCR NOT DETECTED 10/18/22 08:40 Nasal Parainfluen 4 PCR NOT DETECTED 10/18/22 08:40 Nasal RSV (PCR) NOT DETECTED 10/18/22 08:40 Nasal B.pertussis DNA PCR NOT DETECTED 10/18/22 08:40 Nasal C.pneumoniae (PCR) NOT DETECTED 10/18/22 08:40 [place]ell Human Metapneumo PCR NOT DETECTED 10/18/22 08:40 Nasal M.pneumoniae (PCR) NOT DETECTED 10/18/22 08:40 Nasal SARS-CoV-2 (PCR) NOT DETECTED 10/18/22 08:40 Urine Opiates Screen NEGATIVE (NEGATIVE) 10/13/22 21:25 Ur Oxycodone Screen NEGATIVE (NEGATIVE) 10/13/22 21:25 Urine Methadone Screen NEGATIVE (NEGATIVE) 10/13/22 21:25 Ur Propoxyphene Screen NEGATIVE (NEGATIVE) 10/13/22 21:25 Ur Barbiturates Screen NEGATIVE (NEGATIVE) 10/13/22 21:25 Ur Tricyclics Screen NEGATIVE (NEGATIVE) 10/13/22 21:25 Ur Phencyclidine Scrn NEGATIVE (NEGATIVE) 10/13/22 21:25 Ur Amphetamine Screen NEGATIVE (NEGATIVE) 10/13/22 21:25 U Methamphetamines Scrn NEGATIVE (NEGATIVE) 10/13/22 21:25 U Benzodiazepines Scrn NEGATIVE (NEGATIVE) 08/29/23 21:25 Urine Cocaine Screen NEGATIVE (NEGATIVE) 10/13/22 21:25 U Cannabinoids Screen NEGATIVE (NEGATIVE) 10/13/22 21:25 Blood Type A POSITIVE 10/13/22 19:09 Antibody Screen NEGATIVE 10/13/22 19:09 - Procedures Procedures: Procedures EXCISION OF STOMACH, ENDO, DIAGN (09/27/22) INSPECTION OF LOWER INTESTINAL TRACT, ENDO (09/27/22) TRANSFUSE NONAUT RED BLOOD CELLS IN PERIPH VEIN, PERC (09/27/22)
[2022-10-18] MEDS: rOPINIRole 1 MG TABLET PO SCH (20:12)
[2022-10-19] MEDS: SODIUM CHLORIDE FLUSH 0.9% 10 ML SYRINGE IVP SCH ×3 (00:25→16:31)
[2022-10-19] MEDS ORDERED: oxyCODONE 5 MG TABLET PO PRN (01:17)
[2022-10-19] MEDS: ACETAMINOPHEN 325 MG TABLET PO PRN ×2 (05:43→15:25)
[2022-10-19 06:05] LABS: BASOPHILS # (AUTO) 0.1 10^3/uL (0.0-0.1); BASOPHILS % (AUTO) 0.7 %; EOSINOPHILS # (AUTO) 0.2 10^3/uL (0.0-0.7); EOSINOPHILS % (AUTO) 1.9 %; HCT - HEMATOCRIT 29.2 % (37.0-47.0); HGB - HEMOGLOBIN 8.2 g/dL (12.0-16.0); LYMPHOCYTES # (AUTO) 0.9 10^3/uL (1.5-3.5); LYMPHOCYTES % (AUTO) 9.7 %; MEAN CORPUSCULAR HEMOGLOBIN 23.6 pg (27.0-31.0); MEAN CORPUSCULAR HGB CONC 28.1 g/dL (32.0-36.0); MEAN CORPUSCULAR VOLUME 83.9 fL (81.0-99.0); MONOCYTES # (AUTO) 1.4 10^3/uL (0.0-1.0); NEUTROPHILS # (AUTO) 6.4 10^3/uL (1.5-6.6); NEUTROPHILS % (AUTO) 70.7 %; PLT - PLATELET COUNT 350 10^3/uL (130-450); RED BLOOD COUNT 3.48 10^6/uL (4.20-5.40); RED CELL DISTRIBUTION WIDTH 27.1 % (12.0-15.0)
[2022-10-19 06:10] LABS: PLATELET ESTIMATE, MANUAL NORMAL (130-450,000) (NORMAL); PLATELET MORPHOLOGY NORMAL APPEARANCE (NORMAL); SLIDE REVIEW? Indicated; WBC MORPHOLOGY (MULTIPLE) NORMAL APPEARANCE (NORMAL)
[2022-10-19 06:21] LABS: CALCIUM 9.2 mg/dL (8.5-10.3); CREATININE 0.8 mg/dL (0.6-1.3); POTASSIUM 3.7 mmol/L (3.5-4.5)
[2022-10-19] MEDS: FUROSEMIDE 20 MG/2 ML VIAL IVP SCH ×2 (06:47→13:36)
[2022-10-19] MEDS: buPROPion XL 150 MG TABLET PO SCH (08:00)
[2022-10-19] MEDS: busPIRone 5 MG TABLET PO SCH ×2 (08:00→20:45)
[2022-10-19] MEDS: ESCITALOPRAM 10 MG TABLET PO SCH (08:00)
[2022-10-19] MEDS: PANTOPRAZOLE 40 MG TABLET PO SCH ×2 (08:00→20:46)
[2022-10-19] MEDS: SPIRONOLACTONE 25 MG TABLET PO SCH (08:01)
[2022-10-19] MEDS: METOPROLOL SUCCINATE 25 MG TABLET PO SCH ×2 (08:01→20:46)
[2022-10-19] MEDS: POTASSIUM CHLORIDE 20 MEQ TABLET PO SCH (08:01)
[2022-10-19] MEDS: ASCORBIC ACID 500 MG TABLET PO SCH ×2 (08:01→16:30)
[2022-10-19] MEDS: FERROUS SULFATE 325 MG TABLET PO SCH ×2 (08:01→16:30)
--- NOTE | 2022-10-19 14:13 | PROVIDER PROGRESS NOTE ---
Assessment/Plan - Problem List (1) Acute systolic heart failure Assessment/Plan: The Echo done about a month ago showed LVEF 60%. Now Echo shows EF 40%. She presented now with pulmonary edema, hypoxia and anasarca to her thighs She has been on Lasix 40 mg iv daily, and with fluid restriction, she is about 6.5 L negative in fluid balance since admission (I's and O's reviewed). She had R-sided thoracentsis done 10/16.The post-procedure CXR showed no pneumothorax, but I cannot find a report from radiologist as to how much pleural fluid was removed She had CHF teaching by divorce mediator regarding weighing herself, salt intake and fluid restrictions. On 10/17, I put her on p.o. Lasix, to see if she has adequate continued diuresis before discharge. Those 24 hours show she did NOT diurese, in fact was 40 cc (+) in fluid balance. I therefore resumed her iv Lasix. A CXR was repeated the day after having po Lasix, given her new c/o cough that next morning, and it showed worsened central pulmonary edema present, no infiltrate. I also ordered a nasal swab Resp PCR to check for viral causes of her new cough and all are neg, including COVID is neg. Plan: Cont iv Lasix. I will transition her to p.o. Lasix on the day of discharge, at a higher dose than used on 10/17 Continue with Toprol-XL Cont new po Spironolactone Follow BMP, Mg levels daily She needs a stress test with Echo, to check for CAD as the cause of the new cardiomyopathy, now that she can lie flat (however today is Wed and we have no Stress test RN here and no certified technician specialist except Wednesday through ). I have ordered n.p.o. after midnight and a stress test to be done tomorrow, no a.m. Carvedilol before the treadmill test. (2) MARITZA on CPAP Assessment/Plan: Continue to use CPAP with sleep (3) COPD Assessment/Plan: She underwent PFTs today. These showed moderate COPD A DuoNeb treatment was then given at bedside and the patient noticed no im provement. RT confirmed that. Plan: We discussed that she may have underlying pulmonary fibrosis since there is no bronchodilator effect. I suspect she also has a component of restrictive lung disease given her obesity She will need referral to a tree chipper as an outpatient (4) Iron deficiency anemia Qualifiers: Iron deficiency anemia type: unspecified iron deficiency Qualified Code(s): D50.9 - Iron deficiency anemia, unspecified Assessment/Plan: She had very low iron stores, which were checked during her last admission a month ago. Her fecal occult blood was negative on last admission, and rechecked on this admission and is again negative Patient had EGD and colonoscopy during last hospital stay, gastric polyps was noted colonoscopy. The last Hospitalist considered giving her IV iron but never did order it. Hemoglobin trended down to 8 from 9.7, no sign of active bleeding. She has not needed a blood transfusion this admission yet. I ordered a bone marrow biopsy. Discussed with pt and she is agreeable. After that I learned that because we have a portable CT scanner parked out in our parking lot, the space is too small and we cannot do CT-guided bone marrow biopsy is here (for the next 3 months) Plan: I cancelled the plan for the bone marrow biopsy. I explained why to the patient Continue on iron supplement Monitor Hgb daily (5) HTN (hypertension) Qualifiers: Hypertension type: primary hypertension Qualified Code(s): I10 - Essential (primary) hypertension Assessment/Plan: Continue blood pressure yaniv (6) Morbid obesity with BMI of 45.0-49.9, adult Conclusion/Plan: Recommend lifestyle modification including dieting and exercise and followup with PCP for long term care administrator management (7) Restless leg syndrome Conclusion/Plan: Stable on her new Requip that was started last admission Plan: Continue Requip (8) Depression Conclusion/Plan: controlled. no acute exacerbation. Plan: Continue bupropion and buspirone. Qualifiers: Depression Type: major depressive disorder Major depression recurrence: r ecurrent Active/Remission status: currently active Psychotic features: without psychotic features (9) Acute hypoxemic respiratory failure Assessment/Plan: IMPROVED Multifactorial: from CHF (pulm edema), MARITZA on CPAP, anemia, and her morbid obesity We have weaned her oxygen down, keeping her pulse ox over 92%. She is now breathing room air at rest and walking in her room She had PFTs today, which I ordered in hopes of adding bronchodilators, but that did not help Plan: Continue with Lasix, Spironolactone and plan as in #1 On the day of discharge she will need an oximetry walk test - Current Meds Current Meds: Current Medications Generic Name Dose Route Start Last Admin Trade Name Nataliia PRN Reason Stop Dose Admin Acetaminophen 650 mg 10/13/22 20:43 10/19/22 05:43 Acetaminophen 325 Mg Tablet PO 650 mg Q4HR PRN Administration Pain 1 to 4, or Fever Albuterol/Ipratropium 3 ml 10/13/22 20:35 10/19/22 11:14 Ipratropium/Albuterol 3 Ml Neb INH 3 ml Q4HR PRN Administration Wheezing Ascorbic Acid 500 mg 10/17/22 17:00 10/19/22 08:01 Ascorbic Acid 500 Mg Tablet PO 500 mg BIDWM ANA Administration Bupropion HCl 450 mg 10/14/22 09:00 10/19/22 08:00 Bupropion Xl 150 Mg Tablet PO 450 mg DAILY ANA Administration Buspirone HCl 30 mg 10/13/22 22:50 10/19/22 08:00 Buspirone 5 Mg Tablet PO 30 mg BID ANA Administration Escitalopram Oxalate 30 mg 10/14/22 09:00 10/19/22 08:00 Escitalopram 10 Mg Tablet PO 30 mg DAILY ANA Administration Ferrous Sulfate 325 mg 10/14/22 17:00 10/19/22 08:01 Ferrous Sulfate 325 Mg Tablet PO 325 mg BIDWM ANA Administration Furosemide 20 mg 10/18/22 14:00 10/19/22 13:36 Furosemide 20 Mg/2 Ml Vial IVP 20 mg BIDDIURETIC ANA Administration Metoprolol Succinate 25 mg 10/16/22 21:00 10/19/22 08:01 Metoprolol Succinate 25 Mg Tablet PO 10/20/22 00:01 25 mg BID ANA Administration Oxycodone HCl 10 mg 10/19/22 01:17 10/19/22 01:39 Oxycodone 5 Mg Tablet PO 10/20/22 01:16 10 mg ONCE PRN Administration PAIN >8 Pantoprazole Sodium 40 mg 10/13/22 21:00 10/19/22 08:00 Pantoprazole 40 Mg Tablet PO 40 mg BID ANA Administration Potassium Chloride 20 meq 10/15/22 09:00 10/19/22 08:01 Potassium Chloride 20 Meq Tablet PO 20 meq DAILYWM ANA Administration Ropinirole HCl 1 mg 10/13/22 21:00 10/18/22 20:12 Ropinirole 1 Mg Tablet PO 1 mg QPM ANA Administration Sodium Chloride 10 ml 10/14/22 01:00 10/19/22 08:01 Sodium Chloride Flush 0.9% 10 Ml Syringe IVP 10 ml 0100,0900,1700 ANA Administration Spironolactone 25 mg 10/17/22 09:00 10/19/22 08:01 Spironolactone 25 Mg Tablet PO 25 mg DAILY ANA Administration - Lab Result Fish Bone Diagrams: 10/19/22 05:28 10/19/22 05:28 - Additional Planning My Orders: My Active Orders 10/18/22 14:00 FUROSEMIDE INJ 20mg VIAL [LASIX INJ 20mg VIAL] 20 mg IVP BIDDIURETIC 10/19/22 11:16 RT [Nebulizer/MDI Tx.] [RC] .q4prn 10/20/22 00:01 DIET [NPO except Meds at Midnight] [DIET] 10/20/22 07:00 Echo [Cardiovascular Treadmill] [ECHO] Routine Subjective - Subjective Patient Reports: Other (Less orthopnea, similar leg edema) Objective Vital Signs: Vital Signs - 24 hr 10/18/22 10/18/22 10/19/22 16:00 20:11 01:00 Temperature 37.0 C Heart Rate 81 Heart Rate [ 86 Brachial] Respiratory 18 Rate Blood Pressure 135/69 H 133/64 H [Right Brachial artery] O2 Saturation 95 10/19/22 10/19/22 10/19/22 01:08 08:00 11:00 Temperature 36.9 C 36.8 C Heart Rate 92 Heart Rate [ 81 83 Brachial] Respiratory 16 18 20 Rate Blood Pressure 129/63 137/64 H [Right Brachial artery] O2 Saturation 96 93 Oxygen O2 Source Room air Oxygen Flow Rate 4 I&O (Last 24 Hrs): Intake and Output Totals x24h 10/17/22 10/18/22 10/19/22 23:59 23:59 23:59 Intake Total 1240 850 280 Output Total 1200 1225 950 Balance 40 -920 -670 General: Alert, Oriented x3 HEENT: EOMI, Mucous membr. moist/pink Neck: Supple, No JVD Neuro: Alert, Non Focal Cardiovascular: Regular rate, No murmurs (Distant heart sounds due to obesity) Respiratory: Breath sounds nml Abdomen: Soft, Other (Obese) Extremities: No clubbing, Other (3+ edema to knees) - Results Results: Laboratory Results WBC 9.0 x10^3/uL (4.8-10.8) 10/19/22 05:28 RBC 3.48 10^6/uL (4.20-5.40) L 10/19/22 05:28 Hgb 8.2 g/dL (12.0-16.0) L 10/19/22 05:28 Hct 29.2 % (37.0-47.0) L 10/19/22 05:28 MCV 83.9 fL (81.0-99.0) 10/19/22 05:28 MCH 23.6 pg (27.0-31.0) L 10/19/22 05:28 MCHC 28.1 g/dL (32.0-36.0) L 10/19/22 05:28 RDW 27.1 % (12.0-15.0) H 10/19/22 05:28 Plt Count 350 10^3/uL (130-450) 10/19/22 05:28 Neut # (Auto) 6.4 10^3/uL (1.5-6.6) 10/19/22 05:28 Lymph # (Auto) 0.9 10^3/uL (1.5-3.5) L 10/19/22 05:28 Bucks # (Auto) 1.4 10^3/uL (0.0-1.0) H 10/19/22 05:28 Eos # (Auto) 0.2 10^3/uL (0.0-0.7) 10/19/22 05:28 Baso # (Auto) 0.1 10^3/uL (0.0-0.1) 10/19/22 05:28 Absolute Nucleated RBC 0.00 x10^3/uL 10/19/22 05:28 Nucleated RBC % 0.0 /100WBC 10/19/22 05:28 Manual Slide Review Indicated 10/19/22 05:28 WBC Morphology NORMAL APPEARANCE (NORMAL) 10/19/22 05:28 Platelet Estimate NORMAL (130-450,000) (NORMAL) 10/19/22 05:28 Platelet Morphology NORMAL APPEARANCE (NORMAL) 10/19/22 05:28 RBC Morph Micro Appear 3+ ANISOCYTOSIS (NORMAL) 1+ HYPOCHROMASIA (NORMAL) 10/19/22 05:28 RBC Morph Micro Appear 3+ ANISOCYTOSIS (NORMAL) 1+ HYPOCHROMASIA (NORMAL) 10/19/22 05:28 VBG pH 7.387 (7.31-7.41) 10/13/22 19:09 VBG pCO2 35.9 mmHg (41-51) L 10/13/22 19:09 VBG pO2 61.9 mmHg (25-47) H 10/13/22 19:09 VBG HCO3 21.1 mmol/L (23-28) L 10/13/22 19:09 VBG Total CO2 22.2 mmol/L (24-29) L 10/13/22 19:09 VBG O2 Saturation 89.3 % (60-80) H 10/13/22 19:09 VBG Base Excess -3.4 mmol/L (-2 - +2) L 10/13/22 19:09 Sodium 139 mmol/L (135-145) 10/19/22 05:28 Potassium 3.7 mmol/L (3.5-4.5) 10/19/22 05:28 Chloride 105 mmol/L (101-111) 10/19/22 05:28 Carbon Dioxide 28 mmol/L (21-32) 10/19/22 05:28 Anion Gap 6.0 (6-13) 10/19/22 05:28 BUN 9 mg/dL (6-20) 10/19/22 05:28 Creatinine 0.8 mg/dL (0.6-1.3) 10/19/22 05:28 Estimated GFR (MDRD) 74 (>89) L 10/19/22 05:28 Glucose 102 mg/dL (74-104) 10/19/22 05:28 POC Whole Bld Glucose 99 mg/dL (70 - 100) 10/14/22 16:33 Estimat Average Glucose 80 mg/dL (70-100) 10/14/22 04:55 Hemoglobin A1c % 4.4 % (4.27-6.07) 10/14/22 04:55 Lactic Acid 1.8 mmol/L (0.5-2.2) 10/13/22 19:09 Calcium 9.2 mg/dL (8.5-10.3) 10/19/22 05:28 Total Bilirubin 0.6 mg/dL (0.2-1.0) 10/13/22 19:09 AST 15 IU/L (10-42) 10/13/22 19:09 ALT 10 IU/L (10-60) 10/13/22 19:09 Alkaline Phosphatase 80 IU/L (42-121) 10/13/22 19:09 Troponin I High Sens 31.5 ng/L (2.3-14.8) H* 10/14/22 04:55 B-Natriuretic Peptide 795 pg/mL (5-100) H 10/19/22 05:28 Total Protein 6.3 g/dL (6.4-8.9) L 10/13/22 19:09 Albumin 3.4 g/dL (3.2-5.5) 10/13/22 19:09 Globulin 2.9 g/dL (2.1-4.2) 10/13/22 19:09 Albumin/Globulin Ratio 1.2 (1.0-2.2) 10/13/22 19:09 Triglycerides 88 mg/dL (48-352) 10/14/22 04:55 Cholesterol 115 mg/dL (-200) 10/14/22 04:55 LDL Cholesterol, Calc 59 mg/dL (-129) 10/14/22 04:55 VLDL Cholesterol 18 mg/dL 10/14/22 04:55 HDL Cholesterol 38 mg/dL (60-) L 10/14/22 04:55 LDL/HDL Ratio 1.6 (<4.4) 10/14/22 04:55 Cholesterol/HDL Ratio 3.0 (<4.4) 10/14/22 04:55 Urine Color YELLOW 10/13/22 20:25 Urine Clarity CLEAR (CLEAR) 10/13/22 20:25 Urine pH 5.5 PH (5.0-7.5) 10/13/22 20:25 Ur Specific Bunn 1.010 (1.002-1.030) 10/13/22 20:25 Urine Protein NEGATIVE mg/dL (NEGATIVE) 10/13/22 20:25 Urine Glucose (UA) NEGATIVE mg/dL (NEGATIVE) 10/13/22 20:25 Urine Ketones NEGATIVE mg/dL (NEGATIVE) 10/13/22 20:25 Urine Occult Blood NEGATIVE (NEGATIVE) 10/13/22 20:25 Urine Nitrite NEGATIVE (NEGATIVE) 10/13/22 20:25 Urine Bilirubin NEGATIVE (NEGATIVE) 10/13/22 20:25 Urine Urobilinogen 0.2 (NORMAL) E.U./dL (NORMAL) 10/13/22 20:25 Ur Leukocyte Esterase NEGATIVE (NEGATIVE) 10/13/22 20:25 Urine RBC 0-5 /HPF (0-5) 10/13/22 20:25 Urine WBC 0-3 /HPF (0-5) 10/13/22 20:25 Ur Squamous Epith Cells RARE Squamous (<= Few) 10/13/22 20:25 Urine Bacteria None Seen /HPF (None Seen) 10/13/22 20:25 Urine Casts 0-2 Hyaline Casts /LPF 10/13/22 20:25 Urine Culture Comments NOT INDICATED 10/13/22 20:25 Nasal Adenovirus (PCR) NOT DETECTED 10/18/22 08:40 Nasal B. parapertussis DNA (PCR) NOT DETECTED 10/18/22 08:40 Nasal Coronavir 229E PCR NOT DETECTED 10/18/22 08:40 Nasal Coronavir HKU1 PCR NOT DETECTED 10/18/22 08:40 Nasal Coronavir NL63 PCR NOT DETECTED 10/18/22 08:40 Nasal Coronavir OC43 PCR NOT DETECTED 10/18/22 08:40 Nasal Enterovir/Rhinovir PCR NOT DETECTED 10/18/22 08:40 Nasal Influenza B PCR NOT DETECTED 10/18/22 08:40 Nasal Influenza A PCR NOT DETECTED 10/18/22 08:40 Nasal Parainfluen 1 PCR NOT DETECTED 10/18/22 08:40 Nasal Parainfluen 2 PCR NOT DETECTED 10/18/22 08:40 Nasal Parainfluen 3 PCR NOT DETECTED 10/18/22 08:40 Nasal Parainfluen 4 PCR NOT DETECTED 10/18/22 08:40 Nasal RSV (PCR) NOT DETECTED 10/18/22 08:40 Nasal B.pertussis DNA PCR NOT DETECTED 10/18/22 08:40 Nasal C.pneumoniae (PCR) NOT DETECTED 10/18/22 08:40 Darnell Human Metapneumo PCR NOT DETECTED 10/18/22 08:40 Nasal M.pneumoniae (PCR) NOT DETECTED 10/18/22 08:40 Nasal SARS-CoV-2 (PCR) NOT DETECTED 10/18/22 08:40 Urine Opiates Screen NEGATIVE (NEGATIVE) 10/13/22 21:25 Ur Oxycodone Screen NEGATIVE (NEGATIVE) 10/13/22 21:25 Urine Methadone Screen NEGATIVE (NEGATIVE) 10/13/22 21:25 Ur Propoxyphene Screen NEGATIVE (NEGATIVE) 10/13/22 21:25 Ur Barbiturates Screen NEGATIVE (NEGATIVE) 10/13/22 21:25 Ur Tricyclics Screen NEGATIVE (NEGATIVE) 10/13/22 21:25 Ur Phencyclidine Scrn NEGATIVE (NEGATIVE) 10/13/22 21:25 Ur Amphetamine Screen NEGATIVE (NEGATIVE) 10/13/22 21:25 U Methamphetamines Scrn NEGATIVE (NEGATIVE) 10/13/22 21:25 U Benzodiazepines Scrn NEGATIVE (NEGATIVE) 10/13/22 21:25 Urine Cocaine Screen NEGATIVE (NEGATIVE) 10/13/22 21:25 U Cannabinoids Screen NEGATIVE (NEGATIVE) 10/13/22 21:25 Blood Type A POSITIVE 10/13/22 19:09 Antibody Screen NEGATIVE 10/13/22 19:09 - Procedures Procedures: Procedures EXCISION OF STOMACH, ENDO, DIAGN (09/27/22) INSPECTION OF LOWER INTESTINAL TRACT, ENDO (09/27/22) TRANSFUSE NONAUT RED BLOOD CELLS IN PERIPH VEIN, PERC (09/27/22)
[2022-10-19] MEDS: HYDROcod/ACETAM 5/325 MG TABLET PO PRN ×2 (16:30→20:45)
--- NOTE | 2022-10-19 17:52 | Ultrasound Report ---
PROCEDURE: Duplex Ext Veins Right INDICATIONS: R foot and leg pain, eval for DVT TECHNIQUE: Real-time imaging, as well as color and pulse Doppler interrogation, were performed of the lower extr emity deep veins from the inguinal ligament to the popliteal fossa. Attempted visualization of the ca lf veins was performed. COMPARISON: None. FINDINGS: Markedly limited examination due to the patient's body hepatis. The deep veins are normall y compressible, and free of intraluminal thrombus. Color and pulse Doppler demonstrate normal phasic intraluminal flow. There is normal augmentation response to distal compression maneuver. There is a popliteal cyst measuring 3.5 x 0.6 x 3.1 cm. A fluid collection is noted in the medial aspect of the ankle measuring 2.4 x 1.2 x 1.4 cm. Enlarged right inguinal lymph node is seen, measuring 1.0 x 3.8 cm. IMPRESSION: 1. No deep venous thrombosis of the visualized lower extremity. 2. There is a Shah's cyst in the popliteal fossa. 3. 2.4 x 1.2 x 1.4 cm collection in the medial aspect of the ankle, nonspecific. Differential diagnos es include seroma, hematoma or abscess. Recommend clinical correlation. 4. An enlarged right inguinal lymph node, probably reactive. Recommend clinical follow-up. Reviewed by: Fady Snider MD on 10/19/2022 5:50 PM PDT Approved by: Fady Snider MD on 10/19/2022 5:50 PM PDT Station ID: [id number]
[2022-10-19] MEDS: rOPINIRole 1 MG TABLET PO SCH (20:46)
[2022-10-20] MEDS: HYDROcod/ACETAM 5/325 MG TABLET PO PRN ×3 (01:37→22:49)
[2022-10-20] MEDS: SODIUM CHLORIDE FLUSH 0.9% 10 ML SYRINGE IVP SCH ×3 (01:42→16:37)
[2022-10-20] MEDS: FUROSEMIDE 20 MG/2 ML VIAL IVP SCH (06:13)
[2022-10-20] MEDS: busPIRone 5 MG TABLET PO SCH ×2 (08:15→21:30)
[2022-10-20] MEDS: POTASSIUM CHLORIDE 20 MEQ TABLET PO SCH (08:16)
[2022-10-20] MEDS: buPROPion XL 150 MG TABLET PO SCH (08:16)
[2022-10-20] MEDS: ASCORBIC ACID 500 MG TABLET PO SCH ×2 (08:16→16:37)
[2022-10-20] MEDS: PANTOPRAZOLE 40 MG TABLET PO SCH ×2 (08:16→21:31)
[2022-10-20] MEDS: SPIRONOLACTONE 25 MG TABLET PO SCH (08:16)
[2022-10-20] MEDS: ESCITALOPRAM 10 MG TABLET PO SCH (08:16)
[2022-10-20] MEDS: FERROUS SULFATE 325 MG TABLET PO SCH ×2 (08:16→16:37)
[2022-10-20] MEDS ORDERED: DICLOFENAC SODIUM DR 75 MG TABLET PO ONE (11:21)
--- NOTE | 2022-10-20 13:03 | CARDIAC PROCEDURE NOTE ---
Stress Test Report Service Date: 10/20/22 Ordering Provider: Dr King (Hospitalist), CAROLINE Ortiz (PCP) Indication for Test: Dyspnea on exertion, new cardiomyopathy by resting Echo, eval for ischemia/CAD Cardiac Risk Factors: Morbid obesity, ex-smoker, hypertension Type of Stress Test: Exercise Treadmill Test (ETT) Procedure: After informed consent was obtained, the patient underwent a manual protocol treadmill stress test with echo imaging at rest and after exercise. Resting heart rate: 94. Peak heart rate: 120 (74% pred max HR for age) Resting BP 129/66. Peak BP: not obtained since the patient was in extreme distress The patient exercised for 52 seconds on a manual treadmill protocol. The patient developed shortness of breath quickly and at 50 sec asked for exercise to stop. She denied any chest pain. Her oxygen saturation was 94% on room air at rest and dropped to 88% on room air at peak exercise. The patient achieved 74% pred max HR for age and 1.7 METS at peak. Her O2 saturation recovered to 98% on room air after < 1 minute. Baseline EKG: Normal sinus rhythm, rate 94, Limb lead reversal present, poor R wave progression. EKG at peak: No changes in ST segments or T waves however there is excessive baseline artifact. Impression: 1. Very poor exercise tolerance 2. Oxygen desaturation occurs with activity 3. Nondiagnostic EKG portion of stress test, due to not achieving target HR 4. Echo images reported separately>> The Echo reader reported that at rest her Echo showed moderate hypokinesis of all duarte at the mid and apical segments and apex, only basal segments had normal motion, LVEF 35 to 40% at rest. After exercise, the same segments were hypokinetic and EF was 40 to 45%. Summary: Impression: 1. Very poor exercise tolerance 2. Oxygen desaturation occurs with activity st 52 sec of exercise. 3. Nondiagnostic EKG portion of stress test, due to not achieving target HR 4. Echo at rest showed moderate hypokinesis of all duarte at the mid and apical segments and apex, only her basal segments had normal motion, LVEF 35 to 40% at rest. After exercise, the same segments were hypokinetic and EF was 40 to 45%.
--- NOTE | 2022-10-20 15:31 | PROVIDER PROGRESS NOTE ---
Assessment/Plan - Problem List (1) Acute systolic heart failure Assessment/Plan: The Echo done about a month ago showed LVEF 60%. Now Echo shows EF 40%. She presented now with pulmonary edema, hypoxia and anasarca to her thighs She has been on Lasix iv daily, and with fluid restriction, she is about 8 L negative in fluid balance since admission (I's and O's reviewed). She had R-sided thoracentsis done 10/16.The post-procedure CXR showed no pneumothorax, but I cannot find a report from radiologist as to how much pleural fluid was removed She had CHF teaching by dust collector operator regarding weighing herself, salt intake and fluid restrictions. On 10/17, I put her on p.o. Lasix, to see if she has adequate continued diuresis before discharge. Those 24 hours show she did NOT diurese, in fact was 40 cc (+) in fluid balance. I therefore resumed her iv Lasix. A CXR was repeated the day after having po Lasix, given her new c/o cough that next morning, and it showed worsened central pulmonary edema present, no infiltrate. I also ordered a nasal swab Resp PCR to check for viral causes of her new cough and all are neg, including COVID is neg. She had her stress test with Echo today, to check for CAD as the cause of the new VARGAS and new cardiomyopathy, and it showed LVEF 35-40% w/ resting wall motion abn and she only walked 52 sec, then had marked SOB and desaturated to 85% on room air. The Echo had same sverely hypokinetic zones. Plan: She needs a cor angiogram, given the new findings that suggest severe CAD. I will be trying to get her transferred to a facility w/ higher level of care. Cont iv Lasix. I will transition her to p.o. Lasix if she goes home, at a higher dose than used on 10/17 Continue with Toprol-XL Cont new po Spironolactone Follow BMP, Mg levels daily (2) Acute hypoxemic respiratory failure Assessment/Plan: Multifactorial: from CHF (pulm edema), MARITZA on CPAP, anemia, and her morbid obesity We have weaned her oxygen down breathing room air at rest. But she desaturates severely with exercise see treadmill report) She had PFTs which I ordered in hopes of adding bronchodilators, but she has no improvement Plan: Continue with Lasix, Spironolactone and plan as in #1 On the day of discharge she will need an oximetry walk test for getting home O2 (3) MARITZA on CPAP Assessment/Plan: Continue to use CPAP with sleep (4) COPD Assessment/Plan: She underwent PFTs today. These showed moderate COPD A DuoNeb treatment was then given at bedside and the patient noticed no improvement. RT confirmed that. Plan: We discussed that she may have underlying pulmonary fibrosis since there is no bronchodilator effect. I suspect she also has a component of restrictive lung disease given her obesity She will need referral to a certified master locksmith as an outpatient (5) R foot pain Assessment/Plan: Her nurse said the patient requested oxycodone for foot pain that started after she walked in the hallway. The pain is in the right foot. US for DVT was done and ruled out a DVT. Today she herself says it is her arthritis kicking in, especially because we stopped her diclofenac that she took BID. Plan: [place] ordered for pain as needed I resumed just the nightly Diclofenac (6) Iron deficiency anemia Qualifiers: Iron deficiency anemia type: unspecified iron deficiency Qualified Code(s): D50.9 - Iron deficiency anemia, unspecified Assessment/Plan: She had very low iron stores, which were checked during her last admission a month ago. Her fecal occult blood was negative on last admission, and rechecked on this admission and is again negative Patient had EGD and colonoscopy during last hospital stay, gastric polyps was noted colonoscopy. The ;pathology report is not yet available. The last Hospitalist considered giving her IV iron but never did order it. Hemoglobin is running 8-9 I ordered a bone marrow biopsy. Discussed with pt and she was agreeable. After that I learned that because we have a portable CT scanner parked out in our parking lot, the space is too small and we cannot do CT-guided bone marrow biopsy is here (for the next 3 months) Plan: I cancelled the plan for the bone marrow biopsy. I explained why to the patient Continue on iron supplement Monitor Hgb daily This may also need to be worked up at a facility w/ Hematology available (7) HTN (hypertension) Qualifiers: Hypertension type: primary hypertension Qualified Code(s): I10 - Essential (primary) hypertension Assessment/Plan: Continue blood pressure yaniv (8) Morbid obesity with BMI of 45.0-49.9, adult Conclusion/Plan: Recommend lifestyle modification including dieting and exercise and followup with PCP for fpc management (9) Restless leg syndrome Conclusion/Plan: Stable on her new Requip that was started last admission Plan: Continue Requip (10) Depression Conclusion/Plan: controlled. no acute exacerbation. Plan: Continue bupropion and buspirone. - Current Meds Current Meds: Current Medications Generic Name Dose Route Start Last Admin Trade Name Freq PRN Reason Stop Dose Admin Acetaminophen 650 mg 10/13/22 20:43 10/19/22 15:25 Acetaminophen 325 Mg Tablet PO 650 mg Q4HR PRN Administration Pain 1 to 4, or Fever Hydrocodone Bitart/Acetaminophen 1 tab 10/19/22 16:19 10/20/22 06:21 Hydrocod/Acetam 5/325 Mg Tablet PO 1 tab Q4HR PRN Administration Moderate Pain (Level 4-6) Albuterol/Ipratropium 3 ml 10/13/22 20:35 10/19/22 11:14 Ipratropium/Albuterol 3 Ml Neb INH 3 ml Q4HR PRN Administration Wheezing Ascorbic Acid 500 mg 10/17/22 17:00 10/20/22 08:16 Ascorbic Acid 500 Mg Tablet PO 500 mg BIDWM ANA Administration Bupropion HCl 450 mg 10/14/22 09:00 10/20/22 08:16 Bupropion Xl 150 Mg Tablet PO 450 mg DAILY ANA Administration Buspirone HCl 30 mg 10/13/22 22:50 10/20/22 08:15 Buspirone 5 Mg Tablet PO 30 mg BID ANA Administration Escitalopram Oxalate 30 mg 10/14/22 09:00 10/20/22 08:16 Escitalopram 10 Mg Tablet PO 30 mg DAILY ANA Administration Ferrous Sulfate 325 mg 10/14/22 17:00 10/20/22 08:16 Ferrous Sulfate 325 Mg Tablet PO 325 mg BIDWM ANA Administration Pantoprazole Sodium 40 mg 10/13/22 21:00 10/20/22 08:16 Pantoprazole 40 Mg Tablet PO 40 mg BID ANA Administration Potassium Chloride 20 meq 10/15/22 09:00 10/20/22 08:16 Potassium Chloride 20 Meq Tablet PO 20 meq DAILYWM ANA Administration Ropinirole HCl 1 mg 10/13/22 21:00 10/19/22 20:46 Ropinirole 1 Mg Tablet PO 1 mg QPM ANA Administration Sodium Chloride 10 ml 10/14/22 01:00 10/20/22 08:16 Sodium Chloride Flush 0.9% 10 Ml Syringe IVP 10 ml 0100,0900,1700 ANA Administration Spironolactone 25 mg 10/17/22 09:00 10/20/22 08:16 Spironolactone 25 Mg Tablet PO 25 mg DAILY ANA Administration - Lab Result Fish Bone Diagrams: 10/21/22 11:11 10/22/22 05:01 - Additional Planning My Orders: My Active Orders 10/19/22 16:19 HYDROcod/ACETAM 5/325 [[place] 5/325] 1 tab PO Q4HR PRN 10/20/22 Lunch DIET [Low Sodium Diet] [DIET] Subjective - Subjective Patient Reports: Cough, Shortness of Breath Objective Vital Signs: Vital Signs - 24 hr 10/19/22 10/19/22 10/20/22 15:57 16:21 00:00 Temperature 37.7 C 37.4 C 37.2 C Heart Rate Heart Rate [ 94 93 Brachial] Respiratory 18 20 Rate Blood Pressure 128/72 136/74 H [Right Brachial artery] O2 Saturation 95 93 10/20/22 10/20/22 01:00 08:00 Temperature 37.1 C Heart Rate 89 Heart Rate [ 95 Brachial] Respiratory 20 Rate Blood Pressure 129/74 [Right Brachial artery] O2 Saturation 93 Oxygen O2 Source Room air Oxygen Flow Rate 4 I&O (Last 24 Hrs): Intake and Output Totals x24h 10/18/22 10/19/22 10/20/22 23:59 23:59 23:59 Intake Total 850 800 120 Output Total 1225 1950 1275 Balance -375 -1150 -1155 General: Alert, Oriented x3 HEENT: Mucous membr. moist/pink Neck: Supple Neuro: Alert, Non Focal Cardiovascular: Regular rate Respiratory: Breath sounds nml Abdomen: Soft, Other (Obese) Extremities: No clubbing, No edema, Other (R forefott red and swollen and tender) - Results Results: Laboratory Results WBC 9.0 x10^3/uL (4.8-10.8) 10/19/22 05:28 RBC 3.48 10^6/uL (4.20-5.40) L 09/04/23 05:28 Hgb 8.2 g/dL (12.0-16.0) L 10/19/22 05:28 Hct 29.2 % (37.0-47.0) L 10/19/22 05:28 MCV 83.9 fL (81.0-99.0) 10/19/22 05:28 MCH 23.6 pg (27.0-31.0) L 10/19/22 05:28 MCHC 28.1 g/dL (32.0-36.0) L 10/19/22 05:28 RDW 27.1 % (12.0-15.0) H 10/19/22 05:28 Plt Count 350 10^3/uL (130-450) 10/19/22 05:28 Neut # (Auto) 6.4 10^3/uL (1.5-6.6) 10/19/22 05:28 Lymph # (Auto) 0.9 10^3/uL (1.5-3.5) L 10/19/22 05:28 [place] # (Auto) 1.4 10^3/uL (0.0-1.0) H 10/19/22 05:28 Eos # (Auto) 0.2 10^3/uL (0.0-0.7) 10/19/22 05:28 Baso # (Auto) 0.1 10^3/uL (0.0-0.1) 10/19/22 05:28 Absolute Nucleated RBC 0.00 x10^3/uL 10/19/22 05:28 Nucleated RBC % 0.0 /100WBC 10/19/22 05:28 Manual Slide Review Indicated 10/19/22 05:28 WBC Morphology NORMAL APPEARANCE (NORMAL) 10/19/22 05: Platelet Estimate NORMAL (130-450,000) (NORMAL) 10/19/22 05:28 Platelet Morphology NORMAL APPEARANCE (NORMAL) 10/19/22 05:28 RBC Morph Micro Appear 3+ ANISOCYTOSIS (NORMAL) 1+ HYPOCHROMASIA (NORMAL) 10/19/22 05:28 RBC Morph Micro Appear 3+ ANISOCYTOSIS (NORMAL) 1+ HYPOCHROMASIA (NORMAL) 10/19/22 05:28 VBG pH 7.387 (7.31-7.41) 10/13/22 19:09 VBG pCO2 35.9 mmHg (41-51) L 10/13/22 19:09 VBG pO2 61.9 mmHg (25-47) H 10/13/22 19:09 VBG HCO3 21.1 mmol/L (23-28) L 10/13/22 19:09 VBG Total CO2 22.2 mmol/L (24-29) L 10/13/22 19:09 VBG O2 Saturation 89.3 % (60-80) H 10/13/22 19:09 VBG Base Excess -3.4 mmol/L (-2 - +2) L 10/13/22 19:09 Sodium 139 mmol/L (135-145) 10/19/22 05:28 Potassium 3.7 mmol/L (3.5-4.5) 10/19/22 05:28 Chloride 105 mmol/L (101-111) 10/19/22 05:28 Carbon Dioxide 28 mmol/L (21-32) 10/19/22 05:28 Anion Gap 6.0 (6-13) 10/19/22 05:28 BUN 9 mg/dL (6-20) 10/19/22 05:28 Creatinine 0.8 mg/dL (0.6-1.3) 10/19/22 05:28 Estimated GFR (MDRD) 74 (>89) L 10/19/22 05:28 Glucose 102 mg/dL (74-104) 10/19/22 05:28 POC Whole Bld Glucose 99 mg/dL (70 - 100) 10/14/22 16:33 Estimat Average Glucose 80 mg/dL (70-100) 10/14/22 04:55 Hemoglobin A1c % 4.4 % (4.27-6.07) 10/14/22 04:55 Lactic Acid 1.8 mmol/L (0.5-2.2) 10/13/22 19:09 Calcium 9.2 mg/dL (8.5-10.3) 10/19/22 05:28 Total Bilirubin 0.6 mg/dL (0.2-1.0) 10/13/22 19:09 AST 15 IU/L (10-42) 10/13/22 19:09 ALT 10 IU/L (10-60) 10/13/22 19:09 Alkaline Phosphatase 80 IU/L (42-121) 10/13/22 19:09 Troponin I High Sens 31.5 ng/L (2.3-14.8) H* 10/14/22 04:55 B-Natriuretic Peptide 795 pg/mL (5-100) H 10/19/22 05:28 Total Protein 6.3 g/dL (6.4-8.9) L 10/13/22 19:09 Albumin 3.4 g/dL (3.2-5.5) 10/13/22 19:09 Globulin 2.9 g/dL (2.1-4.2) 10/13/22 19:09 Albumin/Globulin Ratio 1.2 (1.0-2.2) 10/13/22 19:09 Triglycerides 88 mg/dL (48-352) 10/14/22 04:55 Cholesterol 115 mg/dL (-200) 10/14/22 04:55 LDL Cholesterol, Calc 59 mg/dL (-129) 10/14/22 04:55 VLDL Cholesterol 18 mg/dL 10/14/22 04:55 HDL Cholesterol 38 mg/dL (60-) L 10/14/22 04:55 LDL/HDL Ratio 1.6 (<4.4) 10/14/22 04:55 Cholesterol/HDL Ratio 3.0 (<4.4) 10/14/22 04:55 Urine Color YELLOW 10/13/22 20:25 Urine Clarity CLEAR (CLEAR) 10/13/22 20:25 Urine pH 5.5 PH (5.0-7.5) 10/13/22 20:25 Ur Specific [place] 1.010 (1.002-1.030) 10/13/22 20:25 Urine Protein NEGATIVE mg/dL (NEGATIVE) 10/13/22 20:25 Urine Glucose (UA) NEGATIVE mg/dL (NEGATIVE) 10/13/22 20:25 Urine Ketones NEGATIVE mg/dL (NEGATIVE) 10/13/22 20:25 Urine Occult Blood NEGATIVE (NEGATIVE) 10/13/22 20:25 Urine Nitrite NEGATIVE (NEGATIVE) 10/13/22 20:25 Urine Bilirubin NEGATIVE (NEGATIVE) 10/13/22 20:25 Urine Urobilinogen 0.2 (NORMAL) E.U./dL (NORMAL) 10/13/22 20:25 Ur Leukocyte Esterase NEGATIVE (NEGATIVE) 10/13/22 20:25 Urine RBC 0-5 /HPF (0-5) 10/13/22 20:25 Urine WBC 0-3 /HPF (0-5) 10/13/22 20:25 Ur Squamous Epith Cells RARE Squamous (<= Few) 10/13/22 20:25 Urine Bacteria None Seen /HPF (None Seen) 10/13/22 20:25 Urine Casts 0-2 Hyaline Casts /LPF 10/13/22 20:25 Urine Culture Comments NOT INDICATED 10/13/22 20:25 Nasal Adenovirus (PCR) NOT DETECTED 10/18/22 08:40 Nasal B. parapertussis DNA (PCR) NOT DETECTED 10/18/22 08:40 Nasal Coronavir 229E PCR NOT DETECTED 10/18/22 08:40 Nasal Coronavir HKU1 PCR NOT DETECTED 10/18/22 08:40 Nasal Coronavir NL63 PCR NOT DETECTED 10/18/22 08:40 Nasal Coronavir OC43 PCR NOT DETECTED 10/18/22 08:40 Nasal Enterovir/Rhinovir PCR NOT DETECTED 10/18/22 08:40 Nasal Influenza B PCR NOT DETECTED 10/18/22 08:40 Nasal Influenza A PCR NOT DETECTED 10/18/22 08:40 Nasal Parainfluen 1 PCR NOT DETECTED 10/18/22 08:40 Nasal Parainfluen 2 PCR NOT DETECTED 10/18/22 08:40 Nasal Parainfluen 3 PCR NOT DETECTED 10/18/22 08:40 Nasal Parainfluen 4 PCR NOT DETECTED 10/18/22 08:40 Nasal RSV (PCR) NOT DETECTED 10/18/22 08:40 Nasal B.pertussis DNA PCR NOT DETECTED 10/18/22 08:40 Nasal C.pneumoniae (PCR) NOT DETECTED 10/18/22 08:40 [place] Human Metapneumo PCR NOT DETECTED 10/18/22 08:40 Nasal M.pneumoniae (PCR) NOT DETECTED 10/18/22 08:40 Nasal SARS-CoV-2 (PCR) NOT DETECTED 10/18/22 08:40 Urine Opiates Screen NEGATIVE (NEGATIVE) 10/13/22 21:25 Ur Oxycodone Screen NEGATIVE (NEGATIVE) 10/13/22 21:25 Urine Methadone Screen NEGATIVE (NEGATIVE) 10/13/22 21:25 Ur Propoxyphene Screen NEGATIVE (NEGATIVE) 10/13/22 21:25 Ur Barbiturates Screen NEGATIVE (NEGATIVE) 10/13/22 21:25 Ur Tricyclics Screen NEGATIVE (NEGATIVE) 10/13/22 21:25 Ur Phencyclidine Scrn NEGATIVE (NEGATIVE) 10/13/22 21:25 Ur Amphetamine Screen NEGATIVE (NEGATIVE) 10/13/22 21:25 U Methamphetamines Scrn NEGATIVE (NEGATIVE) 10/13/22 21:25 U Benzodiazepines Scrn NEGATIVE (NEGATIVE) 10/13/22 21:25 Urine Cocaine Screen NEGATIVE (NEGATIVE) 10/13/22 21:25 U Cannabinoids Screen NEGATIVE (NEGATIVE) 10/13/22 21:25 Blood Type A POSITIVE 10/13/22 19:09 Antibody Screen NEGATIVE 10/13/22 19:09 - Procedures Procedures: Procedures EXCISION OF STOMACH, ENDO, DIAGN (09/27/22) INSPECTION OF LOWER INTESTINAL TRACT, ENDO (09/27/22) TRANSFUSE NONAUT RED BLOOD CELLS IN PERIPH VEIN, PERC (09/27/22)
[2022-10-20] MEDS: rOPINIRole 1 MG TABLET PO SCH (21:30)
[2022-10-21] MEDS: HYDROcod/ACETAM 5/325 MG TABLET PO PRN ×4 (03:25→23:36)
[2022-10-21] MEDS: SODIUM CHLORIDE FLUSH 0.9% 10 ML SYRINGE IVP SCH ×4 (03:25→23:36)
[2022-10-21] MEDS: ACETAMINOPHEN 325 MG TABLET PO PRN ×3 (06:17→17:53)
[2022-10-21] MEDS: ASCORBIC ACID 500 MG TABLET PO SCH ×2 (08:18→15:59)
[2022-10-21] MEDS: FERROUS SULFATE 325 MG TABLET PO SCH ×2 (08:18→15:59)
[2022-10-21] MEDS: SPIRONOLACTONE 25 MG TABLET PO SCH (08:18)
[2022-10-21] MEDS: PANTOPRAZOLE 40 MG TABLET PO SCH ×2 (08:18→20:27)
[2022-10-21] MEDS: POTASSIUM CHLORIDE 20 MEQ TABLET PO SCH (08:18)
[2022-10-21] MEDS: ESCITALOPRAM 10 MG TABLET PO SCH (08:18)
[2022-10-21] MEDS: buPROPion XL 150 MG TABLET PO SCH (08:18)
[2022-10-21] MEDS: busPIRone 5 MG TABLET PO SCH ×2 (08:19→20:29)
[2022-10-21 11:31] LABS: CALCIUM 9.2 mg/dL (8.5-10.3); CREATININE 0.6 mg/dL (0.6-1.3); POTASSIUM 4.1 mmol/L (3.5-4.5)
[2022-10-21] MEDS ORDERED: FUROSEMIDE 20 MG TABLET PO STA (14:06)
--- NOTE | 2022-10-21 16:57 | PROVIDER PROGRESS NOTE ---
Assessment/Plan - Problem List (1) Acute systolic heart failure Assessment/Plan: The Echo done about a month ago showed LVEF 60%. Now Echo shows EF 40%. She presented now with pulmonary edema, hypoxia and anasarca to her thighs She has been on Lasix iv daily, and with fluid restriction, she is about 8 L negative in fluid balance since admission (I's and O's reviewed). She had R-sided thoracentsis done 10/16.The post-procedure CXR showed no pneumothorax, but I cannot find a report from radiologist as to how much pleural fluid was removed She had CHF teaching by signal constructor regarding weighing herself, salt intake and fluid restrictions. On 10/17, I put her on p.o. Lasix, to see if she has adequate continued diuresis before discharge. Those 24 hours show she did NOT diurese, in fact was 40 cc (+) in fluid balance. I therefore resumed her iv Lasix. A CXR was repeated the day after having po Lasix, given her new c/o cough that next morning, and it showed worsened central pulmonary edema present, no infiltrate. I also ordered a nasal swab Resp PCR to check for viral causes of her new cough and all are neg, including COVID is neg. She had her stress test with Echo yesterday 10/20, to check for CAD as the cause of the new VARGAS and new cardiomyopathy, and it showed LVEF 35-40% w/ resting wall motion abn and she only walked 52 sec, then had marked SOB and desaturated to 85% on room air. The Echo had same sverely hypokinetic zones. Plan: She needs a cor angiogram, given the new findings that suggest severe CAD. I have spoken to [facility] and [facility] Cardio trying to get her transferred to a facility w/ higher level of care. Today she has been accepted at [facility] by both Cardiology and Hospitalist. We are waiting for a bed to become available. Cont iv Lasix. I will transition her to p.o. Lasix if she goes home, at a higher dose than used on 10/17 Continue with Toprol-XL Cont new po Spironolactone Follow BMP, Mg levels daily (2) Acute hypoxemic respiratory failure Assessment/Plan: Multifactorial: from CHF (pulm edema), MARITZA on CPAP, anemia, and her morbid obesity We have weaned her oxygen down breathing room air at rest. But she desaturates severely with exercise see treadmill report) She had PFTs which I ordered in hopes of adding bronchodilators, but she has no improvement Plan: Continue with Lasix, Spironolactone and plan as in #1 On the day of discharge she will need an oximetry walk test for getting home O2 (3) MARITZA on CPAP Assessment/Plan: Continue to use CPAP with sleep (4) COPD Assessment/Plan: She underwent PFTs today. These showed moderate COPD A DuoNeb treatment was then given at bedside and the patient noticed no improvement. RT confirmed that. Plan: We discussed that she may have underlying pulmonary fibrosis since there is no bronchodilator effect. I suspect she also has a component of restrictive lung disease given her obesity She will likely need referral to a Commercial Real Estate Appraiser as an outpatient (5) R foot arthritis Assessment/Plan: Her nurse said the patient requested oxycodone for foot pain that started after she walked in the hallway. The pain is in the right foot. US for DVT was done and ruled out a DVT. Today she herself says it is her arthritis kicking in, especially because we stopped her diclofenac that she took BID. Plan: [place] ordered for pain as needed I resumed just the nightly Diclofenac (6) Iron deficiency anemia Qualifiers: Iron deficiency anemia type: unspecified iron deficiency Qualified Code(s): D50.9 - Iron deficiency anemia, unspecified Assessment/Plan: She had very low iron stores, which were checked during her last admission a month ago. Her fecal occult blood was negative on last admission, and rechecked on this admission and is again negative Patient had EGD and colonoscopy during last hospital stay, gastric polyps was noted colonoscopy. The ;pathology report is not yet available. The last Hospitalist considered giving her IV iron but never did order it. Hemoglobin is running 8-9 I ordered a bone marrow biopsy. Discussed with pt and she was agreeable. After that I learned that because we have a portable CT scanner parked out in our parking lot, the space is too small and we cannot do CT-guided bone marrow biopsy is here (for the next 3 months) Plan: I cancelled the plan for the bone marrow biopsy. I explained why to the patient Continue on iron supplement Monitor Hgb daily I discussed this with doctors at [facility], and they will work her up at their facility w/ Hematology available (7) HTN (hypertension) Qualifiers: Hypertension type: primary hypertension Qualified Code(s): I10 - Essential (primary) hypertension Assessment/Plan: Continue blood pressure yaniv (8) Morbid obesity with BMI of 45.0-49.9, adult Conclusion/Plan: Recommend lifestyle modification including dieting and exercise and followup with PCP for [place] [facility] (9) Restless leg syndrome Conclusion/Plan: Stable on her new Requip that was started last admission Plan: Continue Requip (10) Depression Conclusion/Plan: Controlled. no acute exacerbation. Plan: Continue bupropion and buspirone. - Current Meds Current Meds: Current Medications Generic Name Dose Route Start Last Admin Trade Name Freq PRN Reason Stop Dose Admin Acetaminophen 650 mg 10/13/22 20:43 10/21/22 11:30 Acetaminophen 325 Mg Tablet PO 650 mg Q4HR PRN Administration Pain 1 to 4, or Fever Hydrocodone Bitart/Acetaminophen 1 tab 10/19/22 16:19 10/21/22 13:44 Hydrocod/Acetam 5/325 Mg Tablet PO 1 tab Q4HR PRN Administration Moderate Pain (Level 4-6) Ascorbic Acid 500 mg 10/17/22 17:00 10/21/22 15:59 Ascorbic Acid 500 Mg Tablet PO 500 mg BIDWM ANA Administration Bupropion HCl 450 mg 10/14/22 09:00 10/21/22 08:18 Bupropion Xl 150 Mg Tablet PO 450 mg DAILY ANA Administration Buspirone HCl 30 mg 10/13/22 22:50 10/21/22 08:19 Buspirone 5 Mg Tablet PO 30 mg BID ANA Administration Escitalopram Oxalate 30 mg 10/14/22 09:00 10/21/22 08:18 Escitalopram 10 Mg Tablet PO 30 mg DAILY ANA Administration Ferrous Sulfate 325 mg 10/14/22 17:00 10/21/22 15:59 Ferrous Sulfate 325 Mg Tablet PO 325 mg BIDWM ANA Administration Pantoprazole Sodium 40 mg 10/13/22 21:00 10/21/22 08:18 Pantoprazole 40 Mg Tablet PO 40 mg BID ANA Administration Potassium Chloride 20 meq 10/15/22 09:00 10/21/22 08:18 Potassium Chloride 20 Meq Tablet PO 20 meq DAILYWM ANA Administration Ropinirole HCl 1 mg 10/13/22 21:00 10/20/22 21:30 Ropinirole 1 Mg Tablet PO 1 mg QPM ANA Administration Sodium Chloride 10 ml 10/14/22 01:00 10/21/22 16:00 Sodium Chloride Flush 0.9% 10 Ml Syringe IVP 10 ml 0100,0900,1700 ANA Administration Spironolactone 25 mg 10/17/22 09:00 10/21/22 08:18 Spironolactone 25 Mg Tablet PO 25 mg DAILY ANA Administration - Lab Result Fish Bone Diagrams: 10/21/22 11:11 10/22/22 05:01 - Additional Planning My Orders: My Active Orders 10/21/22 21:[address] [Voltaren] 75 mg PO QPM Metoprolol Succinate [Toprol Xl] 25 mg PO BID 10/22/22 05:00 BMP - BASIC METABOLIC PANEL [CHEM] DAILYLAB LIPID Panel [CHEM] DAILYLAB MAGNESIUM [CHEM] DAILYLAB 10/22/22 09:00 BNP - B-NATRIURETIC PEPTIDE [CHEM] DAILY Aspirin EC [Ecotrin] 81 mg PO DAILY Furosemide [Lasix] 40 mg PO DAILY Subjective - Subjective Patient Reports: Cough, Shortness of Breath, Other (Pain in R foot) Objective Vital Signs: Vital Signs - 24 hr 10/20/22 10/21/22 10/21/22 23:59 08:29 15:33 Temperature 36.8 C 36.4 C L 37.2 C Heart Rate [ 94 95 97 Brachial] Respiratory 20 20 20 Rate Blood Pressure 143/76 H 136/76 H 143/75 H [Right Brachial artery] O2 Saturation 93 100 96 Oxygen O2 Source Room air Oxygen Flow Rate 4 I&O (Last 24 Hrs): Intake and Output Totals x24h 10/19/22 10/20/22 10/21/22 23:59 23:59 23:59 Intake Total 800 620 490 Output Total 1950 9175 950 Balance -1150 -955 -460 General: Alert, Oriented x3 HEENT: Mucous membr. moist/pink Neck: Supple Neuro: Alert, Non Focal Cardiovascular: Regular rate Respiratory: Breath sounds nml Abdomen: Soft, Other (Obese) Extremities: No clubbing, No edema, Other (R forefoot red and swollen) - Results Results: Laboratory Results WBC 9.0 x10^3/uL (4.8-10.8) 10/19/22 05:28 RBC 3.48 10^6/uL (4.20-5.40) L 10/19/22 05:28 Hgb 8.3 g/dL (12.0-16.0) L 10/21/22 11:11 Hct 29.2 % (37.0-47.0) L 10/19/22 05:28 MCV 83.9 fL (81.0-99.0) 10/19/22 05:28 MCH 23.6 pg (27.0-31.0) L 10/19/22 05:28 MCHC 28.1 g/dL (32.0-36.0) L 10/19/22 05:28 RDW 27.1 % (12.0-15.0) H 10/19/22 05:28 Plt Count 350 10^3/uL (130-450) 10/19/22 05:28 Neut # (Auto) 6.4 10^3/uL (1.5-6.6) 10/19/22 05:28 Lymph # (Auto) 0.9 10^3/uL (1.5-3.5) L 10/19/22 05:28 [place] # (Auto) 1.4 10^3/uL (0.0-1.0) H 10/19/22 05:28 Eos # (Auto) 0.2 10^3/uL (0.0-0.7) 10/19/22 05:28 Baso # (Auto) 0.1 10^3/uL (0.0-0.1) 10/19/22 05:28 Absolute Nucleated RBC 0.00 x10^3/uL 10/19/22 05:28 Nucleated RBC % 0.0 /100WBC 10/19/22 05:28 Manual Slide Review Indicated 10/19/22 05:28 WBC Morphology NORMAL APPEARANCE (NORMAL) 10/19/22 05:28 Platelet Estimate NORMAL (130-450,000) (NORMAL) 10/19/22 05:28 Platelet Morphology NORMAL APPEARANCE (NORMAL) 10/19/22 05:28 RBC Morph Micro Appear 3+ ANISOCYTOSIS (NORMAL) 1+ HYPOCHROMASIA (NORMAL) 10/19/22 05:28 RBC Morph Micro Appear 3+ ANISOCYTOSIS (NORMAL) 1+ HYPOCHROMASIA (NORMAL) 10/19/22 05:28 VBG pH 7.387 (7.31-7.41) 10/13/22 19:09 VBG pCO2 35.9 mmHg (41-51) L 10/13/22 19:09 VBG pO2 61.9 mmHg (25-47) H 10/13/22 19:09 VBG HCO3 21.1 mmol/L (23-28) L 10/13/22 19:09 VBG Total CO2 22.2 mmol/L (24-29) L 10/13/22 19:09 VBG O2 Saturation 89.3 % (60-80) H 10/13/22 19:09 VBG Base Excess -3.4 mmol/L (-2 - +2) L 10/13/22 19:09 Sodium 140 mmol/L (135-145) 10/21/22 11:11 Potassium 4.1 mmol/L (3.5-4.5) 10/21/22 11:11 Chloride 106 mmol/L (101-111) 10/21/22 11:11 Carbon Dioxide 29 mmol/L (21-32) 10/21/22 11:11 Anion Gap 5.0 (6-13) L 10/21/22 11:11 BUN 8 mg/dL (6-20) 10/21/22 11:11 Creatinine 0.6 mg/dL (0.6-1.3) 10/21/22 11:11 Estimated GFR (MDRD) 103 (>89) 10/21/22 11:11 Glucose 104 mg/dL (74-104) 10/21/22 11:11 POC Whole Bld Glucose 99 mg/dL (70 - 100) 10/14/22 16:33 Estimat Average Glucose 80 mg/dL (70-100) 10/14/22 04:55 Hemoglobin A1c % 4.4 % (4.27-6.07) 10/14/22 04:55 Lactic Acid 1.8 mmol/L (0.5-2.2) 10/13/22 19:09 Calcium 9.2 mg/dL (8.5-10.3) 10/21/22 11:11 Iron 22 ug/dL (50-212) L 10/21/22 11:11 TIBC 321 ug/dL (250-450) 10/21/22 11:11 % Saturation 7 % (20-50) L 10/21/22 11:11 Transferrin 229 mg/dL (203-362) 10/21/22 11:11 Total Bilirubin 0.6 mg/dL (0.2-1.0) 10/13/22 19:09 AST 15 IU/L (10-42) 10/13/22 19:09 ALT 10 IU/L (10-60) 10/13/22 19:09 Alkaline Phosphatase 80 IU/L (42-121) 10/13/22 19:09 Troponin I High Sens 31.5 ng/L (2.3-14.8) H* 10/14/22 04:55 B-Natriuretic Peptide 861 pg/mL (5-100) H 10/21/22 11:11 Total Protein 6.3 g/dL (6.4-8.9) L 10/13/22 19:09 Albumin 3.4 g/dL (3.2-5.5) 10/13/22 19:09 Globulin 2.9 g/dL (2.1-4.2) 10/13/22 19:09 Albumin/Globulin Ratio 1.2 (1.0-2.2) 10/13/22 19:09 Triglycerides 88 mg/dL (48-352) 10/14/22 04:55 Cholesterol 115 mg/dL (-200) 10/14/22 04:55 LDL Cholesterol, Calc 59 mg/dL (-129) 10/14/22 04:55 VLDL Cholesterol 18 mg/dL 10/14/22 04:55 HDL Cholesterol 38 mg/dL (60-) L 10/14/22 04:55 LDL/HDL Ratio 1.6 (<4.4) 10/14/22 04:55 Cholesterol/HDL Ratio 3.0 (<4.4) 10/14/22 04:55 Urine Color YELLOW 10/13/22 20:25 Urine Clarity CLEAR (CLEAR) 10/13/22 20:25 Urine pH 5.5 PH (5.0-7.5) 10/13/22 20:25 Ur Specific [place] 1.010 (1.002-1.030) 10/13/22 20:25 Urine Protein NEGATIVE mg/dL (NEGATIVE) 10/13/22 20:25 Urine Glucose (UA) NEGATIVE mg/dL (NEGATIVE) 10/13/22 20:25 Urine Ketones NEGATIVE mg/dL (NEGATIVE) 10/13/22 20:25 Urine Occult Blood NEGATIVE (NEGATIVE) 10/13/22 20:25 Urine Nitrite NEGATIVE (NEGATIVE) 10/13/22 20:25 Urine Bilirubin NEGATIVE (NEGATIVE) 10/13/22 20:25 Urine Urobilinogen 0.2 (NORMAL) E.U./dL (NORMAL) 10/13/22 20:25 Ur Leukocyte Esterase NEGATIVE (NEGATIVE) 10/13/22 20:25 Urine RBC 0-5 /HPF (0-5) 10/13/22 20:25 Urine WBC 0-3 /HPF (0-5) 10/13/22 20:25 Ur Squamous Epith Cells RARE Squamous (<= Few) 10/13/22 20:25 Urine Bacteria None Seen /HPF (None Seen) 10/13/22 20:25 Urine Casts 0-2 Hyaline Casts /LPF 10/13/22 20:25 Urine Culture Comments NOT INDICATED 10/13/22 20:25 Nasal Adenovirus (PCR) NOT DETECTED 10/18/22 08:40 Nasal B. parapertussis DNA (PCR) NOT DETECTED 10/18/22 08:40 Nasal Coronavir 229E PCR NOT DETECTED 10/18/22 08:40 Nasal Coronavir HKU1 PCR NOT DETECTED 10/18/22 08:40 Nasal Coronavir NL63 PCR NOT DETECTED 10/18/22 08:40 Nasal Coronavir OC43 PCR NOT DETECTED 10/18/22 08:40 Nasal Enterovir/Rhinovir PCR NOT DETECTED 10/18/22 08:40 Nasal Influenza B PCR NOT DETECTED 10/18/22 08:40 Nasal Influenza A PCR NOT DETECTED 10/18/22 08:40 Nasal Parainfluen 1 PCR NOT DETECTED 10/18/22 08:40 Nasal Parainfluen 2 PCR NOT DETECTED 10/18/22 08:40 Nasal Parainfluen 3 PCR NOT DETECTED 10/18/22 08:40 Nasal Parainfluen 4 PCR NOT DETECTED 10/18/22 08:40 Nasal RSV (PCR) NOT DETECTED 10/18/22 08:40 Nasal B.pertussis DNA PCR NOT DETECTED 10/18/22 08:40 Nasal C.pneumoniae (PCR) NOT DETECTED 10/18/22 08:40 [place] Human Metapneumo PCR NOT DETECTED 10/18/22 08:40 Nasal M.pneumoniae (PCR) NOT DETECTED 10/18/22 08:40 Nasal SARS-CoV-2 (PCR) NOT DETECTED 10/18/22 08:40 Urine Opiates Screen NEGATIVE (NEGATIVE) 10/13/22 21:25 Ur Oxycodone Screen NEGATIVE (NEGATIVE) 10/13/22 21:25 Urine Methadone Screen NEGATIVE (NEGATIVE) 10/13/22 21:25 Ur Propoxyphene Screen NEGATIVE (NEGATIVE) 10/13/22 21:25 Ur Barbiturates Screen NEGATIVE (NEGATIVE) 10/13/22 21:25 Ur Tricyclics Screen NEGATIVE (NEGATIVE) 10/13/22 21:25 Ur Phencyclidine Scrn NEGATIVE (NEGATIVE) 10/13/22 21:25 Ur Amphetamine Screen NEGATIVE (NEGATIVE) 10/13/22 21:25 U Methamphetamines Scrn NEGATIVE (NEGATIVE) 10/13/22 21:25 U Benzodiazepines Scrn NEGATIVE (NEGATIVE) 10/13/22 21:25 Urine Cocaine Screen NEGATIVE (NEGATIVE) 10/13/22 21:25 U Cannabinoids Screen NEGATIVE (NEGATIVE) 10/13/22 21:25 Blood Type A POSITIVE 10/13/22 19:09 Antibody Screen NEGATIVE 10/13/22 19:09 - Procedures Procedures: Procedures EXCISION OF STOMACH, ENDO, DIAGN (09/27/22) INSPECTION OF LOWER INTESTINAL TRACT, ENDO (09/27/22) TRANSFUSE NONAUT RED BLOOD CELLS IN PERIPH VEIN, PERC (09/27/22)
[2022-10-21] MEDS: rOPINIRole 1 MG TABLET PO SCH (20:27)
[2022-10-21] MEDS: METOPROLOL SUCCINATE 25 MG TABLET PO SCH (20:27)
[2022-10-21] MEDS: DICLOFENAC SODIUM DR 75 MG TABLET PO SCH (20:27)
[2022-10-21] MEDS ORDERED: carvediloL 3.125 MG TABLET PO SCH (21:00)
[2022-10-22 05:31] LABS: BUN - BLOOD UREA NITROGEN 9 mg/dL (6-20); CARBON DIOXIDE - CO2 28 mmol/L (21-32); CHLORIDE 106 mmol/L (101-111); CHOL/HDL RATIO 3.2 (<4.4); CHOLESTEROL 113 mg/dL; CREATININE 0.8 mg/dL (0.6-1.3); GFR - MDRD 74 (>89); GLUCOSE 95 mg/dL (74-104); HDL CHOLESTEROL 35 mg/dL; LDL CHOLESTEROL,CALCULATED 62 mg/dL; LDL/HDL RATIO 1.8 (<4.4); MAGNESIUM 1.7 mg/dL (1.7-2.3); POTASSIUM 3.9 mmol/L (3.5-4.5); SODIUM 140 mmol/L (135-145); TRIGLYCERIDES 78 mg/dL (48-352); VLDL CHOLESTEROL 16 mg/dL
[2022-10-22] MEDS: busPIRone 5 MG TABLET PO SCH ×2 (08:28→20:20)
[2022-10-22] MEDS: POTASSIUM CHLORIDE 20 MEQ TABLET PO SCH (08:28)
[2022-10-22] MEDS: ASCORBIC ACID 500 MG TABLET PO SCH ×2 (08:28→16:51)
[2022-10-22] MEDS: SPIRONOLACTONE 25 MG TABLET PO SCH (08:29)
[2022-10-22] MEDS: PANTOPRAZOLE 40 MG TABLET PO SCH ×2 (08:29→20:21)
[2022-10-22] MEDS: ESCITALOPRAM 10 MG TABLET PO SCH (08:29)
[2022-10-22] MEDS: ASPIRIN EC 81 MG TABLET PO SCH (08:29)
[2022-10-22] MEDS: METOPROLOL SUCCINATE 25 MG TABLET PO SCH ×2 (08:29→20:21)
[2022-10-22] MEDS: SODIUM CHLORIDE FLUSH 0.9% 10 ML SYRINGE IVP SCH ×2 (08:29→16:51)
[2022-10-22] MEDS: FERROUS SULFATE 325 MG TABLET PO SCH ×2 (08:29→16:51)
[2022-10-22] MEDS: FUROSEMIDE 40 MG TABLET PO SCH (08:29)
[2022-10-22] MEDS: buPROPion XL 150 MG TABLET PO SCH (08:29)
[2022-10-22] MEDS: ACETAMINOPHEN 325 MG TABLET PO PRN ×3 (08:30→16:52)
[2022-10-22] MEDS: HYDROcod/ACETAM 5/325 MG TABLET PO PRN (14:02)
--- NOTE | 2022-10-22 19:12 | PROVIDER PROGRESS NOTE ---
Assessment/Plan - Problem List (1) Acute systolic heart failure Assessment/Plan: The Echo done about a month ago showed LVEF 60%. Now Echo shows EF 40%. She presented now with pulmonary edema, hypoxia and anasarca to her thighs She has been on Lasix iv daily, and with fluid restriction, she is about 8 L negative in fluid balance since admission (I's and O's reviewed). She had R-sided thoracentsis done 10/16.The post-procedure CXR showed no pneumothorax, but I cannot find a report from radiologist as to how much pleural fluid was removed She had CHF teaching by installer metal flooring regarding weighing herself, salt intake and fluid restrictions. On 10/17, I put her on p.o. Lasix, to see if she has adequate continued diuresis before discharge. Those 24 hours show she did NOT diurese, in fact was 40 cc (+) in fluid balance. I therefore resumed her iv Lasix. A CXR was repeated the day after having po Lasix, given her new c/o cough that next morning, and it showed worsened central pulmonary edema present, no infiltrate. I also ordered a nasal swab Resp PCR to check for viral causes of her new cough and all are neg, including COVID is neg. She had her stress test with Echo on 10/20, to check for CAD as the cause of the new VARGAS and new cardiomyopathy, and it showed rest LVEF 35-40% w/ resting wall motion abn and she only walked 52 sec, then had marked SOB and desaturated to 85% on room air. The Echo had same sverely hypokinetic zones. Plan: She needs a cor angiogram, given the new findings that suggest severe CAD. I have spoken to [facility] and [facility] trying to get her transferred to a facility w/ higher level of care. Yesterday she was accepted at [facility] by both Cardiology and Hospitalist. We are waiting for a bed to become available. Today we have also contacted [facility] and are still waiting for a bed where one opens up first. I have added a baby ASA daily Cont iv Lasix. I will transition her to p.o. Lasix if she goes home, at a higher dose than used on 10/17 Continue with Toprol-XL Cont new po Spironolactone Follow BMP, Mg levels daily, replace if low. (2) Acute hypoxemic respiratory failure Assessment/Plan: Multifactorial: from CHF (pulm edema), MARITZA on CPAP, anemia, and her morbid obesity We have weaned her oxygen down breathing room air at rest. But she desaturates severely with exercise see treadmill report) She had PFTs which I ordered in hopes of adding bronchodilators, but she has no improvement Plan: Continue with Lasix, Spironolactone and B-xiomara plan as in #1 On the day of discharge she will need an oximetry walk test for getting home O2 (3) MARITZA on CPAP Assessment/Plan: Continue to use CPAP with sleep (4) COPD Assessment/Plan: She underwent PFTs today. These showed moderate COPD A DuoNeb treatment was then given at bedside and the patient noticed no improvement. RT confirmed that. Plan: We discussed that she may have underlying pulmonary fibrosis since there is no bronchodilator effect. I suspect she also has a component of restrictive lung disease given her obesity She will likely need referral to a [facility] as an outpatient (5) R foot arthritis Assessment/Plan: Her nurse said the patient requested oxycodone for foot pain that started after she walked in the hallway. The pain is in the right foot. US for DVT was done and ruled out a DVT. Today she herself says it is her arthritis kicking in, especially because we stopped her diclofenac that she took BID. Plan: Cont [place] for pain as needed I resumed just the nightly Diclofenac (6) Iron deficiency anemia Qualifiers: Iron deficiency anemia type: unspecified iron deficiency Qualified Code(s): D50.9 - Iron deficiency anemia, unspecified Assessment/Plan: She had very low iron stores, which were checked during her last admission a month ago. Her fecal occult blood was negative on last admission, and rechecked on this admission and is again negative Patient had EGD and colonoscopy during last hospital stay, gastric polyps was noted colonoscopy. The ;pathology report is not yet available. The last Hospitalist considered giving her IV iron but never did order it. Hemoglobin is running 8-9 I ordered a bone marrow biopsy. Discussed with pt and she was agreeable. After that I learned that because we have a portable CT scanner parked out in our parking lot, the space is too small and we cannot do CT-guided bone marrow biopsy is here (for the next 3 months) Plan: I cancelled the plan for the bone marrow biopsy. I explained why to the patient Continue on iron supplement Monitor Hgb daily I discussed this with doctors at [facility] when they accepted her yesterday, and they will work her up at their facility w/ Hematology available (7) HTN (hypertension) Qualifiers: Hypertension type: primary hypertension Qualified Code(s): I10 - Essential (primary) hypertension Assessment/Plan: Continue blood pressure yaniv (8) Morbid obesity with BMI of 45.0-49.9, adult Conclusion/Plan: Recommend lifestyle modification including dieting and exercise and followup with PCP for chcf management (9) Restless leg syndrome Conclusion/Plan: Stable on her new Requip that was started last admission Plan: Continue Requip (10) Depression Conclusion/Plan: Controlled. no acute exacerbation. Plan: Continue bupropion and buspirone. - Current Meds Current Meds: Current Medications Generic Name Dose Route Start Last Admin Trade Name Freq PRN Reason Stop Dose Admin Acetaminophen 650 mg 10/13/22 20:43 10/22/22 16:52 Acetaminophen 325 Mg Tablet PO 650 mg Q4HR PRN Administration Pain 1 to 4, or Fever Hydrocodone Bitart/Acetaminophen 1 tab 10/19/22 16:19 10/22/22 14:02 Hydrocod/Acetam 5/325 Mg Tablet PO 1 tab Q4HR PRN Administration Moderate Pain (Level 4-6) Ascorbic Acid 500 mg 10/17/22 17:00 10/22/22 16:51 Ascorbic Acid 500 Mg Tablet PO 500 mg BIDWM ANA Administration Aspirin 81 mg 10/22/22 09:00 10/22/22 08:29 Aspirin Ec 81 Mg Tablet PO 81 mg DAILY ANA Administration Bupropion HCl 450 mg 10/14/22 09:00 10/22/22 08:29 Bupropion Xl 150 Mg Tablet PO 450 mg DAILY ANA Administration Buspirone HCl 30 mg 10/13/22 22:50 10/22/22 08:28 Buspirone 5 Mg Tablet PO 30 mg BID ANA Administration Diclofenac Sodium 75 mg 10/21/22 21:00 10/21/22 20:[address] 75 Mg Tablet PO 75 mg QPM ANA Administration Escitalopram Oxalate 30 mg 10/14/22 09:00 10/22/22 08:29 Escitalopram 10 Mg Tablet PO 30 mg DAILY ANA Administration Ferrous Sulfate 325 mg 10/14/22 17:00 10/22/22 16:51 Ferrous Sulfate 325 Mg Tablet PO 325 mg BIDWM ANA Administration Furosemide 40 mg 10/22/22 09:00 10/22/22 08:29 Furosemide 40 Mg Tablet PO 40 mg DAILY ANA Administration Metoprolol Succinate 25 mg 10/21/22 21:00 10/22/22 08:29 Metoprolol Succinate 25 Mg Tablet PO 25 mg BID ANA Administration Pantoprazole Sodium 40 mg 10/13/22 21:00 10/22/22 08:29 Pantoprazole 40 Mg Tablet PO 40 mg BID ANA Administration Potassium Chloride 20 meq 10/15/22 09:00 10/22/22 08:28 Potassium Chloride 20 Meq Tablet PO 20 meq DAILYWM ANA Administration Ropinirole HCl 1 mg 10/13/22 21:00 10/21/22 20:27 Ropinirole 1 Mg Tablet PO 1 mg QPM ANA Administration Sodium Chloride 10 ml 10/14/22 01:00 10/22/22 16:51 Sodium Chloride Flush 0.9% 10 Ml Syringe IVP 10 ml 0100,0900,1700 ANA Administration Spironolactone 25 mg 10/17/22 09:00 10/22/22 08:29 Spironolactone 25 Mg Tablet PO 25 mg DAILY ANA Administration - Lab Result Fish Bone Diagrams: 10/21/22 11:11 10/22/22 05:01 - Additional Planning My Orders: My Active Orders 10/21/22 21:[address] [Voltaren] 75 mg PO QPM Metoprolol Succinate [Toprol Xl] 25 mg PO BID 10/22/22 09:00 Aspirin EC [Ecotrin] 81 mg PO DAILY Furosemide [Lasix] 40 mg PO DAILY Subjective - Subjective Patient Reports: Other (R foot pain) Objective Vital Signs: Vital Signs - 24 hr 10/21/22 10/21/22 10/22/22 20:28 23:37 07:43 Temperature 37.1 C 37.0 C Heart Rate [ 109 H 90 86 Brachial] Respiratory 18 20 Rate Blood Pressure 149/91 H 144/86 H 143/82 H [Right Brachial artery] O2 Saturation 95 96 10/22/22 15:47 Temperature 37.0 C Heart Rate [ 88 Brachial] Respiratory 18 Rate Blood Pressure 148/83 H [Right Brachial artery] O2 Saturation 96 Oxygen O2 Source Room air Oxygen Flow Rate 4 I&O (Last 24 Hrs): Intake and Output Totals x24h 10/20/22 10/21/22 10/22/22 23:59 23:59 23:59 Intake Total 620 876 480 Output Total 1572 2150 1075 [facility] -419 -9895 -118 General: Alert, Oriented x3 HEENT: Mucous membr. moist/pink Neck: Supple Neuro: Alert, Non Focal Cardiovascular: Regular rate Respiratory: No respiratory distress Abdomen: Soft, Other (Obese) Extremities: No clubbing, No edema, Other (R forefott pink and swollen) - Results Results: Laboratory Results WBC 9.0 x10^3/uL (4.8-10.8) 10/19/22 05:28 RBC 3.48 10^6/uL (4.20-5.40) L 10/19/22 05:28 Hgb 8.3 g/dL (12.0-16.0) L 10/21/22 11:11 Hct 29.2 % (37.0-47.0) L 10/19/22 05:28 MCV 83.9 fL (81.0-99.0) 10/19/22 05:28 MCH 23.6 pg (27.0-31.0) L 10/19/22 05:28 MCHC 28.1 g/dL (32.0-36.0) L 10/19/22 05:28 RDW 27.1 % (12.0-15.0) H 10/19/22 05:28 Plt Count 350 10^3/uL (130-450) 10/19/22 05:28 Neut # (Auto) 6.4 10^3/uL (1.5-6.6) 10/19/22 05:28 Lymph # (Auto) 0.9 10^3/uL (1.5-3.5) L 10/19/22 05:28 Emmons # (Auto) 1.4 10^3/uL (0.0-1.0) H 10/19/22 05:28 Eos # (Auto) 0.2 10^3/uL (0.0-0.7) 10/19/22 05:28 Baso # (Auto) 0.1 10^3/uL (0.0-0.1) 10/19/22 05:28 Absolute Nucleated RBC 0.00 x10^3/uL 10/19/22 05:28 Nucleated RBC % 0.0 /100WBC 10/19/22 05:28 Manual Slide Review Indicated 10/19/22 05:28 WBC Morphology NORMAL APPEARANCE (NORMAL) 10/19/22 05:28 Platelet Estimate NORMAL (130-450,000) (NORMAL) 10/19/22 05:28 Platelet Morphology NORMAL APPEARANCE (NORMAL) 10/19/22 05:28 RBC Morph Micro Appear 3+ ANISOCYTOSIS (NORMAL) 1+ HYPOCHROMASIA (NORMAL) 10/19/22 05:28 RBC Morph Micro Appear 3+ ANISOCYTOSIS (NORMAL) 1+ HYPOCHROMASIA (NORMAL) 10/19/22 05:28 VBG pH 7.387 (7.31-7.41) 10/13/22 19:09 VBG pCO2 35.9 mmHg (41-51) L 10/13/22 19:09 VBG pO2 61.9 mmHg (25-47) H 10/13/22 19:09 VBG HCO3 21.1 mmol/L (23-28) L 10/13/22 19:09 VBG Total CO2 22.2 mmol/L (24-29) L 10/13/22 19:09 VBG O2 Saturation 89.3 % (60-80) H 10/13/22 19:09 VBG Base Excess -3.4 mmol/L (-2 - +2) L 10/13/22 19:09 Sodium 140 mmol/L (135-145) 10/22/22 05:01 Potassium 3.9 mmol/L (3.5-4.5) 10/22/22 05:01 Chloride 106 mmol/L (101-111) 10/22/22 05:01 Carbon Dioxide 28 mmol/L (21-32) 10/22/22 05:01 Anion Gap 6.0 (6-13) 10/22/22 05:01 BUN 9 mg/dL (6-20) 10/22/22 05:01 Creatinine 0.8 mg/dL (0.6-1.3) 10/22/22 05:01 Estimated GFR (MDRD) 74 (>89) L 10/22/22 05:01 Glucose 95 mg/dL (74-104) 10/22/22 05:01 POC Whole Bld Glucose 99 mg/dL (70 - 100) 10/14/22 16:33 Estimat Average Glucose 80 mg/dL (70-100) 10/14/22 04:55 Hemoglobin A1c % 4.4 % (4.27-6.07) 10/14/22 04:55 Lactic Acid 1.8 mmol/L (0.5-2.2) 10/13/22 19:09 Calcium 9.0 mg/dL (8.5-10.3) 10/22/22 05:01 Magnesium 1.7 mg/dL (1.7-2.3) 10/22/22 05:01 Iron 22 ug/dL (50-212) L 10/21/22 11:11 TIBC 321 ug/dL (250-450) 10/21/22 11:11 % Saturation 7 % (20-50) L 10/21/22 11:11 Transferrin 229 mg/dL (203-362) 10/21/22 11:11 Total Bilirubin 0.6 mg/dL (0.2-1.0) 10/13/22 19:09 AST 15 IU/L (10-42) 10/13/22 19:09 ALT 10 IU/L (10-60) 10/13/22 19:09 Alkaline Phosphatase 80 IU/L (42-121) 10/13/22 19:09 Troponin I High Sens 31.5 ng/L (2.3-14.8) H* 10/14/22 04:55 B-Natriuretic Peptide 891 pg/mL (5-100) H 10/22/22 05:01 Total Protein 6.3 g/dL (6.4-8.9) L 10/13/22 19:09 Albumin 3.4 g/dL (3.2-5.5) 10/13/22 19:09 Globulin 2.9 g/dL (2.1-4.2) 10/13/22 19:09 Albumin/Globulin Ratio 1.2 (1.0-2.2) 10/13/22 19:09 Triglycerides 78 mg/dL (48-352) 10/22/22 05:01 Cholesterol 113 mg/dL (-200) 10/22/22 05:01 LDL Cholesterol, Calc 62 mg/dL (-129) 10/22/22 05:01 VLDL Cholesterol 16 mg/dL 10/22/22 05:01 HDL Cholesterol 35 mg/dL (60-) L 10/22/22 05:01 LDL/HDL Ratio 1.8 (<4.4) 10/22/22 05:01 Cholesterol/HDL Ratio 3.2 (<4.4) 10/22/22 05:01 Urine Color YELLOW 10/13/22 20:25 Urine Clarity CLEAR (CLEAR) 10/13/22 20:25 Urine pH 5.5 PH (5.0-7.5) 10/13/22 20:25 Ur Specific [place] 1.010 (1.002-1.030) 10/13/22 20:25 Urine Protein NEGATIVE mg/dL (NEGATIVE) 10/13/22 20:25 Urine Glucose (UA) NEGATIVE mg/dL (NEGATIVE) 10/13/22 20:25 Urine Ketones NEGATIVE mg/dL (NEGATIVE) 10/13/22 20:25 Urine Occult Blood NEGATIVE (NEGATIVE) 10/13/22 20:25 Urine Nitrite NEGATIVE (NEGATIVE) 10/13/22 20:25 Urine Bilirubin NEGATIVE (NEGATIVE) 10/13/22 20:25 Urine Urobilinogen 0.2 (NORMAL) E.U./dL (NORMAL) 10/13/22 20:25 Ur Leukocyte Esterase NEGATIVE (NEGATIVE) 10/13/22 20:25 Urine RBC 0-5 /HPF (0-5) 10/13/22 20:25 Urine WBC 0-3 /HPF (0-5) 10/13/22 20:25 Ur Squamous Epith Cells RARE Squamous (<= Few) 10/13/22 20:25 Urine Bacteria None Seen /HPF (None Seen) 10/13/22 20:25 Urine Casts 0-2 Hyaline Casts /LPF 10/13/22 20:25 Urine Culture Comments NOT INDICATED 10/13/22 20:25 Nasal Adenovirus (PCR) NOT DETECTED 10/18/22 08:40 Nasal B. parapertussis DNA (PCR) NOT DETECTED 10/18/22 08:40 Nasal Coronavir 229E PCR NOT DETECTED 10/18/22 08:40 Nasal Coronavir HKU1 PCR NOT DETECTED 10/18/22 08:40 Nasal Coronavir NL63 PCR NOT DETECTED 10/18/22 08:40 Nasal Coronavir OC43 PCR NOT DETECTED 10/18/22 08:40 Nasal Enterovir/Rhinovir PCR NOT DETECTED 10/18/22 08:40 Nasal Influenza B PCR NOT DETECTED 10/18/22 08:40 Nasal Influenza A PCR NOT DETECTED 10/18/22 08:40 Nasal Parainfluen 1 PCR NOT DETECTED 10/18/22 08:40 Nasal Parainfluen 2 PCR NOT DETECTED 10/18/22 08:40 Nasal Parainfluen 3 PCR NOT DETECTED 10/18/22 08:40 Nasal Parainfluen 4 PCR NOT DETECTED 10/18/22 08:40 Nasal RSV (PCR) NOT DETECTED 10/18/22 08:40 Nasal B.pertussis DNA PCR NOT DETECTED 10/18/22 08:40 Nasal C.pneumoniae (PCR) NOT DETECTED 10/18/22 08:40 Darnell Human Metapneumo PCR NOT DETECTED 10/18/22 08:40 Nasal M.pneumoniae (PCR) NOT DETECTED 10/18/22 08:40 Nasal SARS-CoV-2 (PCR) NOT DETECTED 10/18/22 08:40 Urine Opiates Screen NEGATIVE (NEGATIVE) 10/13/22 21:25 Ur Oxycodone Screen NEGATIVE (NEGATIVE) 10/13/22 21:25 Urine Methadone Screen NEGATIVE (NEGATIVE) 10/13/22 21:25 Ur Propoxyphene Screen NEGATIVE (NEGATIVE) 10/13/22 21:25 Ur Barbiturates Screen NEGATIVE (NEGATIVE) 10/13/22 21:25 Ur Tricyclics Screen NEGATIVE (NEGATIVE) 10/13/22 21:25 Ur Phencyclidine Scrn NEGATIVE (NEGATIVE) 10/13/22 21:25 Ur Amphetamine Screen NEGATIVE (NEGATIVE) 10/13/22 21:25 U Methamphetamines Scrn NEGATIVE (NEGATIVE) 10/13/22 21:25 U Benzodiazepines Scrn NEGATIVE (NEGATIVE) 10/13/22 21:25 Urine Cocaine Screen NEGATIVE (NEGATIVE) 10/13/22 21:25 U Cannabinoids Screen NEGATIVE (NEGATIVE) 10/13/22 21:25 Blood Type A POSITIVE 10/13/22 19:09 Antibody Screen NEGATIVE 10/13/22 19:09 - Procedures Procedures: Procedures EXCISION OF STOMACH, ENDO, DIAGN (09/27/22) INSPECTION OF LOWER INTESTINAL TRACT, ENDO (09/27/22) TRANSFUSE NONAUT RED BLOOD CELLS IN PERIPH VEIN, PERC (09/27/22)
[2022-10-22] MEDS: rOPINIRole 1 MG TABLET PO SCH (20:21)
[2022-10-22] MEDS: DICLOFENAC SODIUM DR 75 MG TABLET PO SCH (20:21)
[2022-10-23] MEDS: HYDROcod/ACETAM 5/325 MG TABLET PO PRN ×3 (00:04→19:24)
[2022-10-23] MEDS: SODIUM CHLORIDE FLUSH 0.9% 10 ML SYRINGE IVP SCH ×3 (00:04→16:16)
[2022-10-23] MEDS: buPROPion XL 150 MG TABLET PO SCH (08:43)
[2022-10-23] MEDS: ASCORBIC ACID 500 MG TABLET PO SCH ×2 (08:43→16:15)
[2022-10-23] MEDS: SPIRONOLACTONE 25 MG TABLET PO SCH (08:43)
[2022-10-23] MEDS: ESCITALOPRAM 10 MG TABLET PO SCH (08:43)
[2022-10-23] MEDS: PANTOPRAZOLE 40 MG TABLET PO SCH ×2 (08:43→20:32)
[2022-10-23] MEDS: FUROSEMIDE 40 MG TABLET PO SCH (08:43)
[2022-10-23] MEDS: ASPIRIN EC 81 MG TABLET PO SCH (08:44)
[2022-10-23] MEDS: METOPROLOL SUCCINATE 25 MG TABLET PO SCH ×2 (08:44→20:31)
[2022-10-23] MEDS: POTASSIUM CHLORIDE 20 MEQ TABLET PO SCH (08:45)
[2022-10-23] MEDS: busPIRone 5 MG TABLET PO SCH ×2 (09:04→20:32)
[2022-10-23] MEDS: FERROUS SULFATE 325 MG TABLET PO SCH ×2 (09:04→16:15)
[2022-10-23] MEDS: ACETAMINOPHEN 325 MG TABLET PO PRN ×2 (10:26→16:15)
--- NOTE | 2022-10-23 17:56 | PROVIDER PROGRESS NOTE ---
Assessment/Plan - Problem List (1) Acute systolic heart failure Assessment/Plan: The Echo done about a month ago showed LVEF 60%. Now Echo shows EF 40%. She presented now with pulmonary edema, hypoxia and anasarca to her thighs She has been on Lasix iv daily, and with fluid restriction, she is about 8 L negative in fluid balance since admission (I's and O's reviewed). She had R-sided thoracentsis done 10/16.The post-procedure CXR showed no pneumothorax, but I cannot find a report from radiologist as to how much pleural fluid was removed. The pathology report from that has returned today and it shows no malignancy. Today I updated the patient about that report She had CHF teaching by commercial escrow assistant regarding weighing herself, salt intake and fluid restrictions. On 10/17, I put her on p.o. Lasix, to see if she has adequate continued diuresis before discharge. Those 24 hours show she did NOT diurese, in fact was 40 cc (+) in fluid balance. I therefore resumed her iv Lasix. A CXR was repeated the day after having po Lasix, given her new c/o cough that next morning, and it showed worsened central pulmonary edema present, no infiltrate. I also ordered a nasal swab Resp PCR to check for viral causes of her new cough and all are neg, including COVID is neg. She had her stress test with Echo on 10/20, to check for CAD as the cause of the new VARGAS and new cardiomyopathy, and it showed rest LVEF 35-40% w/ resting wall motion abn and she only walked 52 sec, then had marked SOB and desaturated to 85% on room air. The Echo had same sverely hypokinetic zones. Plan: She needs a cor angiogram, given the new findings that suggest severe CAD. I have spoken to [facility] trying to get her transferred to a facility w/ higher level of care. On 10/21 she was accepted at [facility] by both Cardiology and Hospitalist. We are waiting for a bed to become available. Yesterday and today we have also contacted [facility], [facility] and are still waiting for a bed where one opens up first. I have added a baby ASA daily Cont iv Lasix. I will transition her to p.o. Lasix if she goes home, at a higher dose than used on 10/17 Continue with Toprol-XL Cont new po Spironolactone I will add an ARB today Follow BMP, Mg levels daily, replace if low. (2) Acute hypoxemic respiratory failure Assessment/Plan: Multifactorial: from CHF (pulm edema), MARITZA on CPAP, anemia, and her morbid obesity We have weaned her oxygen down breathing room air at rest. But she desaturates severely with exercise see treadmill report) She had PFTs which I ordered in hopes of adding bronchodilators, but she has no improvement. I supervised her treadmill test and she desaturated to 85% on room air after just walking 52 seconds on a modified Stewart protocol Plan: Continue with Lasix, Spironolactone, ARB and B-xiomara plan as in #1 On the day of discharge she will need an oximetry walk test for getting home O2 (3) MARITZA on CPAP Assessment/Plan: Continue to use CPAP with sleep (4) COPD Assessment/Plan: She underwent PFTs today. These showed moderate COPD A DuoNeb treatment was then given at bedside and the patient noticed no improvement. RT confirmed that. Plan: We discussed that she may have underlying pulmonary fibrosis since there is no bronchodilator effect. I suspect she also has a component of restrictive lung disease given her obesity She will likely need referral to a [facility] Screen Operator as an outpatient (5) R foot arthritis Assessment/Plan: Her nurse said the patient requested oxycodone for foot pain that started after she walked in the hallway. The pain is in the right foot. US for DVT was done and ruled out a DVT. Today she herself says it is her arthritis kicking in, especially because we stopped her diclofenac that she took BID. Plan: Cont [place] for pain as needed. I resumed just the nightly Diclofenac (6) Iron deficiency anemia Qualifiers: Iron deficiency anemia type: unspecified iron deficiency Qualified Code(s): D50.9 - Iron deficiency anemia, unspecified Assessment/Plan: She had very low iron stores, which were checked during her last admission a month ago. Her fecal occult blood was negative on last admission, and rechecked on this admission and is again negative Patient had EGD and colonoscopy during last hospital stay, gastric polyps were noted and biopsied at colonoscopy then. The pathology report is not yet available. The last Hospitalist considered giving her IV iron but never did order it. Hemoglobin is running 8-9 I ordered a bone marrow biopsy. Discussed with pt and she was agreeable. After that I learned that because we have a portable CT scanner parked out in our parking lot, the space is too small and we cannot do CT-guided bone marrow biopsy is here (for the next 3 months) Plan: I cancelled the plan for the bone marrow biopsy. I explained why to the patient Continue on iron supplement Monitor Hgb daily I discussed this with doctors at [facility] when they accepted her on 10/21, and they will work her up at their facility w/ Hematology available (7) HTN (hypertension) Qualifiers: Hypertension type: primary hypertension Qualified Code(s): I10 - Essential (primary) hypertension Assessment/Plan: Continue cardiac meds which are also controlling her blood pressure (8) Morbid obesity with BMI of 45.0-49.9, adult Conclusion/Plan: Recommend lifestyle modification including dieting and exercise and followup with PCP for group home management (9) Restless leg syndrome Conclusion/Plan: Stable on her new Requip that was started last admission Plan: Continue Requip (10) Depression Conclusion/Plan: Controlled. no acute exacerbation. Plan: Continue bupropion and buspirone. - Current Meds Current Meds: Current Medications Generic Name Dose Route Start Last Admin Trade Name Chrisq PRN Reason Stop Dose Admin Acetaminophen 650 mg 10/13/22 20:43 10/23/22 16:15 Acetaminophen 325 Mg Tablet PO 650 mg Q4HR PRN Administration Pain 1 to 4, or Fever Hydrocodone Bitart/Acetaminophen 1 tab 10/19/22 16:19 10/23/22 14:33 Hydrocod/Acetam 5/325 Mg Tablet PO 1 tab Q4HR PRN Administration Moderate Pain (Level 4-6) Ascorbic Acid 500 mg 10/17/22 17:00 10/23/22 16:15 Ascorbic Acid 500 Mg Tablet PO 500 mg BIDWM ANA Administration Aspirin 81 mg 10/22/22 09:00 10/23/22 08:44 Aspirin Ec 81 Mg Tablet PO 81 mg DAILY ANA Administration Bupropion HCl 450 mg 10/14/22 09:00 10/23/22 08:43 Bupropion Xl 150 Mg Tablet PO 450 mg DAILY ANA Administration Buspirone HCl 30 mg 10/13/22 22:50 10/23/22 09:04 Buspirone 5 Mg Tablet PO 30 mg BID ANA Administration Diclofenac Sodium 75 mg 10/21/22 21:00 10/22/22 20:[address] 75 Mg Tablet PO 75 mg QPM ANA Administration Escitalopram Oxalate 30 mg 10/14/22 09:00 10/23/22 08:43 Escitalopram 10 Mg Tablet PO 30 mg DAILY ANA Administration Ferrous Sulfate 325 mg 10/14/22 17:00 10/23/22 16:15 Ferrous Sulfate 325 Mg Tablet PO 325 mg BIDWM ANA Administration Furosemide 40 mg 10/22/22 09:00 10/23/22 08:43 Furosemide 40 Mg Tablet PO 40 mg DAILY ANA Administration Metoprolol Succinate 25 mg 10/21/22 21:00 10/23/22 08:44 Metoprolol Succinate 25 Mg Tablet PO 25 mg BID ANA Administration Pantoprazole Sodium 40 mg 10/13/22 21:00 10/23/22 08:43 Pantoprazole 40 Mg Tablet PO 40 mg BID ANA Administration Potassium Chloride 20 meq 10/15/22 09:00 10/23/22 08:45 Potassium Chloride 20 Meq Tablet PO 20 meq DAILYWM ANA Administration Ropinirole HCl 1 mg 10/13/22 21:00 10/22/22 20:21 Ropinirole 1 Mg Tablet PO 1 mg QPM ANA Administration Sodium Chloride 10 ml 10/14/22 01:00 10/23/22 16:16 Sodium Chloride Flush 0.9% 10 Ml Syringe IVP 10 ml 0100,0900,1700 ANA Administration Spironolactone 25 mg 10/17/22 09:00 10/23/22 08:43 Spironolactone 25 Mg Tablet PO 25 mg DAILY ANA Administration - Lab Result Fish Bone Diagrams: 10/21/22 11:11 10/22/22 05:01 Subjective - Subjective Patient Reports: Pain (Has pain and swelling in the right forefoot (her arthritis)), Shortness of Breath (Can only walk slowly or is SOB. Still has a dry cough.) Objective Vital Signs: Vital Signs - 24 hr 10/22/22 10/23/22 10/23/22 20:18 00:00 03:47 Temperature 37.0 C Heart Rate 68 Heart Rate [ 91 84 Brachial] Respiratory 16 Rate Blood Pressure 138/69 H 136/79 H [Right Brachial artery] O2 Saturation 95 10/23/22 10/23/22 08:00 16:00 Temperature 36.8 C 36.7 C Heart Rate Heart Rate [ 90 85 Brachial] Respiratory 20 18 Rate Blood Pressure 137/82 H 149/83 H [Right Brachial artery] O2 Saturation 98 95 Oxygen O2 Source Room air Oxygen Flow Rate 4 I&O (Last 24 Hrs): Intake and Output Totals x24h 10/21/22 10/22/22 10/23/22 23:59 23:59 23:59 Intake Total 876 730 390 Output Total 2150 1575 250 Balance -1274 -845 140 General: Alert, Oriented x3, Cooperative HEENT: Mucous membr. moist/pink Neck: Supple Neuro: Alert, Non Focal Cardiovascular: Regular rate (Distant heart sounds due to morbid obesity) Respiratory: No respiratory distress (at rest) Abdomen: Soft, Other (Obese with pannus) Extremities: No clubbing, Other (1+ edema to below the knees. Mild redness of the right forefoot. R danielle is wrapped.) - Results Results: Laboratory Results WBC 9.0 x10^3/uL (4.8-10.8) 10/19/22 05:28 RBC 3.48 10^6/uL (4.20-5.40) L 10/19/22 05:28 Hgb 8.3 g/dL (12.0-16.0) L 10/21/22 11:11 Hct 29.2 % (37.0-47.0) L 10/19/22 05:28 MCV 83.9 fL (81.0-99.0) 10/19/22 05:28 MCH 23.6 pg (27.0-31.0) L 10/19/22 05:28 MCHC 28.1 g/dL (32.0-36.0) L 10/19/22 05:28 RDW 27.1 % (12.0-15.0) H 10/19/22 05:28 Plt Count 350 10^3/uL (130-450) 10/19/22 05:28 Neut # (Auto) 6.4 10^3/uL (1.5-6.6) 10/19/22 05:28 Lymph # (Auto) 0.9 10^3/uL (1.5-3.5) L 10/19/22 05:28 Allen # (Auto) 1.4 10^3/uL (0.0-1.0) H 10/19/22 05:28 Eos # (Auto) 0.2 10^3/uL (0.0-0.7) 10/19/22 05:28 Baso # (Auto) 0.1 10^3/uL (0.0-0.1) 10/19/22 05:28 Absolute Nucleated RBC 0.00 x10^3/uL 10/19/22 05:28 Nucleated RBC % 0.0 /100WBC 10/19/22 05:28 Manual Slide Review Indicated 10/19/22 05:28 WBC Morphology NORMAL APPEARANCE (NORMAL) 10/19/22 05:28 Platelet Estimate NORMAL (130-450,000) (NORMAL) 10/19/22 05:28 Platelet Morphology NORMAL APPEARANCE (NORMAL) 10/19/22 05:28 RBC Morph Micro Appear 3+ ANISOCYTOSIS (NORMAL) 1+ HYPOCHROMASIA (NORMAL) 10/19/22 05:28 RBC Morph Micro Appear 3+ ANISOCYTOSIS (NORMAL) 1+ HYPOCHROMASIA (NORMAL) 10/19/22 05:28 VBG pH 7.387 (7.31-7.41) 10/13/22 19:09 VBG pCO2 35.9 mmHg (41-51) L 10/13/22 19:09 VBG pO2 61.9 mmHg (25-47) H 10/13/22 19:09 VBG HCO3 21.1 mmol/L (23-28) L 10/13/22 19:09 VBG Total CO2 22.2 mmol/L (24-29) L 10/13/22 19:09 VBG O2 Saturation 89.3 % (60-80) H 10/13/22 19:09 VBG Base Excess -3.4 mmol/L (-2 - +2) L 10/13/22 19:09 Sodium 140 mmol/L (135-145) 10/22/22 05:01 Potassium 3.9 mmol/L (3.5-4.5) 10/22/22 05:01 Chloride 106 mmol/L (101-111) 10/22/22 05:01 Carbon Dioxide 28 mmol/L (21-32) 10/22/22 05:01 Anion Gap 6.0 (6-13) 10/22/22 05:01 BUN 9 mg/dL (6-20) 10/22/22 05:01 Creatinine 0.8 mg/dL (0.6-1.3) 10/22/22 05:01 Estimated GFR (MDRD) 74 (>89) L 10/22/22 05:01 Glucose 95 mg/dL (74-104) 10/22/22 05:01 POC Whole Bld Glucose 99 mg/dL (70 - 100) 10/14/22 16:33 Estimat Average Glucose 80 mg/dL (70-100) 10/14/22 04:55 Hemoglobin A1c % 4.4 % (4.27-6.07) 10/14/22 04:55 Lactic Acid 1.8 mmol/L (0.5-2.2) 10/13/22 19:09 Calcium 9.0 mg/dL (8.5-10.3) 10/22/22 05:01 Magnesium 1.7 mg/dL (1.7-2.3) 10/22/22 05:01 Iron 22 ug/dL (50-212) L 10/21/22 11:11 TIBC 321 ug/dL (250-450) 10/21/22 11:11 % Saturation 7 % (20-50) L 10/21/22 11:11 Transferrin 229 mg/dL (203-362) 10/21/22 11:11 Total Bilirubin 0.6 mg/dL (0.2-1.0) 10/13/22 19:09 AST 15 IU/L (10-42) 10/13/22 19:09 ALT 10 IU/L (10-60) 10/13/22 19:09 Alkaline Phosphatase 80 IU/L (42-121) 10/13/22 19:09 Troponin I High Sens 31.5 ng/L (2.3-14.8) H* 10/14/22 04:55 B-Natriuretic Peptide 891 pg/mL (5-100) H 10/22/22 05:01 Total Protein 6.3 g/dL (6.4-8.9) L 10/13/22 19:09 Albumin 3.4 g/dL (3.2-5.5) 10/13/22 19:09 Globulin 2.9 g/dL (2.1-4.2) 10/13/22 19:09 Albumin/Globulin Ratio 1.2 (1.0-2.2) 10/13/22 19:09 Triglycerides 78 mg/dL (48-352) 10/22/22 05:01 Cholesterol 113 mg/dL (-200) 10/22/22 05:01 LDL Cholesterol, Calc 62 mg/dL (-129) 10/22/22 05:01 VLDL Cholesterol 16 mg/dL 10/22/22 05:01 HDL Cholesterol 35 mg/dL (60-) L 10/22/22 05:01 LDL/HDL Ratio 1.8 (<4.4) 10/22/22 05:01 Cholesterol/HDL Ratio 3.2 (<4.4) 10/22/22 05:01 Urine Color YELLOW 10/13/22 20:25 Urine Clarity CLEAR (CLEAR) 10/13/22 20:25 Urine pH 5.5 PH (5.0-7.5) 10/13/22 20:25 Ur Specific [place] 1.010 (1.002-1.030) 10/13/22 20:25 Urine Protein NEGATIVE mg/dL (NEGATIVE) 10/13/22 20:25 Urine Glucose (UA) NEGATIVE mg/dL (NEGATIVE) 10/13/22 20:25 Urine Ketones NEGATIVE mg/dL (NEGATIVE) 10/13/22 20:25 Urine Occult Blood NEGATIVE (NEGATIVE) 10/13/22 20:25 Urine Nitrite NEGATIVE (NEGATIVE) 10/13/22 20:25 Urine Bilirubin NEGATIVE (NEGATIVE) 10/13/22 20:25 Urine Urobilinogen 0.2 (NORMAL) E.U./dL (NORMAL) 10/13/22 20:25 Ur Leukocyte Esterase NEGATIVE (NEGATIVE) 10/13/22 20:25 Urine RBC 0-5 /HPF (0-5) 10/13/22 20:25 Urine WBC 0-3 /HPF (0-5) 10/13/22 20:25 Ur Squamous Epith Cells RARE Squamous (<= Few) 10/13/22 20:25 Urine Bacteria None Seen /HPF (None Seen) 10/13/22 20:25 Urine Casts 0-2 Hyaline Casts /LPF 10/13/22 20:25 Urine Culture Comments NOT INDICATED 10/13/22 20:25 Nasal Adenovirus (PCR) NOT DETECTED 10/18/22 08:40 Nasal B. parapertussis DNA (PCR) NOT DETECTED 10/18/22 08:40 Nasal Coronavir 229E PCR NOT DETECTED 10/18/22 08:40 Nasal Coronavir HKU1 PCR NOT DETECTED 10/18/22 08:40 Nasal Coronavir NL63 PCR NOT DETECTED 10/18/22 08:40 Nasal Coronavir OC43 PCR NOT DETECTED 10/18/22 08:40 Nasal Enterovir/Rhinovir PCR NOT DETECTED 10/18/22 08:40 Nasal Influenza B PCR NOT DETECTED 10/18/22 08:40 Nasal Influenza A PCR NOT DETECTED 10/18/22 08:40 Nasal Parainfluen 1 PCR NOT DETECTED 10/18/22 08:40 Nasal Parainfluen 2 PCR NOT DETECTED 10/18/22 08:40 Nasal Parainfluen 3 PCR NOT DETECTED 10/18/22 08:40 Nasal Parainfluen 4 PCR NOT DETECTED 10/18/22 08:40 Nasal RSV (PCR) NOT DETECTED 10/18/22 08:40 Nasal B.pertussis DNA PCR NOT DETECTED 10/18/22 08:40 Nasal C.pneumoniae (PCR) NOT DETECTED 10/18/22 08:40 Darnell Human Metapneumo PCR NOT DETECTED 10/18/22 08:40 Nasal M.pneumoniae (PCR) NOT DETECTED 10/18/22 08:40 Nasal SARS-CoV-2 (PCR) NOT DETECTED 10/18/22 08:40 Urine Opiates Screen NEGATIVE (NEGATIVE) 10/13/22 21:25 Ur Oxycodone Screen NEGATIVE (NEGATIVE) 10/13/22 21:25 Urine Methadone Screen NEGATIVE (NEGATIVE) 10/13/22 21:25 Ur Propoxyphene Screen NEGATIVE (NEGATIVE) 10/13/22 21:25 Ur Barbiturates Screen NEGATIVE (NEGATIVE) 10/13/22 21:25 Ur Tricyclics Screen NEGATIVE (NEGATIVE) 10/13/22 21:25 Ur Phencyclidine Scrn NEGATIVE (NEGATIVE) 10/13/22 21:25 Ur Amphetamine Screen NEGATIVE (NEGATIVE) 10/13/22 21:25 U Methamphetamines Scrn NEGATIVE (NEGATIVE) 10/13/22 21:25 U Benzodiazepines Scrn NEGATIVE (NEGATIVE) 10/13/22 21:25 Urine Cocaine Screen NEGATIVE (NEGATIVE) 10/13/22 21:25 U Cannabinoids Screen NEGATIVE (NEGATIVE) 10/13/22 21:25 Blood Type A POSITIVE 10/13/22 19:09 Antibody Screen NEGATIVE 10/13/22 19:09 - Procedures Procedures: Procedures EXCISION OF STOMACH, ENDO, DIAGN (09/27/22) INSPECTION OF LOWER INTESTINAL TRACT, ENDO (09/27/22) TRANSFUSE NONAUT RED BLOOD CELLS IN PERIPH VEIN, PERC (09/27/22)
[2022-10-23] MEDS: LOSARTAN 50 MG TABLET PO SCH (20:31)
[2022-10-23] MEDS: rOPINIRole 1 MG TABLET PO SCH (20:32)
[2022-10-23] MEDS: DICLOFENAC SODIUM DR 75 MG TABLET PO SCH (20:32)
[2022-10-24] MEDS: HYDROcod/ACETAM 5/325 MG TABLET PO PRN ×4 (00:37→16:32)
[2022-10-24] MEDS: SODIUM CHLORIDE FLUSH 0.9% 10 ML SYRINGE IVP SCH ×3 (00:38→16:32)
[2022-10-24] MEDS: FERROUS SULFATE 325 MG TABLET PO SCH ×2 (08:11→16:32)
[2022-10-24] MEDS: METOPROLOL SUCCINATE 25 MG TABLET PO SCH ×2 (08:11→20:46)
[2022-10-24] MEDS: ESCITALOPRAM 10 MG TABLET PO SCH (08:11)
[2022-10-24] MEDS: FUROSEMIDE 40 MG TABLET PO SCH (08:11)
[2022-10-24] MEDS: buPROPion XL 150 MG TABLET PO SCH (08:11)
[2022-10-24] MEDS: ASCORBIC ACID 500 MG TABLET PO SCH ×2 (08:11→16:32)
[2022-10-24] MEDS: ASPIRIN EC 81 MG TABLET PO SCH (08:12)
[2022-10-24] MEDS: SPIRONOLACTONE 25 MG TABLET PO SCH (08:12)
[2022-10-24] MEDS: POTASSIUM CHLORIDE 20 MEQ TABLET PO SCH (08:12)
[2022-10-24] MEDS: busPIRone 5 MG TABLET PO SCH ×2 (08:12→20:46)
[2022-10-24] MEDS: PANTOPRAZOLE 40 MG TABLET PO SCH ×2 (08:12→20:46)
[2022-10-24] MEDS: ACETAMINOPHEN 325 MG TABLET PO PRN ×2 (09:12→14:57)
--- NOTE | 2022-10-24 16:48 | PROVIDER PROGRESS NOTE ---
Assessment/Plan - Problem List (1) Acute systolic heart failure Assessment/Plan: The Echo done about a month ago showed LVEF 60%. Now Echo shows EF 40%. She presented now with pulmonary edema, hypoxia and anasarca to her thighs She has been on Lasix iv daily, and with fluid restriction, she is about 8 L negative in fluid balance since admission (I's and O's reviewed). She had R-sided thoracentsis done 10/16.The post-procedure CXR showed no pneumothorax, but I cannot find a report from radiologist as to how much pleural fluid was removed. The pathology report from that has returned today and it shows no malignancy. Today I updated the patient about that report She had CHF teaching by bread jockey regarding weighing herself, salt intake and fluid restrictions. On 10/17, I put her on p.o. Lasix, to see if she has adequate continued diuresis before discharge. Those 24 hours show she did NOT diurese, in fact was 40 cc (+) in fluid balance. I therefore resumed her iv Lasix. A CXR was repeated the day after having po Lasix, given her new c/o cough that next morning, and it showed worsened central pulmonary edema present, no infiltrate. I also ordered a nasal swab Resp PCR to check for viral causes of her new cough and all are neg, including COVID is neg. She had her stress test with Echo on 10/20, to check for CAD as the cause of the new VARGAS and new cardiomyopathy, and it showed rest LVEF 35-40% w/ resting wall motion abn and she only walked 52 sec, then had marked SOB and desaturated to 85% on room air. The Echo had same sverely hypokinetic zones. Plan: She needs a cor angiogram, given the new findings that suggest severe CAD. I have spoken to [facility] trying to get her transferred to a facility w/ higher level of care. On 10/21 she was accepted at [facility] by both Cardiology and Hospitalist. We are waiting for a bed to become available. Since 10/21, we have also daily contacted [facility], [facility] and are still waiting for a bed where one opens up first. I have added a baby ASA daily Cont p.o. Lasix 40 mg daily, a higher dose than used on 10/17 Continue with Toprol-XL Cont new po Spironolactone I will add an ARB today Follow BMP, Mg levels daily, replace if low. (2) Acute hypoxemic respiratory failure Assessment/Plan: Multifactorial: from CHF (pulm edema), MARITZA on CPAP, anemia, and her morbid obesity We have weaned her oxygen down breathing room air at rest. But she desaturates severely with exercise see treadmill report) She had PFTs which I ordered in hopes of adding bronchodilators, but she has no improvement. I supervised her treadmill test and she desaturated to 85% on room air after just walking 52 seconds on a modified Stewart protocol Plan: Continue with Lasix, Spironolactone, ARB and B-xiomara plan as in #1 On the day of discharge she will need an oximetry walk test for getting home O2 (3) R foot arthritis Assessment/Plan: Her nurse said the patient requested oxycodone for foot pain that started after she walked in the hallway. The pain is in the right foot. US for DVT was done and ruled out a DVT. Today she herself says it is her arthritis kicking in, especially because we stopped her diclofenac that she took BID. Plan: Cont [place] for pain as needed. I resumed just the nightly Diclofenac (4) Iron deficiency anemia Qualifiers: Iron deficiency anemia type: unspecified iron deficiency Qualified Code(s): D50.9 - Iron deficiency anemia, unspecified Assessment/Plan: She had very low iron stores, which were checked during her last admission a month ago. Her fecal occult blood was negative on last admission, and rechecked on this admission and is again negative Patient had EGD and colonoscopy during last hospital stay, gastric polyps were noted and biopsied at colonoscopy then. The pathology report is not yet available. The last Hospitalist considered giving her IV iron but never did order it. Hemoglobin is running 8-9 I ordered a bone marrow biopsy. Discussed with pt and she was agreeable. After that I learned that because we have a portable CT scanner parked out in our parking lot, the space is too small and we cannot do CT-guided bone marrow biopsy is here (for the next 3 months) Plan: I cancelled the plan for the bone marrow biopsy. I explained why to the patient Continue on iron supplement Monitor Hgb daily I discussed this with doctors at [facility] when they accepted her on 10/21, and they will work her up at their facility w/ Hematology available (5) HTN (hypertension) Qualifiers: Hypertension type: primary hypertension Qualified Code(s): I10 - Essential (primary) hypertension Assessment/Plan: Continue cardiac meds which are also controlling her blood pressure (6) MARITZA on CPAP Assessment/Plan: Continue to use CPAP with sleep (7) COPD Assessment/Plan: She underwent PFTs today. These showed moderate COPD A DuoNeb treatment was then given at bedside and the patient noticed no improvement. RT confirmed that. Plan: We discussed that she may have underlying pulmonary fibrosis since there is no bronchodilator effect. 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 no acute exacerbation. Plan: Continue bupropion and buspirone. - Current Meds Current Meds: Current Medications Generic Name Dose Route Start Last Admin Trade Name Freq PRN Reason Stop Dose Admin Acetaminophen 650 mg 10/13/22 20:43 10/24/22 14:57 Acetaminophen 325 Mg Tablet PO 650 mg Q4HR PRN Administration Pain 1 to 4, or Fever Hydrocodone Bitart/Acetaminophen 1 tab 10/19/22 16:19 10/24/22 16:32 Hydrocod/Acetam 5/325 Mg Tablet PO 1 tab Q4HR PRN Administration Moderate Pain (Level 4-6) Ascorbic Acid 500 mg 10/17/22 17:00 10/24/22 16:32 Ascorbic Acid 500 Mg Tablet PO 500 mg BIDWM ANA Administration Aspirin 81 mg 10/22/22 09:00 10/24/22 08:12 Aspirin Ec 81 Mg Tablet PO 81 mg DAILY ANA Administration Bupropion HCl 450 mg 10/14/22 09:00 10/24/22 08:11 Bupropion Xl 150 Mg Tablet PO 450 mg DAILY ANA Administration Buspirone HCl 30 mg 10/13/22 22:50 10/24/22 08:12 Buspirone 5 Mg Tablet PO 30 mg BID ANA Administration Diclofenac Sodium 75 mg 10/21/22 21:00 10/23/22 20:[address] 75 Mg Tablet PO 75 mg QPM ANA Administration Escitalopram Oxalate 30 mg 10/14/22 09:00 10/24/22 08:11 Escitalopram 10 Mg Tablet PO 30 mg DAILY ANA Administration Ferrous Sulfate 325 mg 10/14/22 17:00 10/24/22 16:32 Ferrous Sulfate 325 Mg Tablet PO 325 mg BIDWM ANA Administration Furosemide 40 mg 10/22/22 09:00 10/24/22 08:11 Furosemide 40 Mg Tablet PO 40 mg DAILY ANA Administration Losartan Potassium 25 mg 10/23/22 21:00 10/23/22 20:31 Losartan 50 Mg Tablet PO 25 mg QPM ANA Administration Metoprolol Succinate 25 mg 10/21/22 21:00 10/24/22 08:11 Metoprolol Succinate 25 Mg Tablet PO 25 mg BID ANA Administration Pantoprazole Sodium 40 mg 10/13/22 21:00 10/24/22 08:12 Pantoprazole 40 Mg Tablet PO 40 mg BID ANA Administration Potassium Chloride 20 meq 10/15/22 09:00 10/24/22 08:12 Potassium Chloride 20 Meq Tablet PO 20 meq DAILYWM ANA Administration Ropinirole HCl 1 mg 10/13/22 21:00 10/23/22 20:32 Ropinirole 1 Mg Tablet PO 1 mg QPM ANA Administration Sodium Chloride 10 ml 10/14/22 01:00 10/24/22 16:32 Sodium Chloride Flush 0.9% 10 Ml Syringe IVP 10 ml 0100,0900,1700 ANA Administration Spironolactone 25 mg 10/17/22 09:00 10/24/22 08:12 Spironolactone 25 Mg Tablet PO 25 mg DAILY ANA Administration - Lab Result Fish Bone Diagrams: 10/21/22 11:11 10/22/22 05:01 - Additional Planning My Orders: My Active Orders 10/23/22 21:00 Losartan [Cozaar] 25 mg PO QPM Subjective - Subjective Patient Reports: Other (No new complaints, "same as yesterday") Objective Vital Signs: Vital Signs - 24 hr 10/23/22 10/23/22 10/24/22 20:28 23:36 01:30 Temperature 36.3 C L Heart Rate 89 Heart Rate [ 91 89 Brachial] Respiratory 18 Rate Blood Pressure 149/80 H 137/68 H [Right Brachial artery] O2 Saturation 95 10/24/22 10/24/22 08:00 15:35 Temperature 36.5 C 36.9 C Heart Rate Heart Rate [ 79 82 Brachial] Respiratory 18 16 Rate Blood Pressure 124/73 159/77 H [Right Brachial artery] O2 Saturation 94 94 Oxygen O2 Source Room air Oxygen Flow Rate 4 I&O (Last 24 Hrs): Intake and Output Totals x24h 10/22/22 10/23/22 10/24/22 23:59 23:59 23:59 Intake Total 730 640 830 Output Total 7159 410 8674 Balance -022 -896 -515 General: Alert, Oriented x3 HEENT: Mucous membr. moist/pink Neck: Supple Neuro: Alert, Non Focal Cardiovascular: Regular rate (distant heart sounds) Respiratory: No respiratory distress (at rest) Abdomen: Soft, Other (Obese) Extremities: Other (1+ edema to mid shins, R forefoot swollen and pink) - Results Results: Laboratory Results WBC 9.0 x10^3/uL (4.8-10.8) 10/19/22 05:28 RBC 3.48 10^6/uL (4.20-5.40) L 10/19/22 05:28 Hgb 8.3 g/dL (12.0-16.0) L 10/21/22 11:11 Hct 29.2 % (37.0-47.0) L 10/19/22 05:28 MCV 83.9 fL (81.0-99.0) 10/19/22 05:28 MCH 23.6 pg (27.0-31.0) L 10/19/22 05:28 MCHC 28.1 g/dL (32.0-36.0) L 10/19/22 05:28 RDW 27.1 % (12.0-15.0) H 10/19/22 05:28 Plt Count 350 10^3/uL (130-450) 10/19/22 05:28 Neut # (Auto) 6.4 10^3/uL (1.5-6.6) 10/19/22 05:28 Lymph # (Auto) 0.9 10^3/uL (1.5-3.5) L 10/19/22 05:28 [place] # (Auto) 1.4 10^3/uL (0.0-1.0) H 10/19/22 05:28 Eos # (Auto) 0.2 10^3/uL (0.0-0.7) 10/19/22 05:28 Baso # (Auto) 0.1 10^3/uL (0.0-0.1) 10/19/22 05:28 Absolute Nucleated RBC 0.00 x10^3/uL 10/19/22 05:28 Nucleated RBC % 0.0 /100WBC 10/19/22 05:28 Manual Slide Review Indicated 10/19/22 05:28 WBC Morphology NORMAL APPEARANCE (NORMAL) 10/19/22 05:28 Platelet Estimate NORMAL (130-450,000) (NORMAL) 10/19/22 05:28 Platelet Morphology NORMAL APPEARANCE (NORMAL) 10/19/22 05:28 RBC Morph Micro Appear 3+ ANISOCYTOSIS (NORMAL) 1+ HYPOCHROMASIA (NORMAL) 10/19/22 05:28 RBC Morph Micro Appear 3+ ANISOCYTOSIS (NORMAL) 1+ HYPOCHROMASIA (NORMAL) 10/19/22 05:28 VBG pH 7.387 (7.31-7.41) 10/13/22 19:09 VBG pCO2 35.9 mmHg (41-51) L 10/13/22 19:09 VBG pO2 61.9 mmHg (25-47) H 10/13/22 19:09 VBG HCO3 21.1 mmol/L (23-28) L 10/13/22 19:09 VBG Total CO2 22.2 mmol/L (24-29) L 10/13/22 19:09 VBG O2 Saturation 89.3 % (60-80) H 10/13/22 19:09 VBG Base Excess -3.4 mmol/L (-2 - +2) L 10/13/22 19:09 Sodium 140 mmol/L (135-145) 10/22/22 05:01 Potassium 3.9 mmol/L (3.5-4.5) 10/22/22 05:01 Chloride 106 mmol/L (101-111) 10/22/22 05:01 Carbon Dioxide 28 mmol/L (21-32) 10/22/22 05:01 Anion Gap 6.0 (6-13) 10/22/22 05:01 BUN 9 mg/dL (6-20) 10/22/22 05:01 Creatinine 0.8 mg/dL (0.6-1.3) 10/22/22 05:01 Estimated GFR (MDRD) 74 (>89) L 10/22/22 05:01 Glucose 95 mg/dL (74-104) 10/22/22 05:01 POC Whole Bld Glucose 99 mg/dL (70 - 100) 10/14/22 16:33 Estimat Average Glucose 80 mg/dL (70-100) 10/14/22 04:55 Hemoglobin A1c % 4.4 % (4.27-6.07) 10/14/22 04:55 Lactic Acid 1.8 mmol/L (0.5-2.2) 10/13/22 19:09 Calcium 9.0 mg/dL (8.5-10.3) 10/22/22 05:01 Magnesium 1.7 mg/dL (1.7-2.3) 10/22/22 05:01 Iron 22 ug/dL (50-212) L 10/21/22 11:11 TIBC 321 ug/dL (250-450) 10/21/22 11:11 % Saturation 7 % (20-50) L 10/21/22 11:11 Transferrin 229 mg/dL (203-362) 10/21/22 11:11 Total Bilirubin 0.6 mg/dL (0.2-1.0) 10/13/22 19:09 AST 15 IU/L (10-42) 10/13/22 19:09 ALT 10 IU/L (10-60) 10/13/22 19:09 Alkaline Phosphatase 80 IU/L (42-121) 10/13/22 19:09 Troponin I High Sens 31.5 ng/L (2.3-14.8) H* 10/14/22 04:55 B-Natriuretic Peptide 891 pg/mL (5-100) H 10/22/22 05:01 Total Protein 6.3 g/dL (6.4-8.9) L 10/13/22 19:09 Albumin 3.4 g/dL (3.2-5.5) 10/13/22 19:09 Globulin 2.9 g/dL (2.1-4.2) 10/13/22 19:09 Albumin/Globulin Ratio 1.2 (1.0-2.2) 10/13/22 19:09 Triglycerides 78 mg/dL (48-352) 10/22/22 05:01 Cholesterol 113 mg/dL (-200) 10/22/22 05:01 LDL Cholesterol, Calc 62 mg/dL (-129) 10/22/22 05:01 VLDL Cholesterol 16 mg/dL 10/22/22 05:01 HDL Cholesterol 35 mg/dL (60-) L 10/22/22 05:01 LDL/HDL Ratio 1.8 (<4.4) 10/22/22 05:01 Cholesterol/HDL Ratio 3.2 (<4.4) 10/22/22 05:01 Urine Color YELLOW 10/13/22 20:25 Urine Clarity CLEAR (CLEAR) 10/13/22 20:25 Urine pH 5.5 PH (5.0-7.5) 10/13/22 20:25 Ur Specific [place] 1.010 (1.002-1.030) 10/13/22 20:25 Urine Protein NEGATIVE mg/dL (NEGATIVE) 10/13/22 20:25 Urine Glucose (UA) NEGATIVE mg/dL (NEGATIVE) 10/13/22 20:25 Urine Ketones NEGATIVE mg/dL (NEGATIVE) 10/13/22 20:25 Urine Occult Blood NEGATIVE (NEGATIVE) 10/13/22 20:25 Urine Nitrite NEGATIVE (NEGATIVE) 10/13/22 20:25 Urine Bilirubin NEGATIVE (NEGATIVE) 10/13/22 20:25 Urine Urobilinogen 0.2 (NORMAL) E.U./dL (NORMAL) 10/13/22 20:25 Ur Leukocyte Esterase NEGATIVE (NEGATIVE) 10/13/22 20:25 Urine RBC 0-5 /HPF (0-5) 10/13/22 20:25 Urine WBC 0-3 /HPF (0-5) 10/13/22 20:25 Ur Squamous Epith Cells RARE Squamous (<= Few) 10/13/22 20:25 Urine Bacteria None Seen /HPF (None Seen) 10/13/22 20:25 Urine Casts 0-2 Hyaline Casts /LPF 10/13/22 20:25 Urine Culture Comments NOT INDICATED 10/13/22 20:25 Nasal Adenovirus (PCR) NOT DETECTED 09/03/23 08:40 Nasal B. parapertussis DNA (PCR) NOT DETECTED 10/18/22 08:40 Nasal Coronavir 229E PCR NOT DETECTED 10/18/22 08:40 Nasal Coronavir HKU1 PCR NOT DETECTED 10/18/22 08:40 Nasal Coronavir NL63 PCR NOT DETECTED 10/18/22 08:40 Nasal Coronavir OC43 PCR NOT DETECTED 10/18/22 08:40 Nasal Enterovir/Rhinovir PCR NOT DETECTED 10/18/22 08:40 Nasal Influenza B PCR NOT DETECTED 10/18/22 08:40 Nasal Influenza A PCR NOT DETECTED 10/18/22 08:40 Nasal Parainfluen 1 PCR NOT DETECTED 10/18/22 08:40 Nasal Parainfluen 2 PCR NOT DETECTED 10/18/22 08:40 Nasal Parainfluen 3 PCR NOT DETECTED 10/18/22 08:40 Nasal Parainfluen 4 PCR NOT DETECTED 10/18/22 08:40 Nasal RSV (PCR) NOT DETECTED 10/18/22 08:40 Nasal B.pertussis DNA PCR NOT DETECTED 10/18/22 08:40 Nasal C.pneumoniae (PCR) NOT DETECTED 10/18/22 08:40 [place] Human Metapneumo PCR NOT DETECTED 10/18/22 08:40 Nasal M.pneumoniae (PCR) NOT DETECTED 10/18/22 08:40 Nasal SARS-CoV-2 (PCR) NOT DETECTED 10/18/22 08:40 Urine Opiates Screen NEGATIVE (NEGATIVE) 10/13/22 21:25 Ur Oxycodone Screen NEGATIVE (NEGATIVE) 10/13/22 21:25 Urine Methadone Screen NEGATIVE (NEGATIVE) 10/13/22 21:25 Ur Propoxyphene Screen NEGATIVE (NEGATIVE) 10/13/22 21:25 Ur Barbiturates Screen NEGATIVE (NEGATIVE) 10/13/22 21:25 Ur Tricyclics Screen NEGATIVE (NEGATIVE) 10/13/22 21:25 Ur Phencyclidine Scrn NEGATIVE (NEGATIVE) 10/13/22 21:25 Ur Amphetamine Screen NEGATIVE (NEGATIVE) 10/13/22 21:25 U Methamphetamines Scrn NEGATIVE (NEGATIVE) 10/13/22 21:25 U Benzodiazepines Scrn NEGATIVE (NEGATIVE) 10/13/22 21:25 Urine Cocaine Screen NEGATIVE (NEGATIVE) 10/13/22 21:25 U Cannabinoids Screen NEGATIVE (NEGATIVE) 10/13/22 21:25 Blood Type A POSITIVE 10/13/22 19:09 Antibody Screen NEGATIVE 10/13/22 19:09 - Procedures Procedures: Procedures EXCISION OF STOMACH, ENDO, DIAGN (09/27/22) INSPECTION OF LOWER INTESTINAL TRACT, ENDO (09/27/22) TRANSFUSE NONAUT RED BLOOD CELLS IN PERIPH VEIN, PERC (09/27/22)
[2022-10-24] MEDS: rOPINIRole 1 MG TABLET PO SCH (20:46)
[2022-10-24] MEDS: DICLOFENAC SODIUM DR 75 MG TABLET PO SCH (20:46)
[2022-10-24] MEDS: LOSARTAN 50 MG TABLET PO SCH (20:47)
[2022-10-25] MEDS: HYDROcod/ACETAM 5/325 MG TABLET PO PRN ×3 (00:28→23:26)
[2022-10-25] MEDS: SODIUM CHLORIDE FLUSH 0.9% 10 ML SYRINGE IVP SCH ×4 (00:28→23:28)
[2022-10-25] MEDS: POTASSIUM CHLORIDE 20 MEQ TABLET PO SCH (08:21)
[2022-10-25] MEDS: METOPROLOL SUCCINATE 25 MG TABLET PO SCH ×2 (08:21→20:13)
[2022-10-25] MEDS: ASCORBIC ACID 500 MG TABLET PO SCH ×2 (08:21→16:34)
[2022-10-25] MEDS: ASPIRIN EC 81 MG TABLET PO SCH (08:21)
[2022-10-25] MEDS: SPIRONOLACTONE 25 MG TABLET PO SCH (08:21)
[2022-10-25] MEDS: buPROPion XL 150 MG TABLET PO SCH (08:22)
[2022-10-25] MEDS: PANTOPRAZOLE 40 MG TABLET PO SCH ×2 (08:22→20:13)
[2022-10-25] MEDS: FUROSEMIDE 40 MG TABLET PO SCH (08:22)
[2022-10-25] MEDS: FERROUS SULFATE 325 MG TABLET PO SCH ×2 (08:22→16:34)
[2022-10-25] MEDS: busPIRone 5 MG TABLET PO SCH ×2 (08:22→20:13)
[2022-10-25] MEDS: ACETAMINOPHEN 325 MG TABLET PO PRN ×3 (08:25→20:18)
[2022-10-25] MEDS: ESCITALOPRAM 10 MG TABLET PO SCH (08:26)
[2022-10-25] MEDS: DICLOFENAC SODIUM DR 75 MG TABLET PO SCH (20:13)
[2022-10-25] MEDS: rOPINIRole 1 MG TABLET PO SCH (20:13)
[2022-10-25] MEDS: LOSARTAN 50 MG TABLET PO SCH (20:13)
[2022-10-26] MEDS: ACETAMINOPHEN 325 MG TABLET PO PRN ×3 (03:40→15:38)
--- NOTE | 2022-10-26 07:50 | PROVIDER PROGRESS NOTE ---
Assessment/Plan - Problem List (1) Acute systolic heart failure Assessment/Plan: THERE ARE NO CHANGES IN HER STATUS OR MEDS. WE ARE AWAITING A BED TO BE AVAILABLE TO TRANSFER HER TO [facility], WHERE SHE WAS ACCEPTED IN TRANSFER, ON 10/21/22. She presented now with pulmonary edema, hypoxia and anasarca to her thighsThe Echo done about a month ago showed LVEF 60%. This admission, her resting Echo shows EF 40%. She was on Lasix iv daily>> po daily with fluid restriction, and she is in negative in fluid balance. She had R-sided thoracentsis done 10/16.The pathology report from that has returned today and it shows no malignancy. She had CHF teaching by upset welding machine operator regarding weighing herself, salt intake and fluid restrictions. She had a treadmill stress test with Echo on 10/20, to check for CAD as the cause of the new VARGAS and new cardiomyopathy, and it showed rest LVEF 35-40% w/ resting wall motion abn and she only walked 52 sec, then had marked SOB and desaturated to 85% on room air. The Echo had same sverely hypokinetic zones. Plan: She needs a cor angiogram, given the new findings that suggest severe CAD. I have spoken to [facility] provider and [facility] Cardiol and Hospitalist. On 10/21 she was accepted at [facility] by both Cardiology and Hospitalist. We are waiting for a bed to become available. Plan: Cont daily baby ASA, p.o. Lasix 40 mg and KCl, Toprol-XL, Spironolactone, and Losartan. Follow BMP, Mg levels intermittently, replace if low. (2) Acute hypoxemic respiratory failure Assessment/Plan: Multifactorial: from CHF (pulm edema), MARITZA on CPAP, anemia, and her morbid obesity We have weaned her oxygen down breathing room air at rest. But she desaturates severely with exercise (on treadmill walk, which I supervised, she desaturated to 85% on room air after just walking 52 seconds on a modified Stewart protocol) She had PFTs which do show COPD, but she has no improvement w/ bronchodilators Plan: Continue with meds for CHF On the day of discharge she will need an oximetry walk test for getting home O2 (3) Iron deficiency anemia Qualifiers: Iron deficiency anemia type: unspecified iron deficiency Qualified Code(s): D50.9 - Iron deficiency anemia, unspecified Assessment/Plan: She had very low iron stores, which were checked during her last admission a month ago. Her fecal occult blood was negative on last admission, and rechecked on this admission and is again negative Patient had EGD and colonoscopy during last hospital stay, many gastric polyps were noted and biopsied then. The pathology report is not yet available. Hemoglobin is running 8-9 I ordered a bone marrow biopsy. Then I learned that because we have a portable CT scanner parked in our parking lot, the space is too small, so we cannot do CT-guided bone marrow biopsy here (for the next 3 months). I cancelled the plan for the bone marrow biopsy. I explained why to the patient Plan: Continue on iron supplement Monitor Hgb intermittently I discussed this Dx with doctors at [facility] when they accepted her on 10/21, and they will work her up at their facility w/ Hematology available (4) R foot arthritis Assessment/Plan: US for DVT was done and ruled out a DVT. She herself says it is her arthritis kicking in, especially because we stopped her diclofenac that she took BID. Plan: Cont [place] for pain as needed. I resumed just the nightly Diclofenac (5) HTN (hypertension) Qualifiers: Hypertension type: primary hypertension Qualified Code(s): I10 - Essential (primary) hypertension Assessment/Plan: Continue cardiac meds which are also controlling her blood pressure (6) MARITZA on CPAP Assessment/Plan: Continue to use CPAP with sleep (7) COPD Assessment/Plan: She underwent PFTs which showed moderate COPD. A DuoNeb treatment was then given at bedside and the patient noticed no improvement. RT confirmed that. Plan: She may have underlying pulmonary fibrosis since there is no bronchodilator effect. I suspect she also has a component of restrictive lung disease given her obesity She will likely need referral to a Cutting Machine Operator Helper as an outpatient (8) Morbid obesity with BMI of 45.0-49.9, adult Conclusion/Plan: Recommend lifestyle modification including dieting and exercise and followup with PCP for snf management (9) Restless leg syndrome Conclusion/Plan: Stable on her new Requip that was started last admission Plan: Continue Requip (10) Depression Conclusion/Plan: Controlled. no acute exacerbation. Plan: Continue bupropion and buspirone. - Current Meds Current Meds: Current Medications Generic Name Dose Route Start Last Admin Trade Name Nataliia PRN Reason Stop Dose Admin Acetaminophen 650 mg 10/13/22 20:43 10/26/22 03:40 Acetaminophen 325 Mg Tablet PO 650 mg Q4HR PRN Administration Pain 1 to 4, or Fever Hydrocodone Bitart/Acetaminophen 1 tab 10/19/22 16:19 10/25/22 23:26 Hydrocod/Acetam 5/325 Mg Tablet PO 1 tab Q4HR PRN Administration Moderate Pain (Level 4-6) Ascorbic Acid 500 mg 10/17/22 17:00 10/25/22 16:34 Ascorbic Acid 500 Mg Tablet PO 500 mg BIDWM ANA Administration Aspirin 81 mg 10/22/22 09:00 10/25/22 08:21 Aspirin Ec 81 Mg Tablet PO 81 mg DAILY ANA Administration Bupropion HCl 450 mg 10/14/22 09:00 10/25/22 08:22 Bupropion Xl 150 Mg Tablet PO 450 mg DAILY ANA Administration Buspirone HCl 30 mg 10/13/22 22:50 10/25/22 20:13 Buspirone 5 Mg Tablet PO 30 mg BID ANA Administration Diclofenac Sodium 75 mg 10/21/22 21:00 10/25/22 20:[address] 75 Mg Tablet PO 75 mg QPM ANA Administration Escitalopram Oxalate 30 mg 10/14/22 09:00 10/25/22 08:26 Escitalopram 10 Mg Tablet PO 30 mg DAILY ANA Administration Ferrous Sulfate 325 mg 10/14/22 17:00 10/25/22 16:34 Ferrous Sulfate 325 Mg Tablet PO 325 mg BIDWM ANA Administration Furosemide 40 mg 10/22/22 09:00 10/25/22 08:22 Furosemide 40 Mg Tablet PO 40 mg DAILY ANA Administration Losartan Potassium 25 mg 10/23/22 21:00 10/25/22 20:13 Losartan 50 Mg Tablet PO 25 mg QPM ANA Administration Metoprolol Succinate 25 mg 10/21/22 21:00 10/25/22 20:13 Metoprolol Succinate 25 Mg Tablet PO 25 mg BID ANA Administration Pantoprazole Sodium 40 mg 10/13/22 21:00 10/25/22 20:13 Pantoprazole 40 Mg Tablet PO 40 mg BID ANA Administration Potassium Chloride 20 meq 10/15/22 09:00 10/25/22 08:21 Potassium Chloride 20 Meq Tablet PO 20 meq DAILYWM ANA Administration Ropinirole HCl 1 mg 10/13/22 21:00 10/25/22 20:13 Ropinirole 1 Mg Tablet PO 1 mg QPM ANA Administration Sodium Chloride 10 ml 10/14/22 01:00 10/25/22 23:28 Sodium Chloride Flush 0.9% 10 Ml Syringe IVP 10 ml 0100,0900,1700 ANA Administration Spironolactone 25 mg 10/17/22 09:00 10/25/22 08:21 Spironolactone 25 Mg Tablet PO 25 mg DAILY ANA Administration - Lab Result Fish Bone Diagrams: 10/21/22 11:11 10/22/22 05:01 Subjective - Subjective Patient Reports: Other (Unchanged symptoms of right foot pain and VARGAS) Objective Vital Signs: Vital Signs - 24 hr 10/25/22 10/25/22 10/25/22 07:54 16:00 20:14 Temperature 36.8 C 36.7 C Heart Rate [ 85 87 89 Brachial] Respiratory 18 18 Rate Blood Pressure 133/68 H 141/94 H 138/76 H [Right Brachial artery] O2 Saturation 94 10/25/22 23:24 Temperature 36.7 C Heart Rate [ 86 Brachial] Respiratory 18 Rate Blood Pressure 141/82 H [Right Brachial artery] O2 Saturation 93 Oxygen O2 Source Room air Oxygen Flow Rate 4 I&O (Last 24 Hrs): Intake and Output Totals x24h 10/24/22 10/25/22 10/26/22 23:59 23:59 23:59 Intake Total 1060 980 250 Output Total 1850 2750 400 Balance -790 -1770 -150 General: Alert, Oriented x3 HEENT: Mucous membr. moist/pink Neck: Supple Neuro: Alert, Non Focal Cardiovascular: Regular rate Respiratory: No respiratory distress (at rest) Abdomen: Soft, Other (Obese) Extremities: No clubbing, Other (R forefoot mildly swollen on dorsum. 1+ pretibial edema.) - Results Results: Laboratory Results WBC 9.0 x10^3/uL (4.8-10.8) 10/19/22 05:28 RBC 3.48 10^6/uL (4.20-5.40) L 10/19/22 05:28 Hgb 8.3 g/dL (12.0-16.0) L 10/21/22 11:11 Hct 29.2 % (37.0-47.0) L 10/19/22 05:28 MCV 83.9 fL (81.0-99.0) 10/19/22 05:28 MCH 23.6 pg (27.0-31.0) L 10/19/22 05:28 MCHC 28.1 g/dL (32.0-36.0) L 10/19/22 05:28 RDW 27.1 % (12.0-15.0) H 10/19/22 05:28 Plt Count 350 10^3/uL (130-450) 10/19/22 05:28 Neut # (Auto) 6.4 10^3/uL (1.5-6.6) 10/19/22 05:28 Lymph # (Auto) 0.9 10^3/uL (1.5-3.5) L 10/19/22 05:28 [place] # (Auto) 1.4 10^3/uL (0.0-1.0) H 10/19/22 05:28 Eos # (Auto) 0.2 10^3/uL (0.0-0.7) 10/19/22 05:28 Baso # (Auto) 0.1 10^3/uL (0.0-0.1) 10/19/22 05:28 Absolute Nucleated RBC 0.00 x10^3/uL 10/19/22 05:28 Nucleated RBC % 0.0 /100WBC 10/19/22 05:28 Manual Slide Review Indicated 10/19/22 05:28 WBC Morphology NORMAL APPEARANCE (NORMAL) 10/19/22 05:28 Platelet Estimate NORMAL (130-450,000) (NORMAL) 10/19/22 05:28 Platelet Morphology NORMAL APPEARANCE (NORMAL) 10/19/22 05:28 RBC Morph Micro Appear 3+ ANISOCYTOSIS (NORMAL) 1+ HYPOCHROMASIA (NORMAL) 10/19/22 05:28 RBC Morph Micro Appear 3+ ANISOCYTOSIS (NORMAL) 1+ HYPOCHROMASIA (NORMAL) 10/19/22 05:28 VBG pH 7.387 (7.31-7.41) 10/13/22 19:09 VBG pCO2 35.9 mmHg (41-51) L 10/13/22 19:09 VBG pO2 61.9 mmHg (25-47) H 10/13/22 19:09 VBG HCO3 21.1 mmol/L (23-28) L 10/13/22 19:09 VBG Total CO2 22.2 mmol/L (24-29) L 10/13/22 19:09 VBG O2 Saturation 89.3 % (60-80) H 10/13/22 19:09 VBG Base Excess -3.4 mmol/L (-2 - +2) L 10/13/22 19:09 Sodium 140 mmol/L (135-145) 10/22/22 05:01 Potassium 3.9 mmol/L (3.5-4.5) 10/22/22 05:01 Chloride 106 mmol/L (101-111) 10/22/22 05:01 Carbon Dioxide 28 mmol/L (21-32) 10/22/22 05:01 Anion Gap 6.0 (6-13) 10/22/22 05:01 BUN 9 mg/dL (6-20) 10/22/22 05:01 Creatinine 0.8 mg/dL (0.6-1.3) 10/22/22 05:01 Estimated GFR (MDRD) 74 (>89) L 10/22/22 05:01 Glucose 95 mg/dL (74-104) 10/22/22 05:01 POC Whole Bld Glucose 99 mg/dL (70 - 100) 10/14/22 16:33 Estimat Average Glucose 80 mg/dL (70-100) 10/14/22 04:55 Hemoglobin A1c % 4.4 % (4.27-6.07) 10/14/22 04:55 Lactic Acid 1.8 mmol/L (0.5-2.2) 10/13/22 19:09 Calcium 9.0 mg/dL (8.5-10.3) 10/22/22 05:01 Magnesium 1.7 mg/dL (1.7-2.3) 10/22/22 05:01 Iron 22 ug/dL (50-212) L 10/21/22 11:11 TIBC 321 ug/dL (250-450) 10/21/22 11:11 % Saturation 7 % (20-50) L 10/21/22 11:11 Transferrin 229 mg/dL (203-362) 10/21/22 11:11 Total Bilirubin 0.6 mg/dL (0.2-1.0) 10/13/22 19:09 AST 15 IU/L (10-42) 10/13/22 19:09 ALT 10 IU/L (10-60) 10/13/22 19:09 Alkaline Phosphatase 80 IU/L (42-121) 10/13/22 19:09 Troponin I High Sens 31.5 ng/L (2.3-14.8) H* 10/14/22 04:55 B-Natriuretic Peptide 891 pg/mL (5-100) H 10/22/22 05:01 Total Protein 6.3 g/dL (6.4-8.9) L 10/13/22 19:09 Albumin 3.4 g/dL (3.2-5.5) 10/13/22 19:09 Globulin 2.9 g/dL (2.1-4.2) 10/13/22 19:09 Albumin/Globulin Ratio 1.2 (1.0-2.2) 10/13/22 19:09 Triglycerides 78 mg/dL (48-352) 10/22/22 05:01 Cholesterol 113 mg/dL (-200) 10/22/22 05:01 LDL Cholesterol, Calc 62 mg/dL (-129) 10/22/22 05:01 VLDL Cholesterol 16 mg/dL 10/22/22 05:01 HDL Cholesterol 35 mg/dL (60-) L 10/22/22 05:01 LDL/HDL Ratio 1.8 (<4.4) 10/22/22 05:01 Cholesterol/HDL Ratio 3.2 (<4.4) 10/22/22 05:01 Urine Color YELLOW 10/13/22 20:25 Urine Clarity CLEAR (CLEAR) 10/13/22 20:25 Urine pH 5.5 PH (5.0-7.5) 10/13/22 20:25 Ur Specific [place] 1.010 (1.002-1.030) 10/13/22 20:25 Urine Protein NEGATIVE mg/dL (NEGATIVE) 10/13/22 20:25 Urine Glucose (UA) NEGATIVE mg/dL (NEGATIVE) 10/13/22 20:25 Urine Ketones NEGATIVE mg/dL (NEGATIVE) 10/13/22 20:25 Urine Occult Blood NEGATIVE (NEGATIVE) 10/13/22 20:25 Urine Nitrite NEGATIVE (NEGATIVE) 10/13/22 20:25 Urine Bilirubin NEGATIVE (NEGATIVE) 10/13/22 20:25 Urine Urobilinogen 0.2 (NORMAL) E.U./dL (NORMAL) 10/13/22 20:25 Ur Leukocyte Esterase NEGATIVE (NEGATIVE) 10/13/22 20:25 Urine RBC 0-5 /HPF (0-5) 10/13/22 20:25 Urine WBC 0-3 /HPF (0-5) 10/13/22 20:25 Ur Squamous Epith Cells RARE Squamous (<= Few) 10/13/22 20:25 Urine Bacteria None Seen /HPF (None Seen) 10/13/22 20:25 Urine Casts 0-2 Hyaline Casts /LPF 10/13/22 20:25 Urine Culture Comments NOT INDICATED 10/13/22 20:25 Nasal Adenovirus (PCR) NOT DETECTED 10/18/22 08:40 Nasal B. parapertussis DNA (PCR) NOT DETECTED 10/18/22 08:40 Nasal Coronavir 229E PCR NOT DETECTED 10/18/22 08:40 Nasal Coronavir HKU1 PCR NOT DETECTED 10/18/22 08:40 Nasal Coronavir NL63 PCR NOT DETECTED 10/18/22 08:40 Nasal Coronavir OC43 PCR NOT DETECTED 10/18/22 08:40 Nasal Enterovir/Rhinovir PCR NOT DETECTED 10/18/22 08:40 Nasal Influenza B PCR NOT DETECTED 10/18/22 08:40 Nasal Influenza A PCR NOT DETECTED 10/18/22 08:40 Nasal Parainfluen 1 PCR NOT DETECTED 10/18/22 08:40 Nasal Parainfluen 2 PCR NOT DETECTED 10/18/22 08:40 Nasal Parainfluen 3 PCR NOT DETECTED 10/18/22 08:40 Nasal Parainfluen 4 PCR NOT DETECTED 10/18/22 08:40 Nasal RSV (PCR) NOT DETECTED 10/18/22 08:40 Nasal B.pertussis DNA PCR NOT DETECTED 10/18/22 08:40 Nasal C.pneumoniae (PCR) NOT DETECTED 10/18/22 08:40 [place] Human Metapneumo PCR NOT DETECTED 10/18/22 08:40 Nasal M.pneumoniae (PCR) NOT DETECTED 10/18/22 08:40 Nasal SARS-CoV-2 (PCR) NOT DETECTED 10/18/22 08:40 Urine Opiates Screen NEGATIVE (NEGATIVE) 10/13/22 21:25 Ur Oxycodone Screen NEGATIVE (NEGATIVE) 10/13/22 21:25 Urine Methadone Screen NEGATIVE (NEGATIVE) 10/13/22 21:25 Ur Propoxyphene Screen NEGATIVE (NEGATIVE) 10/13/22 21:25 Ur Barbiturates Screen NEGATIVE (NEGATIVE) 10/13/22 21:25 Ur Tricyclics Screen NEGATIVE (NEGATIVE) 10/13/22 21:25 Ur Phencyclidine Scrn NEGATIVE (NEGATIVE) 10/13/22 21:25 Ur Amphetamine Screen NEGATIVE (NEGATIVE) 10/13/22 21:25 U Methamphetamines Scrn NEGATIVE (NEGATIVE) 10/13/22 21:25 U Benzodiazepines Scrn NEGATIVE (NEGATIVE) 10/13/22 21:25 Urine Cocaine Screen NEGATIVE (NEGATIVE) 10/13/22 21:25 U Cannabinoids Screen NEGATIVE (NEGATIVE) 10/13/22 21:25 Blood Type A POSITIVE 10/13/22 19:09 Antibody Screen NEGATIVE 10/13/22 19:09 - Procedures Procedures: Procedures EXCISION OF STOMACH, ENDO, DIAGN (09/27/22) INSPECTION OF LOWER INTESTINAL TRACT, ENDO (09/27/22) TRANSFUSE NONAUT RED BLOOD CELLS IN PERIPH VEIN, PERC (09/27/22)
[2022-10-26] MEDS: PANTOPRAZOLE 40 MG TABLET PO SCH (08:23)
[2022-10-26] MEDS: FERROUS SULFATE 325 MG TABLET PO SCH (08:23)
[2022-10-26] MEDS: ASPIRIN EC 81 MG TABLET PO SCH (08:23)
[2022-10-26] MEDS: FUROSEMIDE 40 MG TABLET PO SCH (08:23)
[2022-10-26] MEDS: SPIRONOLACTONE 25 MG TABLET PO SCH (08:23)
[2022-10-26] MEDS: ASCORBIC ACID 500 MG TABLET PO SCH (08:23)
[2022-10-26] MEDS: POTASSIUM CHLORIDE 20 MEQ TABLET PO SCH (08:23)
[2022-10-26] MEDS: METOPROLOL SUCCINATE 25 MG TABLET PO SCH (08:23)
[2022-10-26] MEDS: buPROPion XL 150 MG TABLET PO SCH (08:23)
[2022-10-26] MEDS: ESCITALOPRAM 10 MG TABLET PO SCH (08:24)
[2022-10-26] MEDS: SODIUM CHLORIDE FLUSH 0.9% 10 ML SYRINGE IVP SCH (08:24)
[2022-10-26] MEDS: busPIRone 5 MG TABLET PO SCH (08:24)
--- NOTE | 2022-10-26 12:36 | Discharge Plan ---
Discharge Plan Problem Reviewed?: Yes Disposition: 02 Transfer Acute Care Hosp Condition: Fair No Smoking: If you smoke, Please STOP! Call for help.
--- NOTE | 2022-10-26 12:36 | DISCHARGE SUMMARY ---
Discharge Summary Admit Date: 10/13/22 Discharge Date: 10/26/22 Discharging Provider: Dr Ann-Marie King Primary Care Provider: JIMMIE Gamino Code Status: Attempt Resuscitation Condition at Discharge: Fair Discharge Disposition: 02 Transfer Acute Care Hosp - [facility] History of Present Illness: 57YOF c depression who was hospitalized earlier this month for severe anemia, got transfused 6U blood, had EGD and colonoscopy, and discharged. She now presents w/ SOB. SOB developed couple of day after discharge. SOB worse with exertion, positive orthopnea, positive lower extrem edema, positive bloated. Patient was started on Lasix from last hospitalization because she had "fluid around her heart" per pt. Patient also reports being told of abnormal EKG that showed possible heart attack. And she reports Lasix has not helped with her sxs since discharge. She says she was not given heart failure education and had not been fluid restricting or weighing herself daily. There has been no fever. No runny nose. No sore throat. No chest pain. No palpitation. No n/v/d. No rash. In the ER she is found to have BNP 1346, pulm edema, O2 desaturation. She will be admitted to treat CHF exacerbation. - HOSPITAL COURSE Hospital Course: (1) Acute systolic heart failure She presented now with pulmonary edema, a pleural effusion, hypoxia and anasarca to her thighs. The Echo done about a month ago showed LVEF 60%. This admission, her resting Echo showed EF 40% with new [id number] wall motion abnormality. Troponins did not show an acute KS. She was on Lasix iv daily and had a 7L neg fluid status. She had R-sided thoracentsis done 10/16. The pathology report showed no malignancy. She had CHF teaching by medical records coordinator regarding weighing herself, salt and fluid restrictions. She underwent a treadmill stress test with Echo on 10/20, to check for CAD as the cause of the new VARGAS and new wall motion abnormality, and it showed rest LVEF 35-40% w/ that resting wall motion abn and she only walked 52 sec, then had marked SOB and desaturated to 85% on room air. The Echo had the same severely hypokinetic (nearly akinetic) zones. She needed a cor angiogram, given the new findings that suggest severe CAD. On 9/6 she was accepted for transfer to [facility] by both Cardiology and Hospitalist. We were waiting several days for a bed to become available there. She was transferred there on daily baby ASA, p.o. Lasix 40 mg and KCl, Toprol- XL, Spironolactone, and Losartan. (2) Acute hypoxemic respiratory failure Multifactorial: from pulm edema, pleural effusion, anemia, and her morbid obesity (MARITZA on CPAP). As she diuresed, we weaned her oxygen down to room air at rest. But she desaturated severely with exercise (during her treadmill exercise test, which I supervised, she desaturated to 85% on room air, after just walking 52 seconds). She had PFTs done which do show COPD, but she had no improvement w/ bronchodilators. At time of transfer, she was breathing room air at rest. (3) Iron deficiency anemia She has very low iron stores, which were checked during her last admission a month ago. Her fecal occult blood was negative on last admission, and rechecked on this admission and was again negative. Patient had EGD and colonoscopy during last hospital stay, and many gastric polyps were noted and biopsied then. The pathology report is not yet available. Hemoglobin was running 8-9. I ordered a bone marrow biopsy, then learned that because we have a portable CT scanner parked in our parking lot, the space is too small, so we cannot do CT- guided bone marrow biopsy here (for the next 3 months). I cancelled the plan for the bone marrow biopsy. She was continued on iron supplement. I discussed this Dx with doctors at [facility] when they accepted her on 10/21, and they may work her up at their facility w/ Hematology, or she needs outpatient Hematology. (4) R foot arthritis She developed R foot and lower leg pain and an US for DVT was done and ruled out a DVT. She felt her arthritis was kicking in, because we stopped her Diclofenac that she took BID. She got [place] for pain prn and I resumed just the nightly Diclofenac. (5) HTN (hypertension) Her cardiac meds were also controlling her blood pressure (6) MARITZA on CPAP She continued to use CPAP with sleep (7) COPD She underwent PFTs during this hospitalization, which showed moderate COPD. A DuoNeb treatment was then given at bedside and the patient noticed no improvement. RT confirmed that. She may have underlying pulmonary fibrosis since there is no bronchodilator effect. I suspect she also has a component of r estrictive lung disease given her obesity. Consider a referral to a Pharmacist Intern as an outpatient (8) Morbid obesity with BMI of 45.0-49.9, adult Recommend lifestyle modification including dieting and exercise and followup with PCP for intermediate frame tender management (9) Restless leg syndrome Stable on her new Requip that was started last admission, which we continued here (10) Depression We continued her Bupropion and Buspirone. - ALLERGIES Allergies/Adverse Reactions: Allergies Allergy/AdvReac Type Severity Reaction Status Date / Time adhesive tape AdvReac Rash Verified 09/26/22 16:52 - MEDICATIONS Home Medications: Ambulatory Orders Medication Instructions Recorded Confirmed Buspirone HCl 30 mg PO BID 07/28/19 10/13/22 buPROPion HCL [Wellbutrin Xl] 300 mg PO DAILY 09/26/22 10/13/22 Escitalopram Oxalate 30 mg PO DAILY 09/27/22 10/13/22 buPROPion HCL [Bupropion Xl] 1 tab PO DAILY 09/27/22 10/13/22 Ferrous Gluconate [Fergon] 324 mg PO TID #90 tab 09/30/22 10/13/22 Furosemide [Lasix] 20 mg PO DAILY #30 tab 09/30/22 10/13/22 Metoprolol Succinate [Toprol Xl] 25 mg PO DAILY #30 tab 09/30/22 Pantoprazole [Protonix] 40 mg PO BID #60 tab 09/30/22 10/13/22 rOPINIRole [Requip] 1 mg PO QPM #30 tab 09/30/22 10/13/[address] [Voltaren] 75 mg PO BID 10/13/22 10/13/22 Cholecalciferol (Vitamin D3) 25 mcg PO DAILY 10/14/22 10/14/22 [Vitamin D3] Methenamine/Sodium Salicylate [Azo 1 tab PO QPM 10/14/22 10/14/22 Urinary Tract Defense Tab] - PHYSICAL EXAM AT DISCHARGE General Appearance: positive: No acute distress, Alert, Other (Obese female) Eyes Bilateral: positive: Normal inspection, EOMI ENT: positive: ENT inspection nml, No signs of dehydration Neck: positive: Nml inspection, No JVD Respiratory: positive: No respiratory distress, Breath sounds nml Cardiovascular: positive: Regular rate & rhythm, No murmur Abdomen: positive: Non-tender, Nml bowel sounds, Other (Obese with a pannus) Skin: positive: Warm, Dry Extremities: positive: Other (1+ pretibial edema to knees, R forefoot tender, R danielle bandaged) Neurologic/Psychiatric: positive: Oriented x3, Motor nml - LABS Result Diagrams: 10/21/22 11:11 10/22/22 05:01 - DIAGNOSTIC IMAGING Diagnostic Imaging Results: Final report reviewed - FOLLOW UP Follow Up: To be determined, after her hospitalization at [facility] - TIME SPENT Time Spent in Discharge (Minutes): 50
[2022-10-26 14:41] VITALS: BP 135/72; O2SAT 97
== END 2022-10-26 15:48 | disposition short-term general hospital (02) | DRG 291 ==
LOC: EDUNIT# → ED 18:34 → MS2 20:44
PROVIDERS: ADMIT Internal Medicine; ATTEND Internal Medicine
DX: R09.02 Hypoxemia (principal); R06.82 Tachypnea, not elsewhere classified; R00.0 Tachycardia, unspecified; R79.89 Other specified abnormal findings of blood chemistry; I10 Essential (primary) hypertension; I50.21 Acute systolic (congestive) heart failure; J96.01 Acute respiratory failure with hypoxia; I42.9 Cardiomyopathy, unspecified; Z68.42 Body mass index [BMI] 45.0-49.9, adult; G47.33 Obstructive sleep apnea (adult) (pediatric); E66.01 Morbid (severe) obesity due to excess calories; J44.9 Chronic obstructive pulmonary disease, unspecified; D50.9 Iron deficiency anemia, unspecified; M19.071 Primary osteoarthritis, right ankle and foot; I11.0 Hypertensive heart disease with heart failure; G25.81 Restless legs syndrome; F32.A Depression, unspecified; Z20.822 Contact with and (suspected) exposure to COVID-19; Z79.899 Other long term (current) drug therapy; Z87.891 Personal history of nicotine dependence
CPT/HCPCS: 32555; 36415; 71045; 80048; 80053; 80061; 80306; 81001; 82272; 82803; 83036; 83540; 83605; 83735; 83880; 84466; 84484; 85018; 85025; 86850; 86900; 86901; 87040; 87150; 87181; 87633; 93005; 93308; 93350; 93971; 94640; 94660; 96374; 96375; 99285; A9270; J2060; 83721; 87086

== ENCOUNTER 2022-10-26 15:48 | Outpatient (CLI) | payer SELFPAY | END 2022-10-26 15:49 | disposition short-term general hospital (02) | LOC: EMS 15:48 | PROVIDERS: ATTEND Internal Medicine | DX: I42.9 Cardiomyopathy, unspecified (principal); D64.9 Anemia, unspecified; R06.02 Shortness of breath | CPT/HCPCS: A0425; A0428 ==

== ENCOUNTER 2023-01-31 16:34 | Emergency (ER) | payer SELFPAY ==
[2023-01-31 16:57] VITALS: O2SAT 96
--- NOTE | 2023-01-31 17:40 | ED Physician Documentation ---
PD HPI LOWER EXT INJURY - Stated complaint Stated Complaint: LT FOOT PX - Chief complaint Chief Complaint: Ext Problem - History obtained from History obtained from: Patient - History of Present Illness PD HPI LOW EXT INJURY LOCATION: Left, Foot Type of injury: Twist (she states struck foot against box of soda cans 2 nights ago. No noted pain at the time. Has had increasing pain dorsolateral foot the past day, with severe pain this afternoon.) Where injury occurred: Home Timing - onset: How many days ago (1-2) Timing - duration: Days (1-2) Timing - details: Gradual onset, Still present Worsened by: Moving, Palpating, Other (walking) Associated symptoms: Swelling, Discolored (mild redness), Other (no skin sores nor rash.). 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 HEENT: None Psych: Depression Musculoskeletal: None, Other (no history of gout) Derm: None - Past Surgical History Past Surgical History: Yes General: Cholecystectomy, Colonoscopy /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 MACHINE 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: Other - Present Medications Home Medications: Ambulatory Orders Medication Instructions Recorded Confirmed Buspirone HCl 30 mg PO BID 07/28/19 10/13/22 buPROPion HCL [Wellbutrin Xl] 300 mg PO DAILY 09/26/22 10/13/22 Escitalopram Oxalate 30 mg PO DAILY 09/27/22 10/13/22 buPROPion HCL [Bupropion Xl] 1 tab PO DAILY 09/27/22 10/13/22 Ferrous Gluconate [Fergon] 324 mg PO TID #90 tab 09/30/22 10/13/22 Furosemide [Lasix] 20 mg PO DAILY #30 tab 09/30/22 10/13/22 Metoprolol Succinate [Toprol Xl] 25 mg PO DAILY #30 tab 09/30/22 Pantoprazole [Protonix] 40 mg PO BID #60 tab 09/30/22 10/13/22 rOPINIRole [Requip] 1 mg PO QPM #30 tab 09/30/22 10/13/[address] [Voltaren] 75 mg PO BID 10/13/22 10/13/22 Cholecalciferol (Vitamin D3) 25 mcg PO DAILY 10/14/22 10/14/22 [Vitamin D3] Methenamine/Sodium Salicylate [Azo 1 tab PO QPM 10/14/22 10/14/22 Urinary Tract Defense Tab] HYDROcod/ACETAM 5/325 [[place] 5/325] 1 ea PO Q6H PRN #15 tablet 01/31/23 Meloxicam [Mobic] 7.5 mg PO BID 7 Days #15 tablet 01/31/23 dexAMETHasone [Decadron] 4 mg PO DAILY #5 tablet 01/31/23 - Allergies Allergies/Adverse Reactions: Allergies Allergy/AdvReac Type Severity Reaction Status Date / Time adhesive tape AdvReac Rash Verified 01/31/23 16:54 - Social History Does the pt smoke?: No Smoking Status: Never smoker Does the pt drink ETOH?: No Does the pt have substance abuse?: No - Immunizations Immunizations are current?: Yes - POLST Patient has POLST: No PD ED PE NORMAL - Vitals Vital signs reviewed: Yes - General General: Alert and oriented X 3, Well developed/nourished, Other (appears in pain due to foot, even without movement. ) - Derm Derm: Normal color, Warm and dry - Extremities Extremities: Other (Dorsal lateral left foot with mild redness and warmth and exquisite tenderness. No skin sores. Not tender at the base of the toe. Ankle not tender.) - Neuro Neuro: No motor deficit, No sensory deficit Results - Vitals Vitals: Vital Signs - 24 hr 01/31/23 16:50 Temperature 36.4 C L Heart Rate 80 Respiratory 16 Rate Blood Pressure 152/78 H O2 Saturation 96 Oxygen O2 Source Room air - Rads (name of study) left foot Relevant Findings:: Prelim report reviewed, EMP independent interpretation of test (no acute changes. ) PD Medical Decision Making - ED course Complexity details: reviewed results (xray foot without bony changes. ), considered differential (Patient with gradual but steady increase in pain and tenderness of the dorsum of the left foot. Mild contusion type injury 2 days ago. No history of gout. This seems likely a new onset gout or tendinitis. We can get an x-ray to ensure no bony abnormality.), d/w patient Procedural Risk Factors Specific to Patient: The patient does not have any JASON forms and she denies any problems in the past with opiate use. Departure - Departure Disposition: 01 Home, Self Care Clinical Impression: Left foot pain, Gout Condition: Stable Record reviewed to determine appropriate education?: Yes Instructions: ED Arthritis Gout Follow-Up: Mohini Gamino PA-C [Primary Care Provider] - Prescriptions: dexAMETHasone [Decadron] 4 mg PO DAILY #5 tablet Meloxicam [Mobic] 7.5 mg PO BID 7 Days #15 tablet HYDROcod/ACETAM 5/325 [[place]side 5/325] 1 ea PO Q6H PRN #15 tablet PRN Reason: Pain Comments: This sounds likely to be a new onset of gout. This can be a random occurrence related to minor injury like you had the other night. It does not necessarily predict recurring or future episodes. Will treated as likely gout/inflammatory tendinitis with initially Decadron anti-inflammatory. Use that daily for the next 4 to 5 days. Add Tylenol 500 to 650 mg every 4-6 hours if needed for pain or hydrocodone/acetaminophen if needed for worse pain. After the initial's steroid anti-inflammatories, if there is not complete resolution, you can add then meloxicam nonsteroidal anti-inflammatory for the next week or so. Be sure to take these with food so as to not bother your stomach. The intention with the anti-inflammatories would be short-term from several days up to 7 to 10 days. Recheck if not improving reasonably well however over the next 2 to 3 days. Otherwise follow-up with your primary care if you have recurrent episodes as there are other treatment options for recurrent episodes of gout. Your x-ray does not show any fractures. There is some arthritis around the midfoot and this could certainly just be flared up with some arthritis pain. This would be treated similar to gout or tendinitis with the anti-inflammatory as an pain medicine. I sent prescriptions to your preferred pharmacy, [facility]. I am prescribing a short course of narcotic pain medication for you. These are potentially dangerous and addictive medications that should be used carefully. These medications may constipate you. Take an [id number] stool softener such as docusate twice daily with plenty of water while taking these medications. If you go 24 hours without a bowel movement, take [id number] MiraLAX, per package instructions. Do not drink or drive while taking these medications. If you received narcotic or sedating medications while in the emergency department do not drive for 24 hours. Store this medication in a safe, secure place and out of reach of children. It is a violation of federal law to give or sell this medication to another person or to use in a manner other than prescribed. The ED will not refill narcotic prescriptions, including prescriptions lost or stolen. You can dispose of unwanted medications at the [facility]'s office or at several pharmacies such as [facility]. Forms: PCP List
[2023-01-31] MEDS ORDERED: HYDROcod/ACETAM 5/325 MG TABLET PO STA (17:51)
[2023-01-31] MEDS ORDERED: dexAMETHasone 4 MG TABLET PO STA (17:51)
[2023-01-31] MEDS ORDERED: NAPROXEN 250 MG TABLET PO STA (17:52)
[2023-01-31] MEDS ORDERED: HYDROcod/ACET 5/325 Prepack 4 PO STA (17:52)
--- NOTE | 2023-01-31 18:35 | XRAY Report ---
PROCEDURE: Foot 3 View LT INDICATIONS: LEFT FOOT PAIN X 1 DAY TECHNIQUE: 3 views of the foot were acquired. COMPARISON: None. FINDINGS: Bones: No fractures or dislocations. Moderate plantar calcaneal spur. Degenerative spurring, subcor tical lucency in the mid foot. No suspicious bony lesions. Soft tissues: No suspicious soft tissue calcifications or masses. IMPRESSION: 1. No acute fracture or dislocation. 2. Chronic appearing midfoot degenerative changes. Reviewed by: Clarisa Horan MD on 01/31/2023 6:33 PM PST Approved by: Clarisa Horan MD on 01/31/2023 6:33 PM PST Station ID: [id number]
[2023-01-31 18:47] VITALS: BP 140/72
== END 2023-01-31 18:37 | disposition home or self-care (01) ==
LOC: ED 16:34
DX: M10.9 Gout, unspecified (principal); M79.672 Pain in left foot; I10 Essential (primary) hypertension; Z79.899 Other long term (current) drug therapy
CPT/HCPCS: 99283

== ENCOUNTER 2023-04-23 14:49 | Outpatient (CLI) | payer MEDICARE ==
[2023-04-23 17:57] LABS: ABSOLUTE RETICS # AUTO 0.112 10^6/uL (0.020-0.110); BASOPHILS # (AUTO) 0.1 10^3/uL (0.0-0.1); BASOPHILS % (AUTO) 0.8 %; EOSINOPHILS # (AUTO) 0.3 10^3/uL (0.0-0.7); EOSINOPHILS % (AUTO) 3.5 %; HGB - HEMOGLOBIN 13.6 g/dL (12.0-16.0); LYMPHOCYTES # (AUTO) 0.8 10^3/uL (1.5-3.5); LYMPHOCYTES % (AUTO) 10.4 %; MEAN CORPUSCULAR HEMOGLOBIN 28.8 pg (27.0-31.0); MEAN CORPUSCULAR HGB CONC 30.2 g/dL (32.0-36.0); MEAN CORPUSCULAR VOLUME 95.3 fL (81.0-99.0); MEAN PLATELET VOLUME 12.7 fL (7.9-10.8); MONOCYTES # (AUTO) 0.8 10^3/uL (0.0-1.0); MONOCYTES % (AUTO) 10.2 %; NEUTROPHILS # (AUTO) 5.9 10^3/uL (1.5-6.6); PLT - PLATELET COUNT 175 10^3/uL (130-450); RED BLOOD COUNT 4.72 10^6/uL (4.20-5.40); RED CELL DISTRIBUTION WIDTH 14.9 % (12.0-15.0); RETICULOCYTE COUNT % (AUTO) 2.38 % (0.5-2.3); WHITE BLOOD COUNT 7.9 x10^3/uL (4.8-10.8)
[2023-04-23 18:18] LABS: ALBUMIN 4.1 g/dL (3.2-5.5); ALBUMIN/GLOBULIN RATIO 1.5 (1.0-2.2); BILIRUBIN,TOTAL 0.4 mg/dL (0.2-1.0); CALCIUM 10.1 mg/dL (8.5-10.3); CREATININE 0.7 mg/dL (0.6-1.3); POTASSIUM 4.2 mmol/L (3.5-4.5); TOTAL PROTEIN 6.9 g/dL (6.4-8.9)
[2023-04-23 18:31] LABS: FERRITIN 95.6 ng/mL (11.0-306.8)
== END 2023-04-23 14:50 | disposition home or self-care (01) ==
LOC: LAB.N 14:49
PROVIDERS: ATTEND Physician Assistant
DX: D50.9 Iron deficiency anemia, unspecified (principal); I50.31 Acute diastolic (congestive) heart failure
CPT/HCPCS: 36415; 80053; 82728; 83540; 83880; 84466; 85025; 85045

== ENCOUNTER 2023-04-30 07:00 | Outpatient (CLI) | payer MEDICARE ==
[2023-04-30 19:25] LABS: INFLUENZA A- RESP PCR PANEL NOT DETECTED; INFLUENZA B - RESP PCR PANEL NOT DETECTED; RSV- RESP PCR PANEL NOT DETECTED; SARS-CoV-2 -RESP PCR PANEL NOT DETECTED
== END 2023-04-30 23:59 | disposition home or self-care (01) ==
LOC: LAB.S 07:00
PROVIDERS: ATTEND Physician Assistant
DX: R05.1 Acute cough (principal)
CPT/HCPCS: 87637

== ENCOUNTER 2023-05-13 14:43 | Outpatient (CLI) | payer MEDICARE ==
--- NOTE | 2023-05-13 15:21 | XRAY Report ---
PROCEDURE: Chest 2V INDICATIONS: ACUTE COUGH TECHNIQUE: 2 views of the chest were acquired. COMPARISON: 10/18/2022. FINDINGS: Surgical changes and devices: None. Lungs and pleura: No pleural effusions or pneumothorax. Elevation of the right hemidiaphragm versus eventration is new compared to prior. Lungs are clear. Mediastinum: Mediastinal contours appear normal. Heart size is enlarged, stable. Bones and chest wall: No suspicious bony lesions. Overlying soft tissues appear unremarkable. IMPRESSION: 1.No acute cardiopulmonary process. 2.New elevation of the right hemidiaphragm versus eventration. 3.Stable cardiomegaly. Reviewed by: Vaibhav Mccarty MD on 05/13/2023 3:19 PM PDT Approved by: Vaibhav Mccarty MD on 05/13/2023 3:19 PM PDT Station ID: [id number]
--- NOTE | 2023-05-13 15:23 | XRAY Report ---
PROCEDURE: Knee 4+V BL INDICATIONS: KNEE PAIN TECHNIQUE: 8 views of the knee(s) were acquired. COMPARISON: 08/09/2019. FINDINGS: Bones: No fractures or dislocations. 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 There is tricompartmental osteophytosis. Severe joint space narrowing within the medial compartments bilaterally. No suspicious bony lesions. Screw fixation within the proximal right tibia is noted. Soft tissues: Small left knee joint effusion. No suspicious soft tissue calcifications or masses. IMPRESSION: No acute bony abnormality. Severe degenerative changes of the bilateral knees. Reviewed by: Vaibhav Mccarty MD on 05/13/2023 3:22 PM PDT Approved by: Vaibhav Mccarty MD on 05/13/2023 3:22 PM PDT Station ID: [id number]
== END 2023-05-13 14:44 | disposition home or self-care (01) ==
LOC: DI 14:43
PROVIDERS: ATTEND Physician Assistant
DX: M17.0 Bilateral primary osteoarthritis of knee (principal); R05.1 Acute cough; I51.7 Cardiomegaly

== ENCOUNTER 2023-08-31 13:20 | Outpatient (CLI) | payer MEDICARE ==
[2023-08-31 18:25] LABS: BASOPHILS # (AUTO) 0.1 10^3/uL (0.0-0.1); EOSINOPHILS # (AUTO) 0.4 10^3/uL (0.0-0.7); EOSINOPHILS % (AUTO) 5.2 %; HCT - HEMATOCRIT 42.7 % (37.0-47.0); HGB - HEMOGLOBIN 12.9 g/dL (12.0-16.0); LYMPHOCYTES % (AUTO) 12.4 %; MEAN CORPUSCULAR HEMOGLOBIN 29.5 pg (27.0-31.0); MEAN CORPUSCULAR HGB CONC 30.2 g/dL (32.0-36.0); MEAN CORPUSCULAR VOLUME 97.5 fL (81.0-99.0); MEAN PLATELET VOLUME 12.6 fL (7.9-10.8); MONOCYTES # (AUTO) 0.8 10^3/uL (0.0-1.0); MONOCYTES % (AUTO) 10.4 %; NEUTROPHILS # (AUTO) 5.4 10^3/uL (1.5-6.6); NEUTROPHILS % (AUTO) 69.6 %; PLT - PLATELET COUNT 207 10^3/uL (130-450); RED BLOOD COUNT 4.38 10^6/uL (4.20-5.40); RED CELL DISTRIBUTION WIDTH 14.2 % (12.0-15.0); WHITE BLOOD COUNT 7.8 x10^3/uL (4.8-10.8)
[2023-08-31 18:28] LABS: FERRITIN 148.1 ng/mL (11.0-306.8)
== END 2023-08-31 13:21 | disposition home or self-care (01) ==
LOC: LAB.N 13:20
PROVIDERS: ATTEND Physician Assistant
DX: D64.9 Anemia, unspecified (principal); K21.9 Gastro-esophageal reflux disease without esophagitis; K31.7 Polyp of stomach and duodenum; Z86.010 Personal history of colon polyps
CPT/HCPCS: 36415; 82728; 83540; 84466; 85025

== ENCOUNTER 2023-08-31 14:43 | Outpatient (CLI) | payer MEDICARE ==
--- NOTE | 2023-08-31 15:42 | XRAY Report ---
PROCEDURE: Chest 2V INDICATIONS: ABNORMAL CHESTT RADIOGRAPH TECHNIQUE: 2 views of the chest were acquired. COMPARISON: X-ray chest 05/13/2023. FINDINGS: Surgical changes and devices: None. Lungs and pleura: No pleural effusions or pneumothorax. Lungs are clear. Mediastinum: Elevation of the right hemidiaphragm appears unchanged. Mediastinal contours appear nor mal. Heart size is normal. Bones and chest wall: Mild kyphosis. IMPRESSION: Elevation of the right hemidiaphragm, unchanged No acute cardiopulmonary process. Reviewed by: Russell Nesbitt MD on 08/31/2023 3:41 PM PDT Approved by: Russell Nesbitt MD on 08/31/2023 3:41 PM PDT Station ID: [id number]
== END 2023-08-31 14:44 | disposition home or self-care (01) ==
LOC: DI 14:43
PROVIDERS: ATTEND Physician Assistant
DX: R91.8 Other nonspecific abnormal finding of lung field (principal); D64.9 Anemia, unspecified; K21.9 Gastro-esophageal reflux disease without esophagitis; K31.7 Polyp of stomach and duodenum; Z86.010 Personal history of colon polyps
CPT/HCPCS: 36415; 82728; 83540; 84466; 85025